=== PATIENT | male | born 1930 | race Caucasian/White ===

== ENCOUNTER 2017-03-25 12:18 | Inpatient (IN) | payer OTHER, MEDICARE ==
[~2017-03-25] VITALS: Ht 162.6 cm; Wt 68.9 kg
[2017-03-25 12:25] VITALS: Ht 162.6 cm; Wt 68.9 kg
--- NOTE | 2017-03-25 13:04 | DIAGNOSTIC IMAGING REPORT ---
CHEST ONE VIEW PORTABLE CLINICAL HISTORY: EVALUATE RESPIRATORY DISTRESS. DYSPNEA dyspnea COMPARISON STUDY: None FINDINGS: Moderate cardiac megaly. Permanent bipolar cardiac pacemaker. Small amount of fluid is the right minor fissure. Small bilateral pleural effusions. Increased pulmonary vasculature. IMPRESSION: Congestive heart failure Electronically signed by: Josué Zepeda M.D. 03/25/2017 1:03 PM Dictated Date/Time: 03/25/2017 1:02 PM
[2017-03-25 13:40] LABS: BASO % 0.8 %; BASO ABS # 0.04 K/uL (0-0.2); COMPLETE YES; EOS % 4.6 %; HEMATOCRIT 30.4 % (42-52); LYMPH % 18.2 %; LYMPH ABS # 0.87 K/uL (1.2-3.4); MEAN CELL VOLUME 104.8 fL (80-100); MEAN CORPUSCULAR HEMOGLOBIN 33.4 pg (25-34); MEAN CORPUSCULAR HGB CONC 31.9 g/dl (32-36); MEAN PLATELET VOLUME 10.5 fL (7.4-10.4); MONO % 8.6 %; NEUT % 67.8 %; PLATELET COUNT 137 K/uL (130-400); WHITE BLOOD COUNT 4.77 K/uL (4.8-10.8)
[2017-03-25 13:42] LABS: PARTIAL THROMBOPLASTIN RATIO 0.9; PROTHROMBIN TIME (PATIENT) 10.8 SECONDS (9.0-12.0)
[2017-03-25 13:59] LABS: ALT/SGPT 8 U/L (12-78); AST/SGOT 15 U/L (15-37); BLOOD UREA NITROGEN 57 mg/dl (7-18); BUN/CREATININE RATIO 28.4 (10-20); CALCIUM 8.6 mg/dl (8.5-10.1); CARBON DIOXIDE 38 mmol/L (21-32); CHLORIDE 97 mmol/L (98-107); GLUCOSE 138 mg/dl (70-99); POTASSIUM 3.9 mmol/L (3.5-5.1); SODIUM 141 mmol/L (136-145)
[2017-03-25] MEDS ORDERED: TAMS0.4C38 PO (14:00)
[2017-03-25] MEDS ORDERED: MEGE40TA13 PO (14:00)
[2017-03-25] MEDS ORDERED: POTA20TA16 PO (14:00)
[2017-03-25] MEDS ORDERED: SIMV40TA2 PO (14:00)
[2017-03-25] MEDS ORDERED: ASPI81TA28 PO (14:00)
[2017-03-25] MEDS ORDERED: CYAN10005 PO (14:00)
[2017-03-25] MEDS ORDERED: ASCO100061 PO (14:00)
[2017-03-25] MEDS ORDERED: CARV6.25 PO (14:00)
[2017-03-25] MEDS ORDERED: BUME1TAB PO ×2 (14:00)
[2017-03-25] MEDS ORDERED: LEVO100T7 PO (14:00)
[2017-03-25] MEDS ORDERED: CHOL2000 PO (14:00)
[2017-03-25 14:09] LABS: ALB/GLOB RATIO 0.9 (0.9-2); ALKALINE PHOSPHATASE 44 U/L (45-117)
[2017-03-25] MEDS ORDERED: BUMETANIDE SOLN 1 MG/4 ML VIAL IV STA (14:13)
[2017-03-25] MEDS ORDERED: ALUMINUM/MAGNESIUM/SIMETH (MAALOX MAX) 30 ML UDC PO PRN (14:30)
[2017-03-25] MEDS ORDERED: MAGNESIUM HYDROXIDE SUSP 30 ML UDC PO PRN (14:30)
[2017-03-25] MEDS ORDERED: ACETAMINOPHEN 325 MG TAB PO PRN (14:30)
[2017-03-25] MEDS ORDERED: MoRPHine SULFATE 2 MG/ML CARP IV PRN (14:30)
[2017-03-25] MEDS ORDERED: NITROGLYCERIN 0.4 MG SL PER TAB CHARGE SL PRN (14:30)
[2017-03-25 15:07] VITALS: BP 117/82; PULSE 72; TEMP 36.7; O2SAT 98
[2017-03-25 15:51] LABS: FERRITIN 134.8 ng/ml (8.0-388.0)
--- NOTE | 2017-03-25 16:03 | History and Physical ---
History & Physical Date & Time of Service: Mar 25, 2017 at 15:09 Chief Complaint: SOB Primary Care Physician: No Doctor, Assigned History of Present Illness Source: patient, family 86 y/o M CHF - recurrent effusions, CAD, CKD 2-3, AVR - bioprosthetic, ventricular pacer. Pt relocated form [place] 2 days prior. He has had worsening edema for a few days and today developed progressive SOB. Initial labs and clinical exam are consistent with CHF exacerbation. He denies CP, fevers, a productive cough, N/V, diaphoresis or dysuria. Initial labs were notable for ARF, and anemia. These were confirmed as acute with his MD in [place]. His troponin is slightly elevated although this may be due to ARF and CHF. An EKG is nondiagnostic due to pacing. 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 Father due to lung disease Mother age 86 due to "old age" Social History Smoking Status: Former Smoker Allergies Coded Allergies: Penicillins (Unverified Allergy, Unknown, HIVES, 03/25/17) Home Medications Scheduled Ascorbic Acid (Ascorbic Acid), 1 TAB PO DAILY Aspirin (Aspirin Ec), 81 MG PO DAILY Bumetanide (Bumex), 1 MG PO HS Bumetanide (Bumex), 1.5 MG PO QAM Carvedilol (Coreg), 6.25 MG PO BID Cholecalciferol (Vitamin D3), 1 CAP PO DAILY Cyanocobalamin (Vitamin B-12), 1,000 MCG PO DAILY Levothyroxine Sodium (Levothyroxine Sodium), 1 TAB PO DAILY Megestrol Acetate (Megace), 40 MG PO BID Potassium Ext Rel (Klor-Con), 20 MEQ PO DAILY Simvastatin (Zocor), 40 MG PO QPM Tamsulosin Hcl (Flomax), 0.4 MG PO DAILY Review of Systems Constitutional: No fever, No chills, No sweats Eyes: No worsening of vision ENT: No hearing loss, No unusual epistaxis, No nasal symptoms Respiratory: + shortness of breath, + dyspnea on exertion, + dyspnea at rest, No cough, No sputum, No wheezing Cardiovascular: No chest pain, No orthopnea, No PND Abdomen: No pain, No nausea Musculoskeletal: No joint pain Genitourinary - Male: No hematuria, No dysuria Neurologic: No memory loss, No paralysis, No weakness Psychiatric: No depression symptoms Endocrine: No fatigue Hematologic / Lymphatic: No abnormal bleeding/bruising Integumentary: No rash Allergic / Immunologic: No environmental allergies Physical Exam Vital Signs Date Time Temp Pulse Resp B/P (MAP) Pulse Ox O2 Delivery O2 Flow Rate FiO2 03/25/17 14:07 62 117/82 100 Nasal Cannula 3.0 03/25/17 13:16 98 Nasal Cannula 03/25/17 13:10 100 Nasal Cannula 3.0 03/25/17 13:00 67 03/25/17 12:52 99 Nasal Cannula 3.0 03/25/17 12:25 94 Nasal Cannula 3.0 03/25/17 12:25 36.7 75 16 116/54 94 Room Air 3.0 General Appearance: WD/WN, no apparent distress, + pertinent finding (PLeasant elderly male in no distress) Head: normocephalic Eyes: normal inspection ENT: normal ENT inspection, pharynx normal Neck: supple, + JVD Respiratory/Chest: chest non-tender, lungs clear, + decreased breath sounds ( No ai rinto R base - L crackledaaaaaaaaaaaaaaaaaaaaaaaaaaaaaaaaaaaaaaaaaaaaaaaaaaaaaaaaaaaaaaaaaaaaaaaa aaaaaaaaaaaaaaaaaaaaaaaaaaaaaaaaaaaaaaaaaaaaaaaaaaaaaaaaaaaaaaaaaaaaaaaaaaaaaaaa aaaaaaaaaaaaaaaaaaaaaaaaaaaaaaaaaaaaaaaaaaaaaaaaaa aaaaaaaaaaaaaaaaaaaaaaaaaaaaaaaaaaaaaaaaaaaaaaaaaaaaaaaaaaaaaaaaaaaaaaaaaaaaaaaa aaaaaaaaaaaaaaaaaaaaaaaaaaa ), + crackles (bilat) Cardiovascular: regular rate, rhythm, no edema, no gallop Abdomen/GI: normal bowel sounds, non tender, soft Back: normal inspection, no CVA tenderness, no muscle spasm, normal range of motion Extremities/Musculoskelatal: normal inspection, no calf tenderness, normal capillary refill, + pedal edema (3+ bilat) Neurologic/Psych: ambulatory service representative II-XII nml as tested, no motor/sensory deficits, alert, normal mood/affect, normal reflexes, oriented x 3 Skin: normal color, warm/dry, + pertinent finding (multiple bruises over forearms) Diagnostics Laboratory Results Results Past 24 Hours Test 03/25/17 13:10 Range/Units White Blood Count 4.77 4.8-10.8 K/uL Red Blood Count 2.90 4.7-6.1 M/uL Hemoglobin 9.7 14.0-18.0 g/dL Hematocrit 30.4 42-52 % Mean Corpuscular Volume 104.8 80-100 fL Mean Corpuscular Hemoglobin 33.4 25-34 pg Mean Corpuscular Hemoglobin Concent 31.9 32-36 g/dl Platelet Count 137 130-400 K/uL Mean Platelet Volume 10.5 7.4-10.4 fL Neutrophils (%) (Auto) 67.8 % Lymphocytes (%) (Auto) 18.2 % Monocytes (%) (Auto) 8.6 % Eosinophils (%) (Auto) 4.6 % Basophils (%) (Auto) 0.8 % Neutrophils # (Auto) 3.23 1.4-6.5 K/uL Lymphocytes # (Auto) 0.87 1.2-3.4 K/uL Monocytes # (Auto) 0.41 0.11-0.59 K/uL Eosinophils # (Auto) 0.22 0-0.5 K/uL Basophils # (Auto) 0.04 0-0.2 K/uL RDW Standard Deviation 47.7 36.4-46.3 fL RDW Coefficient of Variation 12.4 11.5-14.5 % Immature Granulocyte % (Auto) 0.0 % Immature Granulocyte # (Auto) 0.00 0.00-0.02 K/uL Prothrombin Time 10.8 9.0-12.0 SECONDS Prothromb Time International Ratio 1.0 0.9-1.1 Activated Partial Thromboplast Time 24.1 21.0-31.0 SECONDS Partial Thromboplastin Ratio 0.9 Sodium Level 141 136-145 mmol/L Potassium Level 3.9 3.5-5.1 mmol/L Chloride Level 97 98-107 mmol/L Carbon Dioxide Level 38 21-32 mmol/L Anion Gap 6.0 3-11 mmol/L Blood Urea Nitrogen 57 7-18 mg/dl Creatinine 2.00 0.60-1.40 mg/dl Estimated GFR () 34.0 Estimated GFR (Non- 29.3 BUN/Creatinine Ratio 28.4 10-20 Random Glucose 138 70-99 mg/dl Calcium Level 8.6 8.5-10.1 mg/dl Total Bilirubin 0.5 0.2-1 mg/dl Aspartate Amino Transf (AST/SGOT) 15 15-37 U/L Alanine Aminotransferase (ALT/SGPT) 8 12-78 U/L Alkaline Phosphatase 44 45-117 U/L Troponin I 0.110 0-0.045 ng/ml Pro-B-Type Natriuretic Peptide 03600 0-1800 pg/ml Total Protein 6.4 6.4-8.2 gm/dl Albumin 3.0 3.4-5.0 gm/dl Globulin 3.4 2.5-4.0 gm/dl Albumin/Globulin Ratio 0.9 0.9-2 Diagnostic Radiology CXR: Moderate cardiomegaly. Permanent bipolar cardiac pacemaker. Small amount of fluid is the right minor fissure. Small bilateral pleural effusions. Increased pulmonary vasculature. IMPRESSION: Congestive heart failure EKG Ventricular pacing Impression Assessment and Plan 86 y/o M CHF - recurrent effusions, CAD, CKD 2-3, AVR - bioprosthetic, ventricular pacer. Pt relocated form [place] 2 days prior. He has had worsening edema for a few days and today developed progressive SOB. Initial labs and clinical exam are consistent with CHF exacerbation. He denies CP, fevers, a productive cough, N/V, diaphoresis or dysuria. Initial labs were notable for ARF, and anemia. These were confirmed as acute with his MD in [place]. His troponin is slightly elevated although this may be due to ARF and CHF. An EKG is nondiagnostic due to pacing. 1) CHF exacerbation, effusions - pt placed on Bumex 2mg IV Q8h - pending evaluation by cardiology to advise on treatment and establish local follow-up. 2) ARF - baseline creat confirmed at 1.2 - likely related to CHF - trend BMP - pending at 9pm - next 3) CAD - no evidence of acute event - cont B baylee, ASA, statin 4) HPL - statin therapy 5) HTN - cont Coreg 6) Hypothyroid - cont Synthroid. 7) Anemia - baseline Hb 11.6 last - now 9.7 - recheck Hb at 9p to assess acuity - fecal occult blood, iron profile requested Full code - SCDs pending repeat Hb Total time for this admit including review of labs, meds, EKG, imaging - discussion with pt MD in [place], pt, family, ER attending - 40 min Level of Care Telemetry Resuscitation Status FULL RESUSCITATION VTE Prophylaxis VTE Risk Assessment Done? Y/N: Yes Risk Level: Moderate
[2017-03-25 16:36] VITALS: BP 113/60; PULSE 86; TEMP 37; O2SAT 96
[2017-03-25] MEDS: NITROGLYCERIN OINT 2% 1GM PACKET EXT SCH ×2 (17:30→21:54)
--- NOTE | 2017-03-25 18:43 | EMERGENCY ROOM VISIT NOTE ---
History Report prepared by Jena: Rachid Umana Under the Supervision of: Dr. Marty Georges M.D. First contact with patient: 12:30 Chief Complaint: SHORTNESS OF BREATH Stated Complaint: SOB Nursing Triage Summary: Pt c/o SOB, began about 3 years ago when he had a heart valve replaced, but yesterday it started getting worse when he woke up in the morning. Pt reports pt has a pacemaker. Pt states he wears 3L Oxyen at all times to take the strain off his heart. History of Present Illness The patient is a 86 year old male who presents to the Emergency Room with complaints of shortness of breathing worsening yesterday. He has chronic shortness of breath with a history of aortic valve replacement and left sided thoracentesis occurring about 2-3 years ago. He wears 3 L oxygen every day. Yesterday, the patient started having worse than normal shortness of breath. The difficulty breathing has become worse today than it was yesterday. He has been using a nebulizer treatment with some relief. He also reports bilateral lower extremity swelling which is worse than normal. He has a history of similar symptoms occurring with fluid overload. His last episode of fluid buildup was in October 2016. The patient is on Bumex. He is on a baby aspirin for a history of stroke. He denies any other blood thinners. He does not have a history of A-Fib. He traveled from [place] to [place] about 2 days ago. He denies fevers, cough, or any other complaints. Source of History: patient Onset: yesterday Position: other (global) Quality: other (shortness of breath) Timing: worsening Modifying Factors (Relieving): other (nebulizer with some relief) Associated Symptoms: No fevers, No cough Review of Systems See HPI for pertinent positives & negatives. A total of 10 systems reviewed and were otherwise negative. Past Medical & Surgical Medical Problems: (1) CHF exacerbation (2) Fluid overload (3) Shortness of breath (4) Stroke Surgical Problems: (1) H/O aortic valve replacement (2) History of thoracentesis Family History Patient reports no known family medical history. Social History Smoking Status: Former Smoker Marital Status: Occupation Status: other (unknown) Current/Historical Medications Scheduled Ascorbic Acid (Ascorbic Acid), 1 TAB PO DAILY Aspirin (Aspirin Ec), 81 MG PO DAILY Bumetanide (Bumex), 1 MG PO HS Bumetanide (Bumex), 1.5 MG PO QAM Carvedilol (Coreg), 6.25 MG PO BID Cholecalciferol (Vitamin D3), 1 CAP PO DAILY Cyanocobalamin (Vitamin B-12), 1,000 MCG PO DAILY Levothyroxine Sodium (Levothyroxine Sodium), 1 TAB PO DAILY Megestrol Acetate (Megace), 40 MG PO BID Potassium Ext Rel (Klor-Con), 20 MEQ PO DAILY Simvastatin (Zocor), 40 MG PO QPM Tamsulosin Hcl (Flomax), 0.4 MG PO DAILY Allergies Coded Allergies: Penicillins (Unverified Allergy, Unknown, HIVES, 03/25/17) Physical Exam Vital Signs Date Time Temp Pulse Resp B/P (MAP) Pulse Ox O2 Delivery O2 Flow Rate FiO2 03/25/17 14:07 62 117/82 100 Nasal Cannula 3.0 03/25/17 13:16 98 Nasal Cannula 03/25/17 13:10 100 Nasal Cannula 3.0 03/25/17 13:00 67 03/25/17 12:52 99 Nasal Cannula 3.0 03/25/17 12:25 94 Nasal Cannula 3.0 03/25/17 12:25 36.7 75 16 116/54 94 Room Air 3.0 Physical Exam GENERAL: Patient is in no acute distress. HEENT: No acute trauma, normocephalic atraumatic, mucous membranes moist, no nasal congestion, no scleral icterus. NECK: No stridor, no adenopathy, no meningismus, trachea is midline. LUNGS: Diminished breath sounds with crackles at both bases especially at the left, breath sounds at the left base are decreased when compared to the right, no wheezing, no respiratory distress. HEART: Irregular with a subtle systolic murmur, regular rate. ABDOMEN: Soft, nontender, bowel sounds positive, no hernias, no peritonitis. EXTREMITIES: No cyanosis, full range of motion of all the joints without pain or difficulty, no signs for acute trauma. Mild to moderate pedal edema, no cellulitis. NEUROLOGIC: Oriented x 3, no acute motor or sensory deficits, no focal weakness. SKIN: No rash, no jaundice, no diaphoresis. Medical Decision & Procedures ER Provider Diagnostic Interpretation: X-ray results as stated below per interpretation by me and the radiologist: CHEST ONE VIEW PORTABLE CLINICAL HISTORY: EVALUATE RESPIRATORY DISTRESS. DYSPNEA dyspnea COMPARISON STUDY: None FINDINGS: Moderate cardiac megaly. Permanent bipolar cardiac pacemaker. Small amount of fluid is the right minor fissure. Small bilateral pleural effusions. Increased pulmonary vasculature. IMPRESSION: Congestive heart failure Electronically signed by: Josué Zepeda M.D. 03/25/2017 1:03 PM Dictated Date/Time: 03/25/2017 1:02 PM Laboratory Results 03/25/17 13:10 Red Blood Count 2.90, Mean Corpuscular Volume 104.8, Mean Corpuscular Hemoglobin 33.4, Mean Corpuscular Hemoglobin Concent 31.9, Mean Platelet Volume 10.5, Neutrophils (%) (Auto) 67.8, Lymphocytes (%) (Auto) 18.2, Monocytes (%) ( Auto) 8.6, Eosinophils (%) (Auto) 4.6, Basophils (%) (Auto) 0.8, Neutrophils # ( Auto) 3.23, Lymphocytes # (Auto) 0.87, Monocytes # (Auto) 0.41, Eosinophils # ( Auto) 0.22, Basophils # (Auto) 0.04 03/25/17 13:10 Test 03/25/17 13:10 White Blood Count 4.77 K/uL (4.8-10.8) Red Blood Count 2.90 M/uL (4.7-6.1) Hemoglobin 9.7 g/dL (14.0-18.0) Hematocrit 30.4 % (42-52) Mean Corpuscular Volume 104.8 fL (80-100) Mean Corpuscular Hemoglobin 33.4 pg (25-34) Mean Corpuscular Hemoglobin Concent 31.9 g/dl (32-36) Platelet Count 137 K/uL (130-400) Mean Platelet Volume 10.5 fL (7.4-10.4) Neutrophils (%) (Auto) 67.8 % Lymphocytes (%) (Auto) 18.2 % Monocytes (%) (Auto) 8.6 % Eosinophils (%) (Auto) 4.6 % Basophils (%) (Auto) 0.8 % Neutrophils # (Auto) 3.23 K/uL (1.4-6.5) Lymphocytes # (Auto) 0.87 K/uL (1.2-3.4) Monocytes # (Auto) 0.41 K/uL (0.11-0.59) Eosinophils # (Auto) 0.22 K/uL (0-0.5) Basophils # (Auto) 0.04 K/uL (0-0.2) RDW Standard Deviation 47.7 fL (36.4-46.3) RDW Coefficient of Variation 12.4 % (11.5-14.5) Immature Granulocyte % (Auto) 0.0 % Immature Granulocyte # (Auto) 0.00 K/uL (0.00-0.02) Prothrombin Time 10.8 SECONDS (9.0-12.0) Prothromb Time International Ratio 1.0 (0.9-1.1) Activated Partial Thromboplast Time 24.1 SECONDS (21.0-31.0) Partial Thromboplastin Ratio 0.9 Anion Gap 6.0 mmol/L (3-11) Estimated GFR () 34.0 Estimated GFR (Non- 29.3 BUN/Creatinine Ratio 28.4 (10-20) Calcium Level 8.6 mg/dl (8.5-10.1) Iron Level 126 mcg/dl (35-175) Total Iron Binding Capacity 270 mcg/dl (250-450) Ferritin 134.8 ng/ml (8.0-388.0) Total Bilirubin 0.5 mg/dl (0.2-1) Aspartate Amino Transf (AST/SGOT) 15 U/L (15-37) Alanine Aminotransferase (ALT/SGPT) 8 U/L (12-78) Alkaline Phosphatase 44 U/L (45-117) Troponin I 0.110 ng/ml (0-0.045) Pro-B-Type Natriuretic Peptide 25091 pg/ml (0-1800) Total Protein 6.4 gm/dl (6.4-8.2) Albumin 3.0 gm/dl (3.4-5.0) Globulin 3.4 gm/dl (2.5-4.0) Albumin/Globulin Ratio 0.9 (0.9-2) Laboratory results reviewed by me. Medications Administered Medications (Trade) Dose Ordered Sig/Hilary Route Start Time Stop Time Status Last Admin Dose Admin Bumetanide (Bumex IV) 1 mg NOW STAT IV 03/25/17 14:13 03/25/17 14:14 DC 03/25/17 14:30 1 MG ECG Indication: SOB/dyspnea Rate (beats per minute): 64 Rhythm: other (AV pacemaker) Findings: no acute ischemic change, no ectopy ED Course 1230: The patient was evaluated in room B04B. A complete history and physical exam was performed. 1413: Bumex IV 1 mg IV 1424: Upon reexamination the patient is hum. I discussed results and treatment plan with the patient. He verbalizes agreement and understanding. The patient will be evaluated for further management. 1426: I discussed the patient's case with Dr. Canas, from [facility]. Medical Decision Medication Reconciliation: I attest that I have personally reviewed the patient' s current medication list. Blood Pressure Screening: Patient was found to have normal blood pressure on screening and does not require follow-up. Differential diagnosis includes but is not limited to CHF, pulmonary embolism, exacerbation of chronic lung disease, bronchitis or pneumonia, cardiac ischemia , renal failure, fluid overload, dysthymia, A-Fib, valve failure. There is no leukocytosis. The patient is anemic with a hemoglobin in the range of 9-10, this number is not critical. There was evidence for renal failure/ renal insufficiency with creatinine of 2. No significant electrolyte abnormalities requiring correction. No hepatitis. There was no coagulopathy. Chest x-ray shows cardiomegaly and CHF. No pneumonia or pneumothorax. BNP was quite elevated consistent with CHF and fluid overload. EKG showed an AV pacemaker, no acute ischemia. Cardiac enzyme testing times one does show an elevation to the cardiac troponin-this is consistent with cardiac strain/injury. The patient received IV Bumex to help with his fluid overload. Given the CHF, given his dyspnea, given the elevated cardiac markers, admission/observation was felt warranted. I spoke to the patient and case management. The on-call hospitalist was consulted. Consults Time Called: 1412 [facility] Phys[facility] Returned Call: 1426 I discussed the patient's case with Dr. Canas, from [facility]. Impression Primary Impression: CHF (congestive heart failure) Additional Impressions: SOB (shortness of breath) Elevated troponin Scribe Attestation The scribe's documentation has been prepared under my direction and personally reviewed by me in its entirety. I confirm that the note above accurately reflects all work, treatment, procedures, and medical decision making performed by me. Departure Information Dispostion Being Evaluated By Hospitalist Referrals No Doctor, Assigned (PCP) Patient Instructions [facility] Problem Qualifiers
[2017-03-25 20:00] VITALS: O2SAT 95
[2017-03-25] MEDS: CARVEDILOL 6.25 MG TAB PO SCH (20:58)
[2017-03-25] MEDS: MEGESTROL ACETATE 40 MG TAB PO SCH (20:58)
[2017-03-25] MEDS: SIMVASTATIN 40 MG TAB PO SCH (20:59)
[2017-03-25] MEDS: HEPARIN SOD 5000 UNIT/0.5 ML CARP SQ SCH (21:50)
[2017-03-25 21:51] VITALS: BP 142/56; PULSE 78; O2SAT 100
[2017-03-25 21:53] LABS: BLOOD UREA NITROGEN 61 mg/dl (7-18); BUN/CREATININE RATIO 27.9 (10-20); CALCIUM 8.8 mg/dl (8.5-10.1); CARBON DIOXIDE 40 mmol/L (21-32); CHLORIDE 97 mmol/L (98-107); GLUCOSE 134 mg/dl (70-99); POTASSIUM 3.9 mmol/L (3.5-5.1); SODIUM 140 mmol/L (136-145)
[2017-03-25] MEDS: BUMETANIDE IV 2 MG in SYRINGE 0 ML IV SCH (21:54)
[2017-03-25 23:40] VITALS: BP 128/69; PULSE 74; TEMP 36.6; O2SAT 97
[2017-03-26] VITALS (10 sets, daily range): BP systolic 113–137; BP diastolic 51–65; PULSE 55–67; TEMP 36.5–37; O2SAT 95–100
[2017-03-26] MEDS: NITROGLYCERIN OINT 2% 1GM PACKET EXT SCH ×4 (04:17→21:13)
[2017-03-26] MEDS: LEVOTHYROXINE 100 MCG TAB PO SCH (06:15)
[2017-03-26] MEDS: BUMETANIDE IV 2 MG in SYRINGE 0 ML IV SCH ×3 (06:16→20:56)
--- NOTE | 2017-03-26 07:38 | Clinical Documentation Query ---
CLINICAL DOCUMENTATION QUERY Query #1/2 86 year old male who presents to the Emergency Room with complaints of shortness of breathing. Current documentation includes CHF exacerbation. The medical record documentation is now expected to include definitive and explicit description of the patient's heart failure; vague terms such as "heart failure," ventricular dysfunction," and "CHF" may not fully capture the physician's intended level of severity. In your clinical opinion is this patient being managed for: ( ) Acute systolic (reduced EF) CHF ( ) Acute diastolic (preserved EF) CHF ( ) Acute systolic and diastolic CHF ( ) Other explanation of clinical findings (Please Explain) ( ) Unable to determine (Please Define) ( ) Need to Discuss ( ) Not Agree The medical record reflects the following clinical findings, treatment, and risk factors. Clinical Indicators: As above. CXR shows Cardiomegaly and Congestive heart failure. Troponin 0.110, ProBNAP 23542. ED lung exam reveals diminished breath sounds with crackles at both bases especially at the left, breath sounds at the left base are decreased when compared to the right, no wheezing, no respiratory distress. Treatment: IV Bumex, telemetry, I/O's. daily weights, cardiology consult, Risk Factors: Age, Cardiomegaly, CAD, CKD, HTN, AVR, and pacemaker. Query #2/2 Patient is noted to be on home O2 ATC. In your clinical opinion is this patient being managed for: ( ) Chronic respiratory failure in setting of Chronic CHF treated with continued O2 ( ) Other explanation of clinical findings (Please Explain) ( ) Unable to determine (Please Define) ( ) Need to Discuss ( ) Not Agree The medical record reflects the following clinical findings, treatment, and risk factors. Clinical Indicators: Home O2 use ATC. Treatment: O2 continues while and inpatient Risk Factors: CAD, CHF, CKD Please clarify and document your clinical opinion in the progress notes and discharge summary. Terms such as "probable", "suspected", "likely", "questionable", "possible", or "still to be ruled out" are acceptable. IF IN AGREEMENT, YOU MUST DOCUMENT ABOVE DIAGNOSTIC STATEMENT IN DAILY PROGRESS NOTES AND DISCHARGE SUMMARY. This document is not part of the patient's record. Thank You, Quinton Camacho, RN [phone]
[2017-03-26 07:43] LABS: HEMATOCRIT 30.5 % (42-52); MEAN CELL VOLUME 105.9 fL (80-100); MEAN CORPUSCULAR HGB CONC 32.1 g/dl (32-36); MEAN PLATELET VOLUME 10.8 fL (7.4-10.4); PLATELET COUNT 124 K/uL (130-400); RED BLOOD COUNT 2.88 M/uL (4.7-6.1); WHITE BLOOD COUNT 4.99 K/uL (4.8-10.8)
[2017-03-26] MEDS: CARVEDILOL 6.25 MG TAB PO SCH ×2 (08:04→21:18)
[2017-03-26] MEDS: TAMSULOSIN HCL 0.4 MG CAP PO SCH (08:04)
[2017-03-26] MEDS: ASPIRIN 81 MG ECTAB PO SCH (08:04)
[2017-03-26] MEDS: MEGESTROL ACETATE 40 MG TAB PO SCH ×2 (08:05→20:56)
[2017-03-26] MEDS: CYANOCOBALAMIN 500 MCG TAB (VIT B-12) PO SCH (08:05)
[2017-03-26] MEDS: HEPARIN SOD 5000 UNIT/0.5 ML CARP SQ SCH ×2 (08:14→21:16)
[2017-03-26 08:22] LABS: BUN/CREATININE RATIO 30.2 (10-20); CALCIUM 8.9 mg/dl (8.5-10.1); CREATININE 1.9 mg/dl (0.60-1.40); POTASSIUM 3.4 mmol/L (3.5-5.1)
[2017-03-26] MEDS ORDERED: POTASSIUM CHLORIDE 20 MEQ TABCR PO SCH (09:00)
[2017-03-26] MEDS ORDERED: BUMETANIDE 1 MG TAB PO SCH ×2 (09:00→17:00)
[2017-03-26] MEDS ORDERED: PERFLUTREN LIPID MICROSPHERE (DEFINITY) IV ONE (12:10)
--- NOTE | 2017-03-26 15:00 | ECHOCARDIOGRAM REPORT ---
*NOTICE TO RECEIVING CONSTITUTION PARTY AGENCY This information is strictly Confidential and protected under [place] law. [place] law prohibits you from making any further disclosure of this information unless further disclosure is expressly permitted by the written consent of the person to whom it pertains or is authorized by law. A general authorization for the release of medical or other information is not sufficient for this purpose. Hospital accepts no responsibility if the information is made available to any other person, INCLUDING THE PATIENT. Interpretation Summary * Name: GURWINDER JOHNSON Study Date: 03/26/2017 11:33 AM BP: 137/64 mmHg * Patient Location: .MED\S\N284\S\2 HR: 67 * : 1930 (M/d/yyyy) Gender: Male Height: 64 in * Age: 86 yrs Ethnicity: CA Weight: 153 lb * Ordering Physician: Dipak Go * Referring Physician: Self, Referred * Performed By: Jimi Valera RCS * * Reason For Study: CHF * BSA: 1.7 m2 * -- Conclusions -- * 1. Moderately dilated left ventricle with severely reduced systolic function. EF 30-35%. Akinesis of the inferolateral wall and apex. Otherwise, global hypokinesis. Mild left ventricular hypertrophy. Inferolateral wall appears thinned. Type 2 diastolic dysfunction. * 2. The right ventricular systolic function is mildly reduced. * 3. The left atrium is mildly dilated. * 4. Bioprosthetic aortic valve with acceptable transvalvular velocity and gradient. * 5. There is mild mitral regurgitation. * 6. There is mild to moderate tricuspid regurgitation. * 7. Severe pulmonary hypertension suggested with estimated right ventricular systolic pressure > 60 mmHg. * 8. Technically difficult study, enhanced with IV Definity. * 9. No prior study available for comparison. Procedure Details * A contrast injection of Definity was performed to improve assessment for apical thrombus. * A contrast injection of Definity was performed to improve assessment of LV function. * Contrast was injected into an intravenous site in the left arm. * One vial of Definity ultrasound contrast was diluted in normal saline to a total volume of 10 ml. A total of '6' ml of solution was administered during imaging. * Lot # [id number] of Definity utilized for procedure. * Expiration date [id number]. * The attending nurse who injected the contrast agent was Samaria Tobin RN. Left Ventricle * Moderately dilated left ventricle with severely reduced systolic function. EF 30-35%. Akinesis of the inferolateral wall and apex. Otherwise, global hypokinesis. Mild left ventricular hypertrophy. Inferolateral wall appears thinned. Type 2 diastolic dysfunction. * No visualized apical thrombus. Right Ventricle * There is a pacemaker lead in the right ventricle. * The right ventricle is grossly normal size. * The right ventricular systolic function is reduced as assessed by tricuspid annular plane systolic excursion (TAPSE) (TAPSE <1.6 cm). * The right ventricular systolic function is mildly reduced. Atria * The left atrium is mildly dilated. * Right atrial size is normal. Mitral Valve * There is moderate mitral annular calcification. * There is no mitral valve stenosis. * There is mild mitral regurgitation. Tricuspid Valve * The tricuspid valve is not well visualized. * There is no tricuspid stenosis. * There is mild to moderate tricuspid regurgitation. Aortic Valve * No hemodynamically significant valvular aortic stenosis. * There is no significant aortic regurgitation. * Bioprosthetic aortic valve with acceptable transvalvular velocity and gradient. Pulmonic Valve * The pulmonary valve is inadequately visualized, but the Doppler data is adequate for interpretation. * There is no pulmonic valvular stenosis. * There is no significant pulmonary regurgitation. Great Vessels * The aortic root is normal size. Pericardium/Pleural * There is no pericardial effusion. Great Vessels * IVC not visualized. MMode 2D Measurements and Calculations IVSd 1.3 cm LVIDd 6.5 cm LVIDs 5.5 cm LVPWd 0.93 cm IVS/LVPW 1.5 FS 14.9 % EDV(Teich) 216.1 ml ESV(Teich) 149.3 ml EF(Teich) 30.9 % EDV(cubed) 274.7 ml ESV(cubed) 169.2 ml EF(cubed) 38.4 % LV mass(C)d 334.1 grams LV mass(C)dI 191.4 grams/m\S\2 SV(Teich) 66.8 ml SI(Teich) 38.2 ml/m\S\2 SV(cubed) 105.6 ml SI(cubed) 60.5 ml/m\S\2 Ao root diam 3.2 cm Ao root area 8.2 cm\S\2 LVAd ap4 45.2 cm\S\2 LVLd ap4 8.7 cm EDV(MOD-sp4) 152.9 ml EDV(sp4-el) 154.2 ml LVAs ap4 38.4 cm\S\2 LVLs ap4 8.8 cm ESV(MOD-sp4) 122.3 ml ESV(sp4-el) 122.6 ml EF(MOD-sp4) 20.0 % EF(sp4-el) 20.5 % LVAd ap2 41.3 cm\S\2 LVLd ap2 9.0 cm EDV(MOD-sp2) 169.1 ml EDV(sp2-el) 175.1 ml LVAs ap2 37.3 cm\S\2 LVLs ap2 9.0 cm ESV(MOD-sp2) 114.9 ml ESV(sp2-el) 115.7 ml EF(MOD-sp2) 32.0 % EF(sp2-el) 33.9 % LVLd %diff 1.3 % EDV(MOD-bp) 171.5 ml LVLs %diff 7.6 % ESV(MOD-bp) 120.1 ml EF(MOD-bp) 30.0 % SV(MOD-sp4) 30.6 ml SI(MOD-sp4) 17.5 ml/m\S\2 SV(MOD-sp2) 54.2 ml SI(MOD-sp2) 31.0 ml/m\S\2 SV(MOD-bp) 51.5 ml SI(MOD-bp) 29.5 ml/m\S\2 SV(sp4-el) 31.6 ml SI(sp4-el) 18.1 ml/m\S\2 SV(sp2-el) 59.4 ml SI(sp2-el) 34.0 ml/m\S\2 Doppler Measurements and Calculations MV E max sanjana 154.9 cm/sec MV A max sanjana 133.9 cm/sec MV E/A 1.2 MV dec time 0.16 sec Ao V2 max 128.3 cm/sec Ao max PG 6.6 mmHg Ao max PG (full) 5.3 mmHg Ao V2 mean 84.4 cm/sec Ao mean PG 3.3 mmHg Ao mean PG (full) 2.5 mmHg Ao V2 VTI 23.5 cm LV V1 max PG 1.3 mmHg LV V1 mean PG 0.71 mmHg LV V1 max 57.4 cm/sec LV V1 mean 38.9 cm/sec LV V1 VTI 12.6 cm SV(Ao) 193.0 ml SI(Ao) 110.5 ml/m\S\2 TR max sanjana 380.7 cm/sec
--- NOTE | 2017-03-26 15:25 | Progress Note ---
Subjective Date of Service: Mar 26, 2017. Subjective pt remains short of breath but improved, still with some accessory muscle use of respirations, I personally discussed case with Dr Go, and updated family at bedside Problem List Medical Problems: (1) CHF (congestive heart failure) Status: Acute (2) Elevated troponin Status: Acute (3) SOB (shortness of breath) Status: Acute Review of Systems Constitutional: + weakness, + fatigue, No fever, No chills Respiratory: + cough, + shortness of breath, + dyspnea on exertion, + dyspnea at rest, No sputum Cardiac: + orthopnea, + PND, + edema, No chest pain Abdomen: No pain, No nausea, No vomiting Neurologic: + weakness, No memory loss, No balance problems Psychiatric: No depression symptoms, No anhedonism Objective Vital Signs Date Time Temp Pulse Resp B/P (MAP) Pulse Ox O2 Delivery O2 Flow Rate FiO2 03/26/17 04:03 36.5 67 16 122/55 (77) 97 Nasal Cannula 3.0 03/26/17 04:00 Nasal Cannula 2.0 03/26/17 00:00 Nasal Cannula 2.0 03/25/17 23:40 36.6 74 18 128/69 (88) 97 Room Air 03/25/17 21:51 78 20 142/56 (84) 100 Nasal Cannula 03/25/17 20:00 95 Nasal Cannula 2.0 03/25/17 16:36 37.0 86 20 113/60 (77) 96 Nasal Cannula 2.0 03/25/17 15:23 64 16 108/58 100 Room Air 03/25/17 15:07 36.7 72 16 117/82 98 Nasal Cannula 3.0 03/25/17 14:07 62 117/82 100 Nasal Cannula 3.0 03/25/17 13:16 98 Nasal Cannula 03/25/17 13:10 100 Nasal Cannula 3.0 03/25/17 13:00 67 03/25/17 12:52 99 Nasal Cannula 3.0 03/25/17 12:25 94 Nasal Cannula 3.0 03/25/17 12:25 36.7 75 16 116/54 94 Room Air 3.0 Physical Exam General Appearance: WD/WN, + moderate distress Eyes: PERRL, EOMI Neck: trachea midline, + JVD Respiratory/Chest: + decreased breath sounds, + accessory muscle use, + rales Cardiovascular: regular rate, rhythm, + systolic murmur Abdomen: normal bowel sounds, non tender, soft Extremities: + pedal edema, + swelling Neurologic/Psychiatric: alert, oriented x 3 Laboratory Results Last 24 Hours Test 03/25/17 13:10 03/25/17 21:04 03/26/17 07:00 White Blood Count 4.77 K/uL Red Blood Count 2.90 M/uL Hemoglobin 9.7 g/dL 9.7 g/dL Hematocrit 30.4 % Mean Corpuscular Volume 104.8 fL Mean Corpuscular Hemoglobin 33.4 pg Mean Corpuscular Hemoglobin Concent 31.9 g/dl Platelet Count 137 K/uL Mean Platelet Volume 10.5 fL Neutrophils (%) (Auto) 67.8 % Lymphocytes (%) (Auto) 18.2 % Monocytes (%) (Auto) 8.6 % Eosinophils (%) (Auto) 4.6 % Basophils (%) (Auto) 0.8 % Neutrophils # (Auto) 3.23 K/uL Lymphocytes # (Auto) 0.87 K/uL Monocytes # (Auto) 0.41 K/uL Eosinophils # (Auto) 0.22 K/uL Basophils # (Auto) 0.04 K/uL RDW Standard Deviation 47.7 fL RDW Coefficient of Variation 12.4 % Immature Granulocyte % (Auto) 0.0 % Immature Granulocyte # (Auto) 0.00 K/uL Prothrombin Time 10.8 SECONDS Prothromb Time International Ratio 1.0 Activated Partial Thromboplast Time 24.1 SECONDS Partial Thromboplastin Ratio 0.9 Sodium Level 141 mmol/L 140 mmol/L Potassium Level 3.9 mmol/L 3.9 mmol/L Chloride Level 97 mmol/L 97 mmol/L Carbon Dioxide Level 38 mmol/L 40 mmol/L Anion Gap 6.0 mmol/L 3.0 mmol/L Blood Urea Nitrogen 57 mg/dl 61 mg/dl Creatinine 2.00 mg/dl 2.20 mg/dl Estimated GFR () 34.0 30.3 Estimated GFR (Non- 29.3 26.2 BUN/Creatinine Ratio 28.4 27.9 Random Glucose 138 mg/dl 134 mg/dl Calcium Level 8.6 mg/dl 8.8 mg/dl Iron Level 126 mcg/dl Total Iron Binding Capacity 270 mcg/dl Ferritin 134.8 ng/ml Total Bilirubin 0.5 mg/dl Aspartate Amino Transf (AST/SGOT) 15 U/L Alanine Aminotransferase (ALT/SGPT) 8 U/L Alkaline Phosphatase 44 U/L Troponin I 0.110 ng/ml Pro-B-Type Natriuretic Peptide 28825 pg/ml Total Protein 6.4 gm/dl Albumin 3.0 gm/dl Globulin 3.4 gm/dl Albumin/Globulin Ratio 0.9 Assessment and Plan 86 y/o M acute on chronic systolic CHF -elevated troponin acute on chronic renal failure stage 3 and anemia, h/o AVR - bioprosthetic, ventricular pacer acute systolic CHF exacerbation, effusions - pt placed on Bumex 2mg IV Q8h - pending evaluation by cardiology and ECHO to determine exact nature of heart failure, has history of aortic valve repair, did diurese 1100. Family reports that he had admissions each 2-3 months in [place] for HF including thoracentesis , current CXR does not show massive Effusions and the pt is tolerating diuresis wekk acute renal failure - baseline creat confirmed at 1.2 -has worsened with diuresis will have nephrology involved Elevated troponin, continue aspirin statin and B baylee, trend Hypothyroid - clinically stable, cont Synthroid. Anemia - baseline Hb 11.6 last - now 9.7 - fecal occult blood, iron profile requested
--- NOTE | 2017-03-26 15:39 | Cardiology Consultation ---
Cardiology Consultation Date of Consultation: Mar 26, 2017. Reason for Consultation: Shortness of breath with background of CHF Pt evaluation today including: conversation w/ patient, conversation w/ family , physical exam, chart review, lab review, review of inpatient medication list History of Present Illness ADDENDUM BY ATTENDING JANITORIAL MANAGER: PLEASE SEE MY FULL CONSULT IN SEPARATE DOCUMENT. BELOW IS FAMILY PRACTICE RESIDENT/REGIONAL MARKETING MANAGER NOTE. Mr. Hernández is a pleasant 86 year old gentleman with a longstanding cardiovascular history culminating in CHF and a bioprosthetic TAVR who presented to ED yesterday with a 1 week history of SOB, intermittent cough and bilateral leg swelling. Over the last week, his shortness of breath has been worsening, and 2 days ago, he awoke from his sleep in the morning due to SOB. He denies chest pain, palpitations and syncopal episodes. At his baseline, he is able to carry out his ADL's and walk approximately 100 feet before experiencing SOB. He is always on 3L of oxygen at home via nasal cannula. He generally uses his nebulizer 3 times a day to improve his breathing. In the last week, he has been experiencing shortness of breath at rest, and has used his nebulizer more than his usual three times a day. His reports that during this week he has gained 3 pounds. They presented to their respiratory doctor in [place] who did a CT scan of Mr. Hernández's chest and found that he had a fluid build up, but not enough to warrant a thoracocentesis. Following this visit, he and his drove back from [place] and then shortly after, his SOB worsened. His stated that she gives him 0.5mg of Bumex in the morning and 1mg in the evening, and had given him 2 extra doses of Bumex in order to try and relieve his SOB, however this did not help. His CHF was diagnosed in 2014 following his TAVR. Since then, he has had 2-3 thoracocentesis and has been admitted to the hospital every 2-3 months with SOB and fluid overload. His most recent ECHO in Oct 2016 showed an ejection fraction of 15% and therefore an ICD was placed. They intended to place a biventricular ICD, however they were only successful in implanting two leads. 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 He then suffered an ischemic stroke in 1991, but made a full recover with rehab. He has had a stent put in his right carotid artery in 2003, and on the left side in 2007. Next, he had a stent put in his bypass artery graft in 1988. His aortic valve was replaced with a bioprosthetic valve in 2014, due to symptomatic aortic stenosis. He feels that this is when his health started to deteriorate. He and his currently live in [place], where they have been residing for 12 years. They are now moving back to [place] as their children live in this area. One of his daughters has a house in [place] which is where he will stay once discharged. Family History Patient reports no known family medical history. Social History Smoking Status: Former Smoker (20 pack year history - quit at 46) History of Alcohol Use: Yes Review of Systems Constitutional: No fever, No chills, No sweats Respiratory: + cough, + shortness of breath, + dyspnea on exertion, No sputum, No wheezing, No hemoptysis Cardiac: + orthopnea, + PND, + edema, No chest pain, No claudication, No palpitations Abdomen: No pain, No nausea, No vomiting, No diarrhea, No constipation, No GI bleeding Skin: + problem reported (multiple bruises over both forearms) All Other Systems: Reviewed and Negative Allergies Coded Allergies: Penicillins (Unverified Allergy, Unknown, HIVES, 03/25/17) Medications Current Inpatient Medications Medications (Trade) Dose Ordered Sig/Hilary Route Start Time Stop Time Status Last Admin Dose Admin Aspirin (Ecotrin Tab) 81 mg DAILY PO 03/26/17 09:00 04/25/17 08:59 03/26/17 08:04 81 MG Carvedilol (Coreg Tab) 6.25 mg BID PO 03/25/17 21:00 04/24/17 20:59 03/26/17 08:04 6.25 MG Cyanocobalamin (Vitamin B-12 Tab) 1,000 mcg DAILY PO 03/26/17 09:00 04/25/17 08:59 03/26/17 08:05 1,000 MCG Levothyroxine Sodium (Synthroid Tab) 100 mcg DAILYBB PO 03/26/17 06:30 04/25/17 06:59 03/26/17 06:15 100 MCG Megestrol Acetate (Megace Tab) 40 mg BID PO 03/25/17 21:00 04/24/17 20:59 03/26/17 08:05 40 MG Simvastatin (Zocor Tab) 40 mg QPM PO 03/25/17 21:00 04/24/17 20:59 03/25/17 20:59 40 MG Tamsulosin HCl (Flomax Cap) 0.4 mg DAILY PO 03/26/17 09:00 04/25/17 08:59 03/26/17 08:04 0.4 MG Heparin Sodium (Porcine) (Heparin Sq 5000 Unit/0.5ml) 5,000 unit Q12 SQ 03/25/17 21:00 04/24/17 20:59 03/26/17 08:14 5,000 UNIT Acetaminophen (Tylenol Tab) 650 mg Q4H PRN PO 03/25/17 14:30 04/24/17 14:29 Al Hydrox/Mg Hydrox/Simethicone (Maalox Max Susp) 15 ml Q4H PRN PO 03/25/17 14:30 04/24/17 14:29 Magnesium Hydroxide (Milk Of Magnesia Susp) 30 ml Q12H PRN PO 03/25/17 14:30 04/24/17 14:29 Nitroglycerin (Nitrostat Tab) 0.4 mg UD PRN SL 03/25/17 14:30 04/24/17 14:29 Nitroglycerin (Nitroglycerin 2% Oint) 1 inch Q6H EXT 03/25/17 16:00 04/24/17 15:59 03/26/17 10:33 1 INCH Morphine Sulfate (MoRPHine SULFATE INJ) 2 mg Q30M PRN IV 03/25/17 14:30 04/08/17 14:29 Bumetanide 2 mg/ Syringe 8 ml @ 4 mls/min Q8H IV 03/25/17 22:00 04/24/17 21:59 03/26/17 14:13 4 MLS/MIN Potassium Chloride (Klor-Con Tab) 20 meq BID PO 03/26/17 21:00 03/27/17 21:01 Physical Exam Vital Signs Past 12 Hours Date Time Temp Pulse Resp B/P (MAP) Pulse Ox O2 Delivery O2 Flow Rate FiO2 03/26/17 12:00 95 Nasal Cannula 2.0 03/26/17 11:20 36.5 64 18 124/65 (84) 97 2.0 03/26/17 09:00 62 03/26/17 07:59 95 Nasal Cannula 2.0 03/26/17 07:56 36.7 59 18 137/64 (88) 99 2.0 03/26/17 04:03 36.5 67 16 122/55 (77) 97 Nasal Cannula 3.0 03/26/17 04:00 Nasal Cannula 2.0 Head: normocephalic, atraumatic Neck: supple, trachea midline, no masses Lungs: Respiratory effort: no dyspnea Auscultation: no wheezing, no rales/crackles, no rhonchi, decreased breath sounds (bilaterally, worse on left), pertinent finding (on 2L of oxygen via nasal cannula) Cardiovascular: Apical Impulse: not displaced Heart Auscultation: RRR, no rubs, no gallops, pertinent finding (JVD) Peripheral Pulses: Bruits: none appreciated Carotid Pulse: normal on the left, normal on the right Abdomen: Inspection & Palpation: soft, non-distended, no tenderness, guarding & rebound, no masses, no CVA tenderness Liver: non-tender, no hepatomegaly Extremities: no cyanosis, edema (2+ pitting edema on legs bilaterally) Data Laboratory Results: Last 24 Hours Test 03/25/17 21:04 03/26/17 07:00 Hemoglobin 9.7 g/dL 9.8 g/dL Sodium Level 140 mmol/L 141 mmol/L Potassium Level 3.9 mmol/L 3.4 mmol/L Chloride Level 97 mmol/L 96 mmol/L Carbon Dioxide Level 40 mmol/L 40 mmol/L Anion Gap 3.0 mmol/L 5.0 mmol/L Blood Urea Nitrogen 61 mg/dl 57 mg/dl Creatinine 2.20 mg/dl 1.90 mg/dl Estimated GFR () 30.3 36.2 Estimated GFR (Non- 26.2 31.2 BUN/Creatinine Ratio 27.9 30.2 Random Glucose 134 mg/dl 95 mg/dl Calcium Level 8.8 mg/dl 8.9 mg/dl White Blood Count 4.99 K/uL Red Blood Count 2.88 M/uL Hematocrit 30.5 % Mean Corpuscular Volume 105.9 fL Mean Corpuscular Hemoglobin 34.0 pg Mean Corpuscular Hemoglobin Concent 32.1 g/dl RDW Standard Deviation 47.4 fL RDW Coefficient of Variation 12.3 % Platelet Count 124 K/uL Mean Platelet Volume 10.8 fL Est Creatinine Clear Calc Drug Dose 23.4 ml/min Magnesium Level 1.9 mg/dl Troponin I 0.113 ng/ml Imaging: EKG: Telemetry reviewed: Assessment & Plan Decompensated Heart Failure - Continue Bumex 2mg IV Q8H as the patient is still fluid overloaded - Continue ambulatory O2 - Monitor I/Os - Obtain records from [facility] in [place] to further optimize management - ECHO today showed moderately dilated left ventricle with severely reduced systolic function. EF 30-35%. Akinesis of the inferolateral wall and apex. Otherwise, global hypokinesis and severe pulmonary hypertension suggested with estimated right ventricular systolic pressure > 60 mmHg. - Mr. Hernández was previously on Entresto and an ACEi however this was discontinued by their slagger due to side effects - may try to reintroduce these medications in smaller dosages at a later date - Mr. Hernández was also counselled on watching his salt intake and told to aim for an intake of 2000mg per day. CAD - Continue aspirin, statin and beta baylee Ventricular Tachycardia - One episode of vtach last night lasting 20 beats - Try and increase carvedilol dosage slowly to avoid further arrhythmias CKD - Baseline creatinine is 1.2. Yesterday was 2.2 and today 1.9 - Monitor creatinine levels - likely acute worsening due to fluid overload The family was present at the bedside and updated Resident Tracking Resident Involvement: Resident Care Provided Care Provided: Adult Hospital Medicine
--- NOTE | 2017-03-26 18:32 | Cardiology Consultation ---
Cardiology Consultation Date of Consultation: Mar 26, 2017. Requesting Physician: Dr. Canas Attending Physician: Dr. Eid Reason for Consultation: CHF Pt evaluation today including: conversation w/ patient, conversation w/ family , physical exam, chart review, lab review, review of studies, review of inpatient medication list, conversation w/ attending History of Present Illness Mr. 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 He was hospitalized on 03/25/2017 for worsening shortness of breath and was diagnosed with CHF. He recently moved to the [facility] within the past few days, from [place]. Would meeting with him earlier today, records were not yet available from his prior right of way supervisor but he and his were able to provide his prior cardiac history. He had a CABG x2 in 1985. They report undergoing PCI of a bypass graft in 1988. On 10/28/2014 he underwent transapical TAVR for aortic stenosis. He states that since then he has not done well medically, dealing with multiple readmissions for shortness of breath/CHF, estimatinghospitalization every 2 months or so for CHF. On 12/20/2015 he underwent dual chamber ICD placement, and this was a [employer] device. They believe there was another lead attempted , possibly biventricular device, but there was difficulty placing this lead and due to the length of the procedure, the decision was made to and the procedure. He apparently has been on higher doses of carvedilol in the past and his believes this was weaned secondary to hypotension. She states he may have had some slight dizziness. He also was on Entresto, but this was also discontinued due to hypotension. He believes that his last cardiac catheterization was approximately 2 years ago and was told that there was no significant blockages at that time. He had a carotid endarterectomy in 2003 on the right and underwent left carotid artery stent in 2007. For approximately the past 1 week, he has had increasing shortness of breath, dyspnea with exertion, orthopnea, PND, edema, and cough. He maintains a low- sodium diet. His states that she does most of the cooking and they try to avoid restaurant food due to sodium content. He has gained approximately 3 lb over the past week. His lower extremity swelling has increased. He typically takes Bumex 0.5 mg in the morning and 1 mg in the evening. He has been advised in the past take an additional 1 mg as needed and she has given him 2 additional doses in the past 4 days. She believes it started to make an improvement, but not quick enough. He was admitted and given Bumex intravenously and already feels much better. He denies angina, syncope, near-syncope, palpitations, nausea, vomiting, or bleeding such as melena, hematochezia, or hematuria. He believes that his ICD was last interrogated a few weeks ago while in [place]. There recently seen by pulmonology in [place] regarding pleural effusions. He has undergone thoracentesis 2 or 3 times over the past 2 years. He was told that he did not require further thoracentesis at this time. He did undergo a talc procedure on the left pleural effusion in 2014. Review of systems: As above review of systems otherwise negative/unremarkable. Past Medical/Surgical History (1) Recurrent pleural effusion on left (2) Recurrent pleural effusion on right (3) Hypothyroidism (4) CAD in [place] artery (5) CAD (coronary artery disease) of bypass graft (6) Type 2 diabetes mellitus (7) H/O carotid endarterectomy (8) S/p TAVR (transcatheter aortic valve replacement), bioprosthetic (9) Chronic kidney disease (10) Systolic CHF (11) Cardiomyopathy (12) ICD (implantable cardioverter-defibrillator) in place (13) Stroke (14) Dyslipidemia Family History Patient reports no known family medical history. Social History Quit smoking at the age of 46 after approximately 20 pack years. No significant alcohol. He is . Two sons and 2 daughters. Moved from [place] to the [facility] in March of 2017. Four grandchildren. One great grandchild on the way. He is accompanied today by his , 2 daughters, and son-in-law. Allergies Coded Allergies: Penicillins (Unverified Allergy, Unknown, HIVES, 03/25/17) Medications Current Inpatient Medications Medications (Trade) Dose Ordered Sig/Hilary Route Start Time Stop Time Status Last Admin Dose Admin Aspirin (Ecotrin Tab) 81 mg DAILY PO 03/26/17 09:00 04/25/17 08:59 03/26/17 08:04 81 MG Cyanocobalamin (Vitamin B-12 Tab) 1,000 mcg DAILY PO 03/26/17 09:00 04/25/17 08:59 03/26/17 08:05 1,000 MCG Levothyroxine Sodium (Synthroid Tab) 100 mcg DAILYBB PO 03/26/17 06:30 04/25/17 06:59 03/26/17 06:15 100 MCG Megestrol Acetate (Megace Tab) 40 mg BID PO 03/25/17 21:00 04/24/17 20:59 03/26/17 08:05 40 MG Simvastatin (Zocor Tab) 40 mg QPM PO 03/25/17 21:00 04/24/17 20:59 03/25/17 20:59 40 MG Tamsulosin HCl (Flomax Cap) 0.4 mg DAILY PO 03/26/17 09:00 04/25/17 08:59 03/26/17 08:04 0.4 MG Heparin Sodium (Porcine) (Heparin Sq 5000 Unit/0.5ml) 5,000 unit Q12 SQ 03/25/17 21:00 04/24/17 20:59 03/26/17 08:14 5,000 UNIT Acetaminophen (Tylenol Tab) 650 mg Q4H PRN PO 03/25/17 14:30 04/24/17 14:29 Al Hydrox/Mg Hydrox/Simethicone (Maalox Max Susp) 15 ml Q4H PRN PO 03/25/17 14:30 04/24/17 14:29 Magnesium Hydroxide (Milk Of Magnesia Susp) 30 ml Q12H PRN PO 03/25/17 14:30 04/24/17 14:29 Nitroglycerin (Nitrostat Tab) 0.4 mg UD PRN SL 03/25/17 14:30 04/24/17 14:29 Nitroglycerin (Nitroglycerin 2% Oint) 1 inch Q6H EXT 03/25/17 16:00 04/24/17 15:59 03/26/17 16:12 1 INCH Morphine Sulfate (MoRPHine SULFATE INJ) 2 mg Q30M PRN IV 03/25/17 14:30 04/08/17 14:29 Bumetanide 2 mg/ Syringe 8 ml @ 4 mls/min Q8H IV 03/25/17 22:00 04/24/17 21:59 03/26/17 14:13 4 MLS/MIN Potassium Chloride (Klor-Con Tab) 20 meq BID PO 03/26/17 21:00 03/27/17 21:01 Carvedilol (Coreg Tab) 9.375 mg BID PO 03/26/17 21:00 04/24/17 20:59 UNV Physical Exam 03/25/17 03/26/17 03/27/17 07:59 07:59 07:59 Intake Total 200 ml 200 ml Output Total 1150 ml 350 ml Balance -950 ml -150 ml Vital Signs Past 12 Hours Date Time Temp Pulse Resp B/P (MAP) Pulse Ox O2 Delivery O2 Flow Rate FiO2 03/26/17 16:00 37.0 62 20 113/51 (71) 99 Room Air 03/26/17 16:00 97 Nasal Cannula 2.0 03/26/17 16:00 97 Nasal Cannula 03/26/17 12:00 95 Nasal Cannula 2.0 03/26/17 11:20 36.5 64 18 124/65 (84) 97 2.0 03/26/17 09:00 62 03/26/17 07:59 95 Nasal Cannula 2.0 03/26/17 07:56 36.7 59 18 137/64 (88) 99 2.0 Gen.: No acute distress. Alert and oriented. HEENT: Anicteric sclera. Neck: Elevated JVD, residential to the mandible sitting upright. Hepatic jugular reflux noted. Bilateral carotid bruits, right greater than left. Normal carotid upstrokes bilaterally. Cardiac: PMI was nonpalpable. No ventricular heave. Regular rate and rhythm. Normal S1-S2. 1/6 systolic ejection murmur best heard at the right upper sternal border. No rubs or gallops. Pulmonary: Decreased breath sounds bilateral bases. Rales in the mid lung mora bilaterally. Abdomen: Soft, nontender, nondistended, with normoactive bowel sounds. No bruits noted. Extremities: 2+ radial pulses bilaterally. 1+ posterior tibialis pulses bilaterally. 2+ pitting edema to approximately 6 inches above the ankles. More proximally, trace to 1+ bilateral lower extremity edema 2/[address] the knees. No cyanosis. Psychiatric: Affect appears appropriate. Data Laboratory Results: Last 24 Hours Test 03/25/17 21:04 03/26/17 07:00 03/26/17 18:04 Hemoglobin 9.7 g/dL 9.8 g/dL Sodium Level 140 mmol/L 141 mmol/L Potassium Level 3.9 mmol/L 3.4 mmol/L Chloride Level 97 mmol/L 96 mmol/L Carbon Dioxide Level 40 mmol/L 40 mmol/L Anion Gap 3.0 mmol/L 5.0 mmol/L Blood Urea Nitrogen 61 mg/dl 57 mg/dl Creatinine 2.20 mg/dl 1.90 mg/dl Estimated GFR () 30.3 36.2 Estimated GFR (Non- 26.2 31.2 BUN/Creatinine Ratio 27.9 30.2 Random Glucose 134 mg/dl 95 mg/dl Calcium Level 8.8 mg/dl 8.9 mg/dl White Blood Count 4.99 K/uL Red Blood Count 2.88 M/uL Hematocrit 30.5 % Mean Corpuscular Volume 105.9 fL Mean Corpuscular Hemoglobin 34.0 pg Mean Corpuscular Hemoglobin Concent 32.1 g/dl RDW Standard Deviation 47.4 fL RDW Coefficient of Variation 12.3 % Platelet Count 124 K/uL Mean Platelet Volume 10.8 fL Est Creatinine Clear Calc Drug Dose 23.4 ml/min Magnesium Level 1.9 mg/dl Troponin I 0.113 ng/ml Chest x-ray 03/25/2013: Images personally reviewed. Dual-chamber ICD/pacer noted. Fluid within the right minor fissure. Small bilateral pleural effusions. Increased vascular markings. Radiology interpretation is CHF. ECG personally reviewed. ECG 03/25/2017 at 12:51 p.m.: AV dual paced rhythm with prolonged AV conduction. 64 bpm. Telemetry personally reviewed. Twenty beat run of ventricular tachycardia on at 9:17 p.m. Echo images personally reviewed. Echo 03/26/2017: 1. Moderately dilated left ventricle with severely reduced systolic function. EF 30-35%. Akinesis of the inferolateral wall and apex. Otherwise, global hypokinesis. Mild left ventricular hypertrophy. Inferolateral wall appears thinned. Type 2 diastolic dysfunction. 2. The right ventricular systolic function is mildly reduced. 3. The left atrium is mildly dilated. 4. Bioprosthetic aortic valve with acceptable transvalvular velocity and gradient. 5. There is mild mitral regurgitation. 6. There is mild to moderate tricuspid regurgitation. 7. Severe pulmonary hypertension suggested with estimated right ventricular systolic pressure > 60 mmHg. Assessment & Plan ASSESSMENT/PLAN: 1. Acute on chronic systolic CHF: He appears hypervolemic. Continue current dose of Bumex intravenously for now. Monitor fluid balance closely. Low- sodium diet, less than 2000 mg daily. Daily weights recommended. We discussed doing this at home as well. He does keep a log of his weight at home. 2. Cardiomyopathy: Presumably ischemic. Records requested from [place] right of way supervisor. Continue carvedilol and will slowly titrate if tolerated. Would hold off on DEBBIE-inhibitor or Entresto due to renal function. He apparently had hypotension while on Entresto in the past. ICD in place. It sounds as though biventricular device was attempted in the past. 3. Paroxysmal ventricular tachycardia: He had a 20 beat run while hospitalized but apparently was asymptomatic. TSH ordered. Monitor electrolytes. Will slowly titrate carvedilol to 9.375 mg twice daily. 4. ICD ([employer]): Dr. Tineo of electrophysiology was personally contacted. He will have this device interrogated tomorrow to see if she is having more ventricular tachycardia. Biventricular device may be beneficial, especially with his recurrent CHF hospitalizations. Dr. Tineo will further look into this. 5. CAD status post CABG x2 and PCI: Records requested for review. Continue aspirin 81 mg daily indefinitely. Continue beta-baylee. Continue statin therapy. Consider high-intensity statin therapy. No angina. 6. Elevated troponins: He has no angina. Could be due to CHF exacerbation. Trend troponin levels. No ischemic evaluation is planned at this time. Records are requested for review. 7. Dyslipidemia: Recommend high-intensity statin therapy if he has not had issues with a in the past. This can be discussed with him throughout his hospital stay. 8. Bioprosthetic aortic valve: This appeared to be functioning appropriately on echocardiogram. SBE prophylaxis recommended as an outpatient. 9. Pulmonary hypertension: Could be secondary to CHF exacerbation. This may improve with adequate diuresis. Records requested to see if this is a new finding, chronic finding, or acute on chronic issue. 10. Chronic kidney disease: Monitor renal function closely while diuresing. This may improve with improvement of his volume status. 11. Anemia: Will defer to primary service. 12. Disposition: Cardiology will continue to follow. Patient care has been discussed with primary hospitalist, Dr. Eid. Dr. Tineo of electrophysiology was also personally contacted to discuss his ICD as noted above. Interrogation planned for tomorrow. Highly complex medical issues.
[2017-03-26] MEDS: SIMVASTATIN 40 MG TAB PO SCH (20:55)
[2017-03-26] MEDS: POTASSIUM CHLORIDE 20 MEQ TABCR PO SCH (20:56)
[2017-03-27] VITALS (10 sets, daily range): BP systolic 102–131; BP diastolic 52–69; PULSE 59–68; TEMP 36.5–36.9; O2SAT 94–100
[2017-03-27] MEDS: NITROGLYCERIN OINT 2% 1GM PACKET EXT SCH ×2 (04:19→10:00)
[2017-03-27] MEDS: BUMETANIDE IV 2 MG in SYRINGE 0 ML IV SCH ×3 (06:06→21:36)
[2017-03-27] MEDS: LEVOTHYROXINE 100 MCG TAB PO SCH (06:06)
[2017-03-27] MEDS: CARVEDILOL 6.25 MG TAB PO SCH ×2 (07:40→20:36)
[2017-03-27] MEDS: ASPIRIN 81 MG ECTAB PO SCH (07:40)
[2017-03-27] MEDS: TAMSULOSIN HCL 0.4 MG CAP PO SCH (07:41)
[2017-03-27] MEDS: POTASSIUM CHLORIDE 20 MEQ TABCR PO SCH ×2 (07:41→20:37)
[2017-03-27] MEDS: CYANOCOBALAMIN 500 MCG TAB (VIT B-12) PO SCH (07:41)
[2017-03-27] MEDS: MEGESTROL ACETATE 40 MG TAB PO SCH (07:41)
[2017-03-27 10:01] LABS: CALCIUM 8.6 mg/dl (8.5-10.1); CREATININE 2.1 mg/dl (0.60-1.40); POTASSIUM 3.2 mmol/L (3.5-5.1)
[2017-03-27] MEDS: HEPARIN SOD 5000 UNIT/0.5 ML CARP SQ SCH ×2 (10:10→20:40)
[2017-03-27] MEDS ORDERED: NURSING VERBAL MED ORDER ONE ×2 (10:15→18:00)
--- NOTE | 2017-03-27 11:15 | Cardiology Follow-Up ---
Subjective Date of Service: Mar 27, 2017. Pt evaluation today including: conversation w/ patient, physical exam, chart review, lab review, conversation w/ skin care consultant, review of inpatient medication list, conversation w/ attending History of Present Illness He feels better today. He is hoping to go home soon. He believes that his edema has returned to baseline. He denies angina, syncope, near-syncope, palpitations, or bleeding. Review of systems: As above. Medications Current Inpatient Medications Medications (Trade) Dose Ordered Sig/Hilary Route Start Time Stop Time Status Last Admin Dose Admin Aspirin (Ecotrin Tab) 81 mg DAILY PO 03/26/17 09:00 04/25/17 08:59 03/27/17 07:40 81 MG Cyanocobalamin (Vitamin B-12 Tab) 1,000 mcg DAILY PO 03/26/17 09:00 04/25/17 08:59 03/27/17 07:41 1,000 MCG Levothyroxine Sodium (Synthroid Tab) 100 mcg DAILYBB PO 03/26/17 06:30 04/25/17 06:59 03/27/17 06:06 100 MCG Megestrol Acetate (Megace Tab) 40 mg BID PO 03/25/17 21:00 04/24/17 20:59 03/27/17 07:41 40 MG Tamsulosin HCl (Flomax Cap) 0.4 mg DAILY PO 03/26/17 09:00 04/25/17 08:59 03/27/17 07:41 0.4 MG Heparin Sodium (Porcine) (Heparin Sq 5000 Unit/0.5ml) 5,000 unit Q12 SQ 03/25/17 21:00 04/24/17 20:59 03/27/17 10:10 5,000 UNIT Acetaminophen (Tylenol Tab) 650 mg Q4H PRN PO 03/25/17 14:30 04/24/17 14:29 Al Hydrox/Mg Hydrox/Simethicone (Maalox Max Susp) 15 ml Q4H PRN PO 03/25/17 14:30 04/24/17 14:29 Magnesium Hydroxide (Milk Of Magnesia Susp) 30 ml Q12H PRN PO 03/25/17 14:30 04/24/17 14:29 Nitroglycerin (Nitrostat Tab) 0.4 mg UD PRN SL 03/25/17 14:30 04/24/17 14:29 Morphine Sulfate (MoRPHine SULFATE INJ) 2 mg Q30M PRN IV 03/25/17 14:30 04/08/17 14:29 Bumetanide 2 mg/ Syringe 8 ml @ 4 mls/min Q8H IV 03/25/17 22:00 04/24/17 21:59 03/27/17 06:06 4 MLS/MIN Potassium Chloride (Klor-Con Tab) 20 meq BID PO 03/26/17 21:00 03/27/17 21:01 03/27/17 07:41 20 MEQ Carvedilol (Coreg Tab) 9.375 mg BID PO 03/26/17 21:00 04/24/17 20:59 03/27/17 07:40 9.375 MG Atorvastatin Calcium (Lipitor Tab) 40 mg QPM PO 03/27/17 21:00 04/26/17 20:59 Objective Vital Signs Past 12 Hours Date Time Temp Pulse Resp B/P (MAP) Pulse Ox O2 Delivery O2 Flow Rate FiO2 03/27/17 10:07 61 102/53 (69) 03/27/17 08:24 36.7 67 16 124/62 (82) 94 1.0 03/27/17 07:45 Nasal Cannula 2.0 03/27/17 06:11 64 127/60 (82) 03/27/17 04:04 36.5 59 18 112/52 (72) 98 Nasal Cannula 2.0 Humidified Oxygen 03/27/17 04:00 Nasal Cannula 2.0 03/27/17 00:00 Nasal Cannula 2.0 03/26/17 23:21 36.6 55 20 131/62 (85) 100 Nasal Cannula 2.0 Humidified Oxygen Last Recorded Weight-Kilograms: 69.000 Intake & Output 03/26/17 03/27/17 03/28/17 08:00 08:00 08:00 Intake Total 200 ml 873 ml Output Total 1150 ml 1370 ml Balance -950 ml -497 ml Physical Exam Gen.: No acute distress. Alert and oriented. HEENT: Anicteric sclera. Neck: Elevated JVD, shelter to the mandible sitting upright. Hepatic jugular reflux noted. Cardiac: No ventricular heave. Regular. Normal S1-S2. 1/6 systolic ejection murmur best heard at the right upper sternal border. No rubs or gallops. Pulmonary: Decreased breath sounds bilateral bases. Rales in the mid lung mora bilaterally, Left > right. Abdomen: Soft, nontender, nondistended, with normoactive bowel sounds. No bruits noted. Extremities: 1-2+ pitting edema bilateral lower extremities. No cyanosis. Psychiatric: Affect appears appropriate. Data Laboratory Results: Last 24 Hours Test 03/27/17 05:41 Sodium Level 141 mmol/L Potassium Level 3.2 mmol/L Chloride Level 94 mmol/L Carbon Dioxide Level 41 mmol/L Anion Gap 5.0 mmol/L Blood Urea Nitrogen 61 mg/dl Creatinine 2.10 mg/dl Est Creatinine Clear Calc Drug Dose 21.2 ml/min Estimated GFR () 32.1 Estimated GFR (Non- 27.7 BUN/Creatinine Ratio 29.0 Random Glucose 94 mg/dl Calcium Level 8.6 mg/dl Vitamin B12 Level 1007 pg/mL Outside records were requested and obtained. They were reviewed. His last cardiac catheterization was reportedly without obstructive CAD. ICD implantation note reviewed. Telemetry reviewed: No further ventricular tachycardia. Assessment and Plan ASSESSMENT/PLAN: 1. Acute on chronic systolic CHF: He is still hypervolemic. Basic metabolic panel ordered. BUN and creatinine appear to be relatively stable throughout the hospital stay but mildly elevated compared to yesterday. Therefore, will not intensify diuretic therapy today and follow the trend of his renal function tomorrow. He is diuresing, slowly. Continue low-sodium diet, daily weights, and monitor fluid balance. 2. Cardiomyopathy: Presumably ischemic. Continue carvedilol, which was increased yesterday. Would hold off on DEBBIE-inhibitor or Entresto due to renal function. He apparently had hypotension while on Entresto in the past. ICD in place. It sounds as though biventricular device was attempted in the past. 3. Paroxysmal ventricular tachycardia: He had a 20 beat run while hospitalized but apparently was asymptomatic. TSH normal. Monitor electrolytes (potassium is being repleted by primary service). Carvedilol has been increased to 9.375 mg twice daily, and may be further titrated at some point in the future. 4. ICD ([employer]): Dr. Tineo Interrogated the device today. He plans on following him up closely in the office. Changes have been made to hopefully optimize his device settings. He has discussed potentially attempting upgrading to biventricular pacing. He has a biventricular generator in place but there was difficulty in placing the LV lead in the past at another facility he will continue to discuss this with Mr. Hernández. 5. CAD status post CABG x2 and PCI: Continue aspirin 81 mg daily indefinitely. Continue beta-baylee. Continue statin therapy. Consider high-intensity statin therapy. No angina. 6. Elevated troponins: Could be due to CHF exacerbation. He did not present with acute coronary syndrome. No ischemic evaluation is planned at this time. 7. Dyslipidemia: Recommend high-intensity statin therapy if he has not had issues with a in the past. He does not recall being on atorvastatin in the past. Atorvastatin 40 mg once daily recommended. 8. Bioprosthetic aortic valve: This appeared to be functioning appropriately on echocardiogram. SBE prophylaxis recommended as an outpatient. 9. Pulmonary hypertension: Could be secondary to CHF exacerbation. This may improve with adequate diuresis. RVSP was mildly elevated at outside echo earlier in 2017, but was found to be severely elevated yesterday. 10. Chronic kidney disease: Monitor renal function closely while diuresing. 11. Anemia: Will defer to primary service. 12. Disposition: Cardiology will continue to follow. Patient care has been discussed with primary hospitalist, Dr. Eid, and Dr. Tineo of electrophysiology. I will be away from the hospital for the next 2 days, [address] Dr. Munoz will be available to assist in his cardiology care.
[2017-03-27] MEDS ORDERED: MEGE40TA13 PO (11:44)
--- NOTE | 2017-03-27 12:52 | Cardiology Consultation ---
Cardiology Consultation Date of Consultation: Mar 27, 2017. Requesting Physician: Dr. Go Reason for Consultation: Ischemic cardiomyopathy, ICD Pt evaluation today including: conversation w/ patient, physical exam, chart review, lab review, review of studies, conversation w/ customer care voice consultant, review of inpatient medication list History of Present Illness This is a very pleasant 86-year-old gentleman who has had his cardiac care in [place] but now returns to this area. His history is from himself and records from [place]. He has a history of coronary artery disease including bypass surgery in 1985 with his last catheterization in 2013 showing patent vessels per report. He also has a history of chronic renal insufficiency, diabetes and hypertension. He had a TAVR placed on 10/28/2014 for aortic stenosis. He has had a lot of difficulty with congestive heart failure and he has significant left ventricular dysfunction. He therefore had an ICD implanted on 12/20/2015, this was intended to be a biventricular device however the left ventricular lead could not be placed. The operative report notes that "due to CS anatomy it was impossible to advance the lead to an acceptable position for LV pacing". A biventricular unit was placed however with an atrial and right ventricular lead and the left ventricular port capped. Per the patient the situation was reviewed with the surgeon who felt that he would not tolerate a thoracotomy for an epicardial lead placement. He had a transthoracic echo performed on 11/01/2016 where his left ventricle was normal in size with an ejection fraction of 25-30%, severely reduced. He has continued to have a lot of difficulty with congestive heart failure and frequent admissions (in [place] until this admission) as well as visits to the office with fluid overload. Past Medical/Surgical History (1) CHF (congestive heart failure) (2) Hypothyroidism (3) Cardiomyopathy (4) Stroke (5) Type 2 diabetes mellitus (6) Dyslipidemia (7) Chronic kidney disease (8) CAD (coronary artery disease) of bypass graft (9) ICD (implantable cardioverter-defibrillator) in place Family History Patient reports no known family medical history. Review of Systems Constitutional: No fever, No weight loss, No weakness Respiratory: + shortness of breath, + dyspnea on exertion, No cough, No wheezing Cardiac: + see HPI, No chest pain, No orthopnea, No PND, No edema, No palpitations Abdomen: No pain, No nausea, No vomiting, No diarrhea, No GI bleeding Male : No urinary frequency, No nocturia more than once/night, No slowing stream, No sexual dysfunction Neurologic: No paralysis, No weakness, No numbness/tingling, No balance problems Heme: No abnormal bleeding/bruising, No clotting problems Endo: No fatigue Skin: No problem reported All Other Systems: Reviewed and Negative Allergies Coded Allergies: Penicillins (Unverified Allergy, Unknown, HIVES, 03/25/17) Medications Current Inpatient Medications Medications (Trade) Dose Ordered Sig/Hilary Route Start Time Stop Time Status Last Admin Dose Admin Aspirin (Ecotrin Tab) 81 mg DAILY PO 03/26/17 09:00 04/25/17 08:59 03/27/17 07:40 81 MG Cyanocobalamin (Vitamin B-12 Tab) 1,000 mcg DAILY PO 03/26/17 09:00 04/25/17 08:59 03/27/17 07:41 1,000 MCG Levothyroxine Sodium (Synthroid Tab) 100 mcg DAILYBB PO 03/26/17 06:30 04/25/17 06:59 03/27/17 06:06 100 MCG Tamsulosin HCl (Flomax Cap) 0.4 mg DAILY PO 03/26/17 09:00 04/25/17 08:59 03/27/17 07:41 0.4 MG Heparin Sodium (Porcine) (Heparin Sq 5000 Unit/0.5ml) 5,000 unit Q12 SQ 03/25/17 21:00 04/24/17 20:59 03/27/17 10:10 5,000 UNIT Acetaminophen (Tylenol Tab) 650 mg Q4H PRN PO 03/25/17 14:30 04/24/17 14:29 Al Hydrox/Mg Hydrox/Simethicone (Maalox Max Susp) 15 ml Q4H PRN PO 03/25/17 14:30 04/24/17 14:29 Magnesium Hydroxide (Milk Of Magnesia Susp) 30 ml Q12H PRN PO 03/25/17 14:30 04/24/17 14:29 Nitroglycerin (Nitrostat Tab) 0.4 mg UD PRN SL 03/25/17 14:30 04/24/17 14:29 Morphine Sulfate (MoRPHine SULFATE INJ) 2 mg Q30M PRN IV 03/25/17 14:30 04/08/17 14:29 Bumetanide 2 mg/ Syringe 8 ml @ 4 mls/min Q8H IV 03/25/17 22:00 04/24/17 21:59 03/27/17 06:06 4 MLS/MIN Potassium Chloride (Klor-Con Tab) 20 meq BID PO 03/26/17 21:00 03/27/17 21:01 03/27/17 07:41 20 MEQ Carvedilol (Coreg Tab) 9.375 mg BID PO 03/26/17 21:00 04/24/17 20:59 03/27/17 07:40 9.375 MG Atorvastatin Calcium (Lipitor Tab) 40 mg QPM PO 03/27/17 21:00 04/26/17 20:59 Megestrol Acetate (Megace Susp) 400 mg BID PO 03/27/17 21:00 04/26/17 20:59 Physical Exam Vital Signs Past 12 Hours Date Time Temp Pulse Resp B/P (MAP) Pulse Ox O2 Delivery O2 Flow Rate FiO2 03/27/17 11:29 36.6 65 18 116/69 (85) 100 Nasal Cannula 2.0 03/27/17 10:07 61 102/53 (69) 03/27/17 08:24 36.7 67 16 124/62 (82) 94 1.0 03/27/17 07:45 Nasal Cannula 2.0 03/27/17 06:11 64 127/60 (82) 03/27/17 04:04 36.5 59 18 112/52 (72) 98 Nasal Cannula 2.0 Humidified Oxygen 03/27/17 04:00 Nasal Cannula 2.0 Constitutional: General Apperance: heathly-appearing Level of Distress: NAD Psychiatric: Mental Status: active & alert Head: normocephalic Eyes: EOM: EOMI ENMT: normal ENT inspection, hearing grossly normal Neck: supple, no masses Lungs: Respiratory effort: no dyspnea, good air movement Auscultation: breath sounds normal, no wheezing Cardiovascular: Heart Auscultation: RRR, no rubs, no gallops, II/ WSM Peripheral Pulses: Bruits: none appreciated Abdomen: Bowel Sounds: normal Inspection & Palpation: soft, no tenderness, guarding & rebound, no masses Musculoskeletal: normal strength (5/5 throughout) Extremities: no edema Neurologic: Cranial Nerves: grossly intact Sensation: grossly intact Gen.: No acute distress. Alert and oriented. HEENT: Anicteric sclera. Neck: Elevated JVD, assisted to the mandible sitting upright. Hepatic jugular reflux noted. Cardiac: No ventricular heave. Regular. Normal S1-S2. 1/6 systolic ejection murmur best heard at the right upper sternal border. No rubs or gallops. Pulmonary: Decreased breath sounds bilateral bases. Rales in the mid lung mora bilaterally, Left > right. Abdomen: Soft, nontender, nondistended, with normoactive bowel sounds. No bruits noted. Extremities: 1-2+ pitting edema bilateral lower extremities. No cyanosis. Psychiatric: Affect appears appropriate. Data Laboratory Results: Last 24 Hours Test 03/27/17 05:41 Sodium Level 141 mmol/L Potassium Level 3.2 mmol/L Chloride Level 94 mmol/L Carbon Dioxide Level 41 mmol/L Anion Gap 5.0 mmol/L Blood Urea Nitrogen 61 mg/dl Creatinine 2.10 mg/dl Est Creatinine Clear Calc Drug Dose 21.2 ml/min Estimated GFR () 32.1 Estimated GFR (Non- 27.7 BUN/Creatinine Ratio 29.0 Random Glucose 94 mg/dl Calcium Level 8.6 mg/dl Vitamin B12 Level 1007 pg/mL Imaging: A chest x-ray on admission demonstrates a dual-chamber ICD with atrial and right ventricular lead placement. Findings consistent with congestive heart failure as well. An echocardiogram done on 03/26/2017 shows a moderately dilated left ventricle with severe left ventricular dysfunction, ejection fraction 30-35%. His bioprosthetic aortic valve appears to be functioning well and he is mild mitral regurgitation. EKG: An electrocardiogram on admission demonstrates an AV sequential paced rhythm with first-degree AV block (AK interval 300 ms, the device appears to be program that way) with a very wide ventricular paced rhythm as well as (QRS duration nearly 200 ms). Telemetry reviewed: Predominantly AV sequential pacing, some atrial sensing with ventricular pacing and some apparent intrinsic conduction. ICD evaluation: His ICD was interrogated today and it is functioning well, battery voltage is good and thresholds are good. He is programmed in a way that has been causing him to ventricularly paced 77% of the time, which may be detrimental over the long run. When pacing the atrium at 70 bpm he did develop 2 -1 AV conduction block therefore he will require some degree of ventricular pacing although at rest at 60 bpm he did conduct with an intrinsic rhythm. I have reprogrammed his device to pace in a nonrate responsive mode (he does not appear to need rate response) and we have also activated the algorithm which minimizes ventricular pacing and allow some degree of AV disassociation. Assessment & Plan #1. Biventricular ICD: He has a biventricular ICD in place however only an atrial and a right ventricular lead, the left ventricular port is capped. His device is functioning well but did require some reprogramming to minimize ventricular pacing. It is not likely that we will be able to get by with out significant ventricular pacing but I would like to see how he does with the current settings. We did clear his event counter so we will be able to tell in the future, she paces at his current settings. I did discuss with him the possibility of putting in a left ventricular (coronary sinus) bleed, it is possible that with a different approach and different equipment that we might be able to place it even if it could not be placed at the time of his device implant. We have not picked to date but he is tentatively agreeable to this approach. If not we can readdress the possibility of a epicardial left ventricular lead. I would not do that at this time and I can see him in the office and sort this out. #2. Congestive heart failure: He has at least class III congestive heart failure with multiple admissions and visits for treatment. He certainly qualifies for biventricular device and it may well help improve his symptoms. With frequent ventricular pacing he certainly has enough dyssynchrony that it could be worsening his left ventricular function. If the programming changes do not resolve in a ventricular pacing percentage of less than 10% I would recommend trying to provide left ventricular pacing, since your to has a biventricular device in place was is a very reasonable option as noted above. #3. Left ventricular dyssynchrony: With AV conduction disease he is currently pacing in the ventricle 77% of the time, resulting in a QRS complex of about 200 ms with severe dyssynchrony. This is almost certainly detrimental hemodynamically and can be improved with biventricular pacing. We will plan on seeing him in the office following discharge to evaluate his pacing percentage and possibly arrange left ventricular lead implantation. Thank you for allowing me to participate in his care.
--- NOTE | 2017-03-27 13:27 | Cardiology Follow-Up ---
Subjective Date of Service: Mar 27, 2017. Pt evaluation today including: conversation w/ patient, physical exam, chart review, lab review, review of inpatient medication list History of Present Illness This is a PGY1 Resident's Note - Dr. Go's Note is filed separately. Mr. Hernández is a pleasant 86 year old gentleman with no new concerns today. He reports his breathing is better, and came down from 2L of oxygen to 1L. He feels his SOB and peripheral edema is resolving and is hoping to be discharged soon in order to help his with the move to [place]. He denies chest pain, palpitations, or syncopal episodes. Social History Smoking Status: Former Smoker History of Alcohol Use: No Review of Systems Respiratory: No cough, No wheezing, No shortness of breath Cardiac: + see HPI, + edema, No chest pain, No orthopnea, No PND, No palpitations Medications Current Inpatient Medications Medications (Trade) Dose Ordered Sig/Hilary Route Start Time Stop Time Status Last Admin Dose Admin Aspirin (Ecotrin Tab) 81 mg DAILY PO 03/26/17 09:00 04/25/17 08:59 03/27/17 07:40 81 MG Cyanocobalamin (Vitamin B-12 Tab) 1,000 mcg DAILY PO 03/26/17 09:00 04/25/17 08:59 03/27/17 07:41 1,000 MCG Levothyroxine Sodium (Synthroid Tab) 100 mcg DAILYBB PO 03/26/17 06:30 04/25/17 06:59 03/27/17 06:06 100 MCG Tamsulosin HCl (Flomax Cap) 0.4 mg DAILY PO 03/26/17 09:00 04/25/17 08:59 03/27/17 07:41 0.4 MG Heparin Sodium (Porcine) (Heparin Sq 5000 Unit/0.5ml) 5,000 unit Q12 SQ 03/25/17 21:00 04/24/17 20:59 03/27/17 10:10 5,000 UNIT Acetaminophen (Tylenol Tab) 650 mg Q4H PRN PO 03/25/17 14:30 04/24/17 14:29 Al Hydrox/Mg Hydrox/Simethicone (Maalox Max Susp) 15 ml Q4H PRN PO 03/25/17 14:30 04/24/17 14:29 Magnesium Hydroxide (Milk Of Magnesia Susp) 30 ml Q12H PRN PO 03/25/17 14:30 04/24/17 14:29 Nitroglycerin (Nitrostat Tab) 0.4 mg UD PRN SL 03/25/17 14:30 04/24/17 14:29 Morphine Sulfate (MoRPHine SULFATE INJ) 2 mg Q30M PRN IV 03/25/17 14:30 04/08/17 14:29 Bumetanide 2 mg/ Syringe 8 ml @ 4 mls/min Q8H IV 03/25/17 22:00 04/24/17 21:59 03/27/17 06:06 4 MLS/MIN Potassium Chloride (Klor-Con Tab) 20 meq BID PO 03/26/17 21:00 03/27/17 21:01 03/27/17 07:41 20 MEQ Carvedilol (Coreg Tab) 9.375 mg BID PO 03/26/17 21:00 04/24/17 20:59 03/27/17 07:40 9.375 MG Atorvastatin Calcium (Lipitor Tab) 40 mg QPM PO 03/27/17 21:00 04/26/17 20:59 Megestrol Acetate (Megace Susp) 400 mg BID PO 03/27/17 21:00 04/26/17 20:59 Objective Vital Signs Past 12 Hours Date Time Temp Pulse Resp B/P (MAP) Pulse Ox O2 Delivery O2 Flow Rate FiO2 03/27/17 12:00 Nasal Cannula 2.0 03/27/17 11:29 36.6 65 18 116/69 (85) 100 Nasal Cannula 2.0 03/27/17 10:07 61 102/53 (69) 03/27/17 08:24 36.7 67 16 124/62 (82) 94 1.0 03/27/17 07:45 Nasal Cannula 2.0 03/27/17 06:11 64 127/60 (82) 03/27/17 04:04 36.5 59 18 112/52 (72) 98 Nasal Cannula 2.0 Humidified Oxygen 03/27/17 04:00 Nasal Cannula 2.0 Last Recorded Weight-Kilograms: 69.000 Physical Exam Constitutional: General Apperance: heathly-appearing Level of Distress: NAD Lungs: Respiratory effort: no dyspnea, good air movement Auscultation: breath sounds normal, no wheezing, decreased breath sounds, rales/crackles on the left Cardiovascular: Heart Auscultation: RRR, no rubs, no gallops, II/ WSM, pertinent finding ( Elevated JVD with hepatojugular reflex) Peripheral Pulses: Bruits: none appreciated Extremities: edema (bilateral 1+ edema) Data Laboratory Results: Last 24 Hours Test 03/27/17 05:41 Sodium Level 141 mmol/L Potassium Level 3.2 mmol/L Chloride Level 94 mmol/L Carbon Dioxide Level 41 mmol/L Anion Gap 5.0 mmol/L Blood Urea Nitrogen 61 mg/dl Creatinine 2.10 mg/dl Est Creatinine Clear Calc Drug Dose 21.2 ml/min Estimated GFR () 32.1 Estimated GFR (Non- 27.7 BUN/Creatinine Ratio 29.0 Random Glucose 94 mg/dl Calcium Level 8.6 mg/dl Vitamin B12 Level 1007 pg/mL Imaging: EKG: Telemetry reviewed: Assessment and Plan Decompensated Heart Failure - Patient is still fluid overloaded, continue low salt diet and Bumex 2mg q8h. Considered adding diuril to increase diuresis, however his potassium is low (3.2 ) and BUN (61) and creatinine (2.1) have increased above his baseline. Will monitor - Continue ambulatory O2 - Monitor I/Os and daily weights - Mr. Hernández was previously on Entresto and an ACEi however this was discontinued by his signal inspector due to side effects - may try to reintroduce these medications in smaller dosages at a later date CAD - Continue aspirin, statin and beta baylee Ventricular Tachycardia - No more episodes of vtach overnight, just PVCs - Carvedilol dosage increased to 9.375mg & BP is being monitored CKD - Baseline creatinine is 1.2. Current creatinine is 2.1 - Monitor creatinine levels - likely acute worsening due to fluid overload ICD - Dr Tineo was consulted to review his ICD monitoring and optimize settings. He will follow up with Mr. Hernández in clinic Hyperlipidemia - Simvastatin was switched to a higher intensity statin - 40mg of atorvastatin to optimize cholesterol control Resident Tracking Resident Involvement: Resident Care Provided Care Provided: Adult Hospital Medicine
--- NOTE | 2017-03-27 14:11 | Progress Note ---
Subjective Date of Service: Mar 27, 2017. Subjective pt feels better today with modest diuresis, is being considered for a bi ventricular pacemaker upgrade but did have technical challenges in [place] at this attempt, cardiology is attempting more diuresis, follow for renal distress to target dry weight Problem List Medical Problems: (1) CHF (congestive heart failure) Status: Chronic (2) Elevated troponin Status: Acute (3) SOB (shortness of breath) Status: Acute Review of Systems Constitutional: + weakness, + fatigue, No fever, No chills Respiratory: + shortness of breath, + dyspnea on exertion, No cough Cardiac: + orthopnea, + edema, No chest pain, No PND Abdomen: No pain, No nausea, No vomiting, No diarrhea Musculoskeletal: No joint pain, No muscle pain Male : + urinary frequency, No dysuria Psychiatric: No depression symptoms, No anhedonism Objective Vital Signs Date Time Temp Pulse Resp B/P (MAP) Pulse Ox O2 Delivery O2 Flow Rate FiO2 03/27/17 12:00 Nasal Cannula 2.0 03/27/17 11:29 36.6 65 18 116/69 (85) 100 Nasal Cannula 2.0 03/27/17 10:07 61 102/53 (69) 03/27/17 08:24 36.7 67 16 124/62 (82) 94 1.0 03/27/17 07:45 Nasal Cannula 2.0 03/27/17 06:11 64 127/60 (82) 03/27/17 04:04 36.5 59 18 112/52 (72) 98 Nasal Cannula 2.0 Humidified Oxygen 03/27/17 04:00 Nasal Cannula 2.0 03/27/17 00:00 Nasal Cannula 2.0 03/26/17 23:21 36.6 55 20 131/62 (85) 100 Nasal Cannula 2.0 Humidified Oxygen 03/26/17 20:00 100 Nasal Cannula 2.0 03/26/17 19:14 36.7 64 20 127/57 (80) 100 Nasal Cannula 2.0 03/26/17 16:00 37.0 62 20 113/51 (71) 99 Room Air 03/26/17 16:00 97 Nasal Cannula 2.0 03/26/17 16:00 97 Nasal Cannula Physical Exam General Appearance: WD/WN, + mild distress Eyes: PERRL, EOMI Neck: supple, + JVD Respiratory/Chest: chest non-tender, + decreased breath sounds, + rales Cardiovascular: regular rate, rhythm, + systolic murmur Abdomen: normal bowel sounds, non tender, soft Extremities: + pedal edema, + swelling Neurologic/Psychiatric: alert, oriented x 3 Laboratory Results Last 24 Hours Test 03/27/17 05:41 Sodium Level 141 mmol/L Potassium Level 3.2 mmol/L Chloride Level 94 mmol/L Carbon Dioxide Level 41 mmol/L Anion Gap 5.0 mmol/L Blood Urea Nitrogen 61 mg/dl Creatinine 2.10 mg/dl Est Creatinine Clear Calc Drug Dose 21.2 ml/min Estimated GFR () 32.1 Estimated GFR (Non- 27.7 BUN/Creatinine Ratio 29.0 Random Glucose 94 mg/dl Calcium Level 8.6 mg/dl Vitamin B12 Level 1007 pg/mL Assessment and Plan 86 y/o M acute on chronic systolic CHF -elevated troponin acute on chronic renal failure stage 3 and anemia, h/o AVR - bioprosthetic, ventricular pacer acute systolic CHF exacerbation, effusions - Bumex iV Q8h - did have 0.8 liters of fluid loss, feels still has some to go, Dr Tineo is eval for consideration of biventricular pacemaker. Cardiology considering diuril in addition to Bumex, stopping nitro paste 03/27 acute renal failure - baseline creat confirmed at 1.2 -no real change Elevated troponin, continue aspirin statin and B baylee, trend remains flat no acs suspected Hypothyroid - no change in Synthroid. Anemia - baseline Hb 11.6 last - now 9.7 - is macrocytic checked B 12 and is replete heparin renal dose for dvt prevention
[2017-03-27] MEDS ORDERED: MAGNESIUM SULFATE 1GM / D5W 1 GM in PREMIXED IN D5W 100 ML IV ONE (18:00)
[2017-03-27] MEDS: MEGESTROL ACETATE 400 MG/10 ML UDP PO SCH (20:37)
[2017-03-27] MEDS ORDERED: HEPARIN SOD 5000 UNIT/0.5 ML CARP SQ SCH (21:00)
[2017-03-27] MEDS ORDERED: ATORVASTATIN 40 MG TAB PO SCH (21:00)
[2017-03-28] VITALS: BP 111/54; PULSE 60; TEMP 36.5; O2SAT 100
[2017-03-28 04:24] VITALS: BP 124/60; PULSE 65; TEMP 36.8; O2SAT 100
[2017-03-28] MEDS: LEVOTHYROXINE 100 MCG TAB PO SCH (06:08)
[2017-03-28] MEDS: BUMETANIDE IV 2 MG in SYRINGE 0 ML IV SCH (06:08)
[2017-03-28 07:17] VITALS: BP 147/68; PULSE 60; TEMP 36.8; O2SAT 100
[2017-03-28 07:38] LABS: HEMATOCRIT 27.6 % (42-52); MEAN CELL VOLUME 104.2 fL (80-100); MEAN CORPUSCULAR HEMOGLOBIN 35.1 pg (25-34); MEAN CORPUSCULAR HGB CONC 33.7 g/dl (32-36); MEAN PLATELET VOLUME 10.2 fL (7.4-10.4); PLATELET COUNT 116 K/uL (130-400); RED BLOOD COUNT 2.65 M/uL (4.7-6.1); WHITE BLOOD COUNT 4.46 K/uL (4.8-10.8)
[2017-03-28 07:47] VITALS: O2SAT 100
[2017-03-28] MEDS: TAMSULOSIN HCL 0.4 MG CAP PO SCH (07:57)
[2017-03-28] MEDS: CYANOCOBALAMIN 500 MCG TAB (VIT B-12) PO SCH (07:58)
[2017-03-28] MEDS: ASPIRIN 81 MG ECTAB PO SCH (07:58)
[2017-03-28] MEDS: CARVEDILOL 6.25 MG TAB PO SCH (07:58)
[2017-03-28] MEDS: MEGESTROL ACETATE 400 MG/10 ML UDP PO SCH (07:59)
[2017-03-28] MEDS: HEPARIN SOD 5000 UNIT/0.5 ML CARP SQ SCH (08:04)
[2017-03-28] MEDS ORDERED: BUME1TAB PO (09:36)
[2017-03-28] MEDS ORDERED: POTA20TA16 PO (09:36)
[2017-03-28] MEDS ORDERED: CARV6.25 PO (09:36)
--- NOTE | 2017-03-28 09:37 | Discharge Instructions ---
Discharge Instructions Date of Service Mar 28, 2017. Admission Reason for Admission: Chf Exacerbation, Shortness Of Breath Discharge Discharge Diagnosis / Problem: acute systolic heart failure Discharge Goals Goal(s): Diagnostic testing, Therapeutic intervention Activity Recommendations Activity Limitations: resume your previous activity We are trying to sneak up the doses of your coreg and lasix and so you will need some potassium also . Instructions / Follow-Up Instructions / Follow-Up Call your Primary Care doctor if any of the following symptoms or problems start or get worse: * Shortness of breath or difficulty breathing * Wake up at night short of breath * Chest pain * Cough * Swelling of your hands, feet, or legs * More fatigued or tired with your normal activity * Palpitations - sudden fast heart beats WEIGHT * Weigh yourself every morning after using the bathroom. * Use the same scale. * Wear the same amount of clothing. * Write your weight down on a chart. * Call your Primary Care doctor if you gain more than 2-3 pounds in 1-2 days. MEDICATIONS * Use this discharge instruction sheet for medication instructions. * Take your medications at the time your doctor ordered. * Do not skip a dose of your medicines. * If you miss a dose of medicine, take it as soon as possible, but DO NOT DOUBLE A DOSE. * Read your medicine information when you get home. * Know all of the side effects of your medicine. If in doubt, ask your pharmacist * Call your Primary Care doctor's office if you have any side effects. * Be sure all of your doctors know what medicine and herbs you take (including cold, flu, and herbal medicine). Take the following with you to your follow-up doctor appointments: * Weight Chart * Medication List * List of questions Do not drink excessive alcohol, beer or wine. Current Hospital Diet Patient's current hospital diet: Low Sodium Diet (2gm Na) Discharge Diet Recommended Diet: Low Sodium Diet (2gm Na) Pending Studies Studies pending at discharge: no Medical Emergencies . Who to Call and When: Call 911 or go to the Emergency Room if: * If at any time you feel your situation is an emergency * You have tightness or pain in your chest that does not go away with rest or Nitroglycerin * You are very short of breath even with rest . Non-Emergent Contact Non-Emergency issues call your: Primary Care Provider, [facility] . . "Provider Documentation" section prepared by Hayden Eid. . VTE Core Measure Inpt VTE Proph given/why not?: Unfractionated heparin SQ
[2017-03-28] MEDS ORDERED: OXGN (09:38)
[2017-03-28] MEDS: POTASSIUM CHLORIDE 20 MEQ TABCR PO SCH ×2 (10:02→11:39)
[2017-03-28 10:15] VITALS: BP 147/68; PULSE 60; TEMP 36.8; O2SAT 100
--- NOTE | 2017-03-28 11:25 | Cardiology Follow-Up ---
Cardiology Follow-Up Date of Service Mar 28, 2017. Cardiology Follow-Up SUBJECTIVE: 86-year-old man with acute on chronic systolic congestive heart failure, CAD ( status post CABG), probably ischemic cardiomyopathy, paroxysmal ventricular tachycardia ([facility] ICD), bioprosthetic aortic valve, chronic kidney disease, and multiple other medical problems who was admitted 03/25/2017. He has responded to diuretic therapy and feels well today, he will be discharged home later today. Evaluation by Dr. Tineo suggests that he would benefit from a revision of his biventricular ICD. PHYSICAL EXAMINATION: No distress. I/O -600. Weight 68.9 kilogram (-0.1 kilogram). Vitals: Afebrile. BP 147/68, pulse 60 and regular (paced), respirations 18 and unlabored. Skin: No unusual lesions or ecchymosis. HEENT: Unremarkable. Neck: Jugular venous pulse 1/[address] the angle of the jaw at 90, no carotid bruits. Lungs: Rare basilar crackles, generally clear. Cardiac: Regular rhythm with 2/6 basal systolic ejection murmur right upper sternal border, no diastolic murmur distinct gallop. Abdomen: Benign. Extremities: Nontender with 1+ ankle edema. Intact peripheral pulses. Neurologic: Normal affect, nonfocal DATA: Hemoglobin 9.3 with white count 4.46 and platelet count [id number]. Sodium 141, potassium 3.2, chloride 94, CO 2 41, BUN 61, creatinine 2.1 (57 and 1.9 yesterday). IMPRESSION: 1. Acute on chronic systolic CHF, compensated 2. Ischemic cardiomyopathy 3. Ventricular tachycardia 4. ICD 5. CAD 6. Elevated troponins 7. Dyslipidemia 8. Bioprosthetic aortic valve 9. Pulmonary hypertension 10. Chronic kidney disease 11. Anemia DISCUSSION: Patient clinically and hemodynamically stable for discharge. Will arrange for close follow-up early next week to reassess volume status as well as initiate planning for biventricular pacemaker/ICD revision.
--- NOTE | 2017-03-28 12:42 | Discharge Summary ---
Discharge Summary Date of Service Mar 28, 2017. Discharge Summary Admission Date: Mar 25, 2017 at 14:35 Discharge Date: Mar 28, 2017 Discharge Disposition: Home with services Principal Diagnosis: acute systolic heart failure Problems/Secondary Diagnoses: (1) CHF (congestive heart failure) Status: Chronic Consultations: Cardiology and EP, consider outpt arrangement to convert pacemaker to bi ventricular pacemaker Medication Reconciliation New Medications: Home O2 Therapy (Oxygen) Gas 2 LITERS NA CONTINOUS for 365 Days Changed Medications: Bumetanide (Bumex) 1 Mg Tab 1.5 MG PO BID, #90 TAB (Changed from: QAM) Carvedilol (Coreg) 6.25 Mg Tab 1.5 TABS PO BID, #90 TAB 6 Refills (Changed from: 6.25 MG; Refills: ) use what you have at home first Potassium Ext Rel (Klor-Con) 20 Meq Tabcr 20 MEQ PO BID, #60 TAB 6 Refills (Changed from: DAILY; Refills: ) Continued Medications: Ascorbic Acid (Ascorbic Acid) 1,000 Mg Tab 1 TAB PO DAILY Aspirin (Aspirin Ec) 81 Mg Tab 81 MG PO DAILY Cholecalciferol (Vitamin D3) 2,000 Unit Cap 1 CAP PO DAILY, CAP Cyanocobalamin (Vitamin B-12) 1,000 Mcg Tab 1000 MCG PO DAILY, TAB Levothyroxine Sodium (Levothyroxine Sodium) 100 Mcg Tab 1 TAB PO DAILY, TAB Megestrol Acetate (Megace) 40 Mg Tab 400 MG PO BID, TAB Simvastatin (Zocor) 40 Mg Tab 40 MG PO QPM, TAB Tamsulosin Hcl (Flomax) 0.4 Mg Cap 0.4 MG PO DAILY, CAP Discontinued Medications: Bumetanide (Bumex) 1 Mg Tab 1 MG PO HS, TAB Discharge Exam Review of Systems: Constitutional: No fever, No chills Respiratory: No cough, No sputum Cardiovascular: No chest pain, No orthopnea, No PND Abdomen: No pain, No nausea, No vomiting Physical Exam: General Appearance: WD/WN, + mild distress Neck: supple, + JVD Respiratory/Chest: chest non-tender, + decreased breath sounds Cardiovascular: regular rate, rhythm, + systolic murmur Abdomen / GI: normal bowel sounds, soft Neurologic/Psychiatric: alert, oriented x 3 Hospital Course 86 y/o M acute on chronic systolic CHF -elevated troponin acute on chronic renal failure stage 3 and anemia, h/o AVR - bioprosthetic, ventricular pacer acute systolic CHF exacerbation, effusions - Bumex increase to 1.5 mg bid, Dr Tineo will follow for consideration of biventricular pacemaker. Cardiology will follow for HF and had increased coreg slightly acute renal failure - baseline creat confirmed at 1.2 -no real change, augment K Elevated troponin, continue aspirin statin and B baylee, trend remains flat no acs suspected Hypothyroid - no change in Synthroid. Anemia - baseline Hb 11.6 last - now 9.7 - is macrocytic checked B 12 and is replete Total Time Spent: Greater than 30 minutes This includes examination of the patient, discharge planning, medication reconciliation, and communication with other providers. Discharge Instructions Please refer to the electronic Patient Visit Report (Discharge Instructions) for additional information.
== END 2017-03-28 13:01 | disposition home or self-care (01) | DRG 291 ==
LOC: C.EDB 12:21 → C.MED 14:35 → ENRESERV 15:26
PROVIDERS: ADMIT Internal Medicine; ATTEND Internal Medicine
DX: I13.0 Hypertensive heart and chronic kidney disease with heart failure and stage 1 through stage 4 chronic kidney disease, or unspecified chronic kidney disease (principal); I50.21 Acute systolic (congestive) heart failure; N17.9 Acute kidney failure, unspecified; E03.9 Hypothyroidism, unspecified; N18.3 Chronic kidney disease, stage 3 (moderate); E78.5 Hyperlipidemia, unspecified; E11.9 Type 2 diabetes mellitus without complications; Z86.73 Personal history of transient ischemic attack (TIA), and cerebral infarction without residual deficits; Z95.2 Presence of prosthetic heart valve; Z87.891 Personal history of nicotine dependence; Z79.82 Long term (current) use of aspirin

== ENCOUNTER → 2017-03-31 | Outpatient (CLI) | payer OTHER, MEDICARE ==
[~2017-03-31] MED LIST: ALPR-411 PO; ASCO100061 PO; ASPI81TA28 PO; BUME1TAB PO; CARV6.25 PO; CHOL2000 PO; CYAN10005 PO; FERR1TAB23 PO; IPRA1AER2 INH; IRON1CAP2; LEVO100T7 PO; MEGE40TA13 PO; OXGN; POTA20TA16 PO; SIMV40TA2 PO; TAMS0.4C38 PO
[2017-03-31 12:33] LABS: BLOOD UREA NITROGEN 74 mg/dl (7-18); CALCIUM 8.8 mg/dl (8.5-10.1); CARBON DIOXIDE 40 mmol/L (21-32); CHLORIDE 94 mmol/L (98-107); GLUCOSE 260 mg/dl (70-99); POTASSIUM 4.1 mmol/L (3.5-5.1); SODIUM 138 mmol/L (136-145)
== END | disposition home or self-care (01) ==
LOC: C.LAB1850 10:13
PROVIDERS: ATTEND Physician Assistant
DX: I50.9 Heart failure, unspecified (principal)

== ENCOUNTER → 2017-04-08 | Outpatient (CLI) | payer OTHER, MEDICARE ==
[2017-04-08 15:34] LABS: BLOOD UREA NITROGEN 51 mg/dl (7-18); BUN/CREATININE RATIO 26.8 (10-20); CALCIUM 8.9 mg/dl (8.5-10.1); CARBON DIOXIDE 39 mmol/L (21-32); CHLORIDE 100 mmol/L (98-107); GLUCOSE 137 mg/dl (70-99); SODIUM 142 mmol/L (136-145)
== END | disposition home or self-care (01) ==
LOC: C.LAB1850 13:27
PROVIDERS: ATTEND Physician Assistant
DX: I25.10 Atherosclerotic heart disease of native coronary artery without angina pectoris (principal); N18.9 Chronic kidney disease, unspecified; E78.5 Hyperlipidemia, unspecified; E03.9 Hypothyroidism, unspecified; I12.9 Hypertensive chronic kidney disease with stage 1 through stage 4 chronic kidney disease, or unspecified chronic kidney disease; I50.9 Heart failure, unspecified

== ENCOUNTER 2017-04-16 05:54 | Observation (INO) | payer OTHER, MEDICARE ==
[~2017-04-16] VITALS: Ht 175.3 cm; Wt 70.5 kg
[2017-04-16] VITALS (9 sets, daily range): BP systolic 129–149; BP diastolic 50–73; PULSE 60–86; TEMP 36.5–36.9; O2SAT 93–100; Ht 175.3 cm; Wt 70.5 kg
[~2017-04-16 05:54] MED LIST changes: -ALPR-411 PO; -FERR1TAB23 PO; -IPRA1AER2 INH; -IRON1CAP2
[2017-04-16] MEDS ORDERED: NURSING VERBAL MED ORDER ONE ×2 (06:45→20:15)
[2017-04-16] MEDS ORDERED: VANCOMYCIN INJ 1,000 MG in SODIUM CHLORIDE 0.9% 250ML 250 ML IV ONE (07:00)
[2017-04-16] MEDS ORDERED: BACITRACIN 50000 UNIT VIAL ONE (07:28)
[2017-04-16] MEDS ORDERED: LIDOCAINE HCL 1% 20 ML VIAL ONE (07:28)
[2017-04-16] MEDS ORDERED: BACITRACIN OINT 0.9 GM PKT ONE (07:29)
[2017-04-16] MEDS ORDERED: IPRA1AER2 INH (07:36)
[2017-04-16] MEDS ORDERED: ALPR-411 PO (07:36)
[2017-04-16] MEDS ORDERED: IRON1CAP2 (07:36)
[2017-04-16] MEDS ORDERED: FERR1TAB23 PO (07:36)
--- NOTE | 2017-04-16 08:28 | History & Physical Bridge Note ---
H&P Re-Evaluation Bridge Note: I have examined the patient, reviewed the History & Physical and in the interval since the performance of the History & Physical I have noted the following changes of clinical significance: No changes noted. I reviewed the indications, procedure, risks and alternatives to lead revision with him and his and they understand and agree to proceed. Consent obtained.
--- NOTE | 2017-04-16 08:28 | Procedure Note ---
Pre-Mod Sedation Assessment General Date of Moderate Sedation: Apr 16, 2017. Vital Signs: Vital Signs Past 12 Hours Date Time Temp Pulse Resp B/P (MAP) Pulse Ox O2 Delivery O2 Flow Rate FiO2 04/16/17 07:10 36.5 77 18 139/73 95 Nasal Cannula 2 Review Cardiovascular: regular rate, rhythm Abdomen: normal bowel sounds Lungs: lungs clear Pre-Sedation Airway Assessment Oral Cavity: WNL Short Thick Neck: No Hx of Sleep Apnea: No Smoking Status: Never Smoker Procedure Planning Contraindications-for Mod Sed: None Yes Notes The planned sedation has been discussed with the patient and consent obtained. I have identified the patient, determined the appropriateness of sedation and have assessed the patient immediately prior to the procedure. All medicine(s) and interventions are by my order.
[2017-04-16] MEDS ORDERED: FENTANYL CITRATE INJ 50 MCG/1 ML 2 ML VIAL ONE (08:37)
[2017-04-16] MEDS ORDERED: MIDAZOLAM HCL 5 MG/ML 1 ML VIAL ONE (08:37)
--- NOTE | 2017-04-16 10:51 | [facility] Operative Report ---
Operative Report Operative Date Apr 16, 2017. Pre-Operative Diagnosis Congestive heart failure, cardiomyopathy, dyssynchronous ventricular pacing Post-Operative Diagnosis same Procedure(s) Performed Coronary sinus angiogram Left ventricular lead implantation ICD lead pocket revision Surgeon Dr. Tineo Computer Aided Drafter Surgeon(s) none Estimated Blood Loss 30 cc Findings Good lead position, good measurements Specimens None Anesthesia local with sedation Complication(s) None Disposition PCU Description of Procedure After obtaining informed consent for the procedure, the patient was brought to the laboratory and prepped and draped in the standard sterile manner. The left prepectoral region was anesthetized with 1% lidocaine local anesthetic and left axillary venipuncture was performed by percutaneous technique and a guidewire placed through the left subclavian vein into the superior vena cava. The area was further infiltrated with 1% lidocaine local anesthetic and a 2 cm incision was made parallel to the left clavicle and 2 cm below it and carried down to the anterior pectoralis fascia. A 10.5 [place] Medtronic dilator was placed over the guidewire into the left subclavian vein. The short guidewire was exchanged for a long guidewire and a [place] coronary sinus sheath was advanced to position in the right atrium. The curved obturator was placed through the sheath and using x-ray dye and a right angle guiding catheter the os of the coronary sinus was identified. A guidewire was placed through the introducer into the coronary sinus and the [place] sheath was advanced into the coronary sinus. A balloon occlusion catheter was advanced through this sheath into the coronary sinus, the balloon was inflated and dye was injected in various projections to obtain a coronary sinus angiogram. A good vessel was identified and a 0.014 inch guidewire was advanced into this vessel. A bipolar coronary sinus lead was advanced over the guidewire into good distal position. The left ventricular pacing threshold was evaluated in various configurations, as recorded on the implant data sheet. Diaphragmatic pacing was evaluated at a 10 V output, as indicated on the data sheet. Once this lead was in position the introducer system was removed from the lead and the lead was attached to the anterior pectoralis fascia using 2 sutures of 2-0 silk around the lead collar. The old incision at the ICD site was anesthetized with 1% lidocaine local anesthetic and a 5 cm incision was made through the scar and carried down to the ICD generator. The generator was dissected free of tissue and partially explanted. The left ventricular port plug was removed from the device. The new left ventricular lead was tunneled from the implant incision (which is about 3 cm above the ICD pocket) into the ICD pocket. The ICD pocket was revised to accommodate the new lead which was probed beneath it and the lead was attached to the ICD. The ICD was placed in the pocket, the pocket was closed with a running double subcutaneous closure of 3-0 V lock absorbable suture, followed by a running subcuticular closure of 4-0 V lock absorbable suture. The left ventricular lead implant incision was closed with a single subcutaneous closure of 3-0 V lock absorbable suture, followed by running septic or skin closure of 4 -0 V lock absorbable suture. Dressings were applied to both incisions. I attest to the content of the Intraoperative Record and any orders documented therein. Any exceptions are noted below.
--- NOTE | 2017-04-16 10:54 | Procedure Note ---
Post-Mod Sedation Assessment General Date of Moderate Sedation Apr 16, 2017. Vital Signs: Vital Signs Past 12 Hours Date Time Temp Pulse Resp B/P (MAP) Pulse Ox O2 Delivery O2 Flow Rate FiO2 04/16/17 10:20 68 18 118/89 (99) 99 Mask 4 04/16/17 07:10 36.5 77 18 139/73 95 Nasal Cannula 2 Review - Discharge Criteria Vital Signs Stable: Yes Alert/Oriented/Conversant: Yes Returned to Baseline Mental St: Yes Nausea Absent/Minimal: Yes Pain/Discomfort/Absent/Minimal: Yes Normal/Baseline Respirations: Yes Active Bleeding?: No
[2017-04-16] MEDS ORDERED: ACETAMINOPHEN 325 MG TAB PO PRN (11:00)
[2017-04-16] MEDS ORDERED: KETOROLAC TROMETHAMINE 10 MG TAB PO PRN (11:00)
[2017-04-16] MEDS ORDERED: VANCOMYCIN CONSULT ACTIVE PRN (12:30)
[2017-04-16] MEDS ORDERED: IV FLUIDS COMPLETED PRN (13:45)
[2017-04-16] MEDS ORDERED: VANCOMYCIN INJ 1,000 MG in SODIUM CHLORIDE 0.9% 250ML 250 ML IV SCH (20:00)
[2017-04-16] MEDS ORDERED: ALPRAZOLAM 0.25 MG TAB PO PRN (20:30)
[2017-04-16] MEDS: CARVEDILOL 6.25 MG TAB PO SCH (20:41)
[2017-04-16] MEDS: BUMETANIDE 1 MG TAB PO SCH (20:41)
[2017-04-16] MEDS: POTASSIUM CHLORIDE 20 MEQ TABCR PO SCH (20:44)
[2017-04-16] MEDS ORDERED: SIMVASTATIN 40 MG TAB PO SCH (21:00)
[2017-04-16] MEDS: MEGESTROL ACETATE 40 MG TAB PO SCH (21:06)
[2017-04-17] VITALS (7 sets, daily range): BP systolic 128–137; BP diastolic 53–74; PULSE 60–65; TEMP 36.4–36.6; O2SAT 98–100
[2017-04-17] MEDS ORDERED: LEVOTHYROXINE 100 MCG TAB PO SCH (06:00)
[2017-04-17 06:16] LABS: BUN/CREATININE RATIO 28.7 (10-20); CALCIUM 8.5 mg/dl (8.5-10.1); CREATININE 1.9 mg/dl (0.60-1.40); POTASSIUM 3.5 mmol/L (3.5-5.1)
--- NOTE | 2017-04-17 06:34 | DIAGNOSTIC IMAGING REPORT ---
CHEST 2 VIEWS ROUTINE CLINICAL HISTORY: EXACT TIME ORDERED Evaluate for pneumothorax and lead placement COMPARISON STUDY: 03/25/2017 FINDINGS: Bipolar cardiac pacemaker with leads in good position. Prosthetic valve is noted. Unchanging atelectatic change right lung base and right midlung region. Unchanging pleural thickening left base. No evidence pneumothorax. IMPRESSION: Bipolar cardiac pacemaker with leads in good position. No evidence for pneumothorax. Chronic changes as noted. The above report was generated using voice recognition software. It may contain grammatical, syntax or spelling errors. Electronically signed by: Josué Zepeda M.D. 04/17/2017 6:33 AM Dictated Date/Time: 04/17/2017 6:32 AM
[2017-04-17] MEDS: POTASSIUM CHLORIDE 20 MEQ TABCR PO SCH (08:15)
[2017-04-17] MEDS: BUMETANIDE 1 MG TAB PO SCH (08:15)
[2017-04-17] MEDS: MEGESTROL ACETATE 40 MG TAB PO SCH (08:17)
[2017-04-17] MEDS: CARVEDILOL 6.25 MG TAB PO SCH (08:18)
[2017-04-17] MEDS ORDERED: ASPIRIN 81 MG ECTAB PO SCH (09:00)
[2017-04-17] MEDS ORDERED: TAMSULOSIN HCL 0.4 MG CAP PO SCH (09:00)
--- NOTE | 2017-04-17 09:36 | Discharge Instructions ---
Discharge Instructions Date of Service Apr 17, 2017. Admission Congestive heart failure, cardiomyopathy, dyssynchronous ventricular pacing Discharge Discharge Diagnosis / Problem: Left ventricular lead implantation Discharge Goals Goal(s): Improve disease control Activity Recommendations Activity Limitations: as noted below . Instructions / Follow-Up Instructions / Follow-Up ACTIVITY RECOMMENDATIONS: * Do not raise affected arm over head for 2 weeks. SPECIAL CARE INSTRUCTIONS: * If bleeding occurs, apply direct pressure to area for 5 minutes. * Call your doctor if you have severe pain, fever, drainage or bleeding at site. * Keep dressing on and dry for 48 hours then remove. * Keep any scheduled doctor's appointment. * Implant Card - hand held device with website information given. SKIN IRRITATION: * You may experience some redness and/or swelling in the area where radiation was administered. If any skin irritation occurs, please contact your family physician. FOLLOW UP VISIT: 04/20/2017 @ 2:00 pm for incision check 06/03/2017 @ 1:45 pm for pacemaker check Current Hospital Diet Patient's current hospital diet: AHA Diet (Heart Healthy) Discharge Diet Recommended Diet: AHA Diet (Heart Healthy) Pending Studies Studies pending at discharge: no Medical Emergencies . Who to Call and When: Medical Emergencies: If at any time you feel your situation is an emergency, please call 911 immediately. . Non-Emergent Contact Non-Emergency issues call your: [facility] Nurse . . "Provider Documentation" section prepared by Abigail Peace. . VTE Core Measure Inpt VTE Proph given/why not?: Treatment not indicated
--- NOTE | 2017-04-17 09:54 | Cardiology Follow-Up ---
Subjective Date of Service: Apr 17, 2017. Pt evaluation today including: conversation w/ patient, physical exam, lab review, review of studies, review of inpatient medication list History of Present Illness Doing very well post-left ventricular lead placement yesterday, no incisional discomfort, no shortness of breath. He feels stronger and notes that his pedal edema has resolved, lately he has had a lot of edema. Social History Smoking Status: Former Smoker History of Alcohol Use: Yes (occasional ) Review of Systems Respiratory: No shortness of breath Cardiac: + see HPI, No chest pain, No edema Objective Vital Signs Past 12 Hours Date Time Temp Pulse Resp B/P (MAP) Pulse Ox O2 Delivery O2 Flow Rate FiO2 04/17/17 08:00 100 Nasal Cannula 2.0 04/17/17 07:00 36.5 65 18 130/61 (84) 100 Nasal Cannula 2.5 04/17/17 04:00 100 Nasal Cannula 2.0 04/17/17 04:00 36.4 65 20 137/74 (95) 100 Nasal Cannula 2.0 04/17/17 00:00 99 Nasal Cannula 2.0 04/16/17 23:54 36.5 66 20 137/64 (88) 99 Nasal Cannula 2.0 Last Recorded Weight-Kilograms: 70.500 Physical Exam Constitutional: Level of Distress: NAD Lungs: Auscultation: breath sounds normal Cardiovascular: Heart Auscultation: RRR, no rubs Extremities: no edema Data Laboratory Results: Last 24 Hours Test 04/17/17 05:07 Sodium Level 141 mmol/L Potassium Level 3.5 mmol/L Chloride Level 98 mmol/L Carbon Dioxide Level 38 mmol/L Anion Gap 5.0 mmol/L Blood Urea Nitrogen 55 mg/dl Creatinine 1.90 mg/dl Est Creatinine Clear Calc Drug Dose 27.5 ml/min Estimated GFR () 36.2 Estimated GFR (Non- 31.2 BUN/Creatinine Ratio 28.7 Random Glucose 99 mg/dl Calcium Level 8.5 mg/dl Imaging: Chest x-ray shows good lead position, no pneumothorax EKG: AV sequential paced rhythm at 64 bpm. Appropriate biventricular ICD function. Telemetry reviewed: Predominantly AV sequential pacing appropriately, some atrial sensing with ventricular pacing appropriately. ICD evaluation: I evaluate his left ventricular threshold and it is 2 V at 1 ms , stable from implant. Device is working well. Assessment and Plan #1. Postop day #1: Doing well postop, his device is working well, leads are in good position and he has no pneumothorax. He feels better following surgery. Stable for discharge. #2. Chronic renal insufficiency: His creatinine is stable following the procedure yesterday.
--- NOTE | 2017-04-17 10:38 | Discharge Summary ---
Discharge Summary Admission Date: Apr 16, 2017 at 11:03 Discharge Date: Apr 17, 2017 Discharge Disposition: Home Primary Diagnosis: Cardiomyopathy with dyssynchronous ventricular pacing Secondary Diagnoses/Problems: Medical Problems: (1) CHF (congestive heart failure) Status: Chronic (2) Elevated troponin Status: Acute (3) Fluid overload Status: Resolved (4) SOB (shortness of breath) Status: Acute (5) Stroke Status: Resolved Surgical Problems: (1) H/O aortic valve replacement Status: Resolved (2) History of thoracentesis Status: Resolved Procedures: Coronary sinus angiogram Left ventricular lead implantation ICD lead pocket revision Discharge Instructions Last Recorded Wt (Kilograms): 70.500 Diet At Discharge: low sodium, low cholesterol, diabetes diet Allergies: Coded Allergies: Penicillins (Unverified Allergy, Unknown, HIVES, 03/25/17) Additional Instructions: ACTIVITY RECOMMENDATIONS: * Do not raise affected arm over head for 2 weeks. SPECIAL CARE INSTRUCTIONS: * If bleeding occurs, apply direct pressure to area for 5 minutes. * Call your doctor if you have severe pain, fever, drainage or bleeding at site. * Keep dressing on and dry for 48 hours then remove. * Keep any scheduled doctor's appointment. * Implant Card - hand held device with website information given. SKIN IRRITATION: * You may experience some redness and/or swelling in the area where radiation was administered. If any skin irritation occurs, please contact your family physician. FOLLOW UP VISIT: Keep any scheduled doctor appointments. Special Care: Call your doctor if: * Temperature above 101 degrees * Pain not relieved by pain medicine ordered * There is increased drainage or redness from any incision * You have any unanswered questions or concerns. Avoid all tobacco products. If you need help to stop smoking, call [place]'s FREE QUITLINE at . This is a free call. Admission HPI He is a very pleasant 86-year-old gentleman who has had his cardiac care in [place] but now returns to this area. He has a history of coronary artery disease including bypass surgery in 1985 with his last catheterization in 2013 showing patent vessels per report. He also has a history of chronic renal insufficiency (creatinine hovering a little above 2), diabetes and hypertension. He had a TAVR placed on 10/28/2014 for aortic stenosis. He has had a lot of difficulty with congestive heart failure and he has significant left ventricular dysfunction. He therefore had an ICD implanted on 12/20/2015 in [place], this was intended to be a biventricular device however the left ventricular lead could not be placed. The operative report notes that "due to CS anatomy it was impossible to advance the lead to an acceptable position for LV pacing". A biventricular unit was placed however with an atrial and right ventricular lead and the left ventricular port capped. Per the patient the situation was reviewed with a surgeon who felt that he would not tolerate a thoracotomy for an epicardial lead placement. He had a transthoracic echo performed on 11/01/2016 in [place] reported his left ventricle was normal in size with an ejection fraction of 25-30%, severely reduced. An echocardiogram done here on 03/26/2017 showed moderate left ventricular dilatation with severe left ventricular dysfunction and ejection fraction of 30-35%. He has continued to have a lot of difficulty with congestive heart failure and frequent admissions (in [place] until this admission) as well as visits to the office with fluid overload. He was hospitalized for several days in mid March 2017 with congestive heart failure and we discussed options for upgrade to a biventricular system (which requires placement of the left ventricular lead, the other hardware is in place). Options included an attempt to place a left ventricular lead here versus an epicardial approach. He returns now for review of these options. Admission Physical Exam Additional Comments: Constitutional: Alert, cooperative and in no distress. HEENT: Unremarkable Neck: No jugular venous distention, carotid pulses are normal and equal bilaterally without bruits. Pulmonary: Clear to auscultation bilaterally. Cardiac: Regular rhythm with a grade 2/6 holosystolic murmur at the apex, no gallop or rub. Abdomen: Soft, nontender with normal bowel sounds. Extremities: No edema. Distal pulses intact. Neurologic: No focal findings. Gait is steady. Skin: The device site is well-healed without erythema, swelling or tenderness. No rash, ecchymoses or petechiae. Hospital Course Patient is an 86-year-old male with an ischemic cardiomyopathy, chronic systolic CHF, and biventricular ICD who underwent implantation of left ventricular lead (left ventricular port was previously plugged) on 04/16/[address] Tineo. He tolerated the procedure well. Device check the following day showed excellent sensing and pacing characteristics. CXR showed good lead placement and no evidence of pneumothorax. He was deemed stable for discharge home on 04/17/2017. He will have follow-up in 3 days for incision check and in 6 weeks for device check. Total time spent on discharge = This includes examination of the patient, discharge planning, medication reconciliation, and communication with other providers.
== END 2017-04-17 12:30 | disposition home or self-care (01) ==
LOC: C.ACU 05:54 → ENRESERV 09:59 → C.2T 11:03
PROVIDERS: ADMIT Internal Medicine Cardiovascular Disease; ATTEND Internal Medicine Cardiovascular Disease
DX: I42.9 Cardiomyopathy, unspecified (principal); T82.190A Other mechanical complication of cardiac electrode, initial encounter; Y83.1 Surgical operation with implant of artificial internal device as the cause of abnormal reaction of the patient, or of later complication, without mention of misadventure at the time of the procedure; I13.0 Hypertensive heart and chronic kidney disease with heart failure and stage 1 through stage 4 chronic kidney disease, or unspecified chronic kidney disease; I50.22 Chronic systolic (congestive) heart failure; N18.9 Chronic kidney disease, unspecified; R79.89 Other specified abnormal findings of blood chemistry; I25.10 Atherosclerotic heart disease of native coronary artery without angina pectoris; E11.9 Type 2 diabetes mellitus without complications; I44.7 Left bundle-branch block, unspecified; E78.5 Hyperlipidemia, unspecified; E03.9 Hypothyroidism, unspecified; Z79.82 Long term (current) use of aspirin; Z95.1 Presence of aortocoronary bypass graft; Z87.891 Personal history of nicotine dependence; Z95.2 Presence of prosthetic heart valve

== ENCOUNTER → 2017-11-12 | Outpatient (CLI) | payer OTHER, MEDICARE ==
[~2017-11-12] MED LIST changes: +ALPR-411 PO; +FERR1TAB23 PO; +IPRA1AER2 INH; +IRON1CAP2
[2017-11-12 12:15] LABS: HEMATOCRIT 29.8 % (42-52); HEMOGLOBIN 9.8 g/dL (14.0-18.0); MEAN CELL VOLUME 102.1 fL (80-100); MEAN CORPUSCULAR HEMOGLOBIN 33.6 pg (25-34); MEAN CORPUSCULAR HGB CONC 32.9 g/dl (32-36); MEAN PLATELET VOLUME 10.4 fL (7.4-10.4); PLATELET COUNT 142 K/uL (130-400); RED CELL DISTRIBUTION WIDTH CV 11.8 % (11.5-14.5); RED CELL DISTRIBUTION WIDTH SD 44.1 fL (36.4-46.3); WHITE BLOOD COUNT 5.49 K/uL (4.8-10.8)
[2017-11-12 13:32] LABS: BLOOD UREA NITROGEN 49 mg/dl (7-18); CREATININE 1.88 mg/dl (0.60-1.40); GLUCOSE 91 mg/dl (70-99)
[2017-11-12 13:33] LABS: ALBUMIN 3.1 gm/dl (3.4-5.0); ALT/SGPT 8 U/L (12-78); CARBON DIOXIDE 34 mmol/L (21-32); CHOLESTEROL 134 mg/dl (0-200); SODIUM 139 mmol/L (136-145)
[2017-11-12 13:43] LABS: ALKALINE PHOSPHATASE 52 U/L (45-117); AST/SGOT 17 U/L (15-37); LDL CHOLESTEROL CALCULATED 65 mg/dl
== END | disposition home or self-care (01) ==
LOC: C.LAB1850 11:20
PROVIDERS: ATTEND Internal Medicine
DX: Z00.00 Encounter for general adult medical examination without abnormal findings (principal); I25.10 Atherosclerotic heart disease of native coronary artery without angina pectoris; E78.5 Hyperlipidemia, unspecified; E03.9 Hypothyroidism, unspecified; I50.9 Heart failure, unspecified; I11.0 Hypertensive heart disease with heart failure

== ENCOUNTER → 2018-01-11 | Outpatient (CLI) | payer OTHER, MEDICARE ==
[~2018-01-11] MED LIST changes: +POTA-639 PO; -POTA20TA16 PO
== END | disposition home or self-care (01) ==
LOC: C.LAB1850 15:15
PROVIDERS: ATTEND Internal Medicine Pulmonary Disease
DX: R51 Headache (principal)

== ENCOUNTER → 2018-04-05 | Outpatient (CLI) | payer OTHER, MEDICARE ==
[~2018-04-05] MED LIST changes: +ACET-1256 PO; -ASCO100061 PO; +CARV25TA2 PO; -CARV6.25 PO; -FERR1TAB23 PO; -IRON1CAP2; -OXGN; +SACU1TAB PO
[2018-04-05 15:25] LABS: BLOOD UREA NITROGEN 41 mg/dl (7-18); CALCIUM 8.4 mg/dl (8.5-10.1); CARBON DIOXIDE 31 mmol/L (21-32); CREATININE 2.26 mg/dl (0.60-1.40); GLUCOSE 197 mg/dl (70-99); POTASSIUM 4.9 mmol/L (3.5-5.1); SODIUM 139 mmol/L (136-145)
== END | disposition home or self-care (01) ==
LOC: C.LAB1850 13:34
PROVIDERS: ATTEND Physician Assistant
DX: I50.9 Heart failure, unspecified (principal)

== ENCOUNTER → 2018-04-21 | Outpatient (CLI) | payer OTHER, MEDICARE ==
[2018-04-21 12:29] LABS: BLOOD UREA NITROGEN 54 mg/dl (7-18); CALCIUM 8.1 mg/dl (8.5-10.1); CARBON DIOXIDE 24 mmol/L (21-32); CREATININE 2.53 mg/dl (0.60-1.40); GLUCOSE 144 mg/dl (70-99); POTASSIUM 4.8 mmol/L (3.5-5.1); SODIUM 136 mmol/L (136-145)
== END | disposition home or self-care (01) ==
LOC: C.LAB1850 11:16
PROVIDERS: ATTEND Physician Assistant
DX: I50.9 Heart failure, unspecified (principal)

== ENCOUNTER → 2018-05-03 | Outpatient (CLI) | payer OTHER, MEDICARE ==
[2018-05-03 15:20] LABS: BLOOD UREA NITROGEN 62 mg/dl (7-18); CALCIUM 8.9 mg/dl (8.5-10.1); CARBON DIOXIDE 32 mmol/L (21-32); CREATININE 2.37 mg/dl (0.60-1.40); GLUCOSE 119 mg/dl (70-99); POTASSIUM 4.3 mmol/L (3.5-5.1); SODIUM 140 mmol/L (136-145)
== END | disposition home or self-care (01) ==
LOC: C.LAB1850 12:43
PROVIDERS: ATTEND Physician Assistant
DX: N18.9 Chronic kidney disease, unspecified (principal); I50.20 Unspecified systolic (congestive) heart failure

== ENCOUNTER → 2018-05-04 | Outpatient (CLI) | payer OTHER, MEDICARE ==
[~2018-05-04] MED LIST changes: +REGADENOSON 0.4 MG/5 ML SYR ONE
--- NOTE | 2018-05-07 09:25 | Myocardial Perfusion Study ---
Myocardial Perfusion Study Rpt Myocardial Perfusion Study Rpt Date of Service 05/04/18 Myocardial Perfusion Study Rpt Procedure: 1. Myocardial perfusion study performed in multiple views/images 2. Lexiscan pharmacologic stress ECG Indications: 1. CAD 2. Ischemic cardiomyopathy 3. Preoperative evaluation Consent: Informed written consent was obtained prior to the procedure. Ordering physician: Abigail Hollins PA-C Procedural details: For the stress portion of the study, Lexiscan 0.4 mg was intravenously administered followed by a saline flush. This was followed by 31.2 mCi of technetium 99m Cardiolite, injected at 1:40 p.m. on 05/04/2018. 30 minutes following the injection, imaging of the heart was performed in multiple projections. For the rest portion of the study, 10.3 mCi technetium 99m Cardiolite was injected intravenously at 12:00 p.m. on 05/04/2018. 1 hour following the injection, imaging of the heart was performed in the same projections. The procedure was performed on 05/04/2018. I was made aware of this study on . Lexiscan stress ECG: Resting ECG demonstrated: Atrial sensing, ventricular pacing at 77 bpm. Maximum heart rate: 83 bpm Resting blood pressure: Resting blood pressure not available Maximum blood pressure: Blood pressure not available Maximal, age-predicted heart rate: 62 % Significant ST changes: None Arrhythmia: None Symptoms: None reported Findings: Rotating raw imaging demonstrated no significant lung uptake. There is no significant motion artifact. Heart size appeared enlarged. Myocardial perfusion demonstrated a septal hot spot in post stress and rest imaging. Otherwise, there was very little uptake globally. There was a large area of severely reduced uptake involving the base to apical anterior, base to apical anterolateral, base to apical inferior, base to apical inferolateral, base to apical lateral wall segments, including the apex. There was also moderately reduced uptake involving the base to apical anteroseptum. These defects were fixed in post stress and rest imaging with minimal reversibility involving the inferior, anteroseptum, anterior, and basal anterolateral wall segments, suggesting infarct with chidi-infarct ischemia. Ejection fraction: 28 % Wall motion: There appeared to be akinesis involving the distal anteroseptum, distal anterior wall, distal inferior, distal inferolateral, and apical wall segments. Otherwise, global hypokinesis. No significant transient ischemic dilation. Impression: 1. Abnormal myocardial perfusion study suggesting multivessel infarct (LAD, circumflex, and RCA), with chidi-infarct ischemia. 2. Severely reduced left ventricular systolic function. EF 28%. 3. There appeared to be akinesis involving the distal anteroseptum, distal anterior wall, distal inferior, distal inferolateral, and apical wall segments. Otherwise, global hypokinesis. 4. Indeterminate Lexiscan ECG.
== END | disposition home or self-care (01) ==
LOC: C.NUCL 11:18
PROVIDERS: ATTEND Physician Assistant
DX: Z01.810 Encounter for preprocedural cardiovascular examination (principal); I25.10 Atherosclerotic heart disease of native coronary artery without angina pectoris; I25.5 Ischemic cardiomyopathy

== ENCOUNTER 2018-10-27 09:01 | Inpatient (IN) ==
--- NOTE | 2018-10-27 09:32 | Emergency Department Note ---
Entered by Susan Rojas acting as a scribe for History of Present Illness General Chief complaint: Shortness of Breath/Dyspnea Stated complaint: respiratory distress Time Seen by Provider: 10/27/18 09:07 Source: patient History of Present Illness Provider complaint: shortness of breath Onset (ago): day(s) (this morning) Location: chest Pain Consistency: + other (persistent) Quality: + other (shortness of breath) Associated symptoms: + other (fluid buildup. denies: fever, cough, chest pain, nausea, vomiting) The patient is an 88 year old male who presents to the Emergency Room with complaints of persistent shortness of breath beginning this morning. EMS brought the patient to the ED from home. He does not have a fever or cough. The patient reports he has been short of breath "for 4 years." He denies chest pain , nausea, or vomiting. The patient's notes he has a history of heart failure and has had recent fluid buildup. The patient was seen in the ED 5 days ago, and discharged home. He has no recent medication changes. EMS reported the patient's O2 saturation was 76% on 4L oxygen at home. 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 Home Medications Home Medications Medication Instructions Recorded Confirmed Type cholecalciferol (vitamin D3) 2,000 units PO QAM 06/29/18 10/27/18 History [Vitamin D3] cyanocobalamin (vitamin B-12) 1,000 mcg PO QAM 06/29/18 10/27/18 History ferrous sulfate [iron] 325 mg PO QAM 06/29/18 10/27/18 History ipratropium-albuterol 3 ml INHALATION Q8H PRN 06/29/18 10/27/18 History levothyroxine 100 mcg PO QAM 06/29/18 10/27/18 History tamsulosin 0.4 mg PO DAILY 06/29/18 10/27/18 History carvedilol [Coreg] 12.5 mg PO BID 07/01/18 10/27/18 History pantoprazole 40 mg PO QAM #30 tab 07/07/18 10/27/18 Rx aspirin 81 mg PO DAILY 07/12/18 10/27/18 History bumetanide 2 mg PO QAM #30 tab 07/27/18 10/27/18 Rx sennosides-docusate sodium [Senna 1 tab PO HS 07/30/18 10/27/18 History Plus] acetaminophen 650 mg PO Q6H PRN MDD 3000 MG/24 09/24/18 10/27/18 History HOURS ciprofloxacin HCl 500 mg PO Q12H 09/24/18 10/27/18 History hydroxyzine pamoate [Vistaril] 25 mg PO HS PRN #30 cap 09/24/18 10/27/18 Rx megestrol 40 mg PO Q2D 09/24/18 10/27/18 History morphine concentrate 5 mg PO Q6H PRN 09/24/18 10/27/18 History Allergies Allergy/AdvReac Type Severity Reaction Status Date / Time Penicillins Allergy Unknown HIVES Verified 10/27/18 09:48 Past Med/Surg History Medical History GERD (gastroesophageal reflux disease) Chronic respiratory failure with hypoxia Myelodysplastic syndrome CAD (coronary artery disease) of bypass graft (Chronic) Systolic CHF Pancytopenia (Chronic) Carotid arterial disease Acute combined systolic and diastolic congestive heart failure (Acute) Restrictive lung disease (Chronic) On home oxygen therapy 3LPM O2 VIA N/C CONTINUOUS Pacemaker IMPLANTED 2015; [facility]- LAST PACER/ICD CHECK 07/01/18 Anxiety Bladder outlet obstruction (Chronic) Renal mass, right Cystitis Thrombocytopenia JONATHAN (acute kidney injury) Anemia CAD in [place] artery CHF exacerbation Cardiomyopathy Chronic kidney disease (Chronic) CKD BASELINE 1.8 FELT 2/2 BLADDER OUTLET OBSTRUCTION/DM/ICM/POOR RENAL PERFUSION JONATHAN ON CKD DURING 06/2018 ADMISSION AT [facility] FELT 2/2 PROFOUND ANEMIA IN SETTING OF ARB THERAPY Dyslipidemia Hypothyroidism (Chronic) Anemia CHRONIC; BASELINE 9-10 RANGE BPH (benign prostatic hyperplasia) CAD (coronary artery disease) S/P CABG CVA (cerebral vascular accident) 1992 Cancer SKIN (BCC) DVT prophylaxis Diabetes mellitus, type 2 DIET CONTROLLED Elevated troponin I level Encounter for pre-operative examination Hearing deficit History of CHF (congestive heart failure) Hypothyroidism ICD (implantable cardioverter-defibrillator) in place IMPLANTED 2015; [facility]- LAST PACER/ICD CHECK 07/01/18 Indwelling Byrnes catheter present Ischemic cardiomyopathy MDS (myelodysplastic syndrome) RECENT DX DURING 06/2018 [facility] ADMISSION Myocardial Infarction 1985 Nausea & vomiting Recurrent pleural effusion on left Recurrent pleural effusion on right Shortness of breath Sleep apnea NO DEVICE- NON-COMPLIANT Stroke UTI (urinary tract infection) Urinary retention Surgical History H/O aortic valve replacement H/O carotid endarterectomy History of adenoidectomy History of cardiac cath X2 STENT (1988) History of carotid endarterectomy RIGHT CAROTID STENT (2003); LEFT CEA (2007) History of cataract surgery BILATERAL History of colonoscopy History of coronary artery bypass graft X2 VESSEL (1985); X1 VESSEL (1988) History of cystoscopy CYSTOSCOPY, DILATION BLADDER NECK CONTRACTURE= 02/14/18= MAC SEDATION AT [facility] History of esophagogastroduodenoscopy (EGD) History of heart valve replacement TAVR (2014) History of lung surgery LEFT SIDE 2/2 PLEURAL EFFUSION (2014) History of tonsillectomy Hx of transurethral resection of prostate S/p TAVR (transcatheter aortic valve replacement), bioprosthetic Family History Father Social History marital status: Current Living Situation: Spouse Current Living Situation Comment: [employer] Other Information That Helps Us Care for You: No Feels Safe at Home: Yes Safety Concerns: Feels Safe At This Time Smoking Status: Former smoker Tobacco Type: cigarettes Do You Dip or Chew Tobacco: No Second Hand Exposure: No Tobacco Cessation Education Requested by Patient: No Hx Alcohol Use: No Hx Substance Use: No Beliefs That Will Affect Care: None Preferred Language: [place]rugu[place] Communication Ability: Effective Communication Ability Comment: some confusion Client Advisor Required: No Review of Systems See HPI for pertinent positives & negatives. and A total of 10 systems reviewed and were otherwise negative Physical Exam Vital Signs Vital Signs - 24 hr 10/27/18 09:04 10/27/18 09:14 10/27/18 09:22 Temperature 37.4 C Temperature Source Oral Oral Sepsis Recent Fever Within 48 Hours No Sepsis Action Taken by Nursing No Action Required Pulse Rate 74 Pulse Rate [Left Brachial] Pulse Rhythm Regular Pulse Rhythm [Left Brachial] Pulse Strength Normal Pulse Strength [Left Brachial] Respiratory Rate 32 H Respiratory Effort / Characteristics Labored Respiratory Depth Shallow Respiratory Pattern Tachypnea Blood Pressure 167/67 H Blood Pressure [Left Arm] Blood Pressure Mean 100 Blood Pressure Mean [Left Arm] Blood Pressure Position Sitting Blood Pressure Position [Left Arm] Pulse Oximetry 99 Oxygen Delivery Method BiPAP BiPAP Oxygen Flow Rate 6 Fraction of Inspired Oxygen 40 10/27/18 09:25 10/27/18 11:00 10/27/18 11:01 Temperature Temperature Source Sepsis Recent Fever Within 48 Hours Sepsis Action Taken by Nursing Pulse Rate 66 62 62 Pulse Rate [Left Brachial] Pulse Rhythm Pulse Rhythm [Left Brachial] Pulse Strength Pulse Strength [Left Brachial] Respiratory Rate 23 21 21 Respiratory Effort / Characteristics Spontaneous Short of Breath Respiratory Depth Shallow Respiratory Pattern Regular Blood Pressure 147/114 H Blood Pressure [Left Arm] Blood Pressure Mean 125 Blood Pressure Mean [Left Arm] Blood Pressure Position Blood Pressure Position [Left Arm] Pulse Oximetry 99 100 100 Oxygen Delivery Method Oxygen Flow Rate Fraction of Inspired Oxygen 40 10/27/18 11:14 10/27/18 11:32 10/27/18 12:10 Temperature Temperature Source Sepsis Recent Fever Within 48 Hours Sepsis Action Taken by Nursing Pulse Rate 60 Pulse Rate [Left Brachial] Pulse Rhythm Pulse Rhythm [Left Brachial] Pulse Strength Pulse Strength [Left Brachial] Respiratory Rate 20 Respiratory Effort / Characteristics SOB on Exertion Respiratory Depth Shallow Respiratory Pattern Regular Blood Pressure 154/71 H Blood Pressure [Left Arm] Blood Pressure Mean 98 Blood Pressure Mean [Left Arm] Blood Pressure Position Blood Pressure Position [Left Arm] Pulse Oximetry 100 100 Oxygen Delivery Method BiPAP BiPAP Oxygen Flow Rate Fraction of Inspired Oxygen 40 10/27/18 12:45 10/27/18 13:10 10/27/18 13:45 Temperature 36.9 C Temperature Source Oral Sepsis Recent Fever Within 48 Hours Sepsis Action Taken by Nursing Pulse Rate 72 Pulse Rate [Left Brachial] 94 H Pulse Rhythm Pulse Rhythm [Left Brachial] Regular Pulse Strength Pulse Strength [Left Brachial] Normal Respiratory Rate 20 16 Respiratory Effort / Characteristics Non-Labored Non-Labored Respiratory Depth Normal Normal Respiratory Pattern Regular Regular Blood Pressure 156/98 H Blood Pressure [Left Arm] 167/61 H Blood Pressure Mean Blood Pressure Mean [Left Arm] 96 Blood Pressure Position Blood Pressure Position [Left Arm] Lying Pulse Oximetry 100 95 Oxygen Delivery Method Nasal Cannula Nasal Cannula BiPAP Oxygen Flow Rate 4 4 Fraction of Inspired Oxygen 40 GENERAL: Patient is listless he does respond to verbal commands but appears to go to sleep quickly. BiPAP is noted at the bedside. EYES: The conjunctivae are clear. The pupils are round and reactive. EARS, NOSE, MOUTH AND THROAT: The nose is without any evidence of any deformity. Mucous membranes are moist tongue is midline NECK: The neck is nontender and supple. RESPIRATORY: Shallow respirations were noted. There is poor air movement with rales noted throughout. CARDIOVASCULAR: Regular rate and rhythm noted there no murmurs rubs or gallops normal S1 normal S2 GASTROINTESTINAL: The abdomen is soft. Bowel sounds are present in all quadrants. Abdomen is nontender MUSCULOSKELETAL/EXTREMITIES: There is no evidence of gross deformity full range of motion is noted in the hips and shoulders SKIN: Pedal edema was noted bilaterally. NEUROLOGIC: Patient is oriented to person place and situation. Strength was diminished but symmetric. Course 0907: Past medical records reviewed. The patient was evaluated in room A10, and a complete history and physical examination were performed. 1115: Upon reevaluation, the patient is resting. I discussed test results with the patient and his family. They verbalized agreement with the treatment plan. 1118: I reviewed the patient's case with Dr. Canas, [facility] hospitalist. He will evaluate the patient for further management. Consultations Consultation #1: Dr. Canas [facility] hospitalist Time: 11:18 Administered Medications Discontinued Medications Furosemide (Lasix) 40 mg IV NOW STA Stop: 10/27/18 10:08 Last Admin: 10/27/18 10:19 Dose: 40 mg Nitroglycerin (Nitro-Bid 2%) 0.5 inch EXT NOW ONE Stop: 10/27/18 10:08 Last Admin: 10/27/18 10:19 Dose: 0.5 inch Medical Decision Making Differential Diagnosis Etiologies such as infections, reactive airway disease, COPD, pneumonia, pleural effusion, pulmonary edema, ARDS, pneumothorax, CHF, cardiac ischemia, cardiac tamponade, dysrhythmia, anemia, pulmonary embolism, musculoskeletal, gastrointestinal process, as well as others were entertained. Medical Records Attestation: I reviewed the patient's medical records. Home Medications Current Medication List: was personally reviewed by me Laboratory Data Attestation: I reviewed the patient's lab results. Result diagrams: 10/27/18 09:37 10/27/18 09:37 Lab Results 10/27/18 10/27/18 10/27/18 Range/Units 09:37 09:37 09:37 WBC 4.60 L (4.8-10.8) K/uL RBC 2.82 L (4.7-6.1) M/uL Hgb 9.6 L (14.0-18.0) g/dL Hct 32.4 L (42-52) % MCV 114.9 H (80-100) fL MCH 34.0 (25-34) pg MCHC 29.6 L (32-36) g/dL RDW Std Deviation 57.5 H (36.4-46.3) fL RDW Coeff of Sebas 14.0 (11.5-14.5) % Plt Count 113 L (130-400) K/uL MPV 10.0 (7.4-10.4) fL Immature Gran % (Auto) 0.0 % Neut % (Auto) 52.8 % Lymph % (Auto) 26.5 % Brooke % (Auto) 13.3 % Eos % (Auto) 6.7 % Baso % (Auto) 0.7 % Immature Gran # (Auto) 0.00 (0.00-0.02) K/uL Neut # (Auto) 2.43 (1.4-6.5) K/uL Lymph # (Auto) 1.22 (1.2-3.4) K/uL Brooke # (Auto) 0.61 H (0.11-0.59) K/uL Eos # (Auto) 0.31 (0-0.5) K/uL Baso # (Auto) 0.03 (0-0.2) K/uL Polychromasia 1+ Macrocytosis Present PT 10.7 (9.0-12.0) Seconds INR 1.1 (0.9-1.1) APTT 24.5 (21.0-31.0) Seconds PTT Ratio 0.9 VBG pH (7.36-7.41) VBG pCO2 (38-50) mmHg VBG pO2 mmHg VBG HCO3 mmol/L VBG O2 Saturation % VBG Base Excess mEq/L Barometric Pressure mm/Hg Sodium 142 (136-145) mmol/L Potassium 4.3 (3.5-5.1) mmol/L Chloride 95 L (98-107) mmol/L Carbon Dioxide 43 H* (21-32) mmol/L Anion Gap 5.0 (3-11) BUN 36 H (7-18) mg/dl Creatinine 1.96 H (0.6-1.4) mg/dl Est Cr Clr Drug Dosing 26.1 ml/min Est GFR ( Amer) 34.4 Est GFR (Non-Af Amer) 29.7 BUN/Creatinine Ratio 18.5 (10-20) Glucose 87 (70-99) mg/dl Calcium 8.5 (8.5-10.1) mg/dl Magnesium 2.1 (1.8-2.4) mg/dl Total Bilirubin 0.4 (0.2-1) mg/dl AST 17 (15-37) U/L ALT 6 L (12-78) U/L Alkaline Phosphatase 43 L (45-117) U/L Troponin I 0.094 H* (0-0.045) ng/ml Total Protein 6.1 L (6.4-8.2) gm/dl Albumin 2.7 L (3.4-5.0) gm/dl Globulin 3.4 (2.5-4.0) gm/dl Albumin/Globulin Ratio 0.8 L (0.9-2) 10/27/18 Range/Units 09:37 WBC (4.8-10.8) K/uL RBC (4.7-6.1) M/uL Hgb (14.0-18.0) g/dL Hct (42-52) % MCV (80-100) fL MCH (25-34) pg MCHC (32-36) g/dL RDW Std Deviation (36.4-46.3) fL RDW Coeff of Sebas (11.5-14.5) % Plt Count (130-400) K/uL MPV (7.4-10.4) fL Immature Gran % (Auto) % Neut % (Auto) % Lymph % (Auto) % Brooke % (Auto) % Eos % (Auto) % Baso % (Auto) % Immature Gran # (Auto) (0.00-0.02) K/uL Neut # (Auto) (1.4-6.5) K/uL Lymph # (Auto) (1.2-3.4) K/uL Brooke # (Auto) (0.11-0.59) K/uL Eos # (Auto) (0-0.5) K/uL Baso # (Auto) (0-0.2) K/uL Polychromasia Macrocytosis PT (9.0-12.0) Seconds INR (0.9-1.1) APTT (21.0-31.0) Seconds PTT Ratio VBG pH 7.30 L (7.36-7.41) VBG pCO2 93 H (38-50) mmHg VBG pO2 24 mmHg VBG HCO3 45 mmol/L VBG O2 Saturation < 60.0 % VBG Base Excess 15.6 mEq/L Barometric Pressure 723.5 mm/Hg Sodium (136-145) mmol/L Potassium (3.5-5.1) mmol/L Chloride (98-107) mmol/L Carbon Dioxide (21-32) mmol/L Anion Gap (3-11) BUN (7-18) mg/dl Creatinine (0.6-1.4) mg/dl Est Cr Clr Drug Dosing ml/min Est GFR ( Amer) Est GFR (Non-Af Amer) BUN/Creatinine Ratio (10-20) Glucose (70-99) mg/dl Calcium (8.5-10.1) mg/dl Magnesium (1.8-2.4) mg/dl Total Bilirubin (0.2-1) mg/dl AST (15-37) U/L ALT (12-78) U/L Alkaline Phosphatase (45-117) U/L Troponin I (0-0.045) ng/ml Total Protein (6.4-8.2) gm/dl Albumin (3.4-5.0) gm/dl Globulin (2.5-4.0) gm/dl Albumin/Globulin Ratio (0.9-2) Imaging Data Radiologist's Impression: Radiology results as stated below per my review and the radiologist's interpretation: SINGLE VIEW CHEST CLINICAL HISTORY: Dyspnea. FINDINGS: An AP, portable, upright chest radiograph is compared to study dated and correlated with chest CT dated 07/12/2018. The a 3-lead cardiac AICD is unchanged in position. The heart is enlarged and there is atherosclerotic calcification of the thoracic aorta. There is mild pulmonary vascular congestion. There is evidence of previous cardiac valve surgery. There are small pleural effusions with bibasilar consolidation. Loculated fluid is again noted along the right minor fissure. No pneumothorax is seen. The skeletal structures are osteopenic. The bony thorax is grossly intact. IMPRESSION: 1. Cardiomegaly and AICD. There is mild pulmonary vascular congestion. 2. There are layering pleural effusions with bibasilar consolidation, similar in appearance to previous. This could represent atelectasis versus pneumonia and clinical correlation will be required. Electronically signed by: Marty Rodriguez M.D. 10/27/2018 9:52 AM ECG Data Attestation: I personally reviewed and interpreted this ECG as follows: Indication: SOB/dyspnea Rate (beats per minute): 74 Rhythm: other (V paced) Findings: + other (No [place] beats) and + PVC Comparison ECG Date: from (10/22/18) Change: no significant change Blood Pressure Blood Pressure Findings: Elevated blood pressure Blood Pressure Disposition: further management by hospitalist MDM Narrative The patient is an 88-year-old male who presented to the emergency department with respiratory distress. The patient was placed on BiPAP prior to arrival. The patient had significant hypoxia noted prior to arrival. I discussed the patient's laboratory and radiographic studies with him and his family members. He does appear to have significant CO2 retention. He was kept on BiPAP. His condition slowly improved. He was also placed on nitroglycerin paste and given IV Lasix. The patient was having altered mental status according to family. I do suspect this is from CO2 retention which have been ongoing. I discussed the patient's condition with the on-call [facility] hospitalist. They have agreed to evaluate the patient in the emergency department for further management and disposition. Impression & Plan Respiratory failure, Pulmonary edema, Respiratory acidosis, Hypoxia Critical Care Time I have personally spent greater than 45 minutes of critical care time in the direct management of this patient. This includes bedside care, interpretation of diagnostic studies, and testing, discussion with consultants, patient, and family members, and other required patient management activities. This 45 minutes is in excess of all separately billable procedures. Critical Care Time: Yes Total Critical Care Time: 45 Discharge Plan Visit Data *Final* Discharge Date/Time: 10/27/18 12:45 Chief Complaint: Shortness of Breath/Dyspnea Stated Complaint: respiratory distress ED Provider: Ruperto Ratliff Discharge Problem: Respiratory failure, Pulmonary edema, Respiratory acidosis, Hypoxia Patient Disposition: Admitted As Inpatient Discharge Instructions Interventions: ED Discharge Assessment Last Done: 10/27/18 12:45 The scribe's documentation has been prepared under my direction and personally reviewed by me in its entirety. I confirm that the note above accurately reflects all work, treatment, procedures, and medical decision making performed by me.
--- NOTE | 2018-10-27 09:54 | XRay Report ---
SINGLE VIEW CHEST CLINICAL HISTORY: Dyspnea. FINDINGS: An AP, portable, upright chest radiograph is compared to study dated 10/22/2018 and correlate d with chest CT dated 07/12/2018. The a 3-lead cardiac AICD is unchanged in position. The heart is en larged and there is atherosclerotic calcification of the thoracic aorta. There is mild pulmonary vasc ular congestion. There is evidence of previous cardiac valve surgery. There are small pleural effusio ns with bibasilar consolidation. Loculated fluid is again noted along the right minor fissure. No pne umothorax is seen. The skeletal structures are osteopenic. The bony thorax is grossly intact. IMPRESSION: 1. Cardiomegaly and AICD. There is mild pulmonary vascular congestion. 2. There are layering pleural effusions with bibasilar consolidation, similar in appearance to previo us. This could represent atelectasis versus pneumonia and clinical correlation will be required. Electronically signed by: Marty Rodriguez M.D. 10/27/2018 9:52 AM
[2018-10-27 09:55] LABS: Base Excess VBG 15.6 mEq/L; HCO3 VBG 45 mmol/L; PCO2 VBG 93 mmHg (38-50); PO2 VBG 24 mmHg
[2018-10-27 10:01] LABS: Hematocrit (blood only) 32.4 % (42-52); Hemoglobin 9.6 g/dL (14.0-18.0); Mean Corpuscular Hgb Conc 29.6 g/dL (32-36); Mean Corpuscular Volume 114.9 fL (80-100); Platelet Count 113 K/uL (130-400); RDW Standard Deviation 57.5 fL (36.4-46.3); Red Blood Count 2.82 M/uL (4.7-6.1)
[2018-10-27] MEDS ORDERED: FUROSEMIDE 40 MG/4 ML VIAL IV STA (10:07)
[2018-10-27] MEDS ORDERED: NITROGLYCERIN 2% OINTMENT 30GM TUBE EXT ONE (10:07)
[2018-10-27 10:18] LABS: INR 1.1 (0.9-1.1); Partial Thromboplastin Ratio 0.9; Partial Thromboplastin Time 24.5 Seconds (21.0-31.0); Prothrombin Time 10.7 Seconds (9.0-12.0)
[2018-10-27 10:22] LABS: Basophils # (auto) 0.03 K/uL (0-0.2); Basophils % (auto) 0.7 %; Eosinophils # (auto) 0.31 K/uL (0-0.5); Eosinophils % (auto) 6.7 %; Lymphocytes # (auto) 1.22 K/uL (1.2-3.4); Lymphocytes % (auto) 26.5 %; Macrocytosis Present; Monocytes # (auto) 0.61 K/uL (0.11-0.59); Monocytes % (auto) 13.3 %; Neutrophils # (auto) 2.43 K/uL (1.4-6.5); Neutrophils % (auto) 52.8 %; Polychromasia 1+
[2018-10-27 10:30] LABS: Oxygen Saturation VBG < 60.0 %
[2018-10-27 10:34] LABS: Albumin Globulin Ratio 0.8 (0.9-2); Albumin Level 2.7 gm/dl (3.4-5.0); BUN Creatinine Ratio 18.5 (10-20); Bilirubin,Total 0.4 mg/dl (0.2-1); Calcium 8.5 mg/dl (8.5-10.1); Creatinine Clr Calc Pharmacy 26.1 ml/min; Est GFR (African American) 34.4; Est GFR (Non-African American) 29.7; Globulin 3.4 gm/dl (2.5-4.0); Magnesium 2.1 mg/dl (1.8-2.4); Potassium 4.3 mmol/L (3.5-5.1); Total Protein 6.1 gm/dl (6.4-8.2); Troponin I 0.094 ng/ml (0-0.045)
--- NOTE | 2018-10-27 11:25 | History & Physical Report ---
Date of Service October 27, 2018 Assessment & Plan (1) Acute on chronic combined systolic and diastolic CHF (congestive heart failure): - Admit to PCU/tele - Pt has recieved lasix 40 mg IV so far with little improvement and still requiring bipap. - Schedule another Lasix 60 mg IV dose for later this afternoon. Bumex ordered for AM meds at 2 mg, may need to increase to 4 mg through admission or on discharge. He has been taking 4 mg for past several days as outpatient without significant improvement - Strict I/Os, daily weights, fluid restriction of 1500ml - Monitor cr. with baseline CKD stg IV - Continue bipap with trials off later today if tolerating it - Consult cardiology - follows with Dr. Tineo as outpt - will need CHF clinic referral - Pt not a candidate for DEBBIE or ARB with kidney dysfunction (2) CAD (coronary artery disease) of bypass graft: - Noted - Continue carvedilol 12.5 mg BID, asa 81 mg daily (3) H/O aortic valve replacement: (4) Chronic respiratory failure with hypoxia: - Acute on chronic at time of admission. - Continue bipap for now, trial off this afternoon. - ABG performed with pCO2=93 - Increased confusion likely secondary to CO2 retention, monitor, family reports improved with bipap, pt is AAOx3, cannot recall specific events leading up to being in the ER this morning. Consider repeat ABG. Consider CT of the head if any worsening changes. (5) Pacemaker: - Stable (6) Dyslipidemia: - Stable (7) Restrictive lung disease: - Adds to complications in the setting of CHF exacerbation and pulmonary edema as per the CXR, diuresis as above. (8) Anxiety: - Stable (9) Anemia: - Chronic (10) Cardiomyopathy: - As above. (11) Chronic kidney disease: - Cr. stable for now, monitor with am prp - Stage IV (12) Hypothyroidism: - Continue levothyroxine daily (13) DVT prophylaxis: - Continue heparin subq (14) Myelodysplastic syndrome: - Cause of pancytopenia - Follows with Dr. Joe Gipson as outpatient. (15) Bladder outlet obstruction: - Suprapubic catheter in place, was changed about 1 weeks ago per . - Increased confusion warrants following UCx. 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 The patient normally wears 4L O2 via NC. and daughter at bedside report him as being more confused today. His legs have been significantly swollen and has recently been taking an increased dosage of Bumex 4 mg in the morning, compared to 2 mg, however hasn't improved edema. Pt was found to be hypoxic with O2 at 76% this morning on 4L by EMS. He typically is very independent and walks with a walker. He and his live at home. Allergies Allergy/AdvReac Type Severity Reaction Status Date / Time Penicillins Allergy Unknown HIVES Verified 10/27/18 09:48 Home Medications Home Medications Medication Instructions Recorded Confirmed Type cholecalciferol (vitamin D3) 2,000 units PO QAM 06/29/18 10/27/18 History [Vitamin D3] cyanocobalamin (vitamin B-12) 1,000 mcg PO QAM 06/29/18 10/27/18 History ferrous sulfate [iron] 325 mg PO QAM 06/29/18 10/27/18 History ipratropium-albuterol 3 ml INHALATION Q8H PRN 06/29/18 10/27/18 History levothyroxine 100 mcg PO QAM 06/29/18 10/27/18 History tamsulosin 0.4 mg PO DAILY 06/29/18 10/27/18 History carvedilol [Coreg] 12.5 mg PO BID 07/01/18 10/27/18 History pantoprazole 40 mg PO QAM #30 tab 07/07/18 10/27/18 Rx aspirin 81 mg PO DAILY 07/12/18 10/27/18 History bumetanide 2 mg PO QAM #30 tab 07/27/18 10/27/18 Rx sennosides-docusate sodium [Senna 1 tab PO HS 07/30/18 10/27/18 History Plus] acetaminophen 650 mg PO Q6H PRN MDD 3000 MG/24 09/24/18 10/27/18 History HOURS ciprofloxacin HCl 500 mg PO Q12H 09/24/18 10/27/18 History hydroxyzine pamoate [Vistaril] 25 mg PO HS PRN #30 cap 09/24/18 10/27/18 Rx megestrol 40 mg PO Q2D 09/24/18 10/27/18 History morphine concentrate 5 mg PO Q6H PRN 09/24/18 10/27/18 History Past Med/Surg History Medical History GERD (gastroesophageal reflux disease) Chronic respiratory failure with hypoxia Myelodysplastic syndrome CAD (coronary artery disease) of bypass graft (Chronic) Systolic CHF Pancytopenia (Chronic) Carotid arterial disease Acute combined systolic and diastolic congestive heart failure (Acute) Restrictive lung disease (Chronic) On home oxygen therapy 3LPM O2 VIA N/C CONTINUOUS Pacemaker IMPLANTED 2015; [facility]- LAST PACER/ICD CHECK 07/01/18 Anxiety Bladder outlet obstruction (Chronic) Renal mass, right Cystitis Thrombocytopenia JONATHAN (acute kidney injury) Anemia CAD in [place] artery CHF exacerbation Cardiomyopathy Chronic kidney disease (Chronic) CKD BASELINE 1.8 FELT 2/2 BLADDER OUTLET OBSTRUCTION/DM/ICM/POOR RENAL PERFUSION JONATHAN ON CKD DURING 06/2018 ADMISSION AT [facility] FELT 2/2 PROFOUND ANEMIA IN SETTING OF ARB THERAPY Dyslipidemia Hypothyroidism (Chronic) Anemia CHRONIC; BASELINE 9-10 RANGE BPH (benign prostatic hyperplasia) CAD (coronary artery disease) S/P CABG CVA (cerebral vascular accident) 1992 Cancer SKIN (BCC) DVT prophylaxis Diabetes mellitus, type 2 DIET CONTROLLED Elevated troponin I level Encounter for pre-operative examination Hearing deficit History of CHF (congestive heart failure) Hypothyroidism ICD (implantable cardioverter-defibrillator) in place IMPLANTED 2015; [facility]- LAST PACER/ICD CHECK 07/01/18 Indwelling Byrnes catheter present Ischemic cardiomyopathy MDS (myelodysplastic syndrome) RECENT DX DURING 06/2018 [facility] ADMISSION Myocardial Infarction 1985 Nausea & vomiting Recurrent pleural effusion on left Recurrent pleural effusion on right Shortness of breath Sleep apnea NO DEVICE- NON-COMPLIANT Stroke UTI (urinary tract infection) Urinary retention Surgical History H/O aortic valve replacement H/O carotid endarterectomy History of adenoidectomy History of cardiac cath X2 STENT (1988) History of carotid endarterectomy RIGHT CAROTID STENT (2003); LEFT CEA (2007) History of cataract surgery BILATERAL History of colonoscopy History of coronary artery bypass graft X2 VESSEL (1985); X1 VESSEL (1988) History of cystoscopy CYSTOSCOPY, DILATION BLADDER NECK CONTRACTURE= 02/14/18= MAC SEDATION AT [facility] History of esophagogastroduodenoscopy (EGD) History of heart valve replacement TAVR (2014) History of lung surgery LEFT SIDE 2/2 PLEURAL EFFUSION (2014) History of tonsillectomy Hx of transurethral resection of prostate S/p TAVR (transcatheter aortic valve replacement), bioprosthetic Family History Father Social History marital status: Current Living Situation: Spouse Current Living Situation Comment: [employer] Other Information That Helps Us Care for You: No Feels Safe at Home: Yes Safety Concerns: Feels Safe At This Time Smoking Status: Former smoker Tobacco Type: cigarettes Do You Dip or Chew Tobacco: No Second Hand Exposure: No Tobacco Cessation Education Requested by Patient: No Hx Alcohol Use: No Hx Substance Use: No Beliefs That Will Affect Care: None Preferred Language: Telugu Communication Ability: Effective Communication Ability Comment: some confusion Painter Barrel Required: No Review of Systems Constitutional: no fever, no chills, no sweats and no fatigue Eyes: no diplopia and no worsening vision Ear, Nose, Mouth, Throat: no dizziness, no nasal discharge, no facial pain and no sore throat Respiratory: as per Subjective / HPI, + dyspnea on exertion and + wheezing; no cough and no sputum production Cardiovascular: + dyspnea on exertion; no chest pain, no palpitations, no lightheadedness and no syncope Gastrointestinal: no nausea, no vomiting and no constipation no diarrhea Genitourinary (Male): no dysuria, no urinary frequency, no urinary hesitancy and no hematuria Musculoskeletal: no back pain, no joint pain, no swelling and no muscle weakness Integumentary: no rash, no lesions and no wounds Neurologic: no gait abnormality, no falls, no numbness, no dizziness and no syncope Psychiatric: no depression and no anxiety Endocrine: no fatigue Physical Exam 2 Vital Signs (Past 24 Hours): Last Vital Signs Temp 37.4 C 10/27/18 09:04 Pulse 62 10/27/18 11:01 Resp 21 10/27/18 11:01 BP 147/114 H 10/27/18 11:01 Pulse Ox 100 10/27/18 11:14 Physical Exam: General: awake, alert, NAD, on bipap Head: Normocephalic, atraumatic ENT: PERRL, EOMI, pharyn not evaluated due to wearing bipap Chest: On bipap, diminished breath sounds throughout, no wheeze or rales, + faint rhonchi at bases bilaterally Cardiac: Regular rate and rhythm, few PVCs, no murmur, +JVD, normal peripheral pulses, good capillary refill Abdominal: NABS x 4 quadrants, soft, nontender to palpation, no rebound, guarding or tenderness, + suprapubic catheter Extremities: 2+ peripheral edema up to thighs, no erythema, calfs nontender to palpation Psych: Normal mood and affect Neuro: AAO x 3, + some confusion regarding code status and cannot tell exact history or chronological events this morning, no motor deficits, speech is clear , no peripheral sensory deficits Results & Data Diagnostic Findings SINGLE VIEW CHEST CLINICAL HISTORY: Dyspnea. FINDINGS: An AP, portable, upright chest radiograph is compared to study dated and correlated with chest CT dated 07/12/2018. The a 3-lead cardiac AICD is unchanged in position. The heart is enlarged and there is atherosclerotic calcification of the thoracic aorta. There is mild pulmonary vascular congestion. There is evidence of previous cardiac valve surgery. There are small pleural effusions with bibasilar consolidation. Loculated fluid is again noted along the right minor fissure. No pneumothorax is seen. The skeletal structures are osteopenic. The bony thorax is grossly intact. IMPRESSION: 1. Cardiomegaly and AICD. There is mild pulmonary vascular congestion. 2. There are layering pleural effusions with bibasilar consolidation, similar in appearance to previous. This could represent atelectasis versus pneumonia and clinical correlation will be required. Code Status & VTE Plan Code Status DNR Supervising Physician Co-Signing Physician Notes Pt seen/examined in conjunction with DAVID Jonas. Orders and plan of admission formulated with DAVID. 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 Returns today in moderate resp distress requiring CPAP. Imaging and exam are consistent with CHF exacerbation. OE AAO x 3 S1,2 R - JVD present BL Limited exam due to large air noises - decreased air at bases and crackles on R NT, ND No deficits although the pt is lethargic 3+ edema BL P: Primarily admitted for diuresis, however, the pt is hospitalized too often for this issue and needs to attend a CHF clinic, likely on a weekly basis. 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
[2018-10-27] MEDS ORDERED: ACETAMINOPHEN 325 MG TAB PO PRN ×2 (11:44→11:47)
[2018-10-27] MEDS ORDERED: ONDANSETRON INJ 2 MG/ML 2 ML VIAL IV PRN (11:44)
[2018-10-27] MEDS ORDERED: ALBUT/IPRATROP 3MG/0.5MG NEB 3 ML VIAL INH PRN (11:47)
[2018-10-27] MEDS ORDERED: BUMETANIDE 2 MG in SYRINGE 0 ML IV ONE (14:46)
[2018-10-27] MEDS ORDERED: FUROSEMIDE 40 MG/4 ML VIAL IV ONE (16:00)
--- NOTE | 2018-10-27 16:46 | Cardiology Consultation ---
Date of Consultation October 27, 2018 Assessment & Plan (1) Acute on chronic systolic (congestive) heart failure: He presents now with fluid overload including peripheral edema and congestive heart failure. On review of office weights his weight has not been increasing, it sounds as though he is not been taking an excessive fluid at home. His chest x-ray does not show severe pulmonary edema. There is no obvious cause of his presentation. His creatinine has not increased substantially. We do however need diuresis. (2) CAD (coronary artery disease) of bypass graft: He has known coronary disease, his troponin is slightly elevated but in the range consistent with demand ischemia. We cannot read his electrocardiogram for acute changes but he does not of symptoms and I would not pursue further unless things change. History of Present Illness Reason for Consultation: CHF Attending Physician: Liborio Canas MD History of Present Illness This is a very pleasant 88-year-old gentleman who has had cardiac care in [place] but now lives in this area. He has a history of coronary artery disease including bypass surgery in 1985 with his last catheterization in 2013 showing patent vessels per report. He also has a history of chronic renal insufficiency , diabetes and hypertension. He had a TAVR placed on 10/28/2014 for aortic stenosis. He has had a lot of difficulty with congestive heart failure and he has significant left ventricular dysfunction. He therefore had an ICD implanted on 12/20/2015 in [place], this was intended to be a biventricular device however the left ventricular lead could not be placed. The operative report notes that "due to CS anatomy it was impossible to advance the lead to an acceptable position for LV pacing". A biventricular unit was placed however with an atrial and right ventricular lead and the left ventricular port capped. Per the patient the situation was reviewed with a surgeon who felt that he would not tolerate a thoracotomy for an epicardial lead placement. He had a transthoracic echo performed on 11/01/2016 in [place] reported his left ventricle was normal in size with an ejection fraction of 25-30%, severely reduced. An echocardiogram done here on 03/26/2017 showed moderate left ventricular dilatation with severe left ventricular dysfunction and ejection fraction of 30-35%. He had continued to have a lot of difficulty with congestive heart failure and frequent admissions (in [place] until this admission) as well as visits to the office with fluid overload. He was hospitalized for several days in mid March 2017 with congestive heart failure and we discussed options for upgrade to a biventricular system (which requires placement of the left ventricular lead, the other hardware was in place). Options included an attempt to place a left ventricular lead here versus an epicardial approach. We were able to successfully upgrade his device with placement of the left ventricular lead on 04/16/2017. His left ventricular function has continued to decline however and he cannot tolerate high doses of medications He has been seen regularly in our office and we have been trying to control his fluid status. He was in the emergency room recently but was sent home, I reviewed his fluid restriction with his family who are present and it sounds as though he is getting about 1 L of free water a day plus a small amount with meals. They note that he has been becoming more sluggish, and that he has peripheral edema. He is not very communicative but evidently is not feeling well and was very short of breath at home. He did not of chest discomfort. Allergies Allergy/AdvReac Type Severity Reaction Status Date / Time Penicillins Allergy Unknown HIVES Verified 10/27/18 09:48 Home Medications Home Medications Medication Instructions Recorded Confirmed Type cholecalciferol (vitamin D3) 2,000 units PO QAM 06/29/18 10/27/18 History [Vitamin D3] cyanocobalamin (vitamin B-12) 1,000 mcg PO QAM 06/29/18 10/27/18 History ferrous sulfate [iron] 325 mg PO QAM 06/29/18 10/27/18 History ipratropium-albuterol 3 ml INHALATION Q8H PRN 06/29/18 10/27/18 History levothyroxine 100 mcg PO QAM 06/29/18 10/27/18 History tamsulosin 0.4 mg PO DAILY 06/29/18 10/27/18 History carvedilol [Coreg] 12.5 mg PO BID 07/01/18 10/27/18 History pantoprazole 40 mg PO QAM #30 tab 07/07/18 10/27/18 Rx aspirin 81 mg PO DAILY 07/12/18 10/27/18 History bumetanide 2 mg PO QAM #30 tab 07/27/18 10/27/18 Rx sennosides-docusate sodium [Senna 1 tab PO HS 07/30/18 10/27/18 History Plus] acetaminophen 650 mg PO Q6H PRN MDD 3000 MG/24 09/24/18 10/27/18 History HOURS ciprofloxacin HCl 500 mg PO Q12H 09/24/18 10/27/18 History hydroxyzine pamoate [Vistaril] 25 mg PO HS PRN #30 cap 09/24/18 10/27/18 Rx megestrol 40 mg PO Q2D 09/24/18 10/27/18 History morphine concentrate 5 mg PO Q6H PRN 09/24/18 10/27/18 History Patient History Medical History GERD (gastroesophageal reflux disease) Chronic respiratory failure with hypoxia Myelodysplastic syndrome CAD (coronary artery disease) of bypass graft (Chronic) Systolic CHF Pancytopenia (Chronic) Carotid arterial disease Acute combined systolic and diastolic congestive heart failure (Acute) Restrictive lung disease (Chronic) On home oxygen therapy 3LPM O2 VIA N/C CONTINUOUS Pacemaker IMPLANTED 2015; [facility]- LAST PACER/ICD CHECK 07/01/18 Anxiety Bladder outlet obstruction (Chronic) Renal mass, right Cystitis Thrombocytopenia JONATHAN (acute kidney injury) Anemia CAD in [place] artery CHF exacerbation Cardiomyopathy Chronic kidney disease (Chronic) CKD BASELINE 1.8 FELT 2/2 BLADDER OUTLET OBSTRUCTION/DM/ICM/POOR RENAL PERFUSION JONATHAN ON CKD DURING 06/2018 ADMISSION AT [facility] FELT 2/2 PROFOUND ANEMIA IN SETTING OF ARB THERAPY Dyslipidemia Hypothyroidism (Chronic) Anemia CHRONIC; BASELINE 9-10 RANGE BPH (benign prostatic hyperplasia) CAD (coronary artery disease) S/P CABG CVA (cerebral vascular accident) 1992 Cancer SKIN (BCC) DVT prophylaxis Diabetes mellitus, type 2 DIET CONTROLLED Elevated troponin I level Encounter for pre-operative examination Hearing deficit History of CHF (congestive heart failure) Hypothyroidism ICD (implantable cardioverter-defibrillator) in place IMPLANTED 2015; [facility]- LAST PACER/ICD CHECK 07/01/18 Indwelling Byrnes catheter present Ischemic cardiomyopathy MDS (myelodysplastic syndrome) RECENT DX DURING 06/2018 [facility] ADMISSION Myocardial Infarction 1985 Nausea & vomiting Recurrent pleural effusion on left Recurrent pleural effusion on right Shortness of breath Sleep apnea NO DEVICE- NON-COMPLIANT Stroke UTI (urinary tract infection) Urinary retention Surgical History H/O aortic valve replacement H/O carotid endarterectomy History of adenoidectomy History of cardiac cath X2 STENT (1988) History of carotid endarterectomy RIGHT CAROTID STENT (2003); LEFT CEA (2007) History of cataract surgery BILATERAL History of colonoscopy History of coronary artery bypass graft X2 VESSEL (1985); X1 VESSEL (1988) History of cystoscopy CYSTOSCOPY, DILATION BLADDER NECK CONTRACTURE= 02/14/18= MAC SEDATION AT [facility] History of esophagogastroduodenoscopy (EGD) History of heart valve replacement TAVR (2014) History of lung surgery LEFT SIDE 2/2 PLEURAL EFFUSION (2014) History of tonsillectomy Hx of transurethral resection of prostate S/p TAVR (transcatheter aortic valve replacement), bioprosthetic Family History Father Social History marital status: Current Living Situation: Spouse Current Living Situation Comment: [facility] [employer] Other Information That Helps Us Care for You: No Feels Safe at Home: Yes Safety Concerns: Feels Safe At This Time Smoking Status: Former smoker Tobacco Type: cigarettes Do You Dip or Chew Tobacco: No Second Hand Exposure: No Tobacco Cessation Education Requested by Patient: No Hx Alcohol Use: No Hx Substance Use: No Beliefs That Will Affect Care: None Preferred Language: Belarusian Communication Ability: Effective Communication Ability Comment: some confusion Manager Risk Management Required: No Review of Systems He is on BiPAP and is not a very good historian at the moment, therefore his review of systems may not be very reliable. Negative for lightheadedness, dizziness, palpitations, presyncope or syncope. Progressive dyspnea on exertion , no exertional chest pain. No orthopnea or PND, progressive peripheral edema. No GI complaints, no bleeding. No neurologic complaints such as TIA or stroke symptoms. Other systems negative. Physical Exam 2 Vital Signs (Past 24 Hours): Last Vital Signs Temp 36.9 C 10/27/18 16:26 Pulse 66 10/27/18 16:26 Resp 18 10/27/18 16:26 BP 176/69 H 10/27/18 16:26 Pulse Ox 93 10/27/18 16:26 Physical Exam: Constitutional: Alert, cooperative and in no distress. HEENT: Unremarkable Neck: No jugular venous distention, carotid pulses are normal and equal bilaterally without bruits. Pulmonary: Clear to auscultation bilaterally. Cardiac: Regular rhythm with no murmur, gallop or rub. Abdomen: Soft, nontender with normal bowel sounds. Extremities: +3 bilateral pitting edema. Distal pulses intact. Neurologic: No focal findings. Gait is steady. Skin: No rash, ecchymoses or petechiae. Results & Data Diagnostic Findings Telemetry: Sinus rhythm with PVCs Electrocardiogram: Sinus rhythm and atrial pacing with appropriate biventricular pacing throughout.
[2018-10-27 17:52] LABS: Appearance Urine Cloudy (Clear); Bacteria Urine Automated Negative (Negative); Bilirubin Urine Negative (Negative); Blood Urine 1+ (Negative); Color Urine Yellow; Epithelial Cell Urine Auto 0-5 /lpf (0-5); Glucose Urine UA Negative (Negative); Ketones Urine Negative (Negative); Leukocyte Esterase Urine 3+ (Negative); Nitrite Urine Negative (Negative); Protein Urine Negative (Negative); Specific Gravity Urine 1.008 (1.000-1.030); Urobilinogen Urine Negative (Negative); WBC Urine Automated >30 /hpf (0-5); pH Urine 6.5 (4.5-7.5)
[2018-10-27] MEDS: DOCUSATE SODIUM/SENNA 50/8.6MG TAB PO SCH (20:29)
[2018-10-27] MEDS: HEPARIN SOD 5,000 UNIT/0.5 ML VIAL SQ SCH (20:29)
[2018-10-27] MEDS: CARVEDILOL 12.5 MG TAB PO SCH (20:41)
[2018-10-28] MEDS: LEVOTHYROXINE SODIUM 100 MCG TABLET PO SCH (05:41)
[2018-10-28 07:27] LABS: Hematocrit (blood only) 35.9 % (42-52); Hemoglobin 10.6 g/dL (14.0-18.0); Mean Corpuscular Hgb Conc 29.5 g/dL (32-36); Mean Corpuscular Volume 113.6 fL (80-100); Mean Platelet Volume 10.3 fL (7.4-10.4); Platelet Count 97 K/uL (130-400); RDW Standard Deviation 57.4 fL (36.4-46.3); Red Blood Count 3.16 M/uL (4.7-6.1); White Blood Count 3.64 K/uL (4.8-10.8)
[2018-10-28 07:54] LABS: Albumin Level 2.6 gm/dl (3.4-5.0); BUN Creatinine Ratio 19.8 (10-20); Calcium 8.4 mg/dl (8.5-10.1); Creatinine Clr Calc Pharmacy 28.5 ml/min; Est GFR (African American) 38.4; Est GFR (Non-African American) 33.1; Potassium 4.3 mmol/L (3.5-5.1)
[2018-10-28 07:57] LABS: Albumin Globulin Ratio 0.7 (0.9-2); Bilirubin,Total 0.8 mg/dl (0.2-1); Globulin 3.7 gm/dl (2.5-4.0); Total Protein 6.3 gm/dl (6.4-8.2)
[2018-10-28] MEDS ORDERED: BUMETANIDE 1 MG TAB PO SCH (09:00)
[2018-10-28] MEDS: CARVEDILOL 12.5 MG TAB PO SCH ×2 (09:16→20:13)
[2018-10-28] MEDS: TAMSULOSIN HCL 0.4 MG CAP PO SCH (09:17)
[2018-10-28] MEDS: PANTOprazole 40 MG TAB PO SCH (09:17)
[2018-10-28] MEDS: CHOLECALCIFEROL 1,000 UNITS TAB PO SCH (09:17)
[2018-10-28] MEDS: FERROUS SULFATE 325 MG TAB PO SCH (09:18)
[2018-10-28] MEDS: CYANOCOBALAMIN 500 MCG TABLET (VITAMIN B-12) PO SCH (09:18)
[2018-10-28] MEDS: ASPIRIN 81 MG ECTAB PO SCH (09:18)
[2018-10-28] MEDS: HEPARIN SOD 5,000 UNIT/0.5 ML VIAL SQ SCH ×2 (09:25→20:14)
--- NOTE | 2018-10-28 10:52 | Cardiology Progress Note ---
Date of Service October 28, 2018 Assessment & Plan (1) Acute on chronic systolic (congestive) heart failure: He presented now with fluid overload including peripheral edema and congestive heart failure. On review of office weights his weight has not been increasing, it sounds as though he is not been taking an excessive fluid at home. His chest x-ray does not show severe pulmonary edema. There is no obvious cause of his presentation. His creatinine has not increased substantially here and he has lost some fluid based on intake and output although his weight has not changed. We need continued diuresis, I would continue to diuresis until his creatinine rises. (2) CAD (coronary artery disease) of bypass graft: He has known coronary disease, his troponin was slightly elevated but in the range consistent with demand ischemia. We cannot read his electrocardiogram for acute changes but he does not of symptoms and I would not pursue further unless things change. Subjective He remains quite lethargic, he is still complaining of shortness of breath. Physical Exam 2 Vital Signs (Past 24 Hours): Last Vital Signs Temp 36.4 C L 10/28/18 07:34 Pulse 70 10/28/18 07:34 Resp 22 10/28/18 07:52 BP 153/65 H 10/28/18 07:34 Pulse Ox 96 10/28/18 07:52 Physical Exam: Constitutional: Alert, cooperative and in no distress. Pulmonary: Markedly decreased breath sounds to auscultation bilaterally. Cardiac: Regular rhythm with no murmur, gallop or rub. Abdomen: Soft, nontender with normal bowel sounds. Extremities: +1 2+1-1/2 bilateral pretibial edema. Skin: No rash, ecchymoses or petechiae. Results & Data Diagnostic Findings Telemetry: Sinus rhythm with premature atrial beats and premature ventricular beats
[2018-10-28] MEDS: MEGESTROL ACETATE 40 MG TAB PO SCH (13:38)
[2018-10-28] MEDS: BUMETANIDE 2 MG in SYRINGE 0 ML IV SCH (16:40)
[2018-10-28] MEDS: DOCUSATE SODIUM/SENNA 50/8.6MG TAB PO SCH (20:13)
[2018-10-28] MEDS: MoRPHine SULFATE 5 MG/0.25 ML UDP PO PRN (20:15)
--- NOTE | 2018-10-28 22:56 | Hospitalist Progress Note ---
Date of Service October 28, 2018 Assessment & Plan (1) Acute on chronic combined systolic and diastolic CHF (congestive heart failure): - Patient aappears to continue to require continous BIPAP. - Patient is now on Bumex BID 2mg - Appreciate cardio input. - This is complicated by patients sevevere restrictive lung disease. - Strict I/Os, daily weights, fluid restriction of 1500ml - Monitor cr. with baseline CKD stg IV - Consult cardiology - follows with Dr. Tineo as outpt - will need CHF clinic referral - Pt not a candidate for DEBBIE or ARB with kidney dysfunction (2) CAD (coronary artery disease) of bypass graft: - Noted - Continue carvedilol 12.5 mg BID, asa 81 mg daily (3) H/O aortic valve replacement: (4) Chronic respiratory failure with hypoxia: - Acute on chronic at time of admission. - Continue bipap for now, trial off this afternoon. - ABG performed with pCO2=93 - Increased confusion likely secondary to CO2 retention, monitor, family reports improved with bipap, pt is AAOx3, cannot recall specific events leading up to being in the ER this morning. Consider repeat ABG. Consider CT of the head if any worsening changes. (5) Pacemaker: - Stable (6) Dyslipidemia: - Stable (7) Restrictive lung disease: - Adds to complications in the setting of CHF exacerbation and pulmonary edema as per the CXR, diuresis as above. (8) Anxiety: - Stable (9) Anemia: - Chronic (10) Cardiomyopathy: - As above. (11) Chronic kidney disease: - Cr. stable for now, monitor with am prp - Stage IV (12) Hypothyroidism: - Continue levothyroxine daily (13) DVT prophylaxis: - Continue heparin subq (14) Myelodysplastic syndrome: - Cause of pancytopenia - Follows with Dr. Joe Gipson as outpatient. (15) Bladder outlet obstruction: - Suprapubic catheter in place, was changed about 1 weeks ago per . - Increased confusion likely from C02 retention. - Will monitor. (16) Acute metabolic encephalopathy: Acute Metabolic encephalopathy in the setting of acute on chronic hypoxic and acute hypercapnic respiratory failure. Patient appears to be improving in this sense. I do expect patient to wax and wane though given his severe CO2 retention. Spent 35 minutes in management of patient. Subjective I was called by nurse as patient was tachypnic on BIPAP. I went to the room, patient was responsive and was answering my questions. He states he will continue on the BIPAP. Review of Systems Constitutional: no fever, no chills, no sweats and no fatigue Eyes: no diplopia and no worsening vision Ear, Nose, Mouth, Throat: no dizziness, no nasal discharge, no facial pain and no sore throat Respiratory: as per Subjective / HPI, + dyspnea on exertion and + wheezing; no cough and no sputum production Cardiovascular: + dyspnea on exertion; no chest pain, no palpitations, no lightheadedness and no syncope Gastrointestinal: no nausea, no vomiting and no constipation no diarrhea Genitourinary (Male): no dysuria, no urinary frequency, no urinary hesitancy and no hematuria Musculoskeletal: no back pain, no joint pain, no swelling and no muscle weakness Integumentary: no rash, no lesions and no wounds Neurologic: no gait abnormality, no falls, no numbness, no dizziness and no syncope Psychiatric: no depression and no anxiety Endocrine: no fatigue Respiratory: as per Subjective / HPI, + dyspnea on exertion and + wheezing; no cough and no sputum production Cardiovascular: + dyspnea on exertion; no chest pain, no palpitations, no lightheadedness and no syncope Physical Exam 2 Vital Signs (Past 24 Hours): Last Vital Signs Temp 36.8 C 10/28/18 20:00 Pulse 71 10/28/18 20:00 Resp 19 10/28/18 20:00 BP 179/74 H 10/28/18 20:00 Pulse Ox 100 10/28/18 20:00 Physical Exam: General: awake, alert, NAD, on bipap Head: Normocephalic, atraumatic ENT: PERRL, EOMI, pharyn not evaluated due to wearing bipap Chest: On bipap, diminished breath sounds throughout, no wheeze or rales, +faint Cardiac: Regular rate and rhythm, few PVCs, no murmur, +JVD, normal peripheral pulses, good capillary refill Abdominal: NABS x 4 quadrants, soft, nontender to palpation, no rebound, guarding or tenderness, + suprapubic catheter Extremities: 2+ peripheral edema up to thighs, no erythema, calfs nontender to palpation Psych: Normal mood and affect Neuro: AAO x 3, no motor deficits, speech is clear, no peripheral sensory deficits _ (1) Anemia Anemia type: iron deficiency Bone marrow failure anemia type: Chronic kidney disease stage: Folate deficiency anemia type: Hemolytic anemia type: Iron deficiency anemia type: chronic blood loss Other causes of anemia: Vitamin B12 deficiency anemia type: Qualified Code(s): D50.0 - Iron deficiency anemia secondary to blood loss (chronic) (2) Hypothyroidism Hypothyroidism type: acquired Qualified Code(s): E03.9 - Hypothyroidism, unspecified (3) Chronic kidney disease Chronic kidney disease stage: stage 3 (moderate) Qualified Code(s): N18.3 - Chronic kidney disease, stage 3 (moderate) (4) Cardiomyopathy Cardiomyopathy type: ischemic Qualified Code(s): I25.5 - Ischemic cardiomyopathy
[2018-10-29] MEDS ORDERED: ALBUT/IPRATROP 3MG/0.5MG NEB 3 ML VIAL NEB STA (02:08)
[2018-10-29] MEDS: MoRPHine SULFATE 5 MG/0.25 ML UDP PO PRN ×2 (02:15→11:53)
[2018-10-29] MEDS: LEVOTHYROXINE SODIUM 100 MCG TABLET PO SCH (05:42)
[2018-10-29 08:09] LABS: Albumin Globulin Ratio 0.7 (0.9-2); Albumin Level 2.5 gm/dl (3.4-5.0); BUN Creatinine Ratio 21.8 (10-20); Bilirubin,Total 0.7 mg/dl (0.2-1); Calcium 8.1 mg/dl (8.5-10.1); Creatinine Clr Calc Pharmacy 26.5 ml/min; Est GFR (Non-African American) 30.2; Globulin 3.4 gm/dl (2.5-4.0); Potassium 4.2 mmol/L (3.5-5.1); Total Protein 5.9 gm/dl (6.4-8.2)
[2018-10-29] MEDS: BUMETANIDE 2 MG in SYRINGE 0 ML IV SCH ×2 (08:42→18:06)
[2018-10-29] MEDS: PANTOprazole 40 MG TAB PO SCH (08:42)
[2018-10-29] MEDS: CHOLECALCIFEROL 1,000 UNITS TAB PO SCH (08:42)
[2018-10-29] MEDS: CYANOCOBALAMIN 500 MCG TABLET (VITAMIN B-12) PO SCH (08:42)
[2018-10-29] MEDS: CARVEDILOL 12.5 MG TAB PO SCH ×2 (08:42→21:54)
[2018-10-29] MEDS: ASPIRIN 81 MG ECTAB PO SCH (08:43)
[2018-10-29] MEDS: HEPARIN SOD 5,000 UNIT/0.5 ML VIAL SQ SCH ×2 (08:43→21:54)
[2018-10-29] MEDS: FERROUS SULFATE 325 MG TAB PO SCH (08:44)
[2018-10-29] MEDS: TAMSULOSIN HCL 0.4 MG CAP PO SCH (08:44)
[2018-10-29 11:22] LABS: Base Excess VBG 14.2 mEq/L; pH VBG 7.33 (7.36-7.41)
--- NOTE | 2018-10-29 15:47 | Cardiology Progress Note ---
Date of Service October 29, 2018 Assessment & Plan (1) Acute on chronic systolic (congestive) heart failure: He presented now with fluid overload including peripheral edema and congestive heart failure. On review of office weights his weight has not been increasing, it sounds as though he is not been taking an excessive fluid at home. His chest x-ray does not show severe pulmonary edema. There is no obvious cause of his acute presentation but right heart failure may be a component. His creatinine has not increased substantially here and he has lost some fluid based on intake and output, his weight has dropped as well. We need continued diuresis, I would continue to diuresis until his creatinine rises, although that may be happening now. (2) CAD (coronary artery disease) of bypass graft: He has known coronary disease, his troponin was slightly elevated but in the range consistent with demand ischemia. We cannot read his electrocardiogram for acute changes but he does not of symptoms and I would not pursue further unless things change. Subjective He looks better today and is more conversational, he is more alert. He has no cardiovascular complaints other than shortness of breath. Physical Exam 2 Vital Signs (Past 24 Hours): Last Vital Signs Temp 37.0 C 10/29/18 15:39 Pulse 60 10/29/18 15:39 Resp 24 10/29/18 15:39 BP 149/55 H 10/29/18 15:39 Pulse Ox 99 10/29/18 15:39 Physical Exam: Constitutional: Alert, cooperative and in no distress. Pulmonary: Decreased breath sounds at bases bilaterally. Cardiac: Regular rhythm with no murmur, gallop or rub. Abdomen: Soft, nontender with normal bowel sounds. Extremities: +2 bilateral pitting pretibial edema. Results & Data Diagnostic Findings His echocardiogram yesterday showed moderate left ventricular dysfunction but severe pulmonary hypertension. Similar to prior echocardiograms.
[2018-10-29] MEDS: DOCUSATE SODIUM/SENNA 50/8.6MG TAB PO SCH (21:53)
[2018-10-30] MEDS: LEVOTHYROXINE SODIUM 100 MCG TABLET PO SCH (06:00)
[2018-10-30] MEDS: CHOLECALCIFEROL 1,000 UNITS TAB PO SCH (07:38)
[2018-10-30] MEDS: PANTOprazole 40 MG TAB PO SCH (07:39)
[2018-10-30] MEDS: CYANOCOBALAMIN 500 MCG TABLET (VITAMIN B-12) PO SCH (07:39)
[2018-10-30] MEDS: CARVEDILOL 12.5 MG TAB PO SCH ×2 (07:39→20:56)
[2018-10-30] MEDS: HEPARIN SOD 5,000 UNIT/0.5 ML VIAL SQ SCH ×2 (07:40→20:56)
[2018-10-30] MEDS: ASPIRIN 81 MG ECTAB PO SCH (07:40)
[2018-10-30] MEDS: TAMSULOSIN HCL 0.4 MG CAP PO SCH (07:40)
[2018-10-30] MEDS: FERROUS SULFATE 325 MG TAB PO SCH (07:40)
[2018-10-30 08:55] LABS: Base Excess VBG 15.9 mEq/L; pH VBG 7.32 (7.36-7.41)
[2018-10-30 09:06] LABS: Albumin Globulin Ratio 0.7 (0.9-2); Albumin Level 2.3 gm/dl (3.4-5.0); BUN Creatinine Ratio 25.8 (10-20); Bilirubin,Total 0.5 mg/dl (0.2-1); Calcium 8.1 mg/dl (8.5-10.1); Creatinine Clr Calc Pharmacy 29.5 ml/min; Est GFR (Non-African American) 34.5; Globulin 3.2 gm/dl (2.5-4.0); Magnesium 1.7 mg/dl (1.8-2.4); Potassium 3.9 mmol/L (3.5-5.1); Total Protein 5.5 gm/dl (6.4-8.2)
[2018-10-30] MEDS: BUMETANIDE 2 MG in SYRINGE 0 ML IV SCH ×2 (09:15→16:57)
[2018-10-30 09:26] LABS: Hematocrit (blood only) 32.5 % (42-52); Hemoglobin 9.5 g/dL (14.0-18.0); Mean Corpuscular Hgb Conc 29.2 g/dL (32-36); Mean Corpuscular Volume 113.2 fL (80-100); Platelet Count 97 K/uL (130-400); Platelet Estimate Decreased (Normal); Red Blood Count 2.87 M/uL (4.7-6.1); White Blood Count 4.14 K/uL (4.8-10.8)
[2018-10-30] MEDS: MEGESTROL ACETATE 40 MG TAB PO SCH (11:47)
--- NOTE | 2018-10-30 15:54 | Hospitalist Progress Note ---
Date of Service October 29 2018 Assessment & Plan (1) Acute on chronic combined systolic and diastolic CHF (congestive heart failure): - Patient aappears to continue to require continous BIPAP. However he is currently refusing the BIPAP. Updated family. May consider palliative care consult on thursday. [facility] are [facility]. - Patient is now on Bumex BID 2mg - Appreciate cardio input. - This is complicated by patients sevevere restrictive lung disease, pulm hypertension. - Strict I/Os, daily weights, fluid restriction of 1500ml - Monitor cr. with baseline CKD stg IV - Consult cardiology - follows with Dr. Tineo as outpt - will need CHF clinic referral - Pt not a candidate for DEBBIE or ARB with kidney dysfunction (2) CAD (coronary artery disease) of bypass graft: - Noted - Continue carvedilol 12.5 mg BID, asa 81 mg daily (3) H/O aortic valve replacement: (4) Chronic respiratory failure with hypoxia: - Acute on chronic at time of admission. Patient refusing Bipap. - ABG performed with pCO2=93 - Increased confusion likely secondary to CO2 retention, Discussed with family. They are aware of his poor condition. (5) Pacemaker: - Stable (6) Dyslipidemia: - Stable (7) Restrictive lung disease: - Adds to complications in the setting of CHF exacerbation and pulmonary edema as per the CXR, diuresis as above. (8) Anxiety: - Stable (9) Anemia: - Chronic (10) Cardiomyopathy: - As above. (11) Chronic kidney disease: - Cr. stable for now, monitor with am prp - Stage IV (12) Hypothyroidism: - Continue levothyroxine daily (13) DVT prophylaxis: - Continue heparin subq (14) Myelodysplastic syndrome: - Cause of pancytopenia - Follows with Dr. Joe Gipson as outpatient. (15) Bladder outlet obstruction: - Suprapubic catheter in place, was changed about 1 weeks ago per . - Increased confusion likely from C02 retention. - Will monitor. (16) Acute metabolic encephalopathy: Acute Metabolic encephalopathy in the setting of acute on chronic hypoxic and acute hypercapnic respiratory failure. Patient appears to be improving in this sense. I do expect patient to wax and wane though given his severe CO2 retention. Spent 45 minutes in management of patient. Subjective I was called by nurse as family wanted to speak with me. I updated family after a lengthy conversation. I explained to the family that patient has multiple issues occuring, restrictive lung disease with a mild component, pulmonary hypertension and his heart failure. Currently though patient is not uncomfortable. Explained [facility] treatment plan. However this is complicated as patient does not want to use the BIPAP. Family interested in getting palliative care consult on Thursday. Respiratory: as per Subjective / HPI, + dyspnea on exertion and + wheezing; no cough and no sputum production Cardiovascular: + dyspnea on exertion; no chest pain, no palpitations, no lightheadedness and no syncope Physical Exam 2 Vital Signs (Past 24 Hours): Last Vital Signs Temp 37.0 C 10/29/18 15:39 Pulse 60 10/29/18 15:39 Resp 24 10/29/18 15:39 BP 149/55 10/29/18 15:39 Pulse Ox 99 10/29/18 15:39 Physical Exam: General: awake, but lethargic, on oxymask Head: Normocephalic, atraumatic ENT: PERRL, EOMI, pharyn not evaluated due to wearing bipap Chest: O diminished breath sounds throughout, no wheeze or rales, +faint Cardiac: Regular rate and rhythm, few PVCs, no murmur, +JVD, normal peripheral pulses, good capillary refill Abdominal: NABS x 4 quadrants, soft, nontender to palpation, no rebound, guarding or tenderness, + suprapubic catheter Extremities: 2+ peripheral edema up to thighs, no erythema, calfs nontender to palpation Psych: Normal mood and affect Neuro: AAO x 3, no motor deficits, speech is clear, no peripheral sensory deficits _ (1) Anemia Anemia type: iron deficiency Iron deficiency anemia type: chronic blood loss Vitamin B12 deficiency anemia type: Folate deficiency anemia type: Bone marrow failure anemia type: Hemolytic anemia type: Other causes of anemia: Chronic kidney disease stage: Qualified Code(s): D50.0 - Iron deficiency anemia secondary to blood loss (chronic) (2) Cardiomyopathy Cardiomyopathy type: ischemic Qualified Code(s): I25.5 - Ischemic cardiomyopathy (3) Chronic kidney disease Chronic kidney disease stage: stage 3 (moderate) Qualified Code(s): N18.3 - Chronic kidney disease, stage 3 (moderate) (4) Hypothyroidism Hypothyroidism type: acquired Qualified Code(s): E03.9 - Hypothyroidism, unspecified
--- NOTE | 2018-10-30 15:58 | Hospitalist Progress Note ---
Date of Service October 30, 2018 Assessment & Plan (1) Acute on chronic combined systolic and diastolic CHF (congestive heart failure): - Patient appears to continue to require continous BIPAP igven that he is retaining CO2. However he is currently refusing the BIPAP. Will order palliative care consult for thursday. Spoke with palliaitve care team on Thursday so they are aware of situation. - Patient is now on Bumex BID 2mg - Appreciate cardio input. - This is complicated by patients sevevere restrictive lung disease, pulm hypertension. - Strict I/Os, daily weights, fluid restriction of 1500ml - Monitor cr. with baseline CKD stg IV - Consult cardiology - follows with Dr. Tineo as outpt - will need CHF clinic referral - Pt not a candidate for DEBBIE or ARB with kidney dysfunction (2) CAD (coronary artery disease) of bypass graft: - Noted - Continue carvedilol 12.5 mg BID, asa 81 mg daily (3) H/O aortic valve replacement: (4) Chronic respiratory failure with hypoxia: - Acute on chronic at time of admission. Patient refusing Bipap. - ABG performed with pCO2=89on venous blood gas - Increased confusion likely secondary to CO2 retention, They are aware of his poor condition. (5) Pacemaker: - Stable (6) Dyslipidemia: - Stable (7) Restrictive lung disease: - Adds to complications in the setting of CHF exacerbation and pulmonary edema as per the CXR, diuresis as above. (8) Anxiety: - Stable (9) Anemia: - Chronic (10) Cardiomyopathy: - As above. (11) Chronic kidney disease: - Cr. stable for now, monitor with am prp - Stage IV (12) Hypothyroidism: - Continue levothyroxine daily (13) DVT prophylaxis: - Continue heparin subq (14) Myelodysplastic syndrome: - Cause of pancytopenia - Follows with Dr. Joe Gipson as outpatient. (15) Bladder outlet obstruction: - Suprapubic catheter in place, was changed about 1 weeks ago per . - Increased confusion likely from C02 retention. - Will monitor. (16) Acute metabolic encephalopathy: Acute Metabolic encephalopathy in the setting of acute on chronic hypoxic and acute hypercapnic respiratory failure. Patient is worse today. I do expect patient to wax and wane though given his severe CO2 retention. Spent 35 minutes in management of patient. Subjective Patient appears more lehargic today. He does answer questions and reports he is comofrtable. He again states he does not want a BIPAP. Respiratory: as per Subjective / HPI, + dyspnea on exertion and + wheezing; no cough and no sputum production Cardiovascular: + dyspnea on exertion; no chest pain, no palpitations, no lightheadedness and no syncope Physical Exam 2 Vital Signs (Past 24 Hours): Last Vital Signs Temp 36.4 C L 10/30/18 15:51 Pulse 63 10/30/18 15:51 Resp 18 10/30/18 15:51 BP 161/54 H 10/30/18 15:51 Pulse Ox 100 10/30/18 15:51 Physical Exam: General: awake, lethargic but on oxymask Head: Normocephalic, atraumatic ENT: PERRL, EOMI, ==p Chest: Diminished breath sounds throughout, no wheeze or rales, +faint Cardiac: Regular rate and rhythm, few PVCs, no murmur, +JVD, normal peripheral pulses, good capillary refill Abdominal: NABS x 4 quadrants, soft, nontender to palpation, no rebound, guarding or tenderness, + suprapubic catheter Extremities: 2+ peripheral edema up to thighs, no erythema, calfs nontender to palpation Psych: Normal mood and affect Neuro: AAO x 3, no motor deficits, speech is clear, no peripheral sensory deficits _ (1) Anemia Anemia type: iron deficiency Bone marrow failure anemia type: Chronic kidney disease stage: Folate deficiency anemia type: Hemolytic anemia type: Iron deficiency anemia type: chronic blood loss Other causes of anemia: Vitamin B12 deficiency anemia type: Qualified Code(s): D50.0 - Iron deficiency anemia secondary to blood loss (chronic) (2) Hypothyroidism Hypothyroidism type: acquired Qualified Code(s): E03.9 - Hypothyroidism, unspecified (3) Chronic kidney disease Chronic kidney disease stage: stage 3 (moderate) Qualified Code(s): N18.3 - Chronic kidney disease, stage 3 (moderate) (4) Cardiomyopathy Cardiomyopathy type: ischemic Qualified Code(s): I25.5 - Ischemic cardiomyopathy
[2018-10-30] MEDS: DOCUSATE SODIUM/SENNA 50/8.6MG TAB PO SCH (20:56)
[2018-10-31] MEDS: LEVOTHYROXINE SODIUM 100 MCG TABLET PO SCH (05:45)
[2018-10-31] MEDS: BUMETANIDE 2 MG in SYRINGE 0 ML IV SCH ×2 (08:53→16:31)
[2018-10-31] MEDS: FERROUS SULFATE 325 MG TAB PO SCH (13:19)
[2018-10-31] MEDS: ASPIRIN 81 MG ECTAB PO SCH (13:19)
[2018-10-31] MEDS: TAMSULOSIN HCL 0.4 MG CAP PO SCH (13:19)
[2018-10-31] MEDS: PANTOprazole 40 MG TAB PO SCH (13:20)
[2018-10-31] MEDS: CARVEDILOL 12.5 MG TAB PO SCH ×2 (13:20→19:51)
[2018-10-31] MEDS: CYANOCOBALAMIN 500 MCG TABLET (VITAMIN B-12) PO SCH (13:20)
[2018-10-31] MEDS: HEPARIN SOD 5,000 UNIT/0.5 ML VIAL SQ SCH ×2 (13:20→19:52)
[2018-10-31] MEDS: CHOLECALCIFEROL 1,000 UNITS TAB PO SCH (13:20)
[2018-10-31 16:19] LABS: Base Excess VBG 17.2 mEq/L; Oxygen Saturation VBG 76.5 %; pH VBG 7.36 (7.36-7.41)
[2018-10-31 16:43] LABS: BUN Creatinine Ratio 27.2 (10-20); Calcium 8.1 mg/dl (8.5-10.1); Creatinine Clr Calc Pharmacy 34.5 ml/min; Est GFR (African American) 48.3; Est GFR (Non-African American) 41.6; Phosphorus 3.1 mg/dl (2.5-4.9); Potassium 3.6 mmol/L (3.5-5.1)
[2018-10-31] MEDS: DOCUSATE SODIUM/SENNA 50/8.6MG TAB PO SCH (19:51)
--- NOTE | 2018-10-31 23:42 | Hospitalist Progress Note ---
Date of Service October 31, 2018 Assessment & Plan (1) Acute on chronic combined systolic and diastolic CHF (congestive heart failure): - Patient appears to continue to require continous BIPAP given that he is retaining CO2. However he is currently refusing the BIPAP. Will order palliative care consult for thursday. Spoke with palliaitve care team on Thursday so they are aware of situation. - Patient is now on Bumex BID 2mg - Appreciate cardio input. - This is complicated by patients sevevere restrictive lung disease, pulm hypertension. - Strict I/Os, daily weights, fluid restriction of 1500ml - Monitor cr. with baseline CKD stg IV - Consult cardiology - follows with Dr. Tineo as outpt - will need CHF clinic referral - Pt not a candidate for DEBBIE or ARB with kidney dysfunction (2) CAD (coronary artery disease) of bypass graft: - Noted - Continue carvedilol 12.5 mg BID, asa 81 mg daily (3) H/O aortic valve replacement: (4) Chronic respiratory failure with hypoxia: - Acute on chronic at time of admission. Patient refusing Bipap. - ABG performed with pCO2=89on venous blood gas - Increased confusion likely secondary to CO2 retention, They are aware of his poor condition. (5) Pacemaker: - Stable (6) Dyslipidemia: - Stable (7) Restrictive lung disease: - Adds to complications in the setting of CHF exacerbation and pulmonary edema as per the CXR, diuresis as above. (8) Anxiety: - Stable (9) Anemia: - Chronic (10) Cardiomyopathy: - As above. (11) Chronic kidney disease: - Cr. stable for now, monitor with am prp - Stage IV (12) Hypothyroidism: - Continue levothyroxine daily (13) DVT prophylaxis: - Continue heparin subq (14) Myelodysplastic syndrome: - Cause of pancytopenia - Follows with Dr. Joe Gipson as outpatient. (15) Bladder outlet obstruction: - Suprapubic catheter in place, was changed about 1 weeks ago per . - Increased confusion likely from C02 retention. - Will monitor. (16) Acute metabolic encephalopathy: Acute Metabolic encephalopathy in the setting of acute on chronic hypoxic and acute hypercapnic respiratory failure. Patient is worse today. I do expect patient to wax and wane though given his severe CO2 retention. Spent 35 minutes in management of patient. Patient is not improving. Palliative care consult on Thursday. Please contact Josué, his number is in the chart. Though is at bedside most of the time, she does not understand the situation and has poor short term memory. Subjective Patient appears more lethargic today. He appears comfortable but does not tolerate decreasing oxygen eventhough he is saturating above 92. He stated in the afternoon that he was willing to be back on BIPAP. However, this was short lived. Family is at bedside. And state that they prefer that is not the main decision maker as she recently had a stroke. I agree as does not retain information that is provided to her. Respiratory: as per Subjective / HPI, + dyspnea on exertion and + wheezing; no cough and no sputum production Cardiovascular: + dyspnea on exertion; no chest pain, no palpitations, no lightheadedness and no syncope Physical Exam 2 Vital Signs (Past 24 Hours): Last Vital Signs Temp 36.9 C 10/31/18 18:53 Pulse 80 10/31/18 18:53 Resp 20 10/31/18 18:53 BP 173/61 H 10/31/18 18:53 Pulse Ox 98 10/31/18 18:53 Physical Exam: General: awake, on oxymask Head: Normocephalic, atraumatic ENT: PERRL, EOMI, ==p Chest: Diminished breath sounds throughout, no wheeze or rales, +faint Cardiac: Regular rate and rhythm, few PVCs, no murmur, +JVD, normal peripheral pulses, good capillary refill Abdominal: NABS x 4 quadrants, soft, nontender to palpation, no rebound, guarding or tenderness, + suprapubic catheter Extremities: 2+ peripheral edema up to thighs, no erythema, calfs nontender to palpation Psych: Normal mood and affect Neuro: AAO x 3, no motor deficits, speech is clear, no peripheral sensory deficits _ (1) Anemia Anemia type: iron deficiency Bone marrow failure anemia type: Chronic kidney disease stage: Folate deficiency anemia type: Hemolytic anemia type: Iron deficiency anemia type: chronic blood loss Other causes of anemia: Vitamin B12 deficiency anemia type: Qualified Code(s): D50.0 - Iron deficiency anemia secondary to blood loss (chronic) (2) Hypothyroidism Hypothyroidism type: acquired Qualified Code(s): E03.9 - Hypothyroidism, unspecified (3) Chronic kidney disease Chronic kidney disease stage: stage 3 (moderate) Qualified Code(s): N18.3 - Chronic kidney disease, stage 3 (moderate) (4) Cardiomyopathy Cardiomyopathy type: ischemic Qualified Code(s): I25.5 - Ischemic cardiomyopathy
[2018-11-01] MEDS: LEVOTHYROXINE SODIUM 100 MCG TABLET PO SCH (06:17)
[2018-11-01 08:51] LABS: Hematocrit (blood only) 35.5 % (42-52); Hemoglobin 10.5 g/dL (14.0-18.0); Mean Corpuscular Hgb Conc 29.6 g/dL (32-36); Mean Corpuscular Volume 115.3 fL (80-100); Mean Platelet Volume 10.7 fL (7.4-10.4); Platelet Count 102 K/uL (130-400); RDW Coefficient of Variation 14.1 % (11.5-14.5); RDW Standard Deviation 58.2 fL (36.4-46.3); Red Blood Count 3.08 M/uL (4.7-6.1); White Blood Count 4.42 K/uL (4.8-10.8)
[2018-11-01] MEDS: BUMETANIDE 2 MG in SYRINGE 0 ML IV SCH (08:51)
[2018-11-01] MEDS: CHOLECALCIFEROL 1,000 UNITS TAB PO SCH (08:51)
[2018-11-01] MEDS: CARVEDILOL 12.5 MG TAB PO SCH ×2 (08:51→22:52)
[2018-11-01] MEDS: HEPARIN SOD 5,000 UNIT/0.5 ML VIAL SQ SCH (08:51)
[2018-11-01] MEDS: TAMSULOSIN HCL 0.4 MG CAP PO SCH (08:52)
[2018-11-01] MEDS: FERROUS SULFATE 325 MG TAB PO SCH (08:52)
[2018-11-01] MEDS: CYANOCOBALAMIN 500 MCG TABLET (VITAMIN B-12) PO SCH (08:52)
[2018-11-01] MEDS: ASPIRIN 81 MG ECTAB PO SCH (08:52)
[2018-11-01] MEDS: PANTOprazole 40 MG TAB PO SCH (08:52)
[2018-11-01 09:12] LABS: Basophilic Stippling 1+; Basophils # (auto) 0.03 K/uL (0-0.2); Basophils % (auto) 0.7 %; Eosinophils # (auto) 0.02 K/uL (0-0.5); Eosinophils % (auto) 0.5 %; Immature Granulocytes # (auto) 0.01 K/uL (0.00-0.02); Immature Granulocytes % (auto) 0.2 %; Lymphocytes # (auto) 0.83 K/uL (1.2-3.4); Lymphocytes % (auto) 18.8 %; Macrocytosis Present; Monocytes # (auto) 0.34 K/uL (0.11-0.59); Monocytes % (auto) 7.7 %; Neutrophils # (auto) 3.19 K/uL (1.4-6.5); Neutrophils % (auto) 72.1 %; Stomatocytes 1+
[2018-11-01 09:27] LABS: BUN Creatinine Ratio 31.8 (10-20); Calcium 8.4 mg/dl (8.5-10.1); Creatinine Clr Calc Pharmacy 35.2 ml/min; Est GFR (African American) 49.5; Est GFR (Non-African American) 42.7; Magnesium 1.8 mg/dl (1.8-2.4); Potassium 3.6 mmol/L (3.5-5.1)
--- NOTE | 2018-11-01 09:28 | Family Medicine Progress Note ---
Date of Service November 01, 2018 Assessment & Plan (1) Respiratory failure: 80-year-old male was admitted on 27 October 2017 for acute shortness of breath. Acute on chronic hypoxic and hypercapnic respiratory failure, acute metabolic encephalopathy, systolic and diastolic CHF, acute metabolic encephalopathy: Patient initially required BiPAP but has refused this since. Has continued elevated CO2 levels. Last chest x-ray noted mild pulmonary vascular congestion with bilateral effusions. Previous PFTs have noted severe disease. 14Feb TTE noted an EF of 35-40%, severe pulmonary hypertension, as well as other findings. He has diuresed on Bumex 2 mg twice daily. Overall he continues to require increased supplemental oxygen, has poor oral intake, and is quite deconditioned. Please see very detailed palliative care note for today (18Feb) . Overall plan is to pursue comfort care beginning today. - We will stop lab work. - We will not restart BiPAP in case of respiratory distress. - Start Roxanol 5 mg p.o. or sublingual every 3 hours as needed for pain or shortness of breath. - Will keep on bumex, hydroxyzine, coreg, docusate, and zofran prn. Stopping other routine meds. For background purposes, patient also has a history of acute on chronic kidney injury with CKD stage IV, hypomagnesemia, CAD, ND status post stenting and CABG , cardiomyopathy, aortic stenosis s/p TAVR, pacemaker, anemia, hypothyroidism, BPH, urethral obstruction with suprapubic indwelling catheter, myelodysplastic syndrome, GERD, and history of CVA. Code status: DO NOT RESUSCITATE. Diet: Heart healthy diet, 1500 mL fluid restriction. Discontinuing megace. DVT prophy: Will discontinue heparin. PT/OT: We will cancel order. Disbo: We will transfer to Med[facility] floor. Pursuing comfort care. May end up needing discharge to SNF with hospice care depending on how his disease state progresses. (2) Acute metabolic encephalopathy: (3) Acute on chronic combined systolic and diastolic CHF (congestive heart failure): (4) Pulmonary edema: (5) Pulmonary hypertension: (6) JONATHAN (acute kidney injury): (7) Chronic kidney disease: (8) Hypomagnesemia: (9) CAD in habematolel artery: (10) Cardiomyopathy: (11) H/O aortic valve replacement: (12) Anemia: (13) Hypothyroidism: (14) Bladder outlet obstruction: (15) Myelodysplastic syndrome: (16) GERD (gastroesophageal reflux disease): Supervising Physician Co-Signing Physician Notes I personally examined the patient and verified all winkler points of history and exam, discussed case, and agree with decision making with Dr Sloan. Feeling about the same. No new complaints. Discussed comfort care, patient seems open to this, seems open to this. Palliative care input appreciated greatly. Vitals noted, in general he is awake and alert appears fatigued but no distress. HEENT normocephalic atraumatic mucous membranes are moist. Lungs are unlabored, on oxygen mask Essentially end-stage lung diseasewith acute and chronic hypoxic and hypercapnic respiratory failurecomfort care. Otherwise as above Subjective Met with patient earlier this morning. He was awake, alert to person and place only, and said that he had various pains all over. When asked if he had any difficulty with breathing, he began to discuss some of his dissatisfaction with a variety of people that would keep coming in his room to care for him. Ultimately he denied any acute shortness of breath. He did not mention any acute physical complaints. The patient's is at baseline and did not have any particular concerns. When asked if the plan was to speak with palliative care, she agreed. Per his nurse, the patient had some episodes of shortness of breath yesterday with decreasing SPO2. He does not tolerate the BiPAP. His overall state of orientation seems to wax and wane. Physical Exam 2 Vital Signs (Past 24 Hours): Last Vital Signs Temp 36.7 C 11/01/18 06:50 Pulse 65 11/01/18 06:50 Resp 19 11/01/18 06:50 BP 183/56 H 11/01/18 06:50 Pulse Ox 97 11/01/18 06:50 Physical Exam: General Appearance: Awake, alert & partially oriented, comfortable in general, NAD. Frail habitus. CV: +S1S2 RRR, no murmur. Pulm: Diminished breath sounds throughout. Presently on 3 L of oxygen via oxygen mask. Abdomen: +BS, soft, non-tender, non-distended. Suprapubic catheter in place. Extremities: Moving all extremities naturally and easily. 2+ peripheral edema up to his thighs. There is a bandage to his right forearm. Neuro: No gross neuro deficits. Results & Data Laboratory Results Laboratory Results WBC 4.42 K/uL (4.8-10.8) L 11/01/18 08:20 RBC 3.08 M/uL (4.7-6.1) L 11/01/18 08:20 Hgb 10.5 g/dL (14.0-18.0) L 11/01/18 08:20 Hct 35.5 % (42-52) L 11/01/18 08:20 MCV 115.3 fL (80-100) H 11/01/18 08:20 MCH 34.1 pg (25-34) H 11/01/18 08:20 MCHC 29.6 g/dL (32-36) L 11/01/18 08:20 RDW Std Deviation 58.2 fL (36.4-46.3) H 11/01/18 08:20 RDW Coeff of Sebas 14.1 % (11.5-14.5) 11/01/18 08:20 Plt Count 102 K/uL (130-400) L 11/01/18 08:20 MPV 10.7 fL (7.4-10.4) H 11/01/18 08:20 Immature Gran % (Auto) 0.2 % 11/01/18 08:20 Neut % (Auto) 72.1 % 11/01/18 08:20 Lymph % (Auto) 18.8 % 11/01/18 08:20 Schuyler % (Auto) 7.7 % 11/01/18 08:20 Eos % (Auto) 0.5 % 11/01/18 08:20 Baso % (Auto) 0.7 % 11/01/18 08:20 Immature Gran # (Auto) 0.01 K/uL (0.00-0.02) 11/01/18 08:20 Neut # (Auto) 3.19 K/uL (1.4-6.5) 11/01/18 08:20 Lymph # (Auto) 0.83 K/uL (1.2-3.4) L 11/01/18 08:20 Schuyler # (Auto) 0.34 K/uL (0.11-0.59) 11/01/18 08:20 Eos # (Auto) 0.02 K/uL (0-0.5) 11/01/18 08:20 Baso # (Auto) 0.03 K/uL (0-0.2) 11/01/18 08:20 Platelet Estimate Decreased (Normal) 10/30/18 07:11 Polychromasia 1+ 10/27/18 09:37 Basophilic Stippling 1+ 11/01/18 08:20 Macrocytosis Present 11/01/18 08:20 Stomatocytes 1+ 11/01/18 08:20 PT 10.7 Seconds (9.0-12.0) 10/27/18 09:37 INR 1.1 (0.9-1.1) 10/27/18 09:37 APTT 24.5 Seconds (21.0-31.0) 10/27/18 09:37 PTT Ratio 0.9 10/27/18 09:37 VBG pH 7.36 (7.36-7.41) 10/31/18 16:08 VBG pCO2 84 mmHg (38-50) H 10/31/18 16:08 VBG pO2 42 mmHg 10/31/18 16:08 VBG HCO3 46 mmol/L 10/31/18 16:08 VBG O2 Saturation 76.5 % 10/31/18 16:08 VBG Base Excess 17.2 mEq/L 10/31/18 16:08 Barometric Pressure 729.8 mm/Hg 10/31/18 16:08 Sodium 143 mmol/L (136-145) 11/01/18 08:20 Potassium 3.6 mmol/L (3.5-5.1) 11/01/18 08:20 Chloride 94 mmol/L (98-107) L 11/01/18 08:20 Carbon Dioxide 45 mmol/L (21-32) H* 10/31/18 16:08 Anion Gap 3.0 (3-11) 10/31/18 16:08 BUN 46 mg/dl (7-18) H 11/01/18 08:20 Creatinine 1.45 mg/dl (0.6-1.4) H 11/01/18 08:20 Est Cr Clr Drug Dosing 35.2 ml/min 11/01/18 08:20 Est GFR ( Amer) 49.5 11/01/18 08:20 Est GFR (Non-Af Amer) 42.7 11/01/18 08:20 BUN/Creatinine Ratio 31.8 (10-20) H 11/01/18 08:20 Glucose 109 mg/dl (70-99) H 11/01/18 08:20 POC Glucose 98 (70-99) 10/30/18 09:39 Calcium 8.4 mg/dl (8.5-10.1) L 11/01/18 08:20 Phosphorus 3.1 mg/dl (2.5-4.9) 10/31/18 16:08 Magnesium 1.8 mg/dl (1.8-2.4) 11/01/18 08:20 Total Bilirubin 0.5 mg/dl (0.2-1) 10/30/18 07:11 AST 21 U/L (15-37) 10/30/18 07:11 ALT 6 U/L (12-78) L 10/30/18 07:11 Alkaline Phosphatase 40 U/L (45-117) L 10/30/18 07:11 Troponin I 0.094 ng/ml (0-0.045) H* 10/27/18 09:37 Total Protein 5.5 gm/dl (6.4-8.2) L 10/30/18 07:11 Albumin 2.3 gm/dl (3.4-5.0) L 10/30/18 07:11 Globulin 3.2 gm/dl (2.5-4.0) 10/30/18 07:11 Albumin/Globulin Ratio 0.7 (0.9-2) L 10/30/18 07:11 Urine Color Yellow 10/27/18 17:15 Urine Appearance Cloudy (Clear) H 10/27/18 17:15 Urine pH 6.5 (4.5-7.5) 10/27/18 17:15 Ur Specific [place] 1.008 (1.000-1.030) 10/27/18 17:15 Urine Protein Negative (Negative) 10/27/18 17:15 Urine Glucose (UA) Negative (Negative) 10/27/18 17:15 Urine Ketones Negative (Negative) 10/27/18 17:15 Urine Blood 1+ (Negative) H 10/27/18 17:15 Urine Nitrite Negative (Negative) 10/27/18 17:15 Urine Bilirubin Negative (Negative) 10/27/18 17:15 Urine Urobilinogen Negative (Negative) 10/27/18 17:15 Ur Leukocyte Esterase 3+ (Negative) H 10/27/18 17:15 Urine WBC (Auto) >30 /hpf (0-5) H 10/27/18 17:15 Urine RBC (Auto) 5-10 /hpf (0-4) H 10/27/18 17:15 U Hyaline Cast (Auto) 1-5 /lpf (0-5) 10/27/18 17:15 U Epithel Cells (Auto) 0-5 /lpf (0-5) 10/27/18 17:15 Urine Bacteria (Auto) Negative (Negative) 10/27/18 17:15 Influenza Type A Ag Neg for Influ A (Neg) 10/27/18 09:00 Influenza Type B Ag Neg for Influ B (Neg) 10/27/18 09:00 Medications Administered Current Inpatient Medications Acetaminophen (Tylenol) 650 mg PO Q4H PRN PRN Reason: Moderate Pain Stop: 11/26/18 11:43 Albuterol (Duoneb) 3 ml INH Q8R PRN PRN Reason: Shortness Of Breath Stop: 11/26/18 11:46 Last Admin: 10/28/18 19:37 Dose: 3 ml Aspirin (Ecotrin Ectab) 81 mg PO DAILY [facility] Stop: 11/27/18 08:59 Last Admin: 10/31/18 13:19 Dose: Not Given Carvedilol (Coreg) 12.5 mg PO BID DEVORAH Stop: 11/26/18 20:59 Last Admin: 10/31/18 19:51 Dose: 12.5 mg Cyanocobalamin (Vitamin B-12) 1,000 mcg PO QAM [facility]OR[facility] Stop: 11/27/18 08:59 Last Admin: 10/31/18 13:20 Dose: Not Given Ferrous Sulfate (Feosol) 325 mg PO QAM [facility]OR[facility] Stop: 11/27/18 08:59 Last Admin: 10/31/18 13:19 Dose: Not Given Heparin Sodium (Porcine) (Heparin Sodium (Porcine)) 5,000 units SQ Q12 [facility]ORAH Stop: 11/26/18 20:59 Last Admin: 10/31/18 19:52 Dose: Not Given Hydroxyzine HCl (Vistaril) 25 mg PO HS PRN PRN Reason: sleep Stop: 11/26/18 11:46 Last Admin: 10/27/18 20:40 Dose: 25 mg Bumetanide 2 mg/ Syringe 8 mls @ 4 mls/min IV DAILY@0900,1700 [facility] Stop: 11/27/18 16:59 Last Admin: 10/31/18 16:31 Dose: 4 mls/min Levothyroxine Sodium (Synthroid) 100 mcg PO DAILYBB [facility] Stop: 11/27/18 06:29 Last Admin: 11/01/18 06:17 Dose: 100 mcg Megestrol Acetate (Megace) 40 mg PO Q2D [facility] Stop: 11/27/18 11:59 Last Admin: 10/30/18 11:47 Dose: 40 mg Morphine Sulfate (Roxanol) 5 mg PO Q6H PRN PRN Reason: SOB/Pain-Chronic Resp. Failure Stop: 11/10/18 11:46 Last Admin: 10/29/18 11:53 Dose: 5 mg Ondansetron HCl (Zofran) 4 mg IV Q4H PRN PRN Reason: Nausea And Vomiting Stop: 11/26/18 11:43 Pantoprazole Sodium (Protonix) 40 mg PO QAM [facility] Stop: 11/27/18 08:59 Last Admin: 10/31/18 13:20 Dose: Not Given Senna/Docusate Sodium (Senokot S) 1 tab PO HS [facility] Stop: 11/26/18 20:59 Last Admin: 10/31/18 19:51 Dose: 1 tab Tamsulosin HCl (Flomax) 0.4 mg PO DAILY [facility] Stop: 11/27/18 08:59 Last Admin: 10/31/18 13:19 Dose: Not Given Vitamin D (Vitamin D3) 2,000 units PO QAM [facility] Stop: 11/27/18 08:59 Last Admin: 10/31/18 13:20 Dose: Not Given Resident Activity Tracking Resident Involvement: Resident Care Provided Care Provided: [facility] _ (1) Anemia Anemia type: iron deficiency Bone marrow failure anemia type: Chronic kidney disease stage: Folate deficiency anemia type: 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
--- NOTE | 2018-11-01 11:21 | Palliative Care Consultation ---
Date of Consultation November 01, 2018 Assessment & Plan (1) Goals of care, counseling/discussion: -88 year old male with PMH acute on chronic respiratory failure with hypoxia, systolic and diastolic CHF with an acute exacerbation, CAD, cardiomyopathy, s/p pacemaker, restrictive lung disease, anemia, hypothyroidism , CKD stage IV, suprapubic indwelling catheter due to urethral obstruction, myelodysplastic syndrome, and others, presented with respiratory distress related to acute on chronic respiratory failure related to restrictive lung disease and CHF exacerbation. Patient has had multiple readmissions each month since June 2018. He is chronically, critically ill and has been in hospital several times with respiratory failure. Patient is retaining CO2, but now is refusing bipap. He has been diuresed with Bumex, but creatinine was rising-- peaked at 1.93, now down to 1.45. unfortunately, patient remains extremely deconditioned, frail, and weak. His albumin is 2.3 and declining, patient not eating, occasionally even refusing medications. He is on Oxymask at 3LPM. Again , refusing bipap and CO2 is critically high on lab work this morning at 46. Palliative care is consulted to establish goals of care. -Patient is known to palliative care service as I met with patient and his / POA Loreto in July 2018. At that time, patient was in with similar issues. POLST form was completed at that time stating patient was DNR, comfort measures only, trial of abx, and no artificial hydration/nutrition. Patient was discharged from the hospital to [facility] for rehab. The plan was to transition to hospice after "rehab" either at SNF or at home depending on how he was doing. Unfortunately, only a few days after patient returned home from [facility], his Loreto suffered a stroke. -Met with patient and first in room 244. Patient is awake but confused, oriented to person and place only. Patient's is oriented, but quite forgetful. She did however state that she just wants her to be comfortable. She gave me permission to call her son-in-law Josué to arrange family meeting. -Returned to have family meeting with patient's , Loreto, two step-daughters Fransico and Zoë, and step-son Harrison. We discussed patient's medical conditions, as well as his multiple readmissions and failure to improve despite treatment. All are in agreement that they would like patient to transition to comfort measures only. -Stop all lab work. Do not place bipap as patient does not tolerate. -Transfer out of telemetry. -Start Roxanol 5mg PO/SL Q3h PRN pain or SOB. -Depending on patient's condition and how rapidly he declines, he might need discharge plan for SNF with hospice care vs. GIP hospice here at the hospital. Will continue to reevaluate each day. -Continue his regular essential medications for now (would discontinue vitamins , protonix, iron, megace, and heparin). If he does not take them, family okay with that. -Will continue to follow as needed. (2) Acute on chronic combined systolic and diastolic CHF (congestive heart failure): (3) Pulmonary edema: Chronicity: acute Qualified Code(s): J81.0 - Acute pulmonary edema (4) Respiratory failure: Chronicity: acute Respiratory failure complication: hypoxia Qualified Code(s): J96.01 - Acute respiratory failure with hypoxia Supervising Physician Co-Signing Physician Notes Chart reviewed, patient seen and examined-met with family outside of the room, during exam friend was at bedside. Patient's is known to me from rehab at [facility]. PE: No acute distress HEENT: Mild [place] Respirations: Unlabored on O2 via oxygen mask, diminished breath sounds bilaterally CV: Regular rate, no edema Abdomen: Not distended Neuro: Awake, oriented to person and place only Agree with above note, assessment and plan as per RENETTA Lopez-will continue to follow to assist family with medical decision making. History of Present Illness Reason for Consultation: Goals of care Requesting Physician: Dr. Sloan Attending Physician: Alonso Curtis DO History of Present Illness This 88 year old male with PMH acute on chronic respiratory failure with hypoxia , systolic and diastolic CHF with an acute exacerbation, CAD, cardiomyopathy, s/ p pacemaker, restrictive lung disease, anemia, hypothyroidism, CKD stage IV, suprapubic indwelling catheter due to urethral obstruction, myelodysplastic syndrome, and others, presented with respiratory distress related to acute on chronic respiratory failure related to restrictive lung disease and CHF exacerbation. Patient has had multiple readmissions each month since June 2018. He is chronically, critically ill and has been in hospital several times with respiratory failure. Patient is retaining CO2, but now is refusing bipap. He has been diuresed with Bumex, but creatinine was rising-- peaked at 1.93, now down to 1.45. unfortunately, patient remains extremely deconditioned, frail , and weak. His albumin is 2.3 and declining, patient not eating, occasionally even refusing medications. He is on Oxymask at 3LPM. Again, refusing bipap and CO2 is critically high on lab work this morning at 46. Palliative care is consulted to establish goals of care. Thank you kindly for this consult. I will follow as needed. Allergies Allergy/AdvReac Type Severity Reaction Status Date / Time Penicillins Allergy Unknown HIVES Verified 10/27/18 09:48 Home Medications Home Medications Medication Instructions Recorded Confirmed Type cholecalciferol (vitamin D3) 2,000 units PO QAM 06/29/18 10/27/18 History [Vitamin D3] cyanocobalamin (vitamin B-12) 1,000 mcg PO QAM 06/29/18 10/27/18 History ferrous sulfate [iron] 325 mg PO QAM 06/29/18 10/27/18 History ipratropium-albuterol 3 ml INHALATION Q8H PRN 06/29/18 10/27/18 History levothyroxine 100 mcg PO QAM 06/29/18 10/27/18 History tamsulosin 0.4 mg PO DAILY 06/29/18 10/27/18 History carvedilol [Coreg] 12.5 mg PO BID 07/01/18 10/27/18 History pantoprazole 40 mg PO QAM #30 tab 07/07/18 10/27/18 Rx aspirin 81 mg PO DAILY 07/12/18 10/27/18 History bumetanide 2 mg PO QAM #30 tab 07/27/18 10/27/18 Rx sennosides-docusate sodium [Senna 1 tab PO HS 07/30/18 10/27/18 History Plus] acetaminophen 650 mg PO Q6H PRN MDD 3000 MG/24 09/24/18 10/27/18 History HOURS ciprofloxacin HCl 500 mg PO Q12H 09/24/18 10/27/18 History hydroxyzine pamoate [Vistaril] 25 mg PO HS PRN #30 cap 09/24/18 10/27/18 Rx megestrol 40 mg PO Q2D 09/24/18 10/27/18 History morphine concentrate 5 mg PO Q6H PRN 09/24/18 10/27/18 History Patient History Medical History GERD (gastroesophageal reflux disease) Chronic respiratory failure with hypoxia Myelodysplastic syndrome CAD (coronary artery disease) of bypass graft (Chronic) Systolic CHF Pancytopenia (Chronic) Carotid arterial disease Acute combined systolic and diastolic congestive heart failure (Acute) Restrictive lung disease (Chronic) On home oxygen therapy 3LPM O2 VIA N/C CONTINUOUS Pacemaker IMPLANTED 2015; [facility]- LAST PACER/ICD CHECK 07/01/18 Anxiety Bladder outlet obstruction (Chronic) Renal mass, right Cystitis Thrombocytopenia JONATHAN (acute kidney injury) Anemia CAD in craig artery CHF exacerbation Cardiomyopathy Chronic kidney disease (Chronic) CKD BASELINE 1.8 FELT 2/2 BLADDER OUTLET OBSTRUCTION/DM/ICM/POOR RENAL PERFUSION JONATHAN ON CKD DURING 06/2018 ADMISSION AT [facility] FELT 2/2 PROFOUND ANEMIA IN SETTING OF ARB THERAPY Dyslipidemia Hypothyroidism (Chronic) Anemia CHRONIC; BASELINE 9-10 RANGE BPH (benign prostatic hyperplasia) CAD (coronary artery disease) S/P CABG CVA (cerebral vascular accident) 1992 Cancer SKIN (BCC) DVT prophylaxis Diabetes mellitus, type 2 DIET CONTROLLED Elevated troponin I level Encounter for pre-operative examination Hearing deficit History of CHF (congestive heart failure) Hypothyroidism ICD (implantable cardioverter-defibrillator) in place IMPLANTED 2015; [facility]- LAST PACER/ICD CHECK 07/01/18 Indwelling Byrnes catheter present Ischemic cardiomyopathy MDS (myelodysplastic syndrome) RECENT DX DURING 06/2018 [facility] ADMISSION Myocardial Infarction 1985 Nausea & vomiting Recurrent pleural effusion on left Recurrent pleural effusion on right Shortness of breath Sleep apnea NO DEVICE- NON-COMPLIANT Stroke UTI (urinary tract infection) Urinary retention Surgical History H/O aortic valve replacement H/O carotid endarterectomy History of adenoidectomy History of cardiac cath X2 STENT (1988) History of carotid endarterectomy RIGHT CAROTID STENT (2003); LEFT CEA (2007) History of cataract surgery BILATERAL History of colonoscopy History of coronary artery bypass graft X2 VESSEL (1985); X1 VESSEL (1988) History of cystoscopy CYSTOSCOPY, DILATION BLADDER NECK CONTRACTURE= 02/14/18= MAC SEDATION AT [facility] History of esophagogastroduodenoscopy (EGD) History of heart valve replacement TAVR (2015) History of lung surgery LEFT SIDE 2/2 PLEURAL EFFUSION (2015) History of tonsillectomy Hx of transurethral resection of prostate S/p TAVR (transcatheter aortic valve replacement), bioprosthetic Family History Father Social History marital status: Current Living Situation: Spouse Current Living Situation Comment: [employer] Other Information That Helps Us Care for You: No Feels Safe at Home: Yes Safety Concerns: Feels Safe At This Time Smoking Status: Former smoker Tobacco Type: cigarettes Do You Dip or Chew Tobacco: No Second Hand Exposure: No Tobacco Cessation Education Requested by Patient: No Hx Alcohol Use: No Hx Substance Use: No Beliefs That Will Affect Care: None Preferred Language: Yi Communication Ability: Effective Communication Ability Comment: some confusion 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 Required: No Review of Systems Constitutional: + fatigue and + weakness Respiratory: + dyspnea Cardiovascular: + edema; no chest pain Gastrointestinal: no abdominal pain, no nausea and no vomiting no pain Neurologic: + confusion (reported by family) Psychiatric: no anxiety Physical Exam 2 Vital Signs (Past 24 Hours): Last Vital Signs Temp 36.7 C 11/01/18 06:50 Pulse 65 11/01/18 06:50 Resp 19 11/01/18 06:50 BP 183/56 H 11/01/18 06:50 Pulse Ox 97 11/01/18 06:50 Constitutional: + ill appearing and + cachectic Neck: normal visual inspection and trachea midline Respiratory: + abnormal respiratory effort (poor respiratory effort) and no labored breathing Auscultation: + diminished lung sounds Cardiovascular: Rate/Rhythm: regular rate and regular rhythm Vessels: dorsalis pedis pulses present Gastrointestinal (Abdomen): Inspection/Auscultation: abdomen normal to inspection and normal bowel sounds; abdomen not distended Percussion/ Palpation: abdomen soft; abdomen nontender Neurologic: awake and + confused Psychiatric: Orientation: oriented to place; + not alert (drowsy) and + not oriented to time Time Spent Midlevel 80 minutes with >50% of time spent at bedside with patient and family discussing condition and GOC.
[2018-11-01] MEDS: MEGESTROL ACETATE 40 MG TAB PO SCH (12:04)
--- NOTE | 2018-11-01 15:53 | Cardiology Progress Note ---
Date of Service November 01, 2018 Assessment & Plan (1) Acute on chronic systolic (congestive) heart failure: He presented now with fluid overload including peripheral edema and congestive heart failure. On review of office weights his weight prior to admission had not been increasing, it sounds as though he was not been taking an excessive fluid at home. His chest x-ray does not show severe pulmonary edema. There is no obvious cause of his acute presentation but right heart failure may be a component. His creatinine has not increased here and he has lost some fluid based on intake and output, his weight has dropped as well. Most of his edema has resolved. I do not think we should continue to diurese, especially if he is on comfort care. I am going to discontinue his diuretics and we can use them as needed for edema or weight gain. (2) CAD (coronary artery disease) of bypass graft: He has known coronary disease, his troponin was slightly elevated but in the range consistent with demand ischemia. We cannot read his electrocardiogram for acute changes. Subjective When I saw the patient this morning he appeared to be a little more comfortable and he was somewhat conversational although not always understandable. He had no complaints other than shortness of breath. Physical Exam 2 Vital Signs (Past 24 Hours): Last Vital Signs Temp 36.8 C 11/01/18 15:20 Pulse 68 11/01/18 15:20 Resp 18 11/01/18 15:20 BP 144/66 H 11/01/18 15:20 Pulse Ox 100 11/01/18 15:20 Physical Exam: Constitutional: Alert, cooperative and in no distress. Pulmonary: Decreased breath sounds at bases bilaterally. Cardiac: Regular rhythm with no murmur, gallop or rub. Abdomen: Soft, nontender with normal bowel sounds. Extremities: no pretibial edema. Results & Data Diagnostic Findings Telemetry: Primarily paced, some AV conduction, brief runs of nonsustained ventricular tachycardia
[2018-11-01] MEDS ORDERED: LORazepam 0.5 MG TAB PO PRN (17:52)
[2018-11-01] MEDS: DOCUSATE SODIUM/SENNA 50/8.6MG TAB PO SCH (22:52)
[2018-11-02] MEDS ORDERED: LORazepam 0.5 MG TAB PO PRN (08:58)
--- NOTE | 2018-11-02 09:29 | Family Medicine Progress Note ---
Date of Service November 02, 2018 Assessment & Plan (1) Respiratory failure: 80-year-old male was admitted on 27 October 2017 for acute shortness of breath. Acute on chronic hypoxic and hypercapnic respiratory failure, acute metabolic encephalopathy, systolic and diastolic CHF, acute metabolic encephalopathy: Patient initially required BiPAP but has refused this since. Has continued elevated CO2 levels. Last chest x-ray noted mild pulmonary vascular congestion with bilateral effusions. Previous PFTs have noted severe disease. 14Feb TTE noted an EF of 35-40%, severe pulmonary hypertension, as well as other findings. He has diuresed on Bumex 2 mg twice daily. Overall he continues to require increased supplemental oxygen, has poor oral intake, and is quite deconditioned. Please see very detailed palliative care note for today (18Feb) . 19Feb started on comfort care. Appears comfortable but is dying. - No further lab work. No further BiPAP. Oxygen as needed for comfort. On Roxanol and Ativan (both as needed) for pain, shortness of breath, and anxiety. - Will keep on hydroxyzine, coreg, docusate, and zofran prn. Stopped other routine meds, including diuretics per cardiology. For background purposes, patient also has a history of acute on chronic kidney injury with CKD stage IV, hypomagnesemia, CAD, ND status post stenting and CABG , cardiomyopathy, aortic stenosis s/p TAVR, pacemaker, anemia, hypothyroidism, BPH, urethral obstruction with suprapubic indwelling catheter, myelodysplastic syndrome, GERD, and history of CVA. Code status: DO NOT RESUSCITATE. Diet: Heart healthy diet, 1500 mL fluid restriction. DVT prophy: None, on comfort care. PT/OT: Cancelled. Disbo: Admitted to [facility]. On comfort care, see related palliative care notes. May end up needing discharge to SNF with hospice care depending on how his disease state progresses. Patient's primary decision maker is his son Josué. (2) Acute metabolic encephalopathy: (3) Acute on chronic combined systolic and diastolic CHF (congestive heart failure): (4) Pulmonary edema: (5) Pulmonary hypertension: (6) JONATHAN (acute kidney injury): (7) Chronic kidney disease: (8) Hypomagnesemia: (9) CAD in [place] artery: (10) Cardiomyopathy: (11) H/O aortic valve replacement: (12) Anemia: (13) Hypothyroidism: (14) Bladder outlet obstruction: (15) Myelodysplastic syndrome: (16) GERD (gastroesophageal reflux disease): Supervising Physician Co-Signing Physician Notes I personally examined the patient and verified all winkler points of history and exam, discussed case, and agree with decision making with Dr Sloan. Appears uncomfortable. feels most comfortable with him being here. He is much less responsive right now. Vitals noted, in general he is awake and alert appears fatigued but no distress. HEENT normocephalic atraumatic mucous membranes are moist. Lungs are unlabored, on nasal O2 Essentially end-stage lung diseasewith acute and chronic hypoxic and hypercapnic respiratory failurecomfort care, continue to follow to determine if home with hospice or ongoing inpatient care is most appropriate. Right now his decline appears to be fairly steep. Otherwise as above Subjective Found patient resting comfortably in bed. He does not open his eyes to voice but does give one word answers to questions. However he seems quite fatigued and doing so and nearly goes straight back to sleep in between answers. He does not appear in any acute distress. Physical Exam 2 Vital Signs (Past 24 Hours): Last Vital Signs Temp 36.8 C 11/01/18 15:20 Pulse 68 11/01/18 15:20 Resp 18 11/01/18 15:20 BP 144/66 H 11/01/18 15:20 Pulse Ox 100 11/01/18 15:20 Physical Exam: General Appearance: Somnolent, awakens to voice, does appear comfortable, in NAD. CV: +S1S2 RRR, no murmur. Pulm: Diminished breath sounds throughout. Presently on oxygen via oxymask. No respiratory distress or accessory muscle use. Abdomen: +BS, soft, non-tender, non-distended. Suprapubic catheter in place. Extremities: 2+ peripheral edema up to his thighs. There is a bandage to his right forearm. Neuro: Unable to assess due to generalized somnolence. Results & Data Laboratory Results Laboratory Results WBC 4.42 K/uL (4.8-10.8) L 11/01/18 08:20 RBC 3.08 M/uL (4.7-6.1) L 11/01/18 08:20 Hgb 10.5 g/dL (14.0-18.0) L 11/01/18 08:20 Hct 35.5 % (42-52) L 11/01/18 08:20 MCV 115.3 fL (80-100) H 11/01/18 08:20 MCH 34.1 pg (25-34) H 11/01/18 08:20 MCHC 29.6 g/dL (32-36) L 11/01/18 08:20 RDW Std Deviation 58.2 fL (36.4-46.3) H 11/01/18 08:20 RDW Coeff of Sebas 14.1 % (11.5-14.5) 11/01/18 08:20 Plt Count 102 K/uL (130-400) L 11/01/18 08:20 MPV 10.7 fL (7.4-10.4) H 11/01/18 08:20 Immature Gran % (Auto) 0.2 % 11/01/18 08:20 Neut % (Auto) 72.1 % 11/01/18 08:20 Lymph % (Auto) 18.8 % 11/01/18 08:20 Walton % (Auto) 7.7 % 11/01/18 08:20 Eos % (Auto) 0.5 % 11/01/18 08:20 Baso % (Auto) 0.7 % 11/01/18 08:20 Immature Gran # (Auto) 0.01 K/uL (0.00-0.02) 11/01/18 08:20 Neut # (Auto) 3.19 K/uL (1.4-6.5) 11/01/18 08:20 Lymph # (Auto) 0.83 K/uL (1.2-3.4) L 11/01/18 08:20 [place] # (Auto) 0.34 K/uL (0.11-0.59) 11/01/18 08:20 Eos # (Auto) 0.02 K/uL (0-0.5) 11/01/18 08:20 Baso # (Auto) 0.03 K/uL (0-0.2) 11/01/18 08:20 Platelet Estimate Decreased (Normal) 10/30/18 07:11 Polychromasia 1+ 10/27/18 09:37 Basophilic Stippling 1+ 11/01/18 08:20 Macrocytosis Present 11/01/18 08:20 Stomatocytes 1+ 11/01/18 08:20 PT 10.7 Seconds (9.0-12.0) 10/27/18 09:37 INR 1.1 (0.9-1.1) 10/27/18 09:37 APTT 24.5 Seconds (21.0-31.0) 10/27/18 09:37 PTT Ratio 0.9 10/27/18 09:37 VBG pH 7.36 (7.36-7.41) 10/31/18 16:08 VBG pCO2 84 mmHg (38-50) H 10/31/18 16:08 VBG pO2 42 mmHg 10/31/18 16:08 VBG HCO3 46 mmol/L 10/31/18 16:08 VBG O2 Saturation 76.5 % 10/31/18 16:08 VBG Base Excess 17.2 mEq/L 10/31/18 16:08 Barometric Pressure 729.8 mm/Hg 10/31/18 16:08 Sodium 143 mmol/L (136-145) 11/01/18 08:20 Potassium 3.6 mmol/L (3.5-5.1) 11/01/18 08:20 Chloride 94 mmol/L (98-107) L 11/01/18 08:20 Carbon Dioxide 46 mmol/L (21-32) H* 11/01/18 08:20 Anion Gap 3.0 (3-11) 11/01/18 08:20 BUN 46 mg/dl (7-18) H 11/01/18 08:20 Creatinine 1.45 mg/dl (0.6-1.4) H 11/01/18 08:20 Est Cr Clr Drug Dosing 35.2 ml/min 11/01/18 08:20 Est GFR ( Amer) 49.5 11/01/18 08:20 Est GFR (Non-Af Amer) 42.7 11/01/18 08:20 BUN/Creatinine Ratio 31.8 (10-20) H 11/01/18 08:20 Glucose 109 mg/dl (70-99) H 11/01/18 08:20 POC Glucose 98 (70-99) 10/30/18 09:39 Calcium 8.4 mg/dl (8.5-10.1) L 11/01/18 08:20 Phosphorus 3.1 mg/dl (2.5-4.9) 10/31/18 16:08 Magnesium 1.8 mg/dl (1.8-2.4) 11/01/18 08:20 Total Bilirubin 0.5 mg/dl (0.2-1) 10/30/18 07:11 AST 21 U/L (15-37) 10/30/18 07:11 ALT 6 U/L (12-78) L 10/30/18 07:11 Alkaline Phosphatase 40 U/L (45-117) L 10/30/18 07:11 Troponin I 0.094 ng/ml (0-0.045) H* 10/27/18 09:37 Total Protein 5.5 gm/dl (6.4-8.2) L 10/30/18 07:11 Albumin 2.3 gm/dl (3.4-5.0) L 10/30/18 07:11 Globulin 3.2 gm/dl (2.5-4.0) 10/30/18 07:11 Albumin/Globulin Ratio 0.7 (0.9-2) L 10/30/18 07:11 Urine Color Yellow 10/27/18 17:15 Urine Appearance Cloudy (Clear) H 10/27/18 17:15 Urine pH 6.5 (4.5-7.5) 10/27/18 17:15 Ur Specific [place] 1.008 (1.000-1.030) 10/27/18 17:15 Urine Protein Negative (Negative) 10/27/18 17:15 Urine Glucose (UA) Negative (Negative) 10/27/18 17:15 Urine Ketones Negative (Negative) 10/27/18 17:15 Urine Blood 1+ (Negative) H 10/27/18 17:15 Urine Nitrite Negative (Negative) 10/27/18 17:15 Urine Bilirubin Negative (Negative) 10/27/18 17:15 Urine Urobilinogen Negative (Negative) 10/27/18 17:15 Ur Leukocyte Esterase 3+ (Negative) H 10/27/18 17:15 Urine WBC (Auto) >30 /hpf (0-5) H 10/27/18 17:15 Urine RBC (Auto) 5-10 /hpf (0-4) H 10/27/18 17:15 U Hyaline Cast (Auto) 1-5 /lpf (0-5) 10/27/18 17:15 U Epithel Cells (Auto) 0-5 /lpf (0-5) 10/27/18 17:15 Urine Bacteria (Auto) Negative (Negative) 10/27/18 17:15 Influenza Type A Ag Neg for Influ A (Neg) 10/27/18 09:00 Influenza Type B Ag Neg for Influ B (Neg) 10/27/18 09:00 Medications Administered Current Inpatient Medications Carvedilol (Coreg) 12.5 mg PO BID DEVORAH Stop: 11/26/18 20:59 Last Admin: 11/01/18 22:52 Dose: Not Given Hydroxyzine HCl (Vistaril) 25 mg PO HS PRN PRN Reason: sleep Stop: 11/26/18 11:46 Last Admin: 10/27/18 20:40 Dose: 25 mg Lorazepam (Ativan) 0.5 mg PO Q4H PRN PRN Reason: Anxiety or restlessness Stop: 12/01/18 17:51 Morphine Sulfate (Roxanol) 5 mg PO Q3H PRN PRN Reason: Pain or SOB Stop: 11/15/18 17:20 Ondansetron HCl (Zofran) 4 mg IV Q4H PRN PRN Reason: Nausea And Vomiting Stop: 11/26/18 11:43 Senna/Docusate Sodium (Senokot S) 1 tab PO HS DEVORAH Stop: 11/26/18 20:59 Last Admin: 11/01/18 22:52 Dose: Not Given Resident Activity Tracking Resident Involvement: Resident Care Provided Care Provided: [facility] Medicine _ (1) Anemia Anemia type: iron deficiency Bone marrow failure anemia type: Chronic kidney disease stage: Folate deficiency anemia type: 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
--- NOTE | 2018-11-02 09:37 | Cardiology Progress Note ---
Date of Service November 02, 2018 Assessment & Plan (1) Acute on chronic systolic (congestive) heart failure: He presented now with fluid overload including peripheral edema and congestive heart failure. On review of office weights his weight prior to admission had not been increasing, it sounds as though he was not been taking an excessive fluid at home. His chest x-ray does not show severe pulmonary edema. There is no obvious cause of his acute presentation but right heart failure may be a component. His creatinine has not increased here and he has lost some fluid based on intake and output, his weight has dropped as well. His edema has resolved. I do not think we should continue to diurese, especially since he is on comfort care. I did discontinue his diuretics yesterday, we can use them as needed for edema or weight gain. (2) CAD (coronary artery disease) of bypass graft: He has known coronary disease, his troponin was slightly elevated but in the range consistent with demand ischemia. We cannot read his electrocardiogram for acute changes. Subjective He is sleepy today, although arousable. Apparently he got sedatives last evening. He has no complaints today, he denies shortness of breath. Physical Exam 2 Vital Signs (Past 24 Hours): Last Vital Signs Temp 36.8 C 11/01/18 15:20 Pulse 68 11/01/18 15:20 Resp 18 11/01/18 15:20 BP 144/66 H 11/01/18 15:20 Pulse Ox 100 11/01/18 15:20 Physical Exam: Constitutional: Alert, cooperative and in no distress. Pulmonary: Decreased breath sounds at bases bilaterally. Cardiac: Regular rhythm with no murmur, gallop or rub. Abdomen: Soft, nontender with normal bowel sounds. Extremities: no pretibial edema.
[2018-11-02] MEDS: CARVEDILOL 12.5 MG TAB PO SCH ×2 (10:27→20:01)
--- NOTE | 2018-11-02 14:52 | Palliative Care Progress Note ---
Date of Service November 02, 2018 Assessment & Plan (1) Goals of care, counseling/discussion: -88 year old male with PMH acute on chronic respiratory failure with hypoxia, systolic and diastolic CHF with an acute exacerbation, CAD, cardiomyopathy, s/p pacemaker, restrictive lung disease, anemia, hypothyroidism , CKD stage IV, suprapubic indwelling catheter due to urethral obstruction, myelodysplastic syndrome, and others, presented with respiratory distress related to acute on chronic respiratory failure related to restrictive lung disease and CHF exacerbation. Patient has had multiple readmissions each month since June 2018. He is chronically, critically ill and has been in hospital several times with respiratory failure. Now with multi-system organ failure. -Transitioned to comfort measures only on 11/01. -Roxanol 5mg PO/SL Q3h PRN pain or SOB. -Lorazepam 0.5mg PO/SL Q4h PRN anxiety/agitation. -Patient is declining quickly, but seems to be stable at this time. Patient's and another male family/friend was at bedside today. recently suffered a stroke and is unable to make decisions alone at this time. Patient's step-daughter Zoë is the secondary POA but currently she is at work. Uncertain if patient would be able to go home with hospice or to SNF for hospice. Will continue to follow and evaluate. (2) Acute on chronic combined systolic and diastolic CHF (congestive heart failure): (3) Pulmonary edema: (4) Respiratory failure: Subjective Patient is awake but confused today. He is weak, denied pain or SOB at this time. He did want the oxymask removed, so I placed nasal cannula. and another family/friend at bedside. Review of Systems Unobtainable due to cognitive status Physical Exam 2 Vital Signs (Past 24 Hours): Last Vital Signs Temp 36.7 C 11/02/18 12:15 Pulse 102 H 11/02/18 12:15 Resp 18 11/02/18 12:15 BP 116/68 11/02/18 12:15 Pulse Ox 87 L 11/02/18 12:15 Constitutional: + ill appearing and + cachectic Neck: normal visual inspection and trachea midline Respiratory: + abnormal respiratory effort (poor respiratory effort) and no labored breathing Auscultation: + diminished lung sounds Cardiovascular: Rate/Rhythm: regular rate and regular rhythm Vessels: dorsalis pedis pulses present Gastrointestinal (Abdomen): Inspection/Auscultation: abdomen normal to inspection and normal bowel sounds; abdomen not distended Percussion/ Palpation: abdomen soft; abdomen nontender Neurologic: awake and + confused Psychiatric: Orientation: + not alert (drowsy) Time Spent Midlevel 35 minutes with >50% of time spent at bedside with patient and family discussing condition and EOL care. _ (1) Pulmonary edema Chronicity: acute Qualified Code(s): J81.0 - Acute pulmonary edema (2) Respiratory failure Chronicity: acute Respiratory failure complication: hypoxia Qualified Code(s ): J96.01 - Acute respiratory failure with hypoxia
[2018-11-02] MEDS: DOCUSATE SODIUM/SENNA 50/8.6MG TAB PO SCH (20:01)
[2018-11-03] MEDS: CARVEDILOL 12.5 MG TAB PO SCH ×2 (07:10→19:46)
--- NOTE | 2018-11-03 09:41 | Family Medicine Progress Note ---
Date of Service November 03, 2018 Assessment & Plan (1) Respiratory failure: 88-year-old male was admitted on 27 October 2017 for acute shortness of breath. Acute on chronic hypoxic and hypercapnic respiratory failure, acute metabolic encephalopathy, systolic and diastolic CHF, acute metabolic encephalopathy: Patient initially required BiPAP but has refused this since. Has continued elevated CO2 levels. Last chest x-ray noted mild pulmonary vascular congestion with bilateral effusions. Previous PFTs have noted severe disease. 14Feb TTE noted an EF of 35-40%, severe pulmonary hypertension, as well as other findings. He has diuresed on Bumex 2 mg twice daily. Overall he continues to require increased supplemental oxygen, has poor oral intake, and is quite deconditioned. Please see very detailed palliative care note for today (18Feb) . 19Feb started on comfort care. Appears comfortable but is dying. - No further lab work. No further BiPAP. Oxygen as needed for comfort. On Roxanol and Ativan (both as needed) for pain, shortness of breath, and/or anxiety. - Will keep on hydroxyzine, coreg, docusate, and zofran prn. Stopped other routine meds, including diuretics per cardiology. For background purposes, patient also has a history of acute on chronic kidney injury with CKD stage IV, hypomagnesemia, CAD, [place] status post stenting and CABG , cardiomyopathy, aortic stenosis s/p TAVR, pacemaker, anemia, hypothyroidism, BPH, urethral obstruction with suprapubic indwelling catheter, myelodysplastic syndrome, GERD, and history of CVA. Code status: DO NOT RESUSCITATE. Diet: Heart healthy diet, 1500 mL fluid restriction. DVT prophy: None, on comfort care. PT/OT: Cancelled. Disbo: Admitted to [facility]. On comfort care, see related palliative care notes. May end up needing discharge to SNF with hospice care depending on how his disease state progresses. Patient's primary decision maker is his son Josué. Patient's step-daughter Zoë is the secondary POA. (2) Acute metabolic encephalopathy: (3) Acute on chronic combined systolic and diastolic CHF (congestive heart failure): (4) Pulmonary edema: (5) Pulmonary hypertension: (6) JONATHAN (acute kidney injury): (7) Chronic kidney disease: (8) Hypomagnesemia: (9) CAD in [place] artery: (10) Cardiomyopathy: (11) H/O aortic valve replacement: (12) Anemia: (13) Hypothyroidism: (14) Bladder outlet obstruction: (15) Myelodysplastic syndrome: (16) GERD (gastroesophageal reflux disease): Supervising Physician Co-Signing Physician Notes I personally examined the patient and verified all winkler points of history and exam, discussed case, and agree with decision making with Dr Sloan. Appears comfortable. Vitals noted, in general he is awake and alert appears fatigued but no distress. HEENT normocephalic atraumatic mucous membranes are moist. Lungs are unlabored, on nasal O2 Essentially end-stage lung diseasewith acute and chronic hypoxic and hypercapnic respiratory failurecomfort care, appreciate palliative team working with family on ?home hospice Otherwise as above Subjective Found patient sleeping comfortably. His daughter and his are at the bedside. Both of them seem content that the patient remains here for now. They say that he was a bit more alert last night and had something to eat. On exam, the patient briefly opened his eyes. When asked how he is doing, he said "good". When asked if he had any pain or concerns, he said no. Physical Exam 2 Vital Signs (Past 24 Hours): Last Vital Signs Temp 36.7 C 11/02/18 12:15 Pulse 102 H 11/02/18 12:15 Resp 18 11/02/18 12:15 BP 116/68 11/02/18 12:15 Pulse Ox 87 L 11/02/18 12:15 Physical Exam: General Appearance: Somnolent, awakens to voice, does appear comfortable, in NAD. CV: +S1S2 RRR, no murmur. Pulm: Diminished breath sounds throughout. Presently on oxygen via oxymask. No respiratory distress or accessory muscle use. Abdomen: +BS, soft, non-tender, non-distended. Suprapubic catheter in place. Extremities: 2+ peripheral edema up to his thighs. There is a bandage to his right forearm. Neuro: Unable to assess due to generalized somnolence. Results & Data Laboratory Results Laboratory Results WBC 4.42 K/uL (4.8-10.8) L 11/01/18 08:20 RBC 3.08 M/uL (4.7-6.1) L 11/01/18 08:20 Hgb 10.5 g/dL (14.0-18.0) L 11/01/18 08:20 Hct 35.5 % (42-52) L 11/01/18 08:20 MCV 115.3 fL (80-100) H 11/01/18 08:20 MCH 34.1 pg (25-34) H 11/01/18 08:20 MCHC 29.6 g/dL (32-36) L 11/01/18 08:20 RDW Std Deviation 58.2 fL (36.4-46.3) H 11/01/18 08:20 RDW Coeff of Sebas 14.1 % (11.5-14.5) 11/01/18 08:20 Plt Count 102 K/uL (130-400) L 11/01/18 08:20 MPV 10.7 fL (7.4-10.4) H 11/01/18 08:20 Immature Gran % (Auto) 0.2 % 11/01/18 08:20 Neut % (Auto) 72.1 % 11/01/18 08:20 Lymph % (Auto) 18.8 % 11/01/18 08:20 [place] % (Auto) 7.7 % 11/01/18 08:20 Eos % (Auto) 0.5 % 11/01/18 08:20 Baso % (Auto) 0.7 % 11/01/18 08:20 Immature Gran # (Auto) 0.01 K/uL (0.00-0.02) 11/01/18 08:20 Neut # (Auto) 3.19 K/uL (1.4-6.5) 11/01/18 08:20 Lymph # (Auto) 0.83 K/uL (1.2-3.4) L 11/01/18 08:20 [place] # (Auto) 0.34 K/uL (0.11-0.59) 11/01/18 08:20 Eos # (Auto) 0.02 K/uL (0-0.5) 11/01/18 08:20 Baso # (Auto) 0.03 K/uL (0-0.2) 11/01/18 08:20 Platelet Estimate Decreased (Normal) 10/30/18 07:11 Polychromasia 1+ 10/27/18 09:37 Basophilic Stippling 1+ 11/01/18 08:20 Macrocytosis Present 11/01/18 08:20 Stomatocytes 1+ 11/01/18 08:20 PT 10.7 Seconds (9.0-12.0) 10/27/18 09:37 INR 1.1 (0.9-1.1) 10/27/18 09:37 APTT 24.5 Seconds (21.0-31.0) 10/27/18 09:37 PTT Ratio 0.9 10/27/18 09:37 VBG pH 7.36 (7.36-7.41) 10/31/18 16:08 VBG pCO2 84 mmHg (38-50) H 10/31/18 16:08 VBG pO2 42 mmHg 10/31/18 16:08 VBG HCO3 46 mmol/L 10/31/18 16:08 VBG O2 Saturation 76.5 % 10/31/18 16:08 VBG Base Excess 17.2 mEq/L 10/31/18 16:08 Barometric Pressure 729.8 mm/Hg 10/31/18 16:08 Sodium 143 mmol/L (136-145) 11/01/18 08:20 Potassium 3.6 mmol/L (3.5-5.1) 11/01/18 08:20 Chloride 94 mmol/L (98-107) L 11/01/18 08:20 Carbon Dioxide 46 mmol/L (21-32) H* 11/01/18 08:20 Anion Gap 3.0 (3-11) 11/01/18 08:20 BUN 46 mg/dl (7-18) H 11/01/18 08:20 Creatinine 1.45 mg/dl (0.6-1.4) H 11/01/18 08:20 Est Cr Clr Drug Dosing 35.2 ml/min 11/01/18 08:20 Est GFR ( Amer) 49.5 11/01/18 08:20 Est GFR (Non-Af Amer) 42.7 11/01/18 08:20 BUN/Creatinine Ratio 31.8 (10-20) H 11/01/18 08:20 Glucose 109 mg/dl (70-99) H 11/01/18 08:20 POC Glucose 98 (70-99) 10/30/18 09:39 Calcium 8.4 mg/dl (8.5-10.1) L 11/01/18 08:20 Phosphorus 3.1 mg/dl (2.5-4.9) 10/31/18 16:08 Magnesium 1.8 mg/dl (1.8-2.4) 11/01/18 08:20 Total Bilirubin 0.5 mg/dl (0.2-1) 10/30/18 07:11 AST 21 U/L (15-37) 10/30/18 07:11 ALT 6 U/L (12-78) L 10/30/18 07:11 Alkaline Phosphatase 40 U/L (45-117) L 10/30/18 07:11 Troponin I 0.094 ng/ml (0-0.045) H* 10/27/18 09:37 Total Protein 5.5 gm/dl (6.4-8.2) L 10/30/18 07:11 Albumin 2.3 gm/dl (3.4-5.0) L 10/30/18 07:11 Globulin 3.2 gm/dl (2.5-4.0) 10/30/18 07:11 Albumin/Globulin Ratio 0.7 (0.9-2) L 10/30/18 07:11 Urine Color Yellow 10/27/18 17:15 Urine Appearance Cloudy (Clear) H 10/27/18 17:15 Urine pH 6.5 (4.5-7.5) 10/27/18 17:15 Ur Specific [place] 1.008 (1.000-1.030) 10/27/18 17:15 Urine Protein Negative (Negative) 10/27/18 17:15 Urine Glucose (UA) Negative (Negative) 10/27/18 17:15 Urine Ketones Negative (Negative) 10/27/18 17:15 Urine Blood 1+ (Negative) H 10/27/18 17:15 Urine Nitrite Negative (Negative) 10/27/18 17:15 Urine Bilirubin Negative (Negative) 10/27/18 17:15 Urine Urobilinogen Negative (Negative) 10/27/18 17:15 Ur Leukocyte Esterase 3+ (Negative) H 10/27/18 17:15 Urine WBC (Auto) >30 /hpf (0-5) H 10/27/18 17:15 Urine RBC (Auto) 5-10 /hpf (0-4) H 10/27/18 17:15 U Hyaline Cast (Auto) 1-5 /lpf (0-5) 10/27/18 17:15 U Epithel Cells (Auto) 0-5 /lpf (0-5) 10/27/18 17:15 Urine Bacteria (Auto) Negative (Negative) 10/27/18 17:15 Influenza Type A Ag Neg for Influ A (Neg) 10/27/18 09:00 Influenza Type B Ag Neg for Influ B (Neg) 10/27/18 09:00 Medications Administered Current Inpatient Medications Carvedilol (Coreg) 12.5 mg PO BID DEVORAH Stop: 11/26/18 20:59 Last Admin: 11/03/18 07:10 Dose: Not Given Hydroxyzine HCl (Vistaril) 25 mg PO HS PRN PRN Reason: sleep Stop: 11/26/18 11:46 Last Admin: 10/27/18 20:40 Dose: 25 mg Lorazepam (Ativan) 0.5 mg PO Q4H PRN PRN Reason: Anxiety or restlessness Stop: 12/01/18 17:51 Morphine Sulfate (Roxanol) 5 mg PO Q3H PRN PRN Reason: Pain or SOB Stop: 11/15/18 17:20 Ondansetron HCl (Zofran) 4 mg IV Q4H PRN PRN Reason: Nausea And Vomiting Stop: 11/26/18 11:43 Senna/Docusate Sodium (Senokot S) 1 tab PO HS DEVORAH Stop: 11/26/18 20:59 Last Admin: 11/02/18 20:01 Dose: Not Given Resident Activity Tracking Resident Involvement: Resident Care Provided Care Provided: Adult [facility] Medicine _ (1) Anemia Anemia type: iron deficiency Bone marrow failure anemia type: Chronic kidney disease stage: Folate deficiency anemia type: 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
--- NOTE | 2018-11-03 11:49 | Palliative Care Progress Note ---
Date of Service November 03, 2018 Assessment & Plan (1) Goals of care, counseling/discussion: -Transitioned to comfort measures only on 11/01. -Roxanol 5mg PO/SL Q3h PRN pain or SOB. Has not required any. -Lorazepam 0.5mg PO/SL Q4h PRN anxiety/agitation. Has not required any. -Patient is declining quickly, but seems to be stable at this time. recently suffered a stroke and is unable to make decisions alone at this time. Patient's step-daughter Zoë is the secondary POA but currently she is at work. Patient's biological [facility]. Will discuss if taking patient home on hospice is an option. will need help. He would be stable for discharge at this time, of course that is subject to change. He does not meet GIP hospice criteria at this time. -Will continue to follow as needed. (2) Acute on chronic combined systolic and diastolic CHF (congestive heart failure): (3) Pulmonary edema: (4) Respiratory failure: Subjective Patient is awake but confused today. He is weak, denied pain or SOB at this time. at bedside, but she has some dementia and memory issues. Review of Systems Unobtainable due to cognitive status Physical Exam 2 Vital Signs (Past 24 Hours): Last Vital Signs Temp 36.7 C 11/02/18 12:15 Pulse 102 H 11/02/18 12:15 Resp 18 11/02/18 12:15 BP 116/68 11/02/18 12:15 Pulse Ox 87 L 11/02/18 12:15 Constitutional: + ill appearing and + cachectic Neck: normal visual inspection and trachea midline Respiratory: + abnormal respiratory effort (poor respiratory effort) and no labored breathing Auscultation: + diminished lung sounds Cardiovascular: Rate/Rhythm: regular rate and regular rhythm Vessels: dorsalis pedis pulses present Gastrointestinal (Abdomen): Inspection/Auscultation: abdomen normal to inspection and normal bowel sounds; abdomen not distended Percussion/ Palpation: abdomen soft; abdomen nontender Neurologic: awake and + confused Psychiatric: Orientation: + not alert (drowsy) Time Spent Midlevel 25 minutes with >50% of time spent at bedside with patient and discussing condition and EOL issues. _ (1) Pulmonary edema Chronicity: acute Qualified Code(s): J81.0 - Acute pulmonary edema (2) Respiratory failure Chronicity: acute Respiratory failure complication: hypoxia Qualified Code(s ): J96.01 - Acute respiratory failure with hypoxia
[2018-11-03] MEDS: DOCUSATE SODIUM/SENNA 50/8.6MG TAB PO SCH (19:46)
[2018-11-04] MEDS: CARVEDILOL 12.5 MG TAB PO SCH (09:19)
--- NOTE | 2018-11-04 09:31 | Family Medicine Progress Note ---
Date of Service November 04, 2018 Assessment & Plan (1) Respiratory failure: 88-year-old male was admitted on 27 October 2017 for acute shortness of breath. Acute on chronic hypoxic and hypercapnic respiratory failure, acute metabolic encephalopathy, systolic and diastolic CHF, acute metabolic encephalopathy: Patient initially required BiPAP but has refused this since. Has continued elevated CO2 levels. Last chest x-ray noted mild pulmonary vascular congestion with bilateral effusions. Previous PFTs have noted severe disease. 14Feb TTE noted an EF of 35-40%, severe pulmonary hypertension, as well as other findings. He has diuresed on Bumex 2 mg twice daily. Overall he continues to require increased supplemental oxygen, has poor oral intake, and is quite deconditioned. Please see very detailed palliative care note for today (18Feb) . 19Feb started on comfort care. Appears comfortable but is dying. - No further lab work. No further BiPAP. Oxygen as needed for comfort. - On Roxanol and Ativan (both as needed) for pain, shortness of breath, and/or anxiety. Has not required either yet. - Will keep on hydroxyzine and zofran (both prn). Stopped other routine meds, including diuretics per cardiology. - Stopped his coreg and docusate due to some reported difficulty swallowing pills. For background purposes, patient also has a history of acute on chronic kidney injury with CKD stage IV, hypomagnesemia, CAD, [place] status post stenting and CABG , cardiomyopathy, aortic stenosis s/p TAVR, pacemaker, anemia, hypothyroidism, BPH, urethral obstruction with suprapubic indwelling catheter, myelodysplastic syndrome, GERD, and history of CVA. Code status: DO NOT RESUSCITATE. Diet: Heart healthy diet, 1500 mL fluid restriction. DVT prophy: None, on comfort care. PT/OT: Cancelled. Disbo: Admitted to [facility]. On comfort care, see related palliative care notes. May end up needing discharge to SNF with hospice care depending on how his disease state progresses. Patient's primary decision maker is his son Josué. Patient's step-daughter Zoë is the secondary POA. - Anticipating family to visit today (in from [place]). (2) Acute metabolic encephalopathy: (3) Acute on chronic combined systolic and diastolic CHF (congestive heart failure): (4) Pulmonary edema: (5) Pulmonary hypertension: (6) JONATHAN (acute kidney injury): (7) Chronic kidney disease: (8) Hypomagnesemia: (9) CAD in [place] artery: (10) Cardiomyopathy: (11) H/O aortic valve replacement: (12) Anemia: (13) Hypothyroidism: (14) Bladder outlet obstruction: (15) Myelodysplastic syndrome: (16) GERD (gastroesophageal reflux disease): Supervising Physician Co-Signing Physician Notes I personally examined the patient and verified all winkler points of history and exam, discussed case, and agree with decision making with Dr Sloan. Appears comfortable. Discussed with , and she does not believe she would be able to take care of him at home on hospice. Vitals noted, in general he is awake and alert appears fatigued but no distress. HEENT normocephalic atraumatic mucous membranes are moist. Lungs are unlabored, on nasal O2 Essentially end-stage lung diseasewith acute and chronic hypoxic and hypercapnic respiratory failurecomfort care ongoing, appreciate palliative team working with family on ?home hospice versus SNF hospice. Right node certainly appears the would be overwhelmed at home. Otherwise as above Subjective Found patient resting comfortably with his and daughter at bedside. Patient opens his eyes to voice when asked how he is doing he says that he is "good". His family is concerned that he did not get any breakfast this morning. Per their account he ate quite a bit of dinner last night. On asking the patient if he was hungry, he said "yes". He did not seem to have any acute concerns but overall appears exhausted. Physical Exam 2 Vital Signs (Past 24 Hours): Last Vital Signs Temp 36.7 C 11/02/18 12:15 Pulse 102 H 11/02/18 12:15 Resp 18 11/02/18 12:15 BP 116/68 11/02/18 12:15 Pulse Ox 87 L 11/02/18 12:15 Physical Exam: General Appearance: Somnolent, awakens to voice, does appear comfortable, in NAD. No real change from yesterday. CV: +S1S2 RRR, no murmur. Pulm: Diminished breath sounds throughout. Presently on oxygen via oxymask. No respiratory distress or accessory muscle use. Abdomen: +BS, soft, non-tender, non-distended. Suprapubic catheter in place. Extremities: 1+ peripheral edema up to his thighs. There is a bandage to his right forearm. Neuro: Unable to assess due to generalized somnolence. Results & Data Laboratory Results Laboratory Results WBC 4.42 K/uL (4.8-10.8) L 11/01/18 08:20 RBC 3.08 M/uL (4.7-6.1) L 11/01/18 08:20 Hgb 10.5 g/dL (14.0-18.0) L 11/01/18 08:20 Hct 35.5 % (42-52) L 11/01/18 08:20 MCV 115.3 fL (80-100) H 11/01/18 08:20 MCH 34.1 pg (25-34) H 11/01/18 08:20 MCHC 29.6 g/dL (32-36) L 11/01/18 08:20 RDW Std Deviation 58.2 fL (36.4-46.3) H 11/01/18 08:20 RDW Coeff of Sebas 14.1 % (11.5-14.5) 11/01/18 08:20 Plt Count 102 K/uL (130-400) L 11/01/18 08:20 MPV 10.7 fL (7.4-10.4) H 11/01/18 08:20 Immature Gran % (Auto) 0.2 % 11/01/18 08:20 Neut % (Auto) 72.1 % 11/01/18 08:20 Lymph % (Auto) 18.8 % 11/01/18 08:20 [place] % (Auto) 7.7 % 11/01/18 08:20 Eos % (Auto) 0.5 % 11/01/18 08:20 Baso % (Auto) 0.7 % 11/01/18 08:20 Immature Gran # (Auto) 0.01 K/uL (0.00-0.02) 11/01/18 08:20 Neut # (Auto) 3.19 K/uL (1.4-6.5) 11/01/18 08:20 Lymph # (Auto) 0.83 K/uL (1.2-3.4) L 11/01/18 08:20 [place] # (Auto) 0.34 K/uL (0.11-0.59) 11/01/18 08:20 Eos # (Auto) 0.02 K/uL (0-0.5) 11/01/18 08:20 Baso # (Auto) 0.03 K/uL (0-0.2) 11/01/18 08:20 Platelet Estimate Decreased (Normal) 10/30/18 07:11 Polychromasia 1+ 10/27/18 09:37 Basophilic Stippling 1+ 11/01/18 08:20 Macrocytosis Present 11/01/18 08:20 Stomatocytes 1+ 11/01/18 08:20 PT 10.7 Seconds (9.0-12.0) 10/27/18 09:37 INR 1.1 (0.9-1.1) 10/27/18 09:37 APTT 24.5 Seconds (21.0-31.0) 10/27/18 09:37 PTT Ratio 0.9 10/27/18 09:37 VBG pH 7.36 (7.36-7.41) 10/31/18 16:08 VBG pCO2 84 mmHg (38-50) H 10/31/18 16:08 VBG pO2 42 mmHg 10/31/18 16:08 VBG HCO3 46 mmol/L 10/31/18 16:08 VBG O2 Saturation 76.5 % 10/31/18 16:08 VBG Base Excess 17.2 mEq/L 10/31/18 16:08 Barometric Pressure 729.8 mm/Hg 10/31/18 16:08 Sodium 143 mmol/L (136-145) 11/01/18 08:20 Potassium 3.6 mmol/L (3.5-5.1) 11/01/18 08:20 Chloride 94 mmol/L (98-107) L 11/01/18 08:20 Carbon Dioxide 46 mmol/L (21-32) H* 11/01/18 08:20 Anion Gap 3.0 (3-11) 11/01/18 08:20 BUN 46 mg/dl (7-18) H 11/01/18 08:20 Creatinine 1.45 mg/dl (0.6-1.4) H 11/01/18 08:20 Est Cr Clr Drug Dosing 35.2 ml/min 11/01/18 08:20 Est GFR ( Amer) 49.5 11/01/18 08:20 Est GFR (Non-Af Amer) 42.7 11/01/18 08:20 BUN/Creatinine Ratio 31.8 (10-20) H 11/01/18 08:20 Glucose 109 mg/dl (70-99) H 11/01/18 08:20 POC Glucose 98 (70-99) 10/30/18 09:39 Calcium 8.4 mg/dl (8.5-10.1) L 11/01/18 08:20 Phosphorus 3.1 mg/dl (2.5-4.9) 10/31/18 16:08 Magnesium 1.8 mg/dl (1.8-2.4) 11/01/18 08:20 Total Bilirubin 0.5 mg/dl (0.2-1) 10/30/18 07:11 AST 21 U/L (15-37) 10/30/18 07:11 ALT 6 U/L (12-78) L 10/30/18 07:11 Alkaline Phosphatase 40 U/L (45-117) L 10/30/18 07:11 Troponin I 0.094 ng/ml (0-0.045) H* 10/27/18 09:37 Total Protein 5.5 gm/dl (6.4-8.2) L 10/30/18 07:11 Albumin 2.3 gm/dl (3.4-5.0) L 10/30/18 07:11 Globulin 3.2 gm/dl (2.5-4.0) 10/30/18 07:11 Albumin/Globulin Ratio 0.7 (0.9-2) L 10/30/18 07:11 Urine Color Yellow 10/27/18 17:15 Urine Appearance Cloudy (Clear) H 10/27/18 17:15 Urine pH 6.5 (4.5-7.5) 10/27/18 17:15 Ur Specific [place] 1.008 (1.000-1.030) 10/27/18 17:15 Urine Protein Negative (Negative) 10/27/18 17:15 Urine Glucose (UA) Negative (Negative) 10/27/18 17:15 Urine Ketones Negative (Negative) 10/27/18 17:15 Urine Blood 1+ (Negative) H 10/27/18 17:15 Urine Nitrite Negative (Negative) 10/27/18 17:15 Urine Bilirubin Negative (Negative) 10/27/18 17:15 Urine Urobilinogen Negative (Negative) 10/27/18 17:15 Ur Leukocyte Esterase 3+ (Negative) H 10/27/18 17:15 Urine WBC (Auto) >30 /hpf (0-5) H 10/27/18 17:15 Urine RBC (Auto) 5-10 /hpf (0-4) H 10/27/18 17:15 U Hyaline Cast (Auto) 1-5 /lpf (0-5) 10/27/18 17:15 U Epithel Cells (Auto) 0-5 /lpf (0-5) 10/27/18 17:15 Urine Bacteria (Auto) Negative (Negative) 10/27/18 17:15 Influenza Type A Ag Neg for Influ A (Neg) 10/27/18 09:00 Influenza Type B Ag Neg for Influ B (Neg) 10/27/18 09:00 Medications Administered Current Inpatient Medications Carvedilol (Coreg) 12.5 mg PO BID [facility] Stop: 11/26/18 20:59 Last Admin: 11/04/18 09:19 Dose: Not Given Hydroxyzine HCl (Vistaril) 25 mg PO HS PRN PRN Reason: sleep Stop: 11/26/18 11:46 Last Admin: 10/27/18 20:40 Dose: 25 mg Lorazepam (Ativan) 0.5 mg PO Q4H PRN PRN Reason: Anxiety or restlessness Stop: 12/01/18 17:51 Morphine Sulfate (Roxanol) 5 mg PO Q3H PRN PRN Reason: Pain or SOB Stop: 11/15/18 17:20 Ondansetron HCl (Zofran) 4 mg IV Q4H PRN PRN Reason: Nausea And Vomiting Stop: 11/26/18 11:43 Senna/Docusate Sodium (Senokot S) 1 tab PO HS [facility] Stop: 11/26/18 20:59 Last Admin: 11/03/18 19:46 Dose: Not Given Resident Activity Tracking Resident Involvement: Resident Care Provided Care Provided: [facility] Medicine _ (1) Anemia Anemia type: iron deficiency Bone marrow failure anemia type: Chronic kidney disease stage: Folate deficiency anemia type: 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
--- NOTE | 2018-11-04 15:40 | Palliative Care Progress Note ---
Date of Service November 04, 2018 Assessment & Plan (1) Goals of care, counseling/discussion: -Transitioned to comfort measures only on 11/01. -Roxanol 5mg PO/SL Q3h PRN pain or SOB. Has not required any. -Lorazepam 0.5mg PO/SL Q4h PRN anxiety/agitation. Has not required any. -Patient is declining quickly, but seems to be stable at this time. recently suffered a stroke and is unable to make decisions alone at this time. Patient's step-daughter Zoë is the secondary POA but currently she is at work. Patient's biological children are coming [facility] and tomorrow. Will discuss if taking patient home on hospice is an option. will need help. He would be stable for discharge at this time, of course that is subject to change. He does not meet GIP hospice criteria at this time. -Will continue to follow as needed. (2) Acute on chronic combined systolic and diastolic CHF (congestive heart failure): (3) Pulmonary edema: (4) Respiratory failure: Subjective Patient is awake but confused today. He is weak, denied pain or SOB at this time. at bedside, but she has some dementia and memory issues. Physical Exam 2 Vital Signs (Past 24 Hours): Last Vital Signs Temp 36.7 C 11/04/18 11:12 Pulse 66 11/04/18 11:12 Resp 22 11/04/18 11:12 BP 145/67 H 11/04/18 11:12 Pulse Ox 100 11/04/18 11:12 Constitutional: + ill appearing and + cachectic Neck: normal visual inspection and trachea midline Respiratory: + abnormal respiratory effort (poor respiratory effort) and no labored breathing Auscultation: + diminished lung sounds Cardiovascular: Rate/Rhythm: regular rate and regular rhythm Vessels: dorsalis pedis pulses present Gastrointestinal (Abdomen): Inspection/Auscultation: abdomen normal to inspection and normal bowel sounds; abdomen not distended Percussion/ Palpation: abdomen soft Neurologic: + confused Psychiatric: Orientation: + not alert (drowsy) Time Spent Midlevel 25 minutes with >50% of time spent at bedside with patient and discussing plan of care and MEDICAL SUPPLY TECHNICIAN. _ (1) Pulmonary edema Chronicity: acute Qualified Code(s): J81.0 - Acute pulmonary edema (2) Respiratory failure Chronicity: acute Respiratory failure complication: hypoxia Qualified Code(s ): J96.01 - Acute respiratory failure with hypoxia
--- NOTE | 2018-11-05 13:00 | Palliative Care Progress Note ---
Date of Service November 05, 2018 Assessment & Plan (1) Goals of care, counseling/discussion: -Transitioned to comfort measures only on 11/01. -Roxanol 5mg PO/SL Q3h PRN pain or SOB. Has not required any. -Lorazepam 0.5mg PO/SL Q4h PRN anxiety/agitation. Had one dose today. -Patient remains comfortable and stable for discharge at this time. He has no s/s discomfort or distress. He is making urine. Still drinking some boost at times. -He likely cannot go home with his who recently suffered a stroke and has some memory issues. would need hospice at SNF. No family present when I visited today. Case management is following. (2) Acute on chronic combined systolic and diastolic CHF (congestive heart failure): (3) Pulmonary edema: (4) Respiratory failure: Subjective Patient more awake today. Confused. Did received one dose of Ativan. Step-son Gera at bedside, not here yet. Review of Systems Unobtainable due to cognitive status Physical Exam Vital Signs (Past 24 Hours): Last Vital Signs Temp 36.7 C 11/04/18 11:12 Pulse 66 11/04/18 11:12 Resp 22 11/04/18 11:12 BP 145/67 H 11/04/18 11:12 Pulse Ox 100 11/04/18 11:12 Constitutional: + ill appearing and + cachectic Neck: normal visual inspection and trachea midline Respiratory: + abnormal respiratory effort (poor respiratory effort) and no labored breathing Auscultation: + diminished lung sounds Cardiovascular: Rate/Rhythm: regular rate and regular rhythm Vessels: dorsalis pedis pulses present Gastrointestinal (Abdomen): Inspection/Auscultation: abdomen normal to inspection and normal bowel sounds; abdomen not distended Percussion/Palpation: abdomen soft Neurologic: awake and + confused Time Spent Midlevel 25 minutse with >50% of time spent at bedside with patient and family discussing comfort care. (1) Pulmonary edema Chronicity: acute Qualified Code(s): J81.0 - Acute pulmonary edema (2) Respiratory failure Chronicity: acute Respiratory failure complication: hypoxia Qualified Code(s): J96.01 - Acute respiratory failure with hypoxia
--- NOTE | 2018-11-05 18:18 | Hospitalist Progress Note ---
Date of Service November 05, 2018 Assessment & Plan (1) Respiratory failure: Extensive discussions as above. He is on comfort care. Fortunately right now overall it has been fairly easy to keep him comfortable. His agitation and restlessness today combined with his worsening confusion seems to be likely due to hypercapnia. Nursing I discussed if he continues to be restless and agitated we can give trial to low dose of morphine to try to alleviate symptoms. Family is aware of this and understanding of the plan. Family will continue to discuss what would be best for him and best for them as far as his end-of-life care. We will continue to provide support and guidance. Otherwise continue current care. Approximately 40 minutes [id number] (2) Acute on chronic combined systolic and diastolic CHF (congestive heart failure): (3) Goals of care, counseling/discussion: (4) Pulmonary hypertension: (5) Acute metabolic encephalopathy: Subjective No meaningful HPI or review of systems obtainable from patient. Case discussed with nursing extensively, and he has been a little bit more agitated and restless today but not really complaining of pain or dyspnea. Family present in the room. The son from [place] has arrived. We have an extensive discussion with the patient as much as he is able to comprehend, his , his son, and other family. We discussed goals of care, starting with home/hospice and its limitations given the , versus SNF with comfort care plus or minus hospice, versus ongoing inpatient care. We discussed that home with hospice is fairly limited and less the family would be able to help provide 24/7 care, but with the understanding that that may not be realistic or feasible. We discussed that he does not meet criteria for ongoing inpatient care, but that certainly we would absolutely not romano things as they are going through such a difficult time. We discussed SNF may be the most reasonable option given his overall situation, and the noted that she had a bad experience with [facility] before, but [email or web address] Family appreciated efforts and discussion. Time in the room approximately 10: 05 AM, time out of the room approximately 10:45 AM. Physical Exam 2 Vital Signs (Past 24 Hours): Last Vital Signs Temp 36.7 C 11/04/18 11:12 Pulse 66 11/04/18 11:12 Resp 22 11/04/18 11:12 BP 145/67 H 11/04/18 11:12 Pulse Ox 100 11/04/18 11:12 Physical Exam: He is awake but speaking somewhat nonsensically and then falls asleep. He does not appear to be in distress. HEENT normocephalic atraumatic mucous membranes somewhat dry. Breathing is unlabored but seems to have minimal air movement overall. Skin shows no rashes no pallor or icterus. _ (1) Respiratory failure Chronicity: acute Respiratory failure complication: hypoxia Qualified Code(s ): J96.01 - Acute respiratory failure with hypoxia
--- NOTE | 2018-11-06 19:06 | Hospitalist Progress Note ---
Date of Service November 06, 2018 Assessment & Plan (1) Respiratory failure: He is on comfort care. Fortunately right now overall it has been fairly easy to keep him comfortable. Family is aware of different planning choices, and understanding of the plan. Family will continue to discuss what would be best for him and best for them as far as his end-of-life care. We will continue to provide support and guidance. Otherwise continue current care. (2) Acute on chronic combined systolic and diastolic CHF (congestive heart failure): (3) Goals of care, counseling/discussion: (4) Pulmonary hypertension: (5) Acute metabolic encephalopathy: Acute Metabolic encephalopathy in the setting of acute on chronic hypoxic and acute hypercapnic respiratory failure. Subjective Appears to be comfortable, no meaningful HPI or review of systems obtainable from patient. Family still working on planning, local family is reconsidering [facility] Physical Exam 2 Vital Signs (Past 24 Hours): Last Vital Signs Temp 36.7 C 11/04/18 11:12 Pulse 66 11/04/18 11:12 Resp 22 11/04/18 11:12 BP 145/67 H 11/04/18 11:12 Pulse Ox 100 11/04/18 11:12 Physical Exam: Sleeping comfortably no distress. Breathing is unlabored. No focal neuro deficits. Skin is slightly ashen but no pallor or icterus. _ (1) Respiratory failure Chronicity: acute Respiratory failure complication: hypoxia Qualified Code(s ): J96.01 - Acute respiratory failure with hypoxia
--- NOTE | 2018-11-07 20:33 | Hospitalist Progress Note ---
Date of Service November 07, 2018 Assessment & Plan (1) Respiratory failure: He is on comfort care. Fortunately right now overall it has been fairly easy to keep him comfortable. Mental status is likely on the basis of a metabolic encephalopathy due to carbon dioxide retention. Family is aware of different planning choices, and understanding of the plan. Family will continue to discuss what would be best for him and best for them as far as his end-of-life care. We will continue to provide support and guidance. Otherwise continue current care. (2) Acute on chronic combined systolic and diastolic CHF (congestive heart failure): (3) Goals of care, counseling/discussion: (4) Pulmonary hypertension: (5) Acute metabolic encephalopathy: Acute Metabolic encephalopathy in the setting of acute on chronic hypoxic and acute hypercapnic respiratory failure. Subjective No meaningful HPI or review of systems. He is more alert, but clearly disoriented. Family present and ask a number of good questions, I answered to the best my ability. In general the discussion is guided to the fact that he has end-stage lung disease, in terms of his individual needs, home hospice would be viable. But because of his home situation, the would be absolutely overwhelmed and therefore home hospice is not viable. We discussed that he does not have any real long-standing with any particular SNF, but that given his situation SNF with hospice would be the most appropriate. That said with this being such a sensitive situation, I did not want the family to romano the situation, and also wonder if the patient may start to have a more precipitous decline. I encouraged them to continue SNF planning, but do feel comfortable that we would not force a home situation. Review of Systems Unobtainable due to cognitive status and Unobtainable due to reduced consciousness Physical Exam 2 Vital Signs (Past 24 Hours): Last Vital Signs Temp 36.4 C L 11/06/18 22:56 Pulse 63 11/06/18 22:56 Resp 18 11/06/18 22:56 BP 154/79 H 11/06/18 22:56 Pulse Ox 100 11/06/18 22:56 Physical Exam: In general he is awake he is alert, he is not sure where he is at, he is in no distress. HEENT normal cephalic atraumatic mucous membranes are moist. Breathing is unlabored no accessory muscle use. He appears comfortable. _ (1) Respiratory failure Chronicity: acute Respiratory failure complication: hypoxia Qualified Code(s ): J96.01 - Acute respiratory failure with hypoxia
--- NOTE | 2018-11-08 11:45 | Palliative Care Progress Note ---
Date of Service November 08, 2018 Assessment & Plan (1) Goals of care, counseling/discussion: -Transitioned to comfort measures only on 11/01. -Roxanol 5mg PO/SL Q3h PRN pain or SOB. Has not required any. -Lorazepam 0.5mg PO/SL Q4h PRN anxiety/agitation. Has not had any doses over past 48 hours. -Patient remains comfortable and stable for discharge at this time. -He does wake intermittently and does converse but the ability for him to retain the complexity of his medical condition is low, especially regarding the logistics. -Per son, the patient states that he wants to go home; however, the logistics of that is challenging since patient recently had a CVA and memory concerns and 06/04 care would be the only option, which other family indicates would not be feasible. -I discussed SNF with Hospice which the family expressed interest in [facility]. Case Management to continue arranging. -I answered all questions the pt son had, it appears he just wanted closure and reassurance prior to his departure from [place]. -Palliative Performance Scale: 20% (2) Acute on chronic combined systolic and diastolic CHF (congestive heart failure): Comfort measures only (3) Pulmonary edema: -Comfort measures only. -Appears comfortable with his breathing and in NAD. -Pt has Roxanol ordered for air hunger/pain. (4) Respiratory failure: -Comfort measures only. -Appears comfortable with his breathing and in NAD. -Pt has Roxanol ordered for air hunger/pain and has not required any doses thus far. Subjective Patient wakes up intermittently but a little less than over the weekend. Biological son, Gera here at the bedside who has a flight back to [place] at 1130 today. See Assesment and plan for conversation. Patient has not required any Ativan or pain medication over past 24 hours. Discharge planning underway. Constitutional: + fatigue and + weakness Respiratory: + dyspnea Cardiovascular: + edema; no chest pain Neurologic: no confusion and no memory loss Physical Exam Vital Signs (Past 24 Hours): Last Vital Signs Temp 36.4 C L 11/06/18 22:56 Pulse 63 11/06/18 22:56 Resp 18 11/06/18 22:56 BP 154/79 H 11/06/18 22:56 Pulse Ox 100 11/06/18 22:56 Neck: trachea midline, no thyromegaly Respiratory: + cough Cardiovascular: Rate/Rhythm: regular rate and regular rhythm Heart Sounds: normal S1 and normal S2 Extremities: normal capillary refill and + edema (lower extremities) Gastrointestinal (Abdomen): normal bowel sounds, soft, nontender, no hepatosplenomegaly Skin: no rashes, warm and dry Time Spent Midlevel Total time spent 35 minutes with > 50% of that time spent reviewing the chart, assessing the patient, discussing end of life questions with patient son at the bedside. (1) Pulmonary edema Chronicity: acute Qualified Code(s): J81.0 - Acute pulmonary edema (2) Respiratory failure Chronicity: acute Respiratory failure complication: hypoxia Qualified Code(s): J96.01 - Acute respiratory failure with hypoxia
--- NOTE | 2018-11-08 16:54 | Family Medicine Progress Note ---
Date of Service November 08, 2018 Assessment & Plan (1) Acute on chronic systolic (congestive) heart failure: 88-year-old male past medical history of CAD, CHF, mixed restrictive/ obstructive respiratory disease presents with hypoxic respiratory failure Respiratory failure secondary to CHF decompensation in the setting of mixed restrictive/obstructive respiratory disease Patient was hospitalized back in July and discharged to [facility] where he has been since. The plan was that the patient would eventually need to be transitioned to hospice care Palliative medicine has been consulted, appreciate recommendationspatient is currently transition to comfort measures only which includes; Roxanol, lorazepam , hydroxyzine, Zofran The plan is to arrange hospice in the patient settingcurrently working with case management and palliative care to arrange Family meeting tomorrow 2 PM till 2:30 PM to discuss comfort care, dispo planning and hospice, Palliative and porter sample case will present at meeting. Inpatient team will also be present. (2) Myelodysplastic syndrome: (3) Pulmonary hypertension: (4) Pulmonary edema: (5) Respiratory acidosis: (6) Respiratory failure: (7) Hypoxia: Supervising Physician Co-Signing Physician Notes I saw the patient concurrently with Dr. Newby. I confirmed winkler portions of the history and physical exam. The patient's present at bedside during time of examination. The patient is obtunded, not responding to verbal stimuli. He does appear comfortable and is not requiring any of his as needed Roxanol or Ativan. IMPRESSION End-stage pulmonary disease, on comfort care Hospice eligible, awaiting logistical arrangements for placement with hospice services PLAN Continue current comfort care measures Case management continues to look for placement with hospice services Subjective 88-year-old male past medical history of CAD, CHF, mixed restrictive/ obstructive respiratory disease presents with hypoxic respiratory failure. Patient is awake and alert this morning but is not able to focus and answer questions. Unable to obtain review of systems. Physical Exam 2 Vital Signs (Past 24 Hours): Last Vital Signs Temp 36.4 C L 11/06/18 22:56 Pulse 63 11/06/18 22:56 Resp 18 11/06/18 22:56 BP 154/79 H 11/06/18 22:56 Pulse Ox 100 11/06/18 22:56 Constitutional: + ill appearing and + cachectic Eyes: PERRL, conjunctivae normal, anicteric sclerae ENMT: external ear and nose normal, oropharynx normal Neck: trachea midline, no thyromegaly Respiratory: + uses accessory muscles Auscultation: no rales, no rhonchi and no wheezes Decreased breath sounds in bilateral bases Cardiovascular: RRR, no murmur, no edema Gastrointestinal (Abdomen): normal bowel sounds, soft, nontender, no hepatosplenomegaly Neurologic: CN's II-XI intact bilaterally and awake Results & Data Laboratory Results Laboratory Last Values WBC 4.42 K/uL (4.8-10.8) L 11/01/18 08:20 RBC 3.08 M/uL (4.7-6.1) L 11/01/18 08:20 Hgb 10.5 g/dL (14.0-18.0) L 11/01/18 08:20 Hct 35.5 % (42-52) L 11/01/18 08:20 MCV 115.3 fL (80-100) H 11/01/18 08:20 MCH 34.1 pg (25-34) H 11/01/18 08:20 MCHC 29.6 g/dL (32-36) L 11/01/18 08:20 RDW Std Deviation 58.2 fL (36.4-46.3) H 11/01/18 08:20 RDW Coeff of Sebas 14.1 % (11.5-14.5) 11/01/18 08:20 Plt Count 102 K/uL (130-400) L 11/01/18 08:20 MPV 10.7 fL (7.4-10.4) H 11/01/18 08:20 Immature Gran % (Auto) 0.2 % 11/01/18 08:20 Neut % (Auto) 72.1 % 11/01/18 08:20 Lymph % (Auto) 18.8 % 11/01/18 08:20 [place] % (Auto) 7.7 % 11/01/18 08:20 Eos % (Auto) 0.5 % 11/01/18 08:20 Baso % (Auto) 0.7 % 11/01/18 08:20 Immature Gran # (Auto) 0.01 K/uL (0.00-0.02) 11/01/18 08:20 Neut # (Auto) 3.19 K/uL (1.4-6.5) 11/01/18 08:20 Lymph # (Auto) 0.83 K/uL (1.2-3.4) L 11/01/18 08:20 [place] # (Auto) 0.34 K/uL (0.11-0.59) 11/01/18 08:20 Eos # (Auto) 0.02 K/uL (0-0.5) 11/01/18 08:20 Baso # (Auto) 0.03 K/uL (0-0.2) 11/01/18 08:20 Platelet Estimate Decreased (Normal) 10/30/18 07:11 Polychromasia 1+ 10/27/18 09:37 Basophilic Stippling 1+ 11/01/18 08:20 Macrocytosis Present 11/01/18 08:20 Stomatocytes 1+ 11/01/18 08:20 PT 10.7 Seconds (9.0-12.0) 10/27/18 09:37 INR 1.1 (0.9-1.1) 10/27/18 09:37 APTT 24.5 Seconds (21.0-31.0) 10/27/18 09:37 PTT Ratio 0.9 10/27/18 09:37 VBG pH 7.36 (7.36-7.41) 10/31/18 16:08 VBG pCO2 84 mmHg (38-50) H 10/31/18 16:08 VBG pO2 42 mmHg 10/31/18 16:08 VBG HCO3 46 mmol/L 10/31/18 16:08 VBG O2 Saturation 76.5 % 10/31/18 16:08 VBG Base Excess 17.2 mEq/L 10/31/18 16:08 Barometric Pressure 729.8 mm/Hg 10/31/18 16:08 Sodium 143 mmol/L (136-145) 11/01/18 08:20 Potassium 3.6 mmol/L (3.5-5.1) 11/01/18 08:20 Chloride 94 mmol/L (98-107) L 11/01/18 08:20 Carbon Dioxide 46 mmol/L (21-32) H* 11/01/18 08:20 Anion Gap 3.0 (3-11) 11/01/18 08:20 BUN 46 mg/dl (7-18) H 11/01/18 08:20 Creatinine 1.45 mg/dl (0.6-1.4) H 11/01/18 08:20 Est Cr Clr Drug Dosing 35.2 ml/min 11/01/18 08:20 Est GFR ( Amer) 49.5 11/01/18 08:20 Est GFR (Non-Af Amer) 42.7 11/01/18 08:20 BUN/Creatinine Ratio 31.8 (10-20) H 11/01/18 08:20 Glucose 109 mg/dl (70-99) H 11/01/18 08:20 POC Glucose 98 (70-99) 10/30/18 09:39 Calcium 8.4 mg/dl (8.5-10.1) L 11/01/18 08:20 Phosphorus 3.1 mg/dl (2.5-4.9) 10/31/18 16:08 Magnesium 1.8 mg/dl (1.8-2.4) 11/01/18 08:20 Total Bilirubin 0.5 mg/dl (0.2-1) 10/30/18 07:11 AST 21 U/L (15-37) 10/30/18 07:11 ALT 6 U/L (12-78) L 10/30/18 07:11 Alkaline Phosphatase 40 U/L (45-117) L 10/30/18 07:11 Troponin I 0.094 ng/ml (0-0.045) H* 10/27/18 09:37 Total Protein 5.5 gm/dl (6.4-8.2) L 10/30/18 07:11 Albumin 2.3 gm/dl (3.4-5.0) L 10/30/18 07:11 Globulin 3.2 gm/dl (2.5-4.0) 10/30/18 07:11 Albumin/Globulin Ratio 0.7 (0.9-2) L 10/30/18 07:11 Urine Color Yellow 10/27/18 17:15 Urine Appearance Cloudy (Clear) H 10/27/18 17:15 Urine pH 6.5 (4.5-7.5) 10/27/18 17:15 Ur Specific [place] 1.008 (1.000-1.030) 10/27/18 17:15 Urine Protein Negative (Negative) 10/27/18 17:15 Urine Glucose (UA) Negative (Negative) 10/27/18 17:15 Urine Ketones Negative (Negative) 10/27/18 17:15 Urine Blood 1+ (Negative) H 10/27/18 17:15 Urine Nitrite Negative (Negative) 10/27/18 17:15 Urine Bilirubin Negative (Negative) 10/27/18 17:15 Urine Urobilinogen Negative (Negative) 10/27/18 17:15 Ur Leukocyte Esterase 3+ (Negative) H 10/27/18 17:15 Urine WBC (Auto) >30 /hpf (0-5) H 10/27/18 17:15 Urine RBC (Auto) 5-10 /hpf (0-4) H 10/27/18 17:15 U Hyaline Cast (Auto) 1-5 /lpf (0-5) 10/27/18 17:15 U Epithel Cells (Auto) 0-5 /lpf (0-5) 10/27/18 17:15 Urine Bacteria (Auto) Negative (Negative) 10/27/18 17:15 Influenza Type A Ag Neg for Influ A (Neg) 10/27/18 09:00 Influenza Type B Ag Neg for Influ B (Neg) 10/27/18 09:00 Resident Activity Tracking Resident Involvement: Resident Care Provided Care Provided: Adult [facility] Medicine _ (1) Pulmonary edema Chronicity: acute Qualified Code(s): J81.0 - Acute pulmonary edema (2) Respiratory failure Chronicity: acute Respiratory failure complication: hypoxia Qualified Code(s ): J96.01 - Acute respiratory failure with hypoxia
--- NOTE | 2018-11-09 14:59 | Palliative Care Progress Note ---
Date of Service November 09, 2018 Assessment & Plan (1) Goals of care, counseling/discussion: -Transitioned to comfort measures only on 11/01. -Roxanol 5mg PO/SL Q3h PRN pain or SOB. Has not required any. -Lorazepam 0.5mg PO/SL Q4h PRN anxiety/agitation. Has not had any doses since 11/01. -Patient remains comfortable and stable for discharge at this time. -Family meeting held in room 401 (empty room) to discuss next steps regarding discharge planning. Viola Hudson, Dr. Newby, myself, Monique [employer] student, pt , and daughters Fransico and Zoë were present. -Viola discussed referral for placement and Dr. Newby and I answered medical questions regarding pt stability and clearance for transfer, along with indications for such. -Patient is not a GIP appropriate candidate at this time as he is not requiring any symptom management. -Palliative Performance Scale: 20% (2) Acute on chronic combined systolic and diastolic CHF (congestive heart failure): Comfort measures only (3) Pulmonary edema: -Comfort measures only. -Appears comfortable with his breathing and in NAD. -Pt has Roxanol ordered for air hunger/pain. (4) Respiratory failure: -Comfort measures only. -Appears comfortable with his breathing and in NAD. -Pt has Roxanol ordered for air hunger/pain and has not required any doses thus far. Subjective Patient is obtunded intermittently, and, per family, does take sips, but coughs when he takes sips if they are not thickened. Patient was placed on Comfort measures and has not required any medications for symptom management since ordering them on 11/01/18. See Assessment and plan for further details. Constitutional: + fatigue and + weakness Respiratory: + dyspnea Cardiovascular: + edema; no chest pain Physical Exam Vital Signs (Past 24 Hours): Last Vital Signs Temp 36.4 C L 11/06/18 22:56 Pulse 63 11/06/18 22:56 Resp 18 11/06/18 22:56 BP 154/79 H 11/06/18 22:56 Pulse Ox 100 11/06/18 22:56 Time Spent Midlevel Total time spent 35 minutes with > 50% of that time reviewing the chart, and discussing discharge planning with family and IDT. (1) Pulmonary edema Chronicity: acute Qualified Code(s): J81.0 - Acute pulmonary edema (2) Respiratory failure Chronicity: acute Respiratory failure complication: hypoxia Qualified Code(s): J96.01 - Acute respiratory failure with hypoxia
--- NOTE | 2018-11-09 15:50 | Family Medicine Progress Note ---
Date of Service November 09, 2018 Assessment & Plan (1) Acute on chronic systolic (congestive) heart failure: 88-year-old male past medical history of CAD, CHF, mixed restrictive/ obstructive respiratory disease presents with hypoxic respiratory failure Respiratory failure secondary to CHF decompensation in the setting of mixed restrictive/obstructive respiratory disease Patient was hospitalized back in July and discharged to [facility] where he has been since. The plan was that the patient would eventually need to be transitioned to hospice care Palliative medicine has been consulted, appreciate recommendationspatient is currently transition to comfort measures only which includes; Roxanol, lorazepam , hydroxyzine, Zofran The plan is to arrange hospice in the patient settingcurrently working with case management and palliative care to arrange Family meeting was held todayfamily is deciding b/w [facility] and [facility]. They understand that he no longer requires acute care at [facility]. We would keep the patient here in the setting that he was unstable for transfer. We will continue to work with palliative and case management regarding placement/discharge. Supervising Physician Co-Signing Physician Notes I saw the patient concurrently with Dr. Newby. I confirmed winkler portions of the history and physical exam. The patient's present at bedside during time of examination. The patient was sleeping, but awakens and is alert and oriented. He answers questions appropriately. IMPRESSION End-stage pulmonary disease, on comfort care Hospice eligible, awaiting logistical arrangements for placement with hospice services PLAN Continue current comfort care measures Case management continues to look for placement with hospice services This patient is appropriate for hospice services, provided at home or in a facility, with a life exp less than six months should the disease follow its normal progression. In reality, while he is not actively dying at this moment, I suspect his life expectancy is far less than the six-month milestone required for hospice benefit. Subjective 88-year-old male past medical history of CAD, CHF, mixed restrictive/ obstructive respiratory disease presents with hypoxic respiratory failure. Patient is awake and alert, but only momentarily before he drifts back to sleep. Appears comfortable. Unable to obtain detailed review of systems due to patient's mental status. Denies any pain. Physical Exam 2 Vital Signs (Past 24 Hours): Last Vital Signs Temp 36.4 C L 11/06/18 22:56 Pulse 63 11/06/18 22:56 Resp 18 02/23/19 22:56 BP 154/79 H 11/06/18 22:56 Pulse Ox 100 11/06/18 22:56 Constitutional: + ill appearing and + cachectic Eyes: PERRL, conjunctivae normal, anicteric sclerae ENMT: external ear and nose normal, oropharynx normal Neck: trachea midline, no thyromegaly Respiratory: + uses accessory muscles Auscultation: no rales, no rhonchi and no wheezes Cardiovascular: RRR, no murmur, no edema Gastrointestinal (Abdomen): normal bowel sounds, soft, nontender, no hepatosplenomegaly Neurologic: CN's II-XI intact bilaterally and awake Resident Activity Tracking Resident Involvement: Resident Care Provided Care Provided: Adult [facility] Medicine
[2018-11-10] MEDS ORDERED: FUROSEMIDE 20 MG in SYRINGE 0 ML IV ONE (14:21)
[2018-11-10] MEDS ORDERED: FUROSEMIDE 20 MG TAB PO ONE (14:45)
--- NOTE | 2018-11-10 15:27 | Palliative Care Progress Note ---
Date of Service November 10, 2018 Assessment & Plan (1) Goals of care, counseling/discussion: -Transitioned to comfort measures only on 11/01. -Roxanol 5mg PO/SL Q3h PRN pain or SOB. -Lorazepam 0.5mg PO/SL Q4h PRN anxiety/agitation. -Patient remains comfortable and stable for discharge at this time. He has no s/s discomfort or distress. He is making urine. Still drinking some boost at times. -Family meeting was held yesterday. Waiting for family to make decision on SNF and hospice. Case management following. Subjective Patient having periods of wakefulness. STill drinking Boost occasionally. No distress, appears comfortable. Physical Exam Vital Signs (Past 24 Hours): Last Vital Signs Temp 36.4 C L 11/06/18 22:56 Pulse 63 11/06/18 22:56 Resp 18 11/06/18 22:56 BP 154/79 H 11/06/18 22:56 Pulse Ox 100 11/06/18 22:56 Constitutional: + ill appearing and + cachectic Neck: normal visual inspection and trachea midline Respiratory: + abnormal respiratory effort (poor respiratory effort) and no labored breathing Auscultation: + diminished lung sounds Cardiovascular: Rate/Rhythm: regular rate and regular rhythm Vessels: dorsalis pedis pulses present Gastrointestinal (Abdomen): Inspection/Auscultation: abdomen normal to inspection and normal bowel sounds; abdomen not distended Percussion/Palpation: abdomen soft Skin: + jaundice and + pallor Neurologic: + confused Psychiatric: Orientation: oriented to place; + not alert (drowsy) and + not oriented to time Time Spent Midlevel 25 minutes with >50% of time spent at bedside with patient and nursing staff discussing comfort care.
--- NOTE | 2018-11-10 16:18 | Family Medicine Progress Note ---
Date of Service November 10, 2018 Assessment & Plan (1) Acute on chronic systolic (congestive) heart failure: 88-year-old male past medical history of CAD, CHF, mixed restrictive/obstructive respiratory disease presents with hypoxic respiratory failure Respiratory failure secondary to CHF decompensation in the setting of mixed restrictive/obstructive respiratory disease Patient was hospitalized back in July and discharged to [facility] where he has been since. The plan was that the patient would eventually need to be transitioned to hospice care Palliative medicine has been consulted, appreciate recommendationspatient is currently transition to comfort measures only which includes; Roxanol, lorazepam, hydroxyzine, Zofran The plan is to arrange hospice in the patient settingcurrently working with case management and palliative care to arrange Family meeting was held 11/09/2018family is deciding b/w [facility] and [facility]. They understand that he no longer requires acute care at [facility]. We would keep the patient here in the setting that he was unstable for transfer. We will continue to work with palliative and case management regarding placement/discharge. Provide a one-time dose of Lasix 20 mg p.o. to help improve breathing and edema. Supervising Physician Co-Signing Physician Notes I saw the patient concurrently with Dr. Newby. I confirmed winkler portions of the history and physical exam. The patient's present at bedside during time of examination. The patient himself is awake alert and oriented. He notes that he feels " terrible." When I asked him to further describe his discomfort, he notes feeling short of breath, fatigued, and achy. Upon exam, his respirations are nonlabored; he is rather calm. Upon examination, he has pitting edema of the foot to the mid tib-fib area bilaterally; this is slightly progressed compared to yesterday. His Byrnes is draining a clear to yellow urine. There is 50 cc in the Byrnes c atheter other than the reports that this was just emptied by nursing. IMPRESSION End-stage pulmonary disease, on comfort care Hospice eligible, awaiting logistical arrangements for placement with hospice services PLAN One-time dose of Lasix 20 mg p.o. (he has no IV access at present); he may have an element of HF contributing to his dyspnea; this is purely a palliative measure so no need to follow kidney function though tracking urine output may help determine if repeat dosing would be helpful in alleviating symptoms. Continue current comfort care measures Case management continues to look for placement with hospice services Subjective 88-year-old male past medical history of CAD, CHF, mixed restrictive/obstructive respiratory disease presents with hypoxic respiratory failure. This morning when I went in, the patient was asleep and did not wake up. As we came back on attending rounds, the patient said that he "feels awful". States that he is having trouble breathing. Physical Exam Vital Signs (Past 24 Hours): Last Vital Signs Temp 36.4 C L 11/06/18 22:56 Pulse 63 11/06/18 22:56 Resp 18 11/06/18 22:56 BP 154/79 H 11/06/18 22:56 Pulse Ox 100 11/06/18 22:56 Constitutional: + ill appearing and + cachectic Eyes: PERRL, conjunctivae normal, anicteric sclerae ENMT: external ear and nose normal, oropharynx normal Neck: trachea midline, no thyromegaly Respiratory: + uses accessory muscles Auscultation: no rales, no rhonchi and no wheezes Decreased in bilateral bases Cardiovascular: RRR, no murmur, no edema Gastrointestinal (Abdomen): normal bowel sounds, soft, nontender, no hepatosplenomegaly Skin: +2 pitting edema of bilateral lower extremity Neurologic: CN's II-XI intact bilaterally and awake Results & Data Laboratory Results Laboratory Last Values WBC 4.42 K/uL (4.8-10.8) L 11/01/18 08:20 RBC 3.08 M/uL (4.7-6.1) L 11/01/18 08:20 Hgb 10.5 g/dL (14.0-18.0) L 11/01/18 08:20 Hct 35.5 % (42-52) L 11/01/18 08:20 MCV 115.3 fL (80-100) H 11/01/18 08:20 MCH 34.1 pg (25-34) H 11/01/18 08:20 MCHC 29.6 g/dL (32-36) L 11/01/18 08:20 RDW Std Deviation 58.2 fL (36.4-46.3) H 11/01/18 08:20 RDW Coeff of Sebas 14.1 % (11.5-14.5) 11/01/18 08:20 Plt Count 102 K/uL (130-400) L 11/01/18 08:20 MPV 10.7 fL (7.4-10.4) H 11/01/18 08:20 Immature Gran % (Auto) 0.2 % 11/01/18 08:20 Neut % (Auto) 72.1 % 11/01/18 08:20 Lymph % (Auto) 18.8 % 11/01/18 08:20 [place] % (Auto) 7.7 % 11/01/18 08:20 Eos % (Auto) 0.5 % 11/01/18 08:20 Baso % (Auto) 0.7 % 11/01/18 08:20 Immature Gran # (Auto) 0.01 K/uL (0.00-0.02) 11/01/18 08:20 Neut # (Auto) 3.19 K/uL (1.4-6.5) 11/01/18 08:20 Lymph # (Auto) 0.83 K/uL (1.2-3.4) L 11/01/18 08:20 [place] # (Auto) 0.34 K/uL (0.11-0.59) 11/01/18 08:20 Eos # (Auto) 0.02 K/uL (0-0.5) 11/01/18 08:20 Baso # (Auto) 0.03 K/uL (0-0.2) 11/01/18 08:20 Platelet Estimate Decreased (Normal) 10/30/18 07:11 Polychromasia 1+ 10/27/18 09:37 Basophilic Stippling 1+ 11/01/18 08:20 Macrocytosis Present 11/01/18 08:20 Stomatocytes 1+ 11/01/18 08:20 PT 10.7 Seconds (9.0-12.0) 10/27/18 09:37 INR 1.1 (0.9-1.1) 10/27/18 09:37 APTT 24.5 Seconds (21.0-31.0) 10/27/18 09:37 PTT Ratio 0.9 10/27/18 09:37 VBG pH 7.36 (7.36-7.41) 10/31/18 16:08 VBG pCO2 84 mmHg (38-50) H 10/31/18 16:08 VBG pO2 42 mmHg 10/31/18 16:08 VBG HCO3 46 mmol/L 10/31/18 16:08 VBG O2 Saturation 76.5 % 10/31/18 16:08 VBG Base Excess 17.2 mEq/L 10/31/18 16:08 Barometric Pressure 729.8 mm/Hg 10/31/18 16:08 Sodium 143 mmol/L (136-145) 11/01/18 08:20 Potassium 3.6 mmol/L (3.5-5.1) 11/01/18 08:20 Chloride 94 mmol/L (98-107) L 11/01/18 08:20 Carbon Dioxide 46 mmol/L (21-32) H* 11/01/18 08:20 Anion Gap 3.0 (3-11) 11/01/18 08:20 BUN 46 mg/dl (7-18) H 11/01/18 08:20 Creatinine 1.45 mg/dl (0.6-1.4) H 11/01/18 08:20 Est Cr Clr Drug Dosing 35.2 ml/min 11/01/18 08:20 Est GFR ( Amer) 49.5 11/01/18 08:20 Est GFR (Non-Af Amer) 42.7 11/01/18 08:20 BUN/Creatinine Ratio 31.8 (10-20) H 11/01/18 08:20 Glucose 109 mg/dl (70-99) H 11/01/18 08:20 POC Glucose 98 (70-99) 10/30/18 09:39 Calcium 8.4 mg/dl (8.5-10.1) L 11/01/18 08:20 Phosphorus 3.1 mg/dl (2.5-4.9) 10/31/18 16:08 Magnesium 1.8 mg/dl (1.8-2.4) 11/01/18 08:20 Total Bilirubin 0.5 mg/dl (0.2-1) 10/30/18 07:11 AST 21 U/L (15-37) 10/30/18 07:11 ALT 6 U/L (12-78) L 10/30/18 07:11 Alkaline Phosphatase 40 U/L (45-117) L 10/30/18 07:11 Troponin I 0.094 ng/ml (0-0.045) H* 10/27/18 09:37 Total Protein 5.5 gm/dl (6.4-8.2) L 10/30/18 07:11 Albumin 2.3 gm/dl (3.4-5.0) L 10/30/18 07:11 Globulin 3.2 gm/dl (2.5-4.0) 10/30/18 07:11 Albumin/Globulin Ratio 0.7 (0.9-2) L 10/30/18 07:11 Urine Color Yellow 10/27/18 17:15 Urine Appearance Cloudy (Clear) H 10/27/18 17:15 Urine pH 6.5 (4.5-7.5) 10/27/18 17:15 Ur Specific [place] 1.008 (1.000-1.030) 10/27/18 17:15 Urine Protein Negative (Negative) 10/27/18 17:15 Urine Glucose (UA) Negative (Negative) 10/27/18 17:15 Urine Ketones Negative (Negative) 10/27/18 17:15 Urine Blood 1+ (Negative) H 10/27/18 17:15 Urine Nitrite Negative (Negative) 10/27/18 17:15 Urine Bilirubin Negative (Negative) 10/27/18 17:15 Urine Urobilinogen Negative (Negative) 10/27/18 17:15 Ur Leukocyte Esterase 3+ (Negative) H 10/27/18 17:15 Urine WBC (Auto) >30 /hpf (0-5) H 10/27/18 17:15 Urine RBC (Auto) 5-10 /hpf (0-4) H 10/27/18 17:15 U Hyaline Cast (Auto) 1-5 /lpf (0-5) 10/27/18 17:15 U Epithel Cells (Auto) 0-5 /lpf (0-5) 10/27/18 17:15 Urine Bacteria (Auto) Negative (Negative) 10/27/18 17:15 Influenza Type A Ag Neg for Influ A (Neg) 10/27/18 09:00 Influenza Type B Ag Neg for Influ B (Neg) 10/27/18 09:00 Resident Activity Tracking Resident Involvement: Resident Care Provided Care Provided: Adult Hospital Medicine
--- NOTE | 2018-11-11 16:14 | Family Medicine Progress Note ---
Date of Service November 11, 2018 Assessment & Plan (1) Acute on chronic systolic (congestive) heart failure: 88-year-old male past medical history of CAD, CHF, mixed restrictive/obstructive respiratory disease presents with hypoxic respiratory failure Respiratory failure secondary to CHF decompensation in the setting of mixed restrictive/obstructive respiratory disease Patient was hospitalized back in July and discharged to [facility] where he has been since. The plan was that the patient would eventually need to be transitioned to hospice care Palliative medicine has been consulted, appreciate recommendationspatient is currently transitioned to comfort measures only which includes; Roxanol, lorazepam, hydroxyzine, Zofran The plan is to arrange hospice in the patient settingcurrently working with case management and palliative care to arrange Family meeting was held 11/09/2018family is deciding b/w [facility] and [facility]. They understand that he no longer requires acute care at [facility]. We would keep the patient here in the setting that he was unstable for transfer. We will continue to work with palliative and case management regarding placement/discharge. Continue with a daily dose of Lasix 20 mg p.o. after increased comfort and respiratory improvement Supervising Physician Co-Signing Physician Notes I saw the patient concurrently with Dr. Newby. I confirmed winkler portions of the history and physical exam. The patient's present at bedside during time of examination. The patient is sleeping today during examination. Subjectively the thought he was breathing easier after the Lasix was dosed yesterday. Upon examination, he has pitting edema is less compared to yesterday. His Byrnes is draining yellow colored urine. There is 600 cc in the Byrnes catheter. IMPRESSION End-stage pulmonary disease, on comfort care Hospice eligible, awaiting logistical arrangements for placement with hospice services PLAN Would continue as needed doses of Lasix or Bumex (I believe he was on Bumex previously) based on his lung exam and lower extremity edema. Given this is pur matthew palliative medication, would not worry about renal function at this point. Continue other current comfort care measures Case management continues to look for placement with hospice services Subjective 88-year-old male past medical history of CAD, CHF, mixed restrictive/obstructive respiratory disease presents with hypoxic respiratory failure. Patient reports improved respiratory status and overall comfort following dose of Lasix yesterday. Physical Exam Vital Signs (Past 24 Hours): Last Vital Signs Temp 36.4 C L 11/06/18 22:56 Pulse 63 11/06/18 22:56 Resp 18 11/06/18 22:56 BP 154/79 H 11/06/18 22:56 Pulse Ox 100 11/06/18 22:56 Constitutional: + ill appearing and + cachectic Eyes: PERRL, conjunctivae normal, anicteric sclerae ENMT: external ear and nose normal, oropharynx normal Neck: trachea midline, no thyromegaly Respiratory: + uses accessory muscles Auscultation: no rales, no rhonchi and no wheezes Cardiovascular: RRR, no murmur, no edema Gastrointestinal (Abdomen): normal bowel sounds, soft, nontender, no hepatosplenomegaly Skin: +1 bilateral lower extremity edema improved Neurologic: CN's II-XI intact bilaterally and awake Resident Activity Tracking Resident Involvement: Resident Care Provided Care Provided: Adult Hospital Medicine
[2018-11-11] MEDS: FUROSEMIDE 20 MG TAB PO SCH (17:32)
[2018-11-12] MEDS: FUROSEMIDE 20 MG TAB PO SCH (07:26)
--- NOTE | 2018-11-12 17:54 | Family Medicine Progress Note ---
Date of Service November 12, 2018 Assessment & Plan (1) Acute on chronic systolic (congestive) heart failure: 88-year-old male past medical history of CAD, CHF, mixed restrictive/obstructive respiratory disease presents with hypoxic respiratory failure Respiratory failure secondary to CHF decompensation in the setting of mixed restrictive/obstructive respiratory disease Continue comfort measurespalliative medicine has been consulted, appreciate recommendationspatient is currently transitioned to comfort measures only which includes; Roxanol, lorazepam, hydroxyzine, Zofran Arranging inpatient hospicecurrently working with case management and palliative care to arrange. Family meeting was held 11/09/2018family is deciding b/w [facility] and [facility]. They understand that he no longer requires acute care at [facility]. We would keep the patient here in the setting that he was unstable for transfer. We will continue to work with palliative and case management regarding placement/discharge. CHF Comfort measuresincluding daily Lasix 20 mg Treatment is only to help with the patient's symptoms of shortness of breath Restrictive/obstructive respiratory disease Continue comfort measures as discussed above Chronic catheterization, suprapubic catheter We will contact urologist, Dr. Hansen to see if catheter change is necessary Supervising Physician Co-Signing Physician Notes Patient seen and examined with Dr. Newby. Agree with history, physical exam findings, assessment and plan as outlined by Dr. Newby. In brief, Mr. Hernández is an 88 year old male with hx significant for CAD, CHF, restrictive/obstructive lung disease admited with hypoxic respiratory failure secondary to CHF exacerbation. 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 Lasix for diuresis for respiratory comfort. Supplemental O2 for comfort. Plans for hospice. Looking for facility for inpatient hospice with family. Dispo: pending hospice bed. Subjective 88-year-old male past medical history of CAD, CHF, mixed restrictive/obstructive respiratory disease presents with hypoxic respiratory failure. Patient is asleep when we came in the room today. Spoke with his who relates that he is tired today and is not communicating much. She states also that he is not had his suprapubic catheter changed in greater than 30 days. Physical Exam Vital Signs (Past 24 Hours): Last Vital Signs Temp 36.4 C L 11/06/18 22:56 Pulse 63 11/06/18 22:56 Resp 18 11/06/18 22:56 BP 154/79 H 11/06/18 22:56 Pulse Ox 100 11/06/18 22:56 Constitutional: + ill appearing and + cachectic Eyes: PERRL, conjunctivae normal, anicteric sclerae ENMT: external ear and nose normal, oropharynx normal Neck: trachea midline, no thyromegaly Respiratory: + uses accessory muscles Auscultation: no rales, no rhonchi and no wheezes Cardiovascular: RRR, no murmur, no edema Gastrointestinal (Abdomen): normal bowel sounds, soft, nontender, no hepatosplenomegaly Neurologic: CN's II-XI intact bilaterally and awake Results & Data Laboratory Results Laboratory Last Values WBC 4.42 K/uL (4.8-10.8) L 11/01/18 08:20 RBC 3.08 M/uL (4.7-6.1) L 11/01/18 08:20 Hgb 10.5 g/dL (14.0-18.0) L 11/01/18 08:20 Hct 35.5 % (42-52) L 11/01/18 08:20 MCV 115.3 fL (80-100) H 11/01/18 08:20 MCH 34.1 pg (25-34) H 11/01/18 08:20 MCHC 29.6 g/dL (32-36) L 11/01/18 08:20 RDW Std Deviation 58.2 fL (36.4-46.3) H 11/01/18 08:20 RDW Coeff of Sebas 14.1 % (11.5-14.5) 11/01/18 08:20 Plt Count 102 K/uL (130-400) L 11/01/18 08:20 MPV 10.7 fL (7.4-10.4) H 11/01/18 08:20 Immature Gran % (Auto) 0.2 % 11/01/18 08:20 Neut % (Auto) 72.1 % 11/01/18 08:20 Lymph % (Auto) 18.8 % 11/01/18 08:20 [place] % (Auto) 7.7 % 11/01/18 08:20 Eos % (Auto) 0.5 % 11/01/18 08:20 Baso % (Auto) 0.7 % 11/01/18 08:20 Immature Gran # (Auto) 0.01 K/uL (0.00-0.02) 11/01/18 08:20 Neut # (Auto) 3.19 K/uL (1.4-6.5) 11/01/18 08:20 Lymph # (Auto) 0.83 K/uL (1.2-3.4) L 11/01/18 08:20 [place] # (Auto) 0.34 K/uL (0.11-0.59) 11/01/18 08:20 Eos # (Auto) 0.02 K/uL (0-0.5) 11/01/18 08:20 Baso # (Auto) 0.03 K/uL (0-0.2) 11/01/18 08:20 Platelet Estimate Decreased (Normal) 10/30/18 07:11 Polychromasia 1+ 10/27/18 09:37 Basophilic Stippling 1+ 11/01/18 08:20 Macrocytosis Present 11/01/18 08:20 Stomatocytes 1+ 11/01/18 08:20 PT 10.7 Seconds (9.0-12.0) 10/27/18 09:37 INR 1.1 (0.9-1.1) 10/27/18 09:37 APTT 24.5 Seconds (21.0-31.0) 10/27/18 09:37 PTT Ratio 0.9 10/27/18 09:37 VBG pH 7.36 (7.36-7.41) 10/31/18 16:08 VBG pCO2 84 mmHg (38-50) H 10/31/18 16:08 VBG pO2 42 mmHg 10/31/18 16:08 VBG HCO3 46 mmol/L 10/31/18 16:08 VBG O2 Saturation 76.5 % 10/31/18 16:08 VBG Base Excess 17.2 mEq/L 10/31/18 16:08 Barometric Pressure 729.8 mm/Hg 10/31/18 16:08 Sodium 143 mmol/L (136-145) 11/01/18 08:20 Potassium 3.6 mmol/L (3.5-5.1) 11/01/18 08:20 Chloride 94 mmol/L (98-107) L 11/01/18 08:20 Carbon Dioxide 46 mmol/L (21-32) H* 11/01/18 08:20 Anion Gap 3.0 (3-11) 11/01/18 08:20 BUN 46 mg/dl (7-18) H 11/01/18 08:20 Creatinine 1.45 mg/dl (0.6-1.4) H 11/01/18 08:20 Est Cr Clr Drug Dosing 35.2 ml/min 11/01/18 08:20 Est GFR ( Amer) 49.5 11/01/18 08:20 Est GFR (Non-Af Amer) 42.7 11/01/18 08:20 BUN/Creatinine Ratio 31.8 (10-20) H 11/01/18 08:20 Glucose 109 mg/dl (70-99) H 11/01/18 08:20 POC Glucose 98 (70-99) 10/30/18 09:39 Calcium 8.4 mg/dl (8.5-10.1) L 11/01/18 08:20 Phosphorus 3.1 mg/dl (2.5-4.9) 10/31/18 16:08 Magnesium 1.8 mg/dl (1.8-2.4) 11/01/18 08:20 Total Bilirubin 0.5 mg/dl (0.2-1) 10/30/18 07:11 AST 21 U/L (15-37) 10/30/18 07:11 ALT 6 U/L (12-78) L 10/30/18 07:11 Alkaline Phosphatase 40 U/L (45-117) L 10/30/18 07:11 Troponin I 0.094 ng/ml (0-0.045) H* 10/27/18 09:37 Total Protein 5.5 gm/dl (6.4-8.2) L 10/30/18 07:11 Albumin 2.3 gm/dl (3.4-5.0) L 10/30/18 07:11 Globulin 3.2 gm/dl (2.5-4.0) 10/30/18 07:11 Albumin/Globulin Ratio 0.7 (0.9-2) L 10/30/18 07:11 Urine Color Yellow 10/27/18 17:15 Urine Appearance Cloudy (Clear) H 10/27/18 17:15 Urine pH 6.5 (4.5-7.5) 10/27/18 17:15 Ur Specific [place] 1.008 (1.000-1.030) 10/27/18 17:15 Urine Protein Negative (Negative) 10/27/18 17:15 Urine Glucose (UA) Negative (Negative) 10/27/18 17:15 Urine Ketones Negative (Negative) 10/27/18 17:15 Urine Blood 1+ (Negative) H 10/27/18 17:15 Urine Nitrite Negative (Negative) 10/27/18 17:15 Urine Bilirubin Negative (Negative) 10/27/18 17:15 Urine Urobilinogen Negative (Negative) 10/27/18 17:15 Ur Leukocyte Esterase 3+ (Negative) H 10/27/18 17:15 Urine WBC (Auto) >30 /hpf (0-5) H 10/27/18 17:15 Urine RBC (Auto) 5-10 /hpf (0-4) H 10/27/18 17:15 U Hyaline Cast (Auto) 1-5 /lpf (0-5) 10/27/18 17:15 U Epithel Cells (Auto) 0-5 /lpf (0-5) 10/27/18 17:15 Urine Bacteria (Auto) Negative (Negative) 10/27/18 17:15 Influenza Type A Ag Neg for Influ A (Neg) 10/27/18 09:00 Influenza Type B Ag Neg for Influ B (Neg) 10/27/18 09:00 Resident Activity Tracking Resident Involvement: Resident Care Provided Care Provided: Adult Hospital Medicine
[2018-11-13] MEDS: FUROSEMIDE 20 MG TAB PO SCH (08:15)
[2018-11-13] MEDS: DOCUSATE SODIUM/SENNA 50/8.6MG TAB PO SCH (13:13)
--- NOTE | 2018-11-13 15:33 | Family Medicine Progress Note ---
Date of Service November 13, 2018 Assessment & Plan (1) Acute on chronic systolic (congestive) heart failure: 88-year-old male past medical history of CAD, CHF, mixed restrictive/obstructive respiratory disease presents with hypoxic respiratory failure Respiratory failure secondary to CHF decompensation in the setting of mixed restrictive/obstructive respiratory disease Continue comfort measurespalliative medicine has been consulted, appreciate recommendationspatient is currently transitioned to comfort measures only which includes; Roxanol, lorazepam, hydroxyzine, Zofran Arranging inpatient hospicecurrently working with case management and palliative care to arrange. Family meeting was held 11/09/2018family is deciding b/w [facility] and [facility]. They understand that he no longer requires acute care at [facility]. We would keep the patient here in the setting that he was unstable for transfer. We will continue to work with palliative and case management regarding placement/discharge. CHF Comfort measuresincluding daily Lasix 20 mg Treatment is only to help with the patient's symptoms of shortness of breath Restrictive/obstructive respiratory disease Continue comfort measures as discussed above Chronic catheterization, suprapubic catheter plan on catheter change if urology deems it necessary Supervising Physician Co-Signing Physician Notes Patient seen and examined with Dr. Soriano. Agree with history, physical exam findings, assessment and plan as outlined by Dr. Soriano. In brief, Mr. Hernández is an 88 year old male with hx significant for CAD, CHF, restrictive/obstructive lung disease admitted with hypoxic respiratory failure secondary to CHF exacerbation. 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 Lasix for diuresis for respiratory comfort. Supplemental O2 for comfort. Change suprapubic cathete--consult urology. Plans for hospice. Looking for facility for inpatient hospice with family. Dispo: pending hospice bed. Subjective Review of Systems Unobtainable due to reduced consciousness Physical Exam Vital Signs (Past 24 Hours): Last Vital Signs Temp 36.4 C L 11/06/18 22:56 Pulse 63 11/06/18 22:56 Resp 18 11/06/18 22:56 BP 154/79 H 11/06/18 22:56 Pulse Ox 100 11/06/18 22:56 Constitutional: + cachectic; no acute distress Eyes: PERRL, conjunctivae normal, anicteric sclerae Respiratory: + labored breathing Cardiovascular: RRR, no murmur, no edema Extremities: + pedal edema Gastrointestinal (Abdomen): normal bowel sounds, soft, nontender, no hepatosplenomegaly Skin: no rashes, warm and dry Neurologic: CN's II-XI intact bilaterally (grossly) and moves all extremities Results & Data Laboratory Results Laboratory Results WBC 4.42 K/uL (4.8-10.8) L 11/01/18 08:20 RBC 3.08 M/uL (4.7-6.1) L 11/01/18 08:20 Hgb 10.5 g/dL (14.0-18.0) L 11/01/18 08:20 Hct 35.5 % (42-52) L 11/01/18 08:20 MCV 115.3 fL (80-100) H 11/01/18 08:20 MCH 34.1 pg (25-34) H 11/01/18 08:20 MCHC 29.6 g/dL (32-36) L 11/01/18 08:20 RDW Std Deviation 58.2 fL (36.4-46.3) H 11/01/18 08:20 RDW Coeff of Sebas 14.1 % (11.5-14.5) 11/01/18 08:20 Plt Count 102 K/uL (130-400) L 11/01/18 08:20 MPV 10.7 fL (7.4-10.4) H 11/01/18 08:20 Immature Gran % (Auto) 0.2 % 11/01/18 08:20 Neut % (Auto) 72.1 % 11/01/18 08:20 Lymph % (Auto) 18.8 % 11/01/18 08:20 [place] % (Auto) 7.7 % 11/01/18 08:20 Eos % (Auto) 0.5 % 11/01/18 08:20 Baso % (Auto) 0.7 % 11/01/18 08:20 Immature Gran # (Auto) 0.01 K/uL (0.00-0.02) 11/01/18 08:20 Neut # (Auto) 3.19 K/uL (1.4-6.5) 11/01/18 08:20 Lymph # (Auto) 0.83 K/uL (1.2-3.4) L 11/01/18 08:20 [place] # (Auto) 0.34 K/uL (0.11-0.59) 11/01/18 08:20 Eos # (Auto) 0.02 K/uL (0-0.5) 11/01/18 08:20 Baso # (Auto) 0.03 K/uL (0-0.2) 11/01/18 08:20 Platelet Estimate Decreased (Normal) 10/30/18 07:11 Polychromasia 1+ 10/27/18 09:37 Basophilic Stippling 1+ 11/01/18 08:20 Macrocytosis Present 11/01/18 08:20 Stomatocytes 1+ 11/01/18 08:20 PT 10.7 Seconds (9.0-12.0) 10/27/18 09:37 INR 1.1 (0.9-1.1) 10/27/18 09:37 APTT 24.5 Seconds (21.0-31.0) 10/27/18 09:37 PTT Ratio 0.9 10/27/18 09:37 VBG pH 7.36 (7.36-7.41) 10/31/18 16:08 VBG pCO2 84 mmHg (38-50) H 10/31/18 16:08 VBG pO2 42 mmHg 10/31/18 16:08 VBG HCO3 46 mmol/L 10/31/18 16:08 VBG O2 Saturation 76.5 % 10/31/18 16:08 VBG Base Excess 17.2 mEq/L 10/31/18 16:08 Barometric Pressure 729.8 mm/Hg 10/31/18 16:08 Sodium 143 mmol/L (136-145) 11/01/18 08:20 Potassium 3.6 mmol/L (3.5-5.1) 11/01/18 08:20 Chloride 94 mmol/L (98-107) L 11/01/18 08:20 Carbon Dioxide 46 mmol/L (21-32) H* 11/01/18 08:20 Anion Gap 3.0 (3-11) 11/01/18 08:20 BUN 46 mg/dl (7-18) H 11/01/18 08:20 Creatinine 1.45 mg/dl (0.6-1.4) H 11/01/18 08:20 Est Cr Clr Drug Dosing 35.2 ml/min 11/01/18 08:20 Est GFR ( Amer) 49.5 11/01/18 08:20 Est GFR (Non-Af Amer) 42.7 11/01/18 08:20 BUN/Creatinine Ratio 31.8 (10-20) H 11/01/18 08:20 Glucose 109 mg/dl (70-99) H 11/01/18 08:20 POC Glucose 98 (70-99) 10/30/18 09:39 Calcium 8.4 mg/dl (8.5-10.1) L 11/01/18 08:20 Phosphorus 3.1 mg/dl (2.5-4.9) 10/31/18 16:08 Magnesium 1.8 mg/dl (1.8-2.4) 11/01/18 08:20 Total Bilirubin 0.5 mg/dl (0.2-1) 10/30/18 07:11 AST 21 U/L (15-37) 10/30/18 07:11 ALT 6 U/L (12-78) L 10/30/18 07:11 Alkaline Phosphatase 40 U/L (45-117) L 10/30/18 07:11 Troponin I 0.094 ng/ml (0-0.045) H* 10/27/18 09:37 Total Protein 5.5 gm/dl (6.4-8.2) L 10/30/18 07:11 Albumin 2.3 gm/dl (3.4-5.0) L 10/30/18 07:11 Globulin 3.2 gm/dl (2.5-4.0) 10/30/18 07:11 Albumin/Globulin Ratio 0.7 (0.9-2) L 10/30/18 07:11 Urine Color Yellow 10/27/18 17:15 Urine Appearance Cloudy (Clear) H 10/27/18 17:15 Urine pH 6.5 (4.5-7.5) 10/27/18 17:15 Ur Specific [place] 1.008 (1.000-1.030) 10/27/18 17:15 Urine Protein Negative (Negative) 10/27/18 17:15 Urine Glucose (UA) Negative (Negative) 10/27/18 17:15 Urine Ketones Negative (Negative) 10/27/18 17:15 Urine Blood 1+ (Negative) H 10/27/18 17:15 Urine Nitrite Negative (Negative) 10/27/18 17:15 Urine Bilirubin Negative (Negative) 10/27/18 17:15 Urine Urobilinogen Negative (Negative) 10/27/18 17:15 Ur Leukocyte Esterase 3+ (Negative) H 10/27/18 17:15 Urine WBC (Auto) >30 /hpf (0-5) H 10/27/18 17:15 Urine RBC (Auto) 5-10 /hpf (0-4) H 10/27/18 17:15 U Hyaline Cast (Auto) 1-5 /lpf (0-5) 10/27/18 17:15 U Epithel Cells (Auto) 0-5 /lpf (0-5) 10/27/18 17:15 Urine Bacteria (Auto) Negative (Negative) 10/27/18 17:15 Influenza Type A Ag Neg for Influ A (Neg) 10/27/18 09:00 Influenza Type B Ag Neg for Influ B (Neg) 10/27/18 09:00 Medications Administered [facility] [place] Stop: 12/11/18 16:14 Last Admin: 11/13/18 08:15 Dose: 20 mg Documented by: [id number] Admin: 11/12/18 07:26 Dose: 20 mg Documented by: [id number] Admin: 11/11/18 17:32 Dose: 20 mg Documented by: [id number] Hydroxyzine HCl (Vistaril) 25 mg PO HS PRN PRN Reason: sleep Stop: 11/26/18 11:46 Last Admin: 10/27/18 20:40 Dose: 25 mg Documented by: [id number] Senna/Docusate Sodium (Senokot S) 1 tab PO QAM [facility] Stop: 12/13/18 12:14 Last Admin: 11/13/18 13:13 Dose: 1 tab Documented by: [id number] Discontinued Medications Albuterol (Duoneb) 3 ml INH Q8R PRN PRN Reason: Shortness Of Breath Stop: 11/26/18 11:46 Last Admin: 10/28/18 19:37 Dose: 3 ml Documented by: [id number] Albuterol (Duoneb) 3 ml NEB NOW STA Stop: 10/29/18 02:09 Last Admin: 10/29/18 02:13 Dose: 3 ml Documented by: [id number] Aspirin (Ecotrin Ectab) 81 mg PO DAILY [facility] Stop: 11/27/18 08:59 Last Admin: 11/01/18 08:52 Dose: 81 mg Documented by: [id number] Admin: 10/31/18 13:19 Dose: Not Given Documented by: [id number] Admin: 10/30/18 07:40 Dose: 81 mg Documented by: [id number] Admin: 10/29/18 08:43 Dose: 81 mg Documented by: [id number] Admin: 10/28/18 09:18 Dose: 81 mg Documented by: [id number] Cosigned by: [id number] Bumetanide (Bumex) 2 mg PO QAM [facility] Stop: 11/27/18 08:59 Last Admin: 10/28/18 09:16 Dose: 2 mg Documented by: [id number] Cosigned by: [id number] Carvedilol (Coreg) 12.5 mg PO BID [facility] Stop: 11/26/18 20:59 Last Admin: 11/04/18 09:19 Dose: Not Given Documented by: [id number] Admin: 11/03/18 19:46 Dose: Not Given Documented by: [id number] Admin: 11/03/18 07:10 Dose: Not Given Documented by: [id number] Admin: 11/02/18 20:01 Dose: Not Given Documented by: [id number] Admin: 11/02/18 10:27 Dose: Not Given Documented by: [id number] Admin: 11/01/18 22:52 Dose: Not Given Documented by: [id number] Admin: 11/01/18 08:51 Dose: 12.5 mg Documented by: [id number] Admin: 10/31/18 19:51 Dose: 12.5 mg Documented by: [id number] Admin: 10/31/18 13:20 Dose: Not Given Documented by: [id number] Admin: 10/30/18 20:56 Dose: 12.5 mg Documented by: [id number] Admin: 10/30/18 07:39 Dose: 12.5 mg Documented by: [id number] Admin: 10/29/18 21:54 Dose: 12.5 mg Documented by: [id number] Admin: 10/29/18 08:42 Dose: 12.5 mg Documented by: [id number] Admin: 10/28/18 20:13 Dose: 12.5 mg Documented by: [id number] Admin: 10/28/18 09:16 Dose: 12.5 mg Documented by: [id number] Cosigned by: [id number] Admin: 10/27/18 20:41 Dose: 12.5 mg Documented by: [id number] Cyanocobalamin (Vitamin B-12) 1,000 mcg PO QAM [facility] Stop: 11/27/18 08:59 Last Admin: 11/01/18 08:52 Dose: 1,000 mcg Documented by: [id number] Admin: 10/31/18 13:20 Dose: Not Given Documented by: [id number] Admin: 10/30/18 07:39 Dose: 1,000 mcg Documented by: [id number] Admin: 10/29/18 08:42 Dose: 1,000 mcg Documented by: [id number] Admin: 10/28/18 09:18 Dose: 1,000 mcg Documented by: [id number] Cosigned by: [id number] Ferrous Sulfate (Feosol) 325 [facility] [place] Stop: 11/27/18 08:59 Last Admin: 11/01/18 08:52 Dose: 325 mg Documented by: [id number] Admin: 10/31/18 13:19 Dose: Not Given Documented by: [id number] Admin: 10/30/18 07:40 Dose: 325 mg Documented by: [id number] Admin: 10/29/18 08:44 Dose: 325 mg Documented by: [id number] Admin: 10/28/18 09:18 Dose: 325 mg Documented by: [id number] Cosigned by: [id number] Furosemide (Lasix) 40 mg IV NOW STA Stop: 10/27/18 10:08 Last Admin: 10/27/18 10:19 Dose: 40 mg Documented by: [id number] Furosemide (Lasix) 20 mg PO NOW ONE Stop: 11/10/18 14:46 Last Admin: 11/10/18 15:49 Dose: 20 mg Documented by: [id number] Heparin Sodium (Porcine) (Heparin Sodium (Porcine)) 5,000 units SQ Q12 [facility] Stop: 11/26/18 20:59 Last Admin: 11/01/18 08:51 Dose: 5,000 units Documented by: [id number] Cosigned by: [id number] Admin: 10/31/18 19:52 Dose: Not Given Documented by: [id number] Admin: 10/31/18 13:20 Dose: Not Given Documented by: [id number] Admin: 10/30/18 20:56 Dose: 5,000 units Documented by: [id number] Cosigned by: [id number] Admin: 10/30/18 07:40 Dose: 5,000 units Documented by: [id number] Cosigned by: [id number] Admin: 10/29/18 21:54 Dose: 5,000 units Documented by: [id number] Cosigned by: [id number] Admin: 10/29/18 08:43 Dose: 5,000 units Documented by: [id number] Cosigned by: [id number] Admin: 10/28/18 20:14 Dose: 5,000 units Documented by: [id number] Cosigned by: [id number] Admin: 10/28/18 09:25 Dose: 5,000 units Documented by: [id number] Cosigned by: [id number] Admin: 10/27/18 20:29 Dose: 5,000 units Documented by: [id number] Cosigned by: [id number] Bumetanide 2 mg/ Syringe 8 mls @ 4 mls/min IV ONE ONE Stop: 10/27/18 14:47 Last Admin: 10/27/18 15:46 Dose: 4 mls/min Documented by: [id number] Bumetanide 2 mg/ Syringe 8 mls @ 4 mls/min IV DAILY@0900,1700 [facility] Stop: 11/27/18 16:59 Last Admin: 11/01/18 08:51 Dose: 4 mls/min Documented by: [id number] Admin: 10/31/18 16:31 Dose: 4 mls/min Documented by: [id number] Admin: 10/31/18 08:53 Dose: 4 mls/min Documented by: [id number] Admin: 10/30/18 16:57 Dose: 4 mls/min Documented by: [id number] Admin: 10/30/18 09:15 Dose: 4 mls/min Documented by: [id number] Admin: 10/29/18 18:06 Dose: 4 mls/min Documented by: [id number] Admin: 10/29/18 08:42 Dose: 4 mls/min Documented by: [id number] Admin: 10/28/18 16:40 Dose: 4 mls/min Documented by: [id number] Furosemide 20 mg/ Syringe 2 mls @ 4 mls/min IV ONE ONE Stop: 11/10/18 14:22 Last Admin: 11/10/18 15:49 Dose: Not Given Documented by: [id number] Levothyroxine Sodium (Synthroid) 100 mcg PO DAILYBB [facility] Stop: 11/27/18 06:29 Last Admin: 11/01/18 06:17 Dose: 100 mcg Documented by: [id number] Admin: 10/31/18 05:45 Dose: 100 mcg Documented by: [id number] Admin: 10/30/18 06:00 Dose: Not Given Documented by: [id number] Admin: 10/29/18 05:42 Dose: 100 mcg Documented by: [id number] Admin: 10/28/18 05:41 Dose: 100 mcg Documented by: [id number] Lorazepam (Ativan) 0.5 mg PO Q1H PRN PRN Reason: Anxiety or restlessness Stop: 12/01/18 17:51 Last Admin: 11/01/18 18:19 Dose: 0.5 mg Documented by: [id number] Megestrol Acetate (Megace) 40 mg PO Q2D [facility] Stop: 11/27/18 11:59 Last Admin: 11/01/18 12:04 Dose: 40 mg Documented by: [id number] Admin: 10/30/18 11:47 Dose: 40 mg Documented by: [id number] Admin: 10/28/18 13:38 Dose: 40 mg Documented by: [id number] Morphine Sulfate (Roxanol) 5 mg PO Q6H PRN PRN Reason: SOB/Pain-Chronic Resp. Failure Stop: 11/10/18 11:46 Last Admin: 10/29/18 11:53 Dose: 5 mg Documented by: [id number] Admin: 10/29/18 02:15 Dose: 5 mg Documented by: [id number] Admin: 10/28/18 20:15 Dose: 5 mg Documented by: [id number] Nitroglycerin (Nitro-Bid 2%) 0.5 inch EXT NOW ONE Stop: 10/27/18 10:08 Last Admin: 10/27/18 10:19 Dose: 0.5 inch Documented by: [id number] Pantoprazole Sodium (Protonix) 40 mg PO QAM [facility] Stop: 11/27/18 08:59 Last Admin: 11/01/18 08:52 Dose: 40 mg Documented by: [id number] Admin: 10/31/18 13:20 Dose: Not Given Documented by: [id number] Admin: 10/30/18 07:39 Dose: 40 mg Documented by: [id number] Admin: 10/29/18 08:42 Dose: 40 mg Documented by: [id number] Admin: 10/28/18 09:17 Dose: 40 mg Documented by: [id number] Cosigned by: [id number] Senna/Docusate Sodium (Senokot S) 1 tab PO HS [facility] Stop: 11/26/18 20:59 Last Admin: 11/03/18 19:46 Dose: Not Given Documented by: [id number] Admin: 11/02/18 20:01 Dose: Not Given Documented by: [id number] Admin: 11/01/18 22:52 Dose: Not Given Documented by: [id number] Admin: 10/31/18 19:51 Dose: 1 tab Documented by: [id number] Admin: 10/30/18 20:56 Dose: 1 tab Documented by: [id number] Admin: 10/29/18 21:53 Dose: 1 tab Documented by: [id number] Admin: 10/28/18 20:13 Dose: 1 tab Documented by: [id number] Admin: 10/27/18 20:29 Dose: 1 tab Documented by: [id number] Tamsulosin HCl (Flomax) 0.4 mg PO DAILY [facility] Stop: 11/27/18 08:59 Last Admin: 11/01/18 08:52 Dose: 0.4 mg Documented by: [id number] Admin: 10/31/18 13:19 Dose: Not Given Documented by: [id number] Admin: 10/30/18 07:40 Dose: 0.4 mg Documented by: [id number] Admin: 10/29/18 08:44 Dose: 0.4 mg Documented by: [id number] Admin: 10/28/18 09:17 Dose: 0.4 mg Documented by: [id number] Cosigned by: [id number] Vitamin D (Vitamin D3) 2,000 units PO QAM [facility] Stop: 11/27/18 08:59 Last Admin: 11/01/18 08:51 Dose: 2,000 units Documented by: [id number] Admin: 10/31/18 13:20 Dose: Not Given Documented by: [id number] Admin: 10/30/18 07:38 Dose: 2,000 units Documented by: [id number] Admin: 10/29/18 08:42 Dose: 2,000 units Documented by: [id number] Admin: 10/28/18 09:17 Dose: 2,000 units Documented by: [id number] Cosigned by: [id number]
[2018-11-14] MEDS: MoRPHine SULFATE 5 MG/0.25 ML UDP PO PRN ×3 (05:19→20:12)
[2018-11-14] MEDS: DOCUSATE SODIUM/SENNA 50/8.6MG TAB PO SCH (07:40)
[2018-11-14] MEDS: FUROSEMIDE 20 MG TAB PO SCH (07:43)
--- NOTE | 2018-11-14 11:41 | Family Medicine Progress Note ---
Date of Service November 14, 2018 Assessment & Plan (1) Acute on chronic systolic (congestive) heart failure: 88-year-old male past medical history of CAD, CHF, mixed restrictive/obstructive respiratory disease presents with hypoxic respiratory failure Respiratory failure secondary to CHF decompensation in the setting of mixed restrictive/obstructive respiratory disease Continue comfort measurespalliative medicine has been consulted, appreciate recommendationspatient is currently transitioned to comfort measures only which includes; Roxanol, lorazepam, hydroxyzine, Zofran Arranging inpatient hospicecurrently working with case management and palliative care to arrange. Family meeting was held 11/09/2018family is deciding b/w [facility] and [facility]. They understand that he no longer requires acute care at [facility]. We would keep the patient here in the setting that he was unstable for transfer. We will continue to work with palliative and case management regarding placement/discharge. CHF Comfort measuresincluding daily Lasix 20 mg - Given worening pedal edema, Added additional dose of 20 mg PO Lasix Treatment is only to help with the patient's symptoms of shortness of breath Restrictive/obstructive respiratory disease Continue comfort measures as discussed above Chronic catheterization, suprapubic catheter plan on catheter change if urology deems it necessary Supervising Physician Co-Signing Physician Notes Patient seen and examined with Dr. Soriano. Agree with history, physical exam findings, assessment and plan as outlined by Dr. Soriano. In brief, Mr. Hernández is an 88 year old male with hx significant for CAD, CHF, restrictive/obstructive lung disease admitted with hypoxic respiratory failure secondary to CHF exacerbation. 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 Lasix for diuresis for respiratory comfort. Supplementa l O2 for comfort. needs suprapubic catheter change--seen by urology today for possible catheter exchange next week. Plans for hospice. Looking for facility for inpatient hospice with family. Dispo: pending hospice bed. Subjective 88-year-old male past medical history of CAD, CHF, mixed restrictive/obstructive respiratory disease presents with hypoxic respiratory failure. Discussed with , decisions for inpatient hospice still pending. Review of Systems Unobtainable due to reduced consciousness Physical Exam Vital Signs (Past 24 Hours): Last Vital Signs Temp 36.4 C L 11/06/18 22:56 Pulse 63 11/06/18 22:56 Resp 18 11/06/18 22:56 BP 154/79 H 11/06/18 22:56 Pulse Ox 100 11/14/18 07:50 Constitutional: + cachectic; no acute distress Eyes: PERRL, conjunctivae normal, anicteric sclerae Respiratory: + labored breathing Cardiovascular: RRR, no murmur, no edema Extremities: + pedal edema (2+) Gastrointestinal (Abdomen): normal bowel sounds, soft, nontender, no hepatosplenomegaly Skin: no rashes, warm and dry Neurologic: CN's II-XI intact bilaterally (grossly) and moves all extremities Results & Data Laboratory Results Laboratory Results WBC 4.42 K/uL (4.8-10.8) L 11/01/18 08:20 RBC 3.08 M/uL (4.7-6.1) L 11/01/18 08:20 Hgb 10.5 g/dL (14.0-18.0) L 11/01/18 08:20 Hct 35.5 % (42-52) L 11/01/18 08:20 MCV 115.3 fL (80-100) H 11/01/18 08:20 MCH 34.1 pg (25-34) H 11/01/18 08:20 MCHC 29.6 g/dL (32-36) L 11/01/18 08:20 RDW Std Deviation 58.2 fL (36.4-46.3) H 11/01/18 08:20 RDW Coeff of Sebas 14.1 % (11.5-14.5) 11/01/18 08:20 Plt Count 102 K/uL (130-400) L 11/01/18 08:20 MPV 10.7 fL (7.4-10.4) H 11/01/18 08:20 Immature Gran % (Auto) 0.2 % 11/01/18 08:20 Neut % (Auto) 72.1 % 11/01/18 08:20 Lymph % (Auto) 18.8 % 11/01/18 08:20 [place] % (Auto) 7.7 % 11/01/18 08:20 Eos % (Auto) 0.5 % 11/01/18 08:20 Baso % (Auto) 0.7 % 11/01/18 08:20 Immature Gran # (Auto) 0.01 K/uL (0.00-0.02) 11/01/18 08:20 Neut # (Auto) 3.19 K/uL (1.4-6.5) 11/01/18 08:20 Lymph # (Auto) 0.83 K/uL (1.2-3.4) L 11/01/18 08:20 [place] # (Auto) 0.34 K/uL (0.11-0.59) 11/01/18 08:20 Eos # (Auto) 0.02 K/uL (0-0.5) 11/01/18 08:20 Baso # (Auto) 0.03 K/uL (0-0.2) 11/01/18 08:20 Platelet Estimate Decreased (Normal) 10/30/18 07:11 Polychromasia 1+ 10/27/18 09:37 Basophilic Stippling 1+ 11/01/18 08:20 Macrocytosis Present 11/01/18 08:20 Stomatocytes 1+ 11/01/18 08:20 PT 10.7 Seconds (9.0-12.0) 10/27/18 09:37 INR 1.1 (0.9-1.1) 10/27/18 09:37 APTT 24.5 Seconds (21.0-31.0) 10/27/18 09:37 PTT Ratio 0.9 10/27/18 09:37 VBG pH 7.36 (7.36-7.41) 10/31/18 16:08 VBG pCO2 84 mmHg (38-50) H 10/31/18 16:08 VBG pO2 42 mmHg 10/31/18 16:08 VBG HCO3 46 mmol/L 10/31/18 16:08 VBG O2 Saturation 76.5 % 10/31/18 16:08 VBG Base Excess 17.2 mEq/L 10/31/18 16:08 Barometric Pressure 729.8 mm/Hg 10/31/18 16:08 Sodium 143 mmol/L (136-145) 11/01/18 08:20 Potassium 3.6 mmol/L (3.5-5.1) 11/01/18 08:20 Chloride 94 mmol/L (98-107) L 11/01/18 08:20 Carbon Dioxide 46 mmol/L (21-32) H* 11/01/18 08:20 Anion Gap 3.0 (3-11) 11/01/18 08:20 BUN 46 mg/dl (7-18) H 11/01/18 08:20 Creatinine 1.45 mg/dl (0.6-1.4) H 11/01/18 08:20 Est Cr Clr Drug Dosing 35.2 ml/min 11/01/18 08:20 Est GFR ( Amer) 49.5 11/01/18 08:20 Est GFR (Non-Af Amer) 42.7 11/01/18 08:20 BUN/Creatinine Ratio 31.8 (10-20) H 11/01/18 08:20 Glucose 109 mg/dl (70-99) H 11/01/18 08:20 POC Glucose 98 (70-99) 10/30/18 09:39 Calcium 8.4 mg/dl (8.5-10.1) L 11/01/18 08:20 Phosphorus 3.1 mg/dl (2.5-4.9) 10/31/18 16:08 Magnesium 1.8 mg/dl (1.8-2.4) 11/01/18 08:20 Total Bilirubin 0.5 mg/dl (0.2-1) 10/30/18 07:11 AST 21 U/L (15-37) 10/30/18 07:11 ALT 6 U/L (12-78) L 10/30/18 07:11 Alkaline Phosphatase 40 U/L (45-117) L 10/30/18 07:11 Troponin I 0.094 ng/ml (0-0.045) H* 10/27/18 09:37 Total Protein 5.5 gm/dl (6.4-8.2) L 10/30/18 07:11 Albumin 2.3 gm/dl (3.4-5.0) L 10/30/18 07:11 Globulin 3.2 gm/dl (2.5-4.0) 10/30/18 07:11 Albumin/Globulin Ratio 0.7 (0.9-2) L 10/30/18 07:11 Urine Color Yellow 10/27/18 17:15 Urine Appearance Cloudy (Clear) H 10/27/18 17:15 Urine pH 6.5 (4.5-7.5) 10/27/18 17:15 Ur Specific Ruby 1.008 (1.000-1.030) 10/27/18 17:15 Urine Protein Negative (Negative) 10/27/18 17:15 Urine Glucose (UA) Negative (Negative) 10/27/18 17:15 Urine Ketones Negative (Negative) 10/27/18 17:15 Urine Blood 1+ (Negative) H 10/27/18 17:15 Urine Nitrite Negative (Negative) 10/27/18 17:15 Urine Bilirubin Negative (Negative) 10/27/18 17:15 Urine Urobilinogen Negative (Negative) 10/27/18 17:15 Ur Leukocyte Esterase 3+ (Negative) H 10/27/18 17:15 Urine WBC (Auto) >30 /hpf (0-5) H 10/27/18 17:15 Urine RBC (Auto) 5-10 /hpf (0-4) H 10/27/18 17:15 U Hyaline Cast (Auto) 1-5 /lpf (0-5) 10/27/18 17:15 U Epithel Cells (Auto) 0-5 /lpf (0-5) 10/27/18 17:15 Urine Bacteria (Auto) Negative (Negative) 10/27/18 17:15 Influenza Type A Ag Neg for Influ A (Neg) 10/27/18 09:00 Influenza Type B Ag Neg for Influ B (Neg) 10/27/18 09:00 Medications Administered Furosemide (Lasix) [address] [facility] Stop: 12/11/18 16:14 Last Admin: 11/14/18 07:43 Dose: 20 mg Documented by: [id number] Admin: 11/13/18 08:15 Dose: 20 mg Documented by: [id number] Admin: 11/12/18 07:26 Dose: 20 mg Documented by: [id number] Admin: 11/11/18 17:32 Dose: 20 mg Documented by: [id number] Hydroxyzine HCl (Vistaril) 25 mg PO HS PRN PRN Reason: sleep Stop: 11/26/18 11:46 Last Admin: 10/27/18 20:40 Dose: 25 mg Documented by: [id number] Morphine Sulfate (Roxanol) 5 mg PO Q3H PRN PRN Reason: Pain or SOB Stop: 11/15/18 17:20 Last Admin: 11/14/18 15:59 Dose: 5 mg Documented by: [id number] Admin: 11/14/18 05:19 Dose: 5 mg Documented by: [id number] Senna/Docusate Sodium (Senokot S) [address] [facility] Stop: 12/13/18 12:14 Last Admin: 11/14/18 07:40 Dose: 1 tab Documented by: [id number] Admin: 11/13/18 13:13 Dose: 1 tab Documented by: [id number] Discontinued Medications Albuterol (Duoneb) 3 ml INH Q8R PRN PRN Reason: Shortness Of Breath Stop: 11/26/18 11:46 Last Admin: 10/28/18 19:37 Dose: 3 ml Documented by: [id number] Albuterol (Duoneb) 3 ml NEB NOW STA Stop: 10/29/18 02:09 Last Admin: 10/29/18 02:13 Dose: 3 ml Documented by: [id number] Aspirin (Ecotrin Ectab) [address] [facility] Stop: 11/27/18 08:59 Last Admin: 11/01/18 08:52 Dose: 81 mg Documented by: [id number] Admin: 10/31/18 13:19 Dose: Not Given Documented by: [id number] Admin: 10/30/18 07:40 Dose: 81 mg Documented by: [id number] Admin: 10/29/18 08:43 Dose: 81 mg Documented by: [id number] Admin: 10/28/18 09:18 Dose: 81 mg Documented by: [id number] Cosigned by: [id number] Bumetanide (Bumex) [address] [facility] Stop: 11/27/18 08:59 Last Admin: 10/28/18 09:16 Dose: 2 mg Documented by: [id number] Cosigned by: [id number] Carvedilol (Coreg) 12.[address] [facility] Stop: 11/26/18 20:59 Last Admin: 11/04/18 09:19 Dose: Not Given Documented by: [id number] Admin: 11/03/18 19:46 Dose: Not Given Documented by: [id number] Admin: 11/03/18 07:10 Dose: Not Given Documented by: [id number] Admin: 11/02/18 20:01 Dose: Not Given Documented by: [id number] Admin: 11/02/18 10:27 Dose: Not Given Documented by: [id number] Admin: 11/01/18 22:52 Dose: Not Given Documented by: [id number] Admin: 11/01/18 08:51 Dose: 12.5 mg Documented by: [id number] Admin: 10/31/18 19:51 Dose: 12.5 mg Documented by: [id number] Admin: 10/31/18 13:20 Dose: Not Given Documented by: [id number] Admin: 10/30/18 20:56 Dose: 12.5 mg Documented by: [id number] Admin: 10/30/18 07:39 Dose: 12.5 mg Documented by: [id number] Admin: 10/29/18 21:54 Dose: 12.5 mg Documented by: [id number] Admin: 10/29/18 08:42 Dose: 12.5 mg Documented by: [id number] Admin: 10/28/18 20:13 Dose: 12.5 mg Documented by: [id number] Admin: 10/28/18 09:16 Dose: 12.5 mg Documented by: [id number] Cosigned by: [id number] Admin: 10/27/18 20:41 Dose: 12.5 mg Documented by: [id number] Cyanocobalamin (Vitamin B-12) 1,000 mcg PO QAM [facility] Stop: 11/27/18 08:59 Last Admin: 11/01/18 08:52 Dose: 1,000 mcg Documented by: [id number] Admin: 10/31/18 13:20 Dose: Not Given Documented by: [id number] Admin: 10/30/18 07:39 Dose: 1,000 mcg Documented by: [id number] Admin: 10/29/18 08:42 Dose: 1,000 mcg Documented by: [id number] Admin: 10/28/18 09:18 Dose: 1,000 mcg Documented by: [id number] Cosigned by: [id number] Ferrous Sulfate (Feosol) 325 mg PO QAM [facility] Stop: 11/27/18 08:59 Last Admin: 11/01/18 08:52 Dose: 325 mg Documented by: [id number] Admin: 10/31/18 13:19 Dose: Not Given Documented by: [id number] Admin: 10/30/18 07:40 Dose: 325 mg Documented by: [id number] Admin: 10/29/18 08:44 Dose: 325 mg Documented by: [id number] Admin: 10/28/18 09:18 Dose: 325 mg Documented by: [id number] Cosigned by: [id number] Furosemide (Lasix) 40 mg IV NOW STA Stop: 10/27/18 10:08 Last Admin: 10/27/18 10:19 Dose: 40 mg Documented by: [id number] Furosemide (Lasix) 20 mg PO NOW ONE Stop: 11/10/18 14:46 Last Admin: 11/10/18 15:49 Dose: 20 mg Documented by: [id number] Heparin Sodium (Porcine) (Heparin Sodium (Porcine)) 5,000 units SQ Q12 [facility] Stop: 11/26/18 20:59 Last Admin: 11/01/18 08:51 Dose: 5,000 units Documented by: [id number] Cosigned by: [id number] Admin: 10/31/18 19:52 Dose: Not Given Documented by: [id number] Admin: 10/31/18 13:20 Dose: Not Given Documented by: [id number] Admin: 10/30/18 20:56 Dose: 5,000 units Documented by: [id number] Cosigned by: [id number] Admin: 10/30/18 07:40 Dose: 5,000 units Documented by: [id number] Cosigned by: [id number] Admin: 10/29/18 21:54 Dose: 5,000 units Documented by: [id number] Cosigned by: [id number] Admin: 10/29/18 08:43 Dose: 5,000 units Documented by: [id number] Cosigned by: [id number] Admin: 10/28/18 20:14 Dose: 5,000 units Documented by: [id number] Cosigned by: [id number] Admin: 10/28/18 09:25 Dose: 5,000 units Documented by: [id number] Cosigned by: [id number] Admin: 10/27/18 20:29 Dose: 5,000 units Documented by: [id number] Cosigned by: [id number] Bumetanide 2 mg/ Syringe 8 mls @ 4 mls/min IV ONE ONE Stop: 10/27/18 14:47 Last Admin: 10/27/18 15:46 Dose: 4 mls/min Documented by: [id number] Bumetanide 2 mg/ Syringe 8 mls @ 4 mls/min IV DAILY@0900,1700 [facility] Stop: 11/27/18 16:59 Last Admin: 11/01/18 08:51 Dose: 4 mls/min Documented by: [id number] Admin: 10/31/18 16:31 Dose: 4 mls/min Documented by: [id number] Admin: 10/31/18 08:53 Dose: 4 mls/min Documented by: [id number] Admin: 10/30/18 16:57 Dose: 4 mls/min Documented by: [id number] Admin: 10/30/18 09:15 Dose: 4 mls/min Documented by: [id number] Admin: 10/29/18 18:06 Dose: 4 mls/min Documented by: [id number] Admin: 10/29/18 08:42 Dose: 4 mls/min Documented by: [id number] Admin: 10/28/18 16:40 Dose: 4 mls/min Documented by: [id number] Furosemide 20 mg/ Syringe 2 mls @ 4 mls/min IV ONE ONE Stop: 11/10/18 14:22 Last Admin: 11/10/18 15:49 Dose: Not Given Documented by: [id number] Levothyroxine Sodium (Synthroid) [address] [facility] Stop: 11/27/18 06:29 Last Admin: 11/01/18 06:17 Dose: 100 mcg Documented by: [id number] Admin: 10/31/18 05:45 Dose: 100 mcg Documented by: [id number] Admin: 10/30/18 06:00 Dose: Not Given Documented by: [id number] Admin: 10/29/18 05:42 Dose: 100 mcg Documented by: [id number] Admin: 10/28/18 05:41 Dose: 100 mcg Documented by: [id number] Lorazepam (Ativan) 0.5 mg PO Q1H PRN PRN Reason: Anxiety or restlessness Stop: 12/01/18 17:51 Last Admin: 11/01/18 18:19 Dose: 0.5 mg Documented by: [id number] Megestrol Acetate (Megace) [address] [facility] Stop: 11/27/18 11:59 Last Admin: 11/01/18 12:04 Dose: 40 mg Documented by: [id number] Admin: 10/30/18 11:47 Dose: 40 mg Documented by: [id number] Admin: 10/28/18 13:38 Dose: 40 mg Documented by: [id number] Morphine Sulfate (Roxanol) 5 mg PO Q6H PRN PRN Reason: SOB/Pain-Chronic Resp. Failure Stop: 11/10/18 11:46 Last Admin: 10/29/18 11:53 Dose: 5 mg Documented by: [id number] Admin: 10/29/18 02:15 Dose: 5 mg Documented by: [id number] Admin: 10/28/18 20:15 Dose: 5 mg Documented by: [id number] Nitroglycerin (Nitro-Bid 2%) 0.5 inch EXT NOW ONE Stop: 10/27/18 10:08 Last Admin: 10/27/18 10:19 Dose: 0.5 inch Documented by: [id number] Pantoprazole Sodium (Protonix) [address] [facility] Stop: 11/27/18 08:59 Last Admin: 11/01/18 08:52 Dose: 40 mg Documented by: [id number] Admin: 10/31/18 13:20 Dose: Not Given Documented by: [id number] Admin: 10/30/18 07:39 Dose: 40 mg Documented by: [id number] Admin: 10/29/18 08:42 Dose: 40 mg Documented by: [id number] Admin: 10/28/18 09:17 Dose: 40 mg Documented by: [id number] Cosigned by: [id number] Senna/Docusate Sodium (Senokot S) [address] [facility] Stop: 11/26/18 20:59 Last Admin: 11/03/18 19:46 Dose: Not Given Documented by: [id number] Admin: 11/02/18 20:01 Dose: Not Given Documented by: [id number] Admin: 11/01/18 22:52 Dose: Not Given Documented by: [id number] Admin: 10/31/18 19:51 Dose: 1 tab Documented by: [id number] Admin: 10/30/18 20:56 Dose: 1 tab Documented by: [id number] Admin: 10/29/18 21:53 Dose: 1 tab Documented by: [id number] Admin: 10/28/18 20:13 Dose: 1 tab Documented by: [id number] Admin: 10/27/18 20:29 Dose: 1 tab Documented by: [id number] Tamsulosin HCl (Flomax) 0.[address] [facility] Stop: 11/27/18 08:59 Last Admin: 11/01/18 08:52 Dose: 0.4 mg Documented by: [id number] Admin: 10/31/18 13:19 Dose: Not Given Documented by: [id number] Admin: 10/30/18 07:40 Dose: 0.4 mg Documented by: [id number] Admin: 10/29/18 08:44 Dose: 0.4 mg Documented by: [id number] Admin: 10/28/18 09:17 Dose: 0.4 mg Documented by: [id number] Cosigned by: [id number] Vitamin D (Vitamin [facility]3) [facility] [place]: 11/27/18 08:59 Last Admin: 11/01/18 08:51 Dose: 2,000 units Documented by: [id number] Admin: 10/31/18 13:20 Dose: Not Given Documented by: [id number] Admin: 10/30/18 07:38 Dose: 2,000 units Documented by: [id number] Admin: 10/29/18 08:42 Dose: 2,000 units Documented by: [id number] Admin: 10/28/18 09:17 Dose: 2,000 units Documented by: [id number] Cosigned by: [id number] Resident Activity Tracking Resident Involvement: Resident Care Provided Care Provided: Adult [facility] Medicine
--- NOTE | 2018-11-14 14:33 | Urology Consultation ---
Date of Consultation November 14, 2018 Assessment & Plan (1) Suprapubic catheter: Patient will need exchange in next 1-2 weeks. Will see if can facilitate while in hospital. due to severity of contracture, will want to plan on day when in OR so if necessary can take for intervention. Patient currently tolerating. Per family, plan is to go home in next few days. Will monitor and see if can schedule in next 1-2 days. (2) Bladder outlet obstruction: See above. Severe Resp Issues with endstage Card/Pulm issues. History of Present Illness Attending Physician: Yumiko Yusuf History of Present Illness Well known patient with severe end stage lung and cardiac disease. Admitted due to weakness. patient has severe bladder neck contracture. Has SP tube for drainage. Doing well from urology. Has planned exchange in next 1-2 weeks. Las changed 10/20/2018 NO issues with catheter. no problems. no pain. Doing better from resp issues. Allergies Allergy/AdvReac Type Severity Reaction Status Date / Time Penicillins Allergy Unknown HIVES Verified 10/27/18 09:48 Home Medications Home Medications Medication Instructions Recorded Confirmed Type cholecalciferol (vitamin D3) 2,000 units PO QAM 06/29/18 10/27/18 History [Vitamin D3] cyanocobalamin (vitamin B-12) 1,000 mcg PO QAM 06/29/18 10/27/18 History ferrous sulfate [iron] 325 mg PO QAM 06/29/18 10/27/18 History ipratropium-albuterol 3 ml INHALATION Q8H PRN 06/29/18 10/27/18 History levothyroxine 100 mcg PO QAM 06/29/18 10/27/18 History tamsulosin 0.4 mg PO DAILY 06/29/18 10/27/18 History carvedilol [Coreg] 12.5 mg PO BID 07/01/18 10/27/18 History pantoprazole 40 mg PO QAM #30 tab 07/07/18 10/27/18 Rx aspirin 81 mg PO DAILY 07/12/18 10/27/18 History bumetanide 2 mg PO QAM #30 tab 07/27/18 10/27/18 Rx sennosides-docusate sodium [Senna 1 tab PO HS 07/30/18 10/27/18 History Plus] acetaminophen 650 mg PO Q6H PRN MDD 3000 MG/24 09/24/18 10/27/18 History HOURS ciprofloxacin HCl 500 mg PO Q12H 09/24/18 10/27/18 History hydroxyzine pamoate [Vistaril] 25 mg PO HS PRN #30 cap 09/24/18 10/27/18 Rx megestrol 40 mg PO Q2D 09/24/18 10/27/18 History morphine concentrate 5 mg PO Q6H PRN 09/24/18 10/27/18 History Patient History Medical History GERD (gastroesophageal reflux disease) Chronic respiratory failure with hypoxia Myelodysplastic syndrome CAD (coronary artery disease) of bypass graft (Chronic) Systolic CHF Pancytopenia (Chronic) Carotid arterial disease Acute combined systolic and diastolic congestive heart failure (Acute) Restrictive lung disease (Chronic) On home oxygen therapy 3LPM O2 VIA N/C CONTINUOUS Pacemaker IMPLANTED 2015; [facility]- LAST PACER/ICD CHECK 07/01/18 Anxiety Bladder outlet obstruction (Chronic) Renal mass, right Cystitis Thrombocytopenia JONATHAN (acute kidney injury) Anemia CAD in [place] artery CHF exacerbation Cardiomyopathy Chronic kidney disease (Chronic) CKD BASELINE 1.8 FELT 2/2 BLADDER OUTLET OBSTRUCTION/DM/ICM/POOR RENAL PERFUSION JONATHAN ON CKD DURING 06/2018 ADMISSION AT [facility] FELT 2/2 PROFOUND ANEMIA IN SETT ING OF ARB THERAPY Dyslipidemia Hypothyroidism (Chronic) Anemia CHRONIC; BASELINE 9-10 RANGE BPH (benign prostatic hyperplasia) CAD (coronary artery disease) S/P CABG CVA (cerebral vascular accident) 1992 Cancer SKIN (BCC) DVT prophylaxis Diabetes mellitus, type 2 DIET CONTROLLED Elevated troponin I level Encounter for pre-operative examination Hearing deficit History of CHF (congestive heart failure) Hypothyroidism ICD (implantable cardioverter-defibrillator) in place IMPLANTED 2015; [facility]- LAST PACER/ICD CHECK 07/01/18 Indwelling Byrnes catheter present Ischemic cardiomyopathy MDS (myelodysplastic syndrome) RECENT DX DURING 06/2018 [facility] ADMISSION Myocardial Infarction 1985 Nausea & vomiting Recurrent pleural effusion on left Recurrent pleural effusion on right Shortness of breath Sleep apnea NO DEVICE- NON-COMPLIANT Stroke UTI (urinary tract infection) Urinary retention Surgical History H/O aortic valve replacement H/O carotid endarterectomy History of adenoidectomy History of cardiac cath X2 STENT (1988) History of carotid endarterectomy RIGHT CAROTID STENT (2003); LEFT CEA (2007) History of cataract surgery BILATERAL History of colonoscopy History of coronary artery bypass graft X2 VESSEL (1985); X1 VESSEL (1988) History of cystoscopy CYSTOSCOPY, DILATION BLADDER NECK CONTRACTURE= 02/14/18= MAC SEDATION AT [facility] History of esophagogastroduodenoscopy (EGD) History of heart valve replacement TAVR (2014) History of lung surgery LEFT SIDE 2/2 PLEURAL EFFUSION (2014) History of tonsillectomy Hx of transurethral resection of prostate S/p TAVR (transcatheter aortic valve replacement), bioprosthetic Family History Father Social History Preferred Language: Belarusian Communication Ability: Effective Communication Ability Comment: some confusion Digital Service Engineer Required: No Beliefs That Will Affect Care: None marital status: Current Living Situation: Spouse Current Living Situation Comment: [facility] Other Information That Helps Us Care for You: No Feels Safe at Home: Yes Safety Concerns: Feels Safe At This Time Smoking Status: Former smoker Hx Alcohol Use: No Hx Substance Use: No Review of Systems Constitutional: + fatigue and + weakness Respiratory: + dyspnea Cardiovascular: + edema; no chest pain Physical Exam Vital Signs (Past 24 Hours): Last Vital Signs Temp 36.4 C L 11/06/18 22:56 Pulse 63 11/06/18 22:56 Resp 18 11/06/18 22:56 BP 154/79 H 11/06/18 22:56 Pulse Ox 100 11/14/18 07:50 Constitutional: + ill appearing and + cachectic; no acute distress Eyes: PERRL, conjunctivae normal, anicteric sclerae ENMT: external ear and nose normal, oropharynx normal Neck: trachea midline, no thyromegaly normal visual inspection and trachea midline Respiratory: + labored breathing and + uses accessory muscles Baseline Resp issues Cardiovascular: Rate/Rhythm: not tachycardic Gastrointestinal (Abdomen): normal bowel sounds, soft, nontender, no hepatosplenomegaly Inspection/Auscultation: abdomen normal to inspection and normal bowel sounds; abdomen not distended Percussion/Palpation: abdomen soft; abdomen nontender Skin: no rashes, warm and dry + jaundice and + pallor Neurologic: CN's II-XI intact bilaterally (grossly), moves all extremities, awake and + confused Psychiatric: Orientation: oriented to place; + not alert (drowsy) and + not oriented to time
[2018-11-14] MEDS ORDERED: FUROSEMIDE 40 MG TAB PO ONE (21:00)
[2018-11-15] MEDS: FUROSEMIDE 20 MG TAB PO SCH (08:05)
[2018-11-15] MEDS: DOCUSATE SODIUM/SENNA 50/8.6MG TAB PO SCH (08:05)
[2018-11-15] MEDS: MoRPHine SULFATE 5 MG/0.25 ML UDP PO PRN ×2 (08:05→23:41)
--- NOTE | 2018-11-15 10:12 | Urology Progress Note ---
Date of Service November 15, 2018 Assessment & Plan (1) Suprapubic catheter: Plan for d/c home to hospice tomorrow per at bedside. Discussing plan for SP tube change at bedside today with Dr. Koenig. Please see procedure note. Pt tolerated procedure well No complications. Please recontact our service with any additional concerns or concerns. Subjective 88yo M with severe CHF, known to us for chronic suprapubic catheter. Plan for hospice measure only at home. Pt having breakfast with assistance by at bedside at time of evaluation. In no acute distress, pt awake and answering yes/no questions. Denies suprapubic pain or discomfort. Review of Systems All systems reviewed & are unremarkable except as noted in HPI & below Physical Exam Vital Signs (Past 24 Hours): Last Vital Signs Temp 36.4 C L 11/06/18 22:56 Pulse 63 11/06/18 22:56 Resp 18 11/06/18 22:56 BP 154/79 H 11/06/18 22:56 Pulse Ox 100 11/14/18 07:50 Physical Exam: Alert, oriented to self and place RRR -nonlabored. Abd soft nontender. SP site with moderate amount foul smelling brown discharge. No erythema, or sign of infection. Draining clear/hazy yellow. No hematuria, no sediment, no clots.
--- NOTE | 2018-11-15 11:54 | Procedure Note ---
Procedure Note Date of Service November 15, 2018 Son, Josué, called and made aware of plan to perform bedside suprapubic catheter change today. 16fr suprapubic catheter changed using usual sterile technique. Pt draped and cleansed with betadine. Old suprapubic tube balloon deflated, removed without difficulty. New 16fr suprapubic tube placed without difficult. Balloon inflated with 10cc sterile water. Irrigated with 60cc sterile water. Clear/yellow urine aspirated. No complications. Pt tolerated well. Dr. Koenig at bedside during procedure.
--- NOTE | 2018-11-15 15:38 | Family Medicine Progress Note ---
Date of Service November 15, 2018 Assessment & Plan (1) Respiratory failure: 88-year-old male was admitted on 27 October 2017 for acute shortness of breath. Acute on chronic hypoxic and hypercapnic respiratory failure, acute metabolic encephalopathy, systolic and diastolic CHF: On admission, patient required BiPAP with elevated CO2 levels. Prior PFTs noted severe disease. 14Feb TTE noted an EF of 35-40%, severe pulmonary hypertension, as well as other findings. Early in admission patient required increased supplemental oxygen, had poor oral intake, and was quite deconditioned. Please see detailed palliative care notes. 19Feb was started on comfort care. - No further lab work. No further BiPAP. Oxygen as needed for comfort. - Is on scheduled Lasix and senna for comfort. - Is on as needed Roxanol, Ativan, Zofran, and Vistaril as well. Bladder outlet obstruction, suprapubic catheter: See related urology notes. - Had his suprapubic catheter exchange earlier this morning (). For background purposes, patient also has a history of acute on chronic kidney injury with CKD stage IV, hypomagnesemia, CAD, [place] status post stenting and CABG, cardiomyopathy, aortic stenosis status post TAVR, pacemaker, anemia, hypothyroidism, BPH, urethral obstruction with suprapubic indwelling catheter, myelodysplastic syndrome, GERD, and history of CVA. Code status: DO NOT RESUSCITATE. Diet: Heart healthy diet, fluid restriction, pured. However, patient is not really eating much. DVT prophy: None, on comfort care. PT/OT: Canceled. Disbo: Admitted to [facility]. Case management on board. Pending referrals to [facility]. Family working on deciding what facility they want. See related palliative care notes. (2) Acute metabolic encephalopathy: (3) Acute on chronic combined systolic and diastolic CHF (congestive heart failure): (4) Pulmonary edema: (5) Pulmonary hypertension: (6) JONATHAN (acute kidney injury): (7) Chronic kidney disease: (8) Hypomagnesemia: (9) CAD in [place] artery: (10) Cardiomyopathy: (11) H/O aortic valve replacement: (12) Anemia: (13) Hypothyroidism: (14) Bladder outlet obstruction: (15) Myelodysplastic syndrome: (16) GERD (gastroesophageal reflux disease): Supervising Physician Co-Signing Physician Notes Patient seen and examined with the resident. Agree with history, physical exam, assessment and plan with the following updates/corrections: 88yo M w/ hx of systolic and diastolic heart failure who presented with respiratory distress, and now is comfort measures. Today, patient awakes easily and is orient to self. Reports he is "always" in pain, but does not specify where. Denies shortness of breath. 1) Comfort care - Pending family decision; apparently would like to take him home instead of placement now. Will discuss with family tomorrow. Subjective Found patient resting comfortably with his at bedside. When asked, he said that he felt "terrible" and then said that he had pain all over. However, he declined any more pain medication. He denied any other acute concerns. His says that he is eating a little but not particularly complaining of anything. Physical Exam Vital Signs (Past 24 Hours): Last Vital Signs Temp 36.4 C L 11/06/18 22:56 Pulse 63 11/06/18 22:56 Resp 18 11/06/18 22:56 BP 154/79 H 11/06/18 22:56 Pulse Ox 100 11/14/18 07:50 Physical Exam: General Appearance: Generally somnolent but opens his eyes to voice, cachectic, but does not appear in acute distress. CV: +S1S2 RRR, no murmur. Pulm: Clear to auscultation at apices. Nasal cannula oxygen in place. Abdomen: +BS, soft, non-tender, non-distended. Extremities: 1+ bilateral pedal edema. No calf tenderness. Results & Data Laboratory Results Laboratory Results WBC 4.42 K/uL (4.8-10.8) L 11/01/18 08:20 RBC 3.08 M/uL (4.7-6.1) L 11/01/18 08:20 Hgb 10.5 g/dL (14.0-18.0) L 11/01/18 08:20 Hct 35.5 % (42-52) L 11/01/18 08:20 MCV 115.3 fL (80-100) H 11/01/18 08:20 MCH 34.1 pg (25-34) H 11/01/18 08:20 MCHC 29.6 g/dL (32-36) L 11/01/18 08:20 RDW Std Deviation 58.2 fL (36.4-46.3) H 11/01/18 08:20 RDW Coeff of Sebas 14.1 % (11.5-14.5) 11/01/18 08:20 Plt Count 102 K/uL (130-400) L 11/01/18 08:20 MPV 10.7 fL (7.4-10.4) H 11/01/18 08:20 Immature Gran % (Auto) 0.2 % 11/01/18 08:20 Neut % (Auto) 72.1 % 11/01/18 08:20 Lymph % (Auto) 18.8 % 11/01/18 08:20 [place] % (Auto) 7.7 % 11/01/18 08:20 Eos % (Auto) 0.5 % 11/01/18 08:20 Baso % (Auto) 0.7 % 11/01/18 08:20 Immature Gran # (Auto) 0.01 K/uL (0.00-0.02) 11/01/18 08:20 Neut # (Auto) 3.19 K/uL (1.4-6.5) 11/01/18 08:20 Lymph # (Auto) 0.83 K/uL (1.2-3.4) L 11/01/18 08:20 [place] # (Auto) 0.34 K/uL (0.11-0.59) 11/01/18 08:20 Eos # (Auto) 0.02 K/uL (0-0.5) 11/01/18 08:20 Baso # (Auto) 0.03 K/uL (0-0.2) 11/01/18 08:20 Platelet Estimate Decreased (Normal) 10/30/18 07:11 Polychromasia 1+ 10/27/18 09:37 Basophilic Stippling 1+ 11/01/18 08:20 Macrocytosis Present 11/01/18 08:20 Stomatocytes 1+ 11/01/18 08:20 PT 10.7 Seconds (9.0-12.0) 10/27/18 09:37 INR 1.1 (0.9-1.1) 10/27/18 09:37 APTT 24.5 Seconds (21.0-31.0) 10/27/18 09:37 PTT Ratio 0.9 10/27/18 09:37 VBG pH 7.36 (7.36-7.41) 10/31/18 16:08 VBG pCO2 84 mmHg (38-50) H 10/31/18 16:08 VBG pO2 42 mmHg 10/31/18 16:08 VBG HCO3 46 mmol/L 10/31/18 16:08 VBG O2 Saturation 76.5 % 10/31/18 16:08 VBG Base Excess 17.2 mEq/L 10/31/18 16:08 Barometric Pressure 729.8 mm/Hg 10/31/18 16:08 Sodium 143 mmol/L (136-145) 11/01/18 08:20 Potassium 3.6 mmol/L (3.5-5.1) 11/01/18 08:20 Chloride 94 mmol/L (98-107) L 11/01/18 08:20 Carbon Dioxide 46 mmol/L (21-32) H* 11/01/18 08:20 Anion Gap 3.0 (3-11) 11/01/18 08:20 BUN 46 mg/dl (7-18) H 11/01/18 08:20 Creatinine 1.45 mg/dl (0.6-1.4) H 11/01/18 08:20 Est Cr Clr Drug Dosing 35.2 ml/min 11/01/18 08:20 Est GFR ( Amer) 49.5 11/01/18 08:20 Est GFR (Non-Af Amer) 42.7 11/01/18 08:20 BUN/Creatinine Ratio 31.8 (10-20) H 11/01/18 08:20 Glucose 109 mg/dl (70-99) H 11/01/18 08:20 POC Glucose 98 (70-99) 10/30/18 09:39 Calcium 8.4 mg/dl (8.5-10.1) L 11/01/18 08:20 Phosphorus 3.1 mg/dl (2.5-4.9) 10/31/18 16:08 Magnesium 1.8 mg/dl (1.8-2.4) 11/01/18 08:20 Total Bilirubin 0.5 mg/dl (0.2-1) 10/30/18 07:11 AST 21 U/L (15-37) 10/30/18 07:11 ALT 6 U/L (12-78) L 10/30/18 07:11 Alkaline Phosphatase 40 U/L (45-117) L 10/30/18 07:11 Troponin I 0.094 ng/ml (0-0.045) H* 10/27/18 09:37 Total Protein 5.5 gm/dl (6.4-8.2) L 10/30/18 07:11 Albumin 2.3 gm/dl (3.4-5.0) L 10/30/18 07:11 Globulin 3.2 gm/dl (2.5-4.0) 10/30/18 07:11 Albumin/Globulin Ratio 0.7 (0.9-2) L 10/30/18 07:11 Urine Color Yellow 10/27/18 17:15 Urine Appearance Cloudy (Clear) H 10/27/18 17:15 Urine pH 6.5 (4.5-7.5) 10/27/18 17:15 Ur Specific [place] 1.008 (1.000-1.030) 10/27/18 17:15 Urine Protein Negative (Negative) 10/27/18 17:15 Urine Glucose (UA) Negative (Negative) 10/27/18 17:15 Urine Ketones Negative (Negative) 10/27/18 17:15 Urine Blood 1+ (Negative) H 10/27/18 17:15 Urine Nitrite Negative (Negative) 10/27/18 17:15 Urine Bilirubin Negative (Negative) 10/27/18 17:15 Urine Urobilinogen Negative (Negative) 10/27/18 17:15 Ur Leukocyte Esterase 3+ (Negative) H 10/27/18 17:15 Urine WBC (Auto) >30 /hpf (0-5) H 10/27/18 17:15 Urine RBC (Auto) 5-10 /hpf (0-4) H 10/27/18 17:15 U Hyaline Cast (Auto) 1-5 /lpf (0-5) 10/27/18 17:15 U Epithel Cells (Auto) 0-5 /lpf (0-5) 10/27/18 17:15 Urine Bacteria (Auto) Negative (Negative) 10/27/18 17:15 Influenza Type A Ag Neg for Influ A (Neg) 10/27/18 09:00 Influenza Type B Ag Neg for Influ B (Neg) 10/27/18 09:00 Medications Administered Current Inpatient Medications Furosemide (Lasix) 20 mg PO QAM [facility] Stop: 12/11/18 16:14 Last Admin: 11/15/18 08:05 Dose: 20 mg Documented by: Hydroxyzine HCl (Vistaril) 25 mg PO HS PRN PRN Reason: sleep Stop: 11/26/18 11:46 Last Admin: 10/27/18 20:40 Dose: 25 mg Documented by: Lorazepam (Ativan) 0.5 mg PO Q4H PRN PRN Reason: Anxiety or restlessness Stop: 12/01/18 17:51 Morphine Sulfate (Roxanol) 5 mg PO Q3H PRN PRN Reason: Pain or SOB Stop: 11/15/18 17:20 Last Admin: 11/15/18 08:05 Dose: 5 mg Documented by: Ondansetron HCl (Zofran) 4 mg IV Q4H PRN PRN Reason: Nausea And Vomiting Stop: 11/26/18 11:43 Senna/Docusate Sodium (Senokot S) [facility] [place] [place] Stop: 12/13/18 12:14 Last Admin: 11/15/18 08:05 Dose: 1 tab Documented by: Resident Activity Tracking Resident Involvement: Resident Care Provided Care Provided: Adult Hospital Medicine (1) Anemia 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
[2018-11-16] MEDS: FUROSEMIDE 20 MG TAB PO SCH (07:09)
[2018-11-16] MEDS: DOCUSATE SODIUM/SENNA 50/8.6MG TAB PO SCH (07:09)
--- NOTE | 2018-11-16 14:13 | Family Medicine Progress Note ---
Date of Service November 16, 2018 Assessment & Plan (1) Respiratory failure: 88-year-old male was admitted on 27 October 2017 for acute shortness of breath. Acute on chronic hypoxic and hypercapnic respiratory failure, acute metabolic encephalopathy, systolic and diastolic CHF: On admission, patient required BiPAP with elevated CO2 levels. Prior PFTs noted severe disease. 14Feb TTE noted an EF of 35-40%, severe pulmonary hypertension, as well as other findings. Early in admission patient required increased supplemental oxygen, had poor oral intake, and was quite deconditioned. Please see detailed palliative care notes. 19Feb was started on comfort care. - No further lab work. No further BiPAP. Oxygen as needed for comfort. - Is on scheduled Lasix and senna for comfort. - Is on as needed Roxanol, Ativan, Zofran, and Vistaril as well. Bladder outlet obstruction, suprapubic catheter: See related urology notes. Had his suprapubic catheter exchange on . For background purposes, patient also has a history of acute on chronic kidney injury with CKD stage IV, hypomagnesemia, CAD, [place] status post stenting and CABG, cardiomyopathy, aortic stenosis status post TAVR, pacemaker, anemia, hypothyroidism, BPH, urethral obstruction with suprapubic indwelling catheter, myelodysplastic syndrome, GERD, and history of CVA. Code status: DO NOT RESUSCITATE. Diet: Heart healthy diet, fluid restriction, pured. However, patient is not really eating much. DVT prophy: None, on comfort care. PT/OT: Canceled. Disbo: Admitted to [facility]. Case management on board. Pending referrals to [facility]. Family still working on deciding what facility they want. See related palliative care notes. (2) Acute metabolic encephalopathy: (3) Acute on chronic combined systolic and diastolic CHF (congestive heart failure): (4) Pulmonary edema: (5) Pulmonary hypertension: (6) JONATHAN (acute kidney injury): (7) Chronic kidney disease: (8) Hypomagnesemia: (9) CAD in [place] artery: (10) Cardiomyopathy: (11) H/O aortic valve replacement: (12) Anemia: (13) Hypothyroidism: (14) Bladder outlet obstruction: (15) Myelodysplastic syndrome: (16) GERD (gastroesophageal reflux disease): Supervising Physician Co-Signing Physician Notes Patient seen and examined with the resident. Agree with history, physical exam, assessment and plan with the following updates/corrections: 88yo M w/ hx of systolic and diastolic heart failure who presented with respiratory distress, and now is comfort measures. Today, patient awakes easily and is orient to self. Reports no pain or shortness of breath today. Breathing comfortably on his nasal cannula. 1) Comfort care - Family will meet with hospice tomorrow and consider discharge tomorrow vs. . Subjective Found patient resting comfortably this morning. He opened his eyes to voice but seems generally exhausted. When asked how he was doing, he said "pretty good". When asked if he can do anything for him, he asked for some water. He did not seem to have any difficulty swallowing it. Otherwise he had no acute requests or stated concerns/comments. Physical Exam Vital Signs (Past 24 Hours): Last Vital Signs Temp 36.4 C L 11/06/18 22:56 Pulse 63 11/06/18 22:56 Resp 18 11/06/18 22:56 BP 154/79 H 11/06/18 22:56 Pulse Ox 100 11/14/18 07:50 Physical Exam: General Appearance: Generally somnolent but opens his eyes to voice, cachectic, but does not appear in acute distress. CV: +S1S2 RRR, no murmur. Pulm: Clear to auscultation at apices. Nasal cannula oxygen in place. Abdomen: +BS, soft, non-tender, non-distended. Extremities: 1+ bilateral pedal edema. No calf tenderness. Results & Data Laboratory Results Laboratory Results WBC 4.42 K/uL (4.8-10.8) L 11/01/18 08:20 RBC 3.08 M/uL (4.7-6.1) L 11/01/18 08:20 Hgb 10.5 g/dL (14.0-18.0) L 11/01/18 08:20 Hct 35.5 % (42-52) L 11/01/18 08:20 MCV 115.3 fL (80-100) H 11/01/18 08:20 MCH 34.1 pg (25-34) H 11/01/18 08:20 MCHC 29.6 g/dL (32-36) L 11/01/18 08:20 RDW Std Deviation 58.2 fL (36.4-46.3) H 11/01/18 08:20 RDW Coeff of Sebas 14.1 % (11.5-14.5) 11/01/18 08:20 Plt Count 102 K/uL (130-400) L 11/01/18 08:20 MPV 10.7 fL (7.4-10.4) H 11/01/18 08:20 Immature Gran % (Auto) 0.2 % 11/01/18 08:20 Neut % (Auto) 72.1 % 11/01/18 08:20 Lymph % (Auto) 18.8 % 11/01/18 08:20 [place] % (Auto) 7.7 % 11/01/18 08:20 Eos % (Auto) 0.5 % 11/01/18 08:20 Baso % (Auto) 0.7 % 11/01/18 08:20 Immature Gran # (Auto) 0.01 K/uL (0.00-0.02) 11/01/18 08:20 Neut # (Auto) 3.19 K/uL (1.4-6.5) 11/01/18 08:20 Lymph # (Auto) 0.83 K/uL (1.2-3.4) L 11/01/18 08:20 [place] # (Auto) 0.34 K/uL (0.11-0.59) 11/01/18 08:20 Eos # (Auto) 0.02 K/uL (0-0.5) 11/01/18 08:20 Baso # (Auto) 0.03 K/uL (0-0.2) 11/01/18 08:20 Platelet Estimate Decreased (Normal) 10/30/18 07:11 Polychromasia 1+ 10/27/18 09:37 Basophilic Stippling 1+ 11/01/18 08:20 Macrocytosis Present 11/01/18 08:20 Stomatocytes 1+ 11/01/18 08:20 PT 10.7 Seconds (9.0-12.0) 10/27/18 09:37 INR 1.1 (0.9-1.1) 10/27/18 09:37 APTT 24.5 Seconds (21.0-31.0) 10/27/18 09:37 PTT Ratio 0.9 10/27/18 09:37 VBG pH 7.36 (7.36-7.41) 10/31/18 16:08 VBG pCO2 84 mmHg (38-50) H 10/31/18 16:08 VBG pO2 42 mmHg 10/31/18 16:08 VBG HCO3 46 mmol/L 10/31/18 16:08 VBG O2 Saturation 76.5 % 10/31/18 16:08 VBG Base Excess 17.2 mEq/L 10/31/18 16:08 Barometric Pressure 729.8 mm/Hg 10/31/18 16:08 Sodium 143 mmol/L (136-145) 11/01/18 08:20 Potassium 3.6 mmol/L (3.5-5.1) 11/01/18 08:20 Chloride 94 mmol/L (98-107) L 11/01/18 08:20 Carbon Dioxide 46 mmol/L (21-32) H* 11/01/18 08:20 Anion Gap 3.0 (3-11) 11/01/18 08:20 BUN 46 mg/dl (7-18) H 11/01/18 08:20 Creatinine 1.45 mg/dl (0.6-1.4) H 11/01/18 08:20 Est Cr Clr Drug Dosing 35.2 ml/min 11/01/18 08:20 Est GFR ( Amer) 49.5 11/01/18 08:20 Est GFR (Non-Af Amer) 42.7 11/01/18 08:20 BUN/Creatinine Ratio 31.8 (10-20) H 11/01/18 08:20 Glucose 109 mg/dl (70-99) H 11/01/18 08:20 POC Glucose 98 (70-99) 10/30/18 09:39 Calcium 8.4 mg/dl (8.5-10.1) L 11/01/18 08:20 Phosphorus 3.1 mg/dl (2.5-4.9) 10/31/18 16:08 Magnesium 1.8 mg/dl (1.8-2.4) 11/01/18 08:20 Total Bilirubin 0.5 mg/dl (0.2-1) 10/30/18 07:11 AST 21 U/L (15-37) 10/30/18 07:11 ALT 6 U/L (12-78) L 10/30/18 07:11 Alkaline Phosphatase 40 U/L (45-117) L 10/30/18 07:11 Troponin I 0.094 ng/ml (0-0.045) H* 10/27/18 09:37 Total Protein 5.5 gm/dl (6.4-8.2) L 10/30/18 07:11 Albumin 2.3 gm/dl (3.4-5.0) L 10/30/18 07:11 Globulin 3.2 gm/dl (2.5-4.0) 10/30/18 07:11 Albumin/Globulin Ratio 0.7 (0.9-2) L 10/30/18 07:11 Urine Color Yellow 10/27/18 17:15 Urine Appearance Cloudy (Clear) H 10/27/18 17:15 Urine pH 6.5 (4.5-7.5) 10/27/18 17:15 Ur Specific [place] 1.008 (1.000-1.030) 10/27/18 17:15 Urine Protein Negative (Negative) 10/27/18 17:15 Urine Glucose (UA) Negative (Negative) 10/27/18 17:15 Urine Ketones Negative (Negative) 10/27/18 17:15 Urine Blood 1+ (Negative) H 10/27/18 17:15 Urine Nitrite Negative (Negative) 10/27/18 17:15 Urine Bilirubin Negative (Negative) 10/27/18 17:15 Urine Urobilinogen Negative (Negative) 10/27/18 17:15 Ur Leukocyte Esterase 3+ (Negative) H 10/27/18 17:15 Urine WBC (Auto) >30 /hpf (0-5) H 10/27/18 17:15 Urine RBC (Auto) 5-10 /hpf (0-4) H 10/27/18 17:15 U Hyaline Cast (Auto) 1-5 /lpf (0-5) 10/27/18 17:15 U Epithel Cells (Auto) 0-5 /lpf (0-5) 10/27/18 17:15 Urine Bacteria (Auto) Negative (Negative) 10/27/18 17:15 Influenza Type A Ag Neg for Influ A (Neg) 10/27/18 09:00 Influenza Type B Ag Neg for Influ B (Neg) 10/27/18 09:00 Medications Administered Current Inpatient Medications [facility] [place] Stop: 12/11/18 16:14 Last Admin: 11/16/18 07:09 Dose: 20 mg Documented by: Hydroxyzine HCl (Vistaril) 25 mg PO HS PRN PRN Reason: sleep Stop: 11/26/18 11:46 Last Admin: 10/27/18 20:40 Dose: 25 mg Documented by: Lorazepam (Ativan) 0.5 mg PO Q4H PRN PRN Reason: Anxiety or restlessness Stop: 12/01/18 17:51 Morphine Sulfate (Roxanol) 5 mg PO Q3H PRN PRN Reason: Pain Stop: 11/29/18 22:33 Last Admin: 11/15/18 23:41 Dose: 5 mg Documented by: Ondansetron HCl (Zofran) 4 mg IV Q4H PRN PRN Reason: Nausea And Vomiting Stop: 11/26/18 11:43 Senna/Docusate Sodium (Senokot S) 1 tab PO [facility] Stop: 12/13/18 12:14 Last Admin: 11/16/18 07:09 Dose: 1 tab Documented by: Resident Activity Tracking Resident Involvement: Resident Care Provided Care Provided: Adult Hospital Medicine (1) Anemia 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
[2018-11-17] MEDS: MoRPHine SULFATE 5 MG/0.25 ML UDP PO PRN (01:04)
[2018-11-17] MEDS: FUROSEMIDE 20 MG TAB PO SCH (07:52)
[2018-11-17] MEDS: DOCUSATE SODIUM/SENNA 50/8.6MG TAB PO SCH (07:52)
--- NOTE | 2018-11-17 13:12 | Family Medicine Progress Note ---
Date of Service November 17, 2018 Assessment & Plan (1) Respiratory failure: 88-year-old male was admitted on 27 October 2017 for acute shortness of breath. Acute on chronic hypoxic and hypercapnic respiratory failure, acute metabolic encephalopathy, systolic and diastolic CHF: On admission, patient required BiPAP with elevated CO2 levels. Prior PFTs noted severe disease. 14Feb TTE noted an EF of 35-40%, severe pulmonary hypertension, as well as other findings. Early in admission patient required increased supplemental oxygen, had poor oral intake, and was quite deconditioned. Please see detailed palliative care notes. 19Feb was started on comfort care. - No further lab work. No further BiPAP. Oxygen as needed for comfort. - Is on scheduled Lasix and senna for comfort. - Is on as needed Roxanol, Ativan, Zofran, and Vistaril as well. Bladder outlet obstruction, suprapubic catheter: See related urology notes. Had his suprapubic catheter exchange on . For background purposes, patient also has a history of acute on chronic kidney injury with CKD stage IV, hypomagnesemia, CAD, [place] status post stenting and CABG, cardiomyopathy, aortic stenosis status post TAVR, pacemaker, anemia, hypothyroidism, BPH, urethral obstruction with suprapubic indwelling catheter, myelodysplastic syndrome, GERD, and history of CVA. Code status: DO NOT RESUSCITATE. Diet: Heart healthy diet, fluid restriction, pured. However, patient is not really eating much. DVT prophy: None, on comfort care. PT/OT: Canceled. Disbo: Admitted to [facility]. Case management onboard. Pending referrals to [facility]. Family still working on deciding what they want. Goal is for discharge to home hospice tomorrow (). See related palliative care notes. (2) Acute metabolic encephalopathy: (3) Acute on chronic combined systolic and diastolic CHF (congestive heart failure): (4) Pulmonary edema: (5) Pulmonary hypertension: (6) JONATHAN (acute kidney injury): (7) Chronic kidney disease: (8) Hypomagnesemia: (9) CAD in [place] artery: (10) Cardiomyopathy: (11) H/O aortic valve replacement: (12) Anemia: (13) Hypothyroidism: (14) Bladder outlet obstruction: (15) Myelodysplastic syndrome: (16) GERD (gastroesophageal reflux disease): Supervising Physician Co-Signing Physician Notes Patient seen and examined with the resident. Agree with history, physical exam, assessment and plan with the following updates/corrections: 88yo M w/ hx of systolic and diastolic heart failure who presented with respiratory distress, and now is comfort measures. Today, patient is awake and is orient to self. Reports no pain or shortness of breath today. Breathing comfortably on his nasal cannula. 1) Comfort care - Family met with hospice. Will discharge tomorrow after home equipment is delivered. Subjective Found patient resting comfortably. Once again, he opens his eyes to voice and says that he feels "pretty good". He again requested some water but after taking 1 sip through a straw he said it was "too fast". Otherwise he had no particular requests or complaints. Physical Exam Vital Signs (Past 24 Hours): Last Vital Signs Temp 36.4 C L 11/06/18 22:56 Pulse 63 11/06/18 22:56 Resp 18 11/06/18 22:56 BP 154/79 H 11/06/18 22:56 Pulse Ox 100 11/14/18 07:50 Physical Exam: General Appearance: Generally somnolent but opens his eyes to voice, cachectic, but does not appear in acute distress. Appears about the same over past 72 hours. CV: +S1S2 RRR, no murmur. Pulm: Clear to auscultation at apices. Nasal cannula oxygen in place. Abdomen: +BS, soft, non-tender, non-distended. Suprapubic catheter in place without surrounding erythema. Extremities: 1+ bilateral pedal edema. No calf tenderness. Results & Data Medications Administered Current Inpatient Medications Furosemide (Lasix) 20 mg PO QAM [facility] Stop: 12/11/18 16:14 Last Admin: 11/17/18 07:52 Dose: 20 mg Documented by: Hydroxyzine HCl (Vistaril) 25 mg PO HS PRN PRN Reason: sleep Stop: 11/26/18 11:46 Last Admin: 10/27/18 20:40 Dose: 25 mg Documented by: Lorazepam (Ativan) 0.5 mg PO Q4H PRN PRN Reason: Anxiety or restlessness Stop: 12/01/18 17:51 Morphine Sulfate (Roxanol) 5 mg PO Q3H PRN PRN Reason: Pain Stop: 11/29/18 22:33 Last Admin: 11/17/18 01:04 Dose: 5 mg Documented by: Ondansetron HCl (Zofran) 4 mg IV Q4H PRN PRN Reason: Nausea And Vomiting Stop: 11/26/18 11:43 Senna/Docusate Sodium (Senokot S) 1 tab PO QAM [facility] Stop: 12/13/18 12:14 Last Admin: 11/17/18 07:52 Dose: 1 tab Documented by: Resident Activity Tracking Resident Involvement: Resident Care Provided Care Provided: Adult Hospital Medicine (1) Anemia 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
--- NOTE | 2018-11-17 13:52 | Discharge Summary ---
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 The patient normally wears 4L O2 via NC. and daughter at bedside report him as being more confused today. His legs have been significantly swollen and has recently been taking an increased dosage of Bumex 4 mg in the morning, compared to 2 mg, however hasn't improved edema. Pt was found to be hypoxic with O2 at 76% this morning on 4L by EMS. He typically is very independent and walks with a walker. He and his live at home. Admission Exam Per Admitting Provider General: awake, alert, NAD, on bipap Head: Normocephalic, atraumatic ENT: PERRL, EOMI, pharyn not evaluated due to wearing bipap Chest: On bipap, diminished breath sounds throughout, no wheeze or rales, +faint rhonchi at bases bilaterally Cardiac: Regular rate and rhythm, few PVCs, no murmur, +JVD, normal peripheral pulses, good capillary refill Abdominal: NABS x 4 quadrants, soft, nontender to palpation, no rebound, guarding or tenderness, + suprapubic catheter Extremities: 2+ peripheral edema up to thighs, no erythema, calfs nontender to palpation Psych: Normal mood and affect Neuro: AAO x 3, + some confusion regarding code status and cannot tell exact history or chronological events this morning, no motor deficits, speech is clear, no peripheral sensory deficits Principal Diagnosis Acute on chronic hypoxic and hypercapnic respiratory failure Discharge Exam General Appearance: Most mornings is somnolent, but this morning was more awake, interactive, and doesn't appear in acute distress. Cachetic. Dry oral MM. CV: +S1S2 RRR, no murmur. Pulm: Clear to auscultation at apices. Nasal cannula oxygen in place. Abdomen: +BS, soft, non-tender, non-distended. Suprapubic catheter in place without surrounding erythema. Extremities: 1+ bilateral pedal edema. No calf tenderness. Discharge Data Allergies Allergy/AdvReac Type Severity Reaction Status Date / Time Penicillins Allergy Unknown HIVES Verified 10/27/18 09:48 Consultations Cardiology progress note assessment and plan on 29 October 2018 (1) Acute on chronic systolic (congestive) heart failure: He presented now with fluid overload including peripheral edema and congestive heart failure. On review of office weights his weight has not been increasing, it sounds as though he is not been taking an excessive fluid at home. His chest x-ray does not show severe pulmonary edema. There is no obvious cause of his acute presentation but right heart failure may be a component. His creatinine has not increased substantially here and he has lost some fluid based on intake and output, his weight has dropped as well. We need continued diuresis, I would continue to diuresis until his creatinine rises, although that may be happening now. (2) CAD (coronary artery disease) of bypass graft: He has known coronary disease, his troponin was slightly elevated but in the range consistent with demand ischemia. We cannot read his electrocardiogram for acute changes but he does not of symptoms and I would not pursue further unless things change. Palliative care progress note assessment and plan (abbreviated) on 09 November 2018 -Transitioned to comfort measures only on 11/01. -Roxanol 5mg PO/SL Q3h PRN pain or SOB. Has not required any. -Lorazepam 0.5mg PO/SL Q4h PRN anxiety/agitation. Has not had any doses since 11/01. -Patient remains comfortable and stable for discharge at this time. -Family meeting held in room 401 (empty room) to discuss next steps regarding discharge planning. Viola Hudson, Dr. Newby, myself, Monique [employer] student, pt , and daughters Fransico and Zoë were present. -Viola discussed referral for placement and Dr. Newby and I answered medical questions regarding pt stability and clearance for transfer, along with indications for such. -Patient is not a GIP appropriate candidate at this time as he is not requiring any symptom management. -Palliative Performance Scale: 20% Urology progress note assessment and plan on 15 November 2018 Plan for d/c home to hospice tomorrow per at bedside. Discussing plan for SP tube change at bedside today with Dr. Koenig. Please see procedure note. Pt tolerated procedure well No complications. Please recontact our service with any additional concerns or concerns. Procedures Performed Single view chest x-ray on 27 October 2018 IMPRESSION: 1. Cardiomegaly and AICD. There is mild pulmonary vascular congestion. 2. There are layering pleural effusions with bibasilar consolidation, similar in appearance to previous. This could represent atelectasis versus pneumonia and clinical correlation will be required. Transthoracic echocardiogram on 28 October 2018 The left ventricle is mildly dilated. There is mild concentric LVH. Left ventricular systolic function is moderately reduced. The left atrium is mildly dilated. There is a bioprosthetic aortic valve. There is moderate mitral annul ar calcification. There is mild mitral regurgitation and mild mitral stenosis. Right ventricular systolic pressure is elevated at greater than 60 mmHg. Compared to study in February 2018 no definite change. Suprapubic catheter change procedure note on 15 November 2018 Son, Josué, called and made aware of plan to perform bedside suprapubic catheter change today. 16fr suprapubic catheter changed using usual sterile technique. Pt draped and cleansed with betadine. Old suprapubic tube balloon deflated, removed without difficulty. New 16fr suprapubic tube placed without difficult. Balloon inflated with 10cc sterile water. Irrigated with 60cc sterile water. Clear/yellow urine aspirated. No complications. Pt tolerated well. Dr. Koenig at bedside during procedure. Hospital Course (1) Respiratory failure: Acute on chronic hypoxic and hypercapnic respiratory failure, acute metabolic encephalopathy, systolic and diastolic CHF: On admission, patient required BiPAP with elevated CO2 levels. Prior PFTs noted severe disease. 14Feb TTE noted an EF of 35-40%, severe pulmonary hypertension, as well as other findings. Early in admission patient required increased supplemental oxygen, had poor oral intake, and was quite deconditioned. Please see detailed palliative care notes. 19Feb was started on comfort care. - No further lab work. No further BiPAP. Oxygen as needed for comfort. - As an inpatient, on scheduled Lasix and senna for comfort. Recommended being on his home bumex going forward. - Was on as needed Roxanol, Ativan, Zofran, and Vistaril as well. Bladder outlet obstruction, suprapubic catheter: See related urology notes. Had his suprapubic catheter exchange on . For background purposes, patient also has a history of acute on chronic kidney injury with CKD stage IV, hypomagnesemia, CAD, [place] status post stenting and CABG, cardiomyopathy, aortic stenosis status post TAVR, pacemaker, anemia, hypothyroidism, BPH, urethral obstruction with suprapubic indwelling catheter, myelodysplastic syndrome, GERD, and history of CVA. Plan upon discharge, in consultation with family, is for home hospice. (2) Acute metabolic encephalopathy: (3) Acute on chronic combined systolic and diastolic CHF (congestive heart failure): (4) Pulmonary edema: (5) Pulmonary hypertension: (6) JONATHAN (acute kidney injury): (7) Chronic kidney disease: (8) Hypomagnesemia: (9) CAD in [place] artery: (10) Cardiomyopathy: (11) H/O aortic valve replacement: (12) Anemia: (13) Hypothyroidism: (14) Bladder outlet obstruction: (15) Myelodysplastic syndrome: (16) GERD (gastroesophageal reflux disease): Total Time Total Time Spent Total Time Spent (In Minutes): > 30 min Discharge Plan Discharge Items Patient Disposition: Hospice - Home Reason For Visit: respiratory distress Discharge Diagnosis: Shortness of breath Discharge Goals: Decrease discomfort Activity: Per 'Additional Instructions' section Non-emergency contact: Primary Care Provider Call non-emergency contact if: you have any medication questions Diet: Heart Healthy Fluids: 1500ml (6 cups) Diet Texture: Pureed (blended smooth) Addtl Provider Instructions: You were admitted to the hospital on October 27, 2018 for difficulty breathing. During your hospitalization many different tests were performed. Because of your prior medical problems and the results of these tests, and discussions with your family, it was decided that it is best to pursue comfort care. Our goals remain that you are comfortable, in as little pain is possible, without any feel ing of struggling to breathe. The home hospice team will be able to help to take care of you once you get back home to maintain these goals. Please contact them if you or your family have any ongoing medical concerns. Prescriptions: New lorazepam 0.5 mg Tablet 0.5 mg PO Q4H PRN (Reason: pain) 30 Days Qty: 20 RF: 0 morphine 10 mg/5 mL solution 5 mg PO Q3H PRN (Reason: pain) Qty: 100 RF: 0 Continued bumetanide 2 mg tablet 2 mg PO QAM Qty: 30 RF: 5 sennosides-docusate sodium [Senna Plus] 8.6-50 mg Tablet 1 tab PO HS RF: 0 Discontinued ipratropium-albuterol 0.5 mg-3 mg(2.5 mg base)/3 mL Solution For Nebulization 3 ml INHALATION Q8H PRN (Reason: SOB) RF: 0 cyanocobalamin (vitamin B-12) 1,000 mcg Tablet 1,000 mcg PO QAM RF: 0 levothyroxine 100 mcg Tablet 100 mcg PO QAM RF: 0 tamsulosin 0.4 mg Capsule 0.4 mg PO DAILY RF: 0 ferrous sulfate [iron] 325 mg (65 mg iron) Tablet 325 mg PO QAM RF: 0 cholecalciferol (vitamin D3) [Vitamin D3] 2,000 unit Capsule 2,000 units PO QAM RF: 0 aspirin 81 mg Tablet,Delayed Release (Dr/Ec) 81 mg PO DAILY RF: 0 morphine concentrate 100 mg/5 mL (20 mg/mL) solution 5 mg PO Q6H PRN (Reason: SOB/Pain-Chronic Resp. Failure) RF: 0 ciprofloxacin HCl 500 mg tablet 500 mg PO Q12H RF: 0 megestrol 40 mg tablet 40 mg PO Q2D RF: 0 acetaminophen 325 mg Tablet 650 mg PO Q6H MDD 3000 MG/24 HOURS PRN (Reason: Fever Or Pain) RF: 0 hydroxyzine pamoate [Vistaril] 25 mg capsule 25 mg PO HS PRN (Reason: sleep) Qty: 30 RF: 0 carvedilol [Coreg] 12.5 mg Tablet 12.5 mg PO BID RF: 0 pantoprazole 40 mg Tablet,Delayed Release (Dr/Ec) 40 mg PO QAM Qty: 30 RF: 5 Stand-Alone Forms: [facility] Discharge Orders: Discharge Order (Routine); Ordered 11/18/18 Ordered By: Andi Sloan Admission Data Admit Date/Time: 10/27/18 11:44 Attending Provider: Smooth Peguero Admit Provider: Liborio Canas Primary Care Provider: Ruperto Zarate Other Providers: Liborio Canas ; Tom Tineo ; Carmen Ellis ; Dionicio Hansen II ; Smooth Peguero Service: Medical Other Interventions: Discharge Summary Assessment (RN) Last Done: 11/18/18 10:03 Supervising Physician Co-Signing Physician Notes Patient seen and examined with the resident. Agree with history, physical exam, assessment and plan with the following updates/corrections: 88yo M w/ hx of systolic and diastolic heart failure who presented with respiratory distress, and now is comfort measures. Today, patient is awake and is orient to self & place. Reports no pain or shortness of breath today. Breathing comfortably on his nasal cannula. 1) Comfort care - Family met with hospice. Will discharge today after home equipment is delivered. Scripts filled. Resident Activity Tracking Resident Involvement: Resident Care Provided Care Provided: Adult Hospital Medicine
[2018-11-18] MEDS: FUROSEMIDE 20 MG TAB PO SCH (07:18)
[2018-11-18] MEDS: DOCUSATE SODIUM/SENNA 50/8.6MG TAB PO SCH (07:18)
--- NOTE | 2018-11-18 12:13 | Palliative Care Progress Note ---
Date of Service November 18, 2018 Assessment & Plan (1) Goals of care, counseling/discussion: -Transitioned to comfort measures only on 11/01. -Roxanol 5mg PO/SL Q3h PRN pain or SOB. -Lorazepam 0.5mg PO/SL Q4h PRN anxiety/agitation. -Patient is leaving today. HOme on hospice with his son and . -Will sign off. Please let me know if there are any further palliative care needs. Subjective Patient is now fully awake. Oriented to person and place, sometimes time and event. No complaints. Is comfortable and ready to go home. Constitutional: + weakness Respiratory: no cough and no dyspnea Cardiovascular: no chest pain and no edema Gastrointestinal: no abdominal pain and no nausea Physical Exam Vital Signs (Past 24 Hours): Last Vital Signs Temp 36.4 C L 11/18/18 10:03 Pulse 63 11/18/18 10:03 Resp 18 11/18/18 10:03 BP 154/79 H 11/18/18 10:03 Pulse Ox 100 11/18/18 10:03 Constitutional: + ill appearing and + cachectic Neck: normal visual inspection and trachea midline Respiratory: + abnormal respiratory effort (poor respiratory effort) and no labored breathing Auscultation: + diminished lung sounds Cardiovascular: Rate/Rhythm: regular rate and regular rhythm Vessels: dorsa lis pedis pulses present Gastrointestinal (Abdomen): Inspection/Auscultation: abdomen normal to inspection and normal bowel sounds; abdomen not distended Percussion/Palpation: abdomen soft; abdomen nontender Skin: + jaundice and + pallor Neurologic: awake and + confused Psychiatric: Orientation: oriented to place; + not oriented to time Time Spent Midlevel 25 minutes with >50% of time spent at bedside with patient and nursing staff to discuss case
== END 2018-11-18 15:35 | disposition hospice, home (50) | DRG 291 ==
LOC: ED 09:01 → 2S 11:44 → SUATTDRO 11:44 → 2S 12:45 → 4E 11-01 17:02